=== PATIENT | male | born 1950 | race Caucasian/White ===

== ENCOUNTER 2023-11-23 15:18 | Inpatient (IN) | payer MEDICARE, OTHER ==
[2023-11-23] MEDS ORDERED: VANCOMYCIN IV PER PHARMACY 1 EACH MISC MISCELLANE PRN (16:08)
--- NOTE | 2023-11-23 16:08 | ED ---
General Adult HPI - General Chief complaint: Fall Stated complaint: Diabetic ulcer Time Seen by Provider: 11/23/23 15:23 Source: patient, RN/MD, RN notes reviewed Mode of arrival: EMS Limitations: no limitations - History of Present Illness Initial comments: Patient is a 73-year-old male present to the emergency department as a transfer from [facility]. Patient did have a fall last night. Patient did strike his head. Patient is unable to get up secondary to he is not ambulatory. Patient was seen at [facility] and concern for early onset rhabdomyolysis and nonhealing foot ulcers. Patient was started on Zosyn and vancomycin. Patient was transferred for further evaluation of ulcers as well as fluids. Patient states he is diabetic and has severe neuropathy and therefore is not ambulatory. Review of Systems ROS Statement: Those systems with pertinent positive or pertinent negative responses have been documented in the HPI. ROS Other: All systems not noted in ROS Statement are negative. Constitutional: Denies: fever Eyes: Denies: eye pain ENT: Denies: ear pain Respiratory: Denies: cough Cardiovascular: Denies: chest pain Endocrine: Reports: fatigue Gastrointestinal: Denies: abdominal pain Genitourinary: Denies: dysuria Skin: Reports: as per HPI General Exam Limitations: no limitations General appearance: alert, in no apparent distress Head exam: Present: other (Soft tissue swelling left side) Eye exam: Present: normal appearance, PERRL, EOMI Neck exam: Present: normal inspection. Absent: tenderness Respiratory exam: Present: normal lung sounds bilaterally Cardiovascular Exam: Present: regular rate, normal rhythm GI/Abdominal exam: Present: soft. Absent: tenderness Extremities exam: Present: pedal edema, other (Right foot with gangrenous small ulcers of the toe on the first and fifth. There is also a 4 cm ulcer of the lateral midfoot on the plantar side with necrotic appearance. There is other ulcers as well.) Neurological exam: Present: alert Expanded Neurological exam: Present: protecting the airway Patient oriented to: Present: person, place, time Speech: Present: fluid speech Motor strength exam: RUE: 5, LUE: 5, RLE: 2/1, LLE: 2/1 Eye Response: (4) open spontaneously Motor Response: (6) obeys commands Verbal Response: (5) oriented Psychiatric exam: Present: normal affect, normal mood Skin exam: Present: other (Skin ulcers, right foot) Course Vital Signs 11/23/23 15:26 Temperature 98.5 F Pulse Rate 85 Respiratory 18 Rate Blood Pressure 168/80 O2 Sat by Pulse 98 Oximetry Medical Decision Making - Medical Decision Making Was pt. sent in by a medical professional or institution (, PA, BEEF TRIMMER, urgent care, hospital, or jail...) When possible be specific @ -Patient was sent from [facility] Did you speak to anyone other than the patient for history (EMS, parent, family, police, friend...)? What history was obtained from this source @ -Speak with transferring physician Dr. Troy Toney Did you review nursing and triage notes (agree or disagree)? Why? @ -I reviewed and agree with nursing and triage notes Were old charts reviewed (outside hosp., previous admission, EMS record, old EKG, old radiological studies, urgent care reports/EKG's, jail records)? Report findings @ -Reviewed from [facility] Differential Diagnosis (chest pain, altered mental status, abdominal pain women, abdominal pain men, vaginal bleeding, weakness, fever, dyspnea, syncope, headache, dizziness, GI bleed, back pain, seizure, CVA, palpatations, mental health, musculoskeletal)? @ -Differential Weakness: Hypoglycemia, shock, sepsis, hyponatremia, anemia, infection, CA, ETOH, adverse medicine reaction, overdose, stroke, this is not meant to be an all-inclusive list. EKG interpreted by me (3pts min.). @ -As above X-rays interpreted by me (1pt min.). @ -Left shoulder without acute abnormality CT interpreted by me (1pt min.). @ -None done U/S interpreted by me (1pt. min.). @ -None done What testing was considered but not performed or refused? (CT, X-rays, U/S, labs)? Why? @ -X-ray left shoulder will be added What meds were considered but not given or refused? Why? @ -None Did you discuss the management of the patient with other professionals (professionals i.e. , IBIS, BEEF TRIMMER, lab, RT, psych nurse, social insurance analyst, recovery assistant, teacher, emergency communications officer, human services case manager)? Give summary @ -Dr. Henderson will admit covering Dr. Paul Was smoking cessation discussed for >3mins.? @ -No Was critical care preformed (if so, how long)? @ -No Were there social determinants of health that impacted care today? How? (Homelessness, low income, unemployed, alcoholism, drug addiction, transportation, low edu. Level, literacy, decrease access to med. care, snf, rehab)? @ -No Was there de-escalation of care discussed even if they declined (Discuss DNR or withdrawal of care, Hospice)? DNR status @ -No What co-morbidities impacted this encounter? (DM, HTN, Smoking, COPD, CAD, Cancer, CVA, ARF, Chemo, Hep., AIDS, mental health diagnosis, sleep apnea, morbid obesity)? @ -Diabetes Was patient admitted / discharged? Hospital course, mention meds given and route, prescriptions, significant lab abnormalities, going to OR and other pertinent info. @ -Patient presents as a transfer with concerns for ulcer and early rhabdo. Patient will be admitted. Admission orders written. Consult will be placed. IV antibiotics will be continued. Cultures not ordered secondary to patient already started on IV antibiotics prior to arrival Undiagnosed new problem with uncertain prognosis? @ -No Drug Therapy requiring intensive monitoring for toxicity (Heparin, Nitro, Insulin, Cardizem)? @ -No Were any procedures done? @ -No Diagnosis/symptom? @ -Gangrenous foot ulcers, rhabdomyolysis Acute, or Chronic, or Acute on Chronic? @ -Acute, acute Uncomplicated (without systemic symptoms) or Complicated (systemic symptoms)? @ -Complicated with neuropathy Side effects of treatment? @ -No Exacerbation, Progression, or Severe Exacerbation? @ -No Poses a threat to life or bodily function? How? (Chest pain, USA, CA, pneumonia, PE, COPD, DKA, ARF, appy, cholecystitis, CVA, Diverticulitis, Homicidal, Suicidal, threat to staff... and all critical care pts) @ -Threat to renal function and limb Disposition Clinical Impression: Diabetic foot ulcer, Rhabdomyolysis, Fall Disposition: ADMITTED IP TO THIS HOSP Is patient prescribed a controlled substance at d/c from ED?: No Referrals: Brendon Eli MD [Primary Care Provider] - 1-2 days Time of Disposition: 16:07
[2023-11-23] MEDS ORDERED: NALOXONE 0.4 MG/ML 1 ML VIAL IV PRN (16:10)
--- NOTE | 2023-11-23 16:32 | XR ---
EXAMINATION TYPE: XR shoulder complete 3 views LT DATE OF EXAM: 11/23/2023 Comparison: None Clinical History: 73-year-old male pain after fall Findings: Moderate degenerative change at the AC joint. There is some soft tissue swelling overlying the should er. Subtle irregularity at the distal acromion adjacent to the AC joint. Subacromial space is preserv ed. Some sclerosis at the greater tuberosity may reflect chronic rotator cuff tendinopathy. Otherwise , no acute fracture, subluxation, dislocation is seen. Impression: Moderate AC joint OA but with subtle irregularity at the distal acromion adjacent to the AC joint. If focal pain here, unable to exclude a subtle nondisplaced fracture.
[2023-11-23] MEDS: VANCOMYCIN 2,250 MG in SODIUM CHLORIDE 0.9% 500 ML 500 ML IVPB STA (17:31)
[2023-11-23] MEDS: MORPHINE SULFATE 4 MG/ML SYRINGE IV PRN (17:35)
[2023-11-23 18:35] LABS: ALT 25 U/L (4-49); AST 79 U/L (17-59); African American GFR (CKD) 49 (>60 ml/min/1.73 sqM); Albumin 2.9 g/dL (3.5-5.0); Alkaline Phosphatase 120 U/L (38-126); Anion Gap 6 mmol/L; Blood Urea Nitrogen 39 mg/dL (9-20); Calcium 8.2 mg/dL (8.4-10.2); Carbon Dioxide 25 mmol/L (22-30); Chloride 108 mmol/L (98-107); Glucose 266 mg/dL (74-99); Non-African American GFR(CKD) 43 (>60 ml/min/1.73 sqM); Sodium 139 mmol/L (137-145); Total Bilirubin 0.8 mg/dL (0.2-1.3); Total Protein 5.5 g/dL (6.3-8.2)
[2023-11-23] MEDS: PIPERACILLIN-TAZOBACTAM 3.375 GM in SODIUM CHLORIDE 0.9% 100 ML IVPB SCH (19:02)
[2023-11-23] MEDS ORDERED: ALPRAZolam 0.25 MG TAB PO PRN (20:40)
[2023-11-23] MEDS ORDERED: DEXTROSE 50% SYRINGE 50 ML IVP PRN ×2 (20:40)
[2023-11-23] MEDS ORDERED: ONDANSETRON 4 MG/2 ML VIAL IVP PRN (20:40)
[2023-11-23] MEDS ORDERED: LACTULOSE 20 GM/30 ML CUP PO PRN (20:40)
[2023-11-23] MEDS ORDERED: CALCIUM CARBONATE 500 MG CHEWABLE PO PRN (20:40)
[2023-11-23] MEDS: ATORVASTATIN 20 MG TAB PO SCH (21:35)
[2023-11-23] MEDS: GABAPENTIN 400 MG CAP PO SCH (21:35)
[2023-11-23] MEDS: FAMOTIDINE 20 MG TAB PO SCH (21:35)
[2023-11-23] MEDS: ENOXAPARIN 40 MG/0.4 ML SYRINGE SQ SCH (21:36)
[2023-11-23 21:49] LABS: Glucose,Whole Blood 262 mg/dL (70-110)
[2023-11-23] MEDS: SODIUM CHLORIDE 0.9% 1,000 ML IV SCH (22:24)
[2023-11-23] MEDS: traMADol 50 MG TAB PO PRN (23:03)
[2023-11-23 23:07] LABS: Appearance,Urine Clear (Clear); Bacteria,Urine Rare /hpf; Bilirubin,Urine Negative (Negative); Blood,Urine Large (Negative); Color,Urine Light Yellow; Glucose,Urine (UA) 3+ (Negative); Ketones,Urine 1+ (Negative); Leukocyte Esterase,Urine Negative (Negative); Nitrite,Urine Negative (Negative); PH, Urine 5.5 (5.0-8.0); Protein,Urine 2+ (Negative); RBC,Urine 1 /hpf (0-5); Squamous Epithelial Cell,Urine 1 /hpf (0-4); Urobilinogen,Urine <2.0 mg/dL (<2.0); WBC,Urine 1 /hpf (0-5)
--- NOTE | 2023-11-23 23:24 | P.HPIM ---
History of Present Illness H&P Date: 11/23/23 Chief Complaint: Right leg wounds This is a pleasant 73-year-old patient follows with Dr. Eli. Chronic stable medical conditions include hyperlipidemia, hypothyroid, diabetes, hypertension, diabetic peripheral neuropathy for which she takes Neurontin. Patient presents with worsening leg wounds specially the right toes right lower extremity. Breakdown of skin. Some tenderness. No change in bowel pattern. At her baseline uses electric wheelchair. Patient was due to follow-up at wound care center out of the area. Denies any fever. Gets chills. Review of systems: GEN.: Tired EYES: None HEENT: None NECK: None RESPIRATORY: None CARDIOVASCULAR: None GASTROINTESTINAL: None GENITOURINARY: None MUSCULOSKELETAL: Joint pains e LYMPHATICS: None HEMATOLOGICAL: None PSYCHIATRY: None NEUROLOGICAL: painful peripheral neuropathy] Social history: Lives alone. Stopped smoking 32 years ago. Smoked for about 28 years more than pack a day. Used to be a team truck driver. Does use electric wheelchair. Physical examination: VITAL SIGNS: 98.5, 84, 18, 160/85, 96% room air GENERAL: BMI 43.9, reclining bed awake tired. EYES: Pupils equal. Conjunctiva homa l. HEENT: External appearance of nose and ears normal, oral cavity grossly normal. NECK: JVD not raised; masses not palpable. HEART: First and second heart sounds are normal; no edema. LUNGS: Respiratory rate normal; decreased breath sounds. ABDOMEN: Soft, nontender, liver spleen not palpable, no masses palpable. PSYCH: Alert and oriented x3; mood and affect homa l. EXTREMITY: Breakdown of skin in the right lower extremity below the bartlett. Surrounding redness. Superficial. Right foot a bit swollen. Wounds around the toes. Tender. NEUROLOGICAL: Cranial nerves grossly intact; no facial asymmetry, power and sensation decreased peripherally. LYMPHATICS: No lymph nodes palpable in the axilla and neck INVESTIGATIONS, reviewed in the clinical context: November 22: Sodium 139 potassium 5 BUN 39 creatinine 1.60 AST 79 ALT 25 Assessment and plan: -Right lower extremity wound secondary to diabetes. Around the toes. Below the knee to the ankle. Some superficial. Surrounding cellulitis. Right foot is swollen. Consult vascular. iV Zosyn. -Morbid obesity BMI 43.9 Weight loss measures -Painful peripheral neuropathy secondary to diabetes Given renal function will cut back Neurontin to 1600 mg nightly -Diabetes mellitus type 2 on insulin- Follow Accu-Cheks with sliding scale -Hypothyroid Synthroid 112 mcg a day -Hyperlipidemia Zocor 40 mg nightly -Full code -Chronic gait dysfunction uses a electric wheelchair Consultation to vascular. ID. VANDANA Pelayo. Medications and Allergies Home Medications Medication Instructions Recorded Confirmed Type Aspirin EC [Ecotrin Low Dose] 81 mg PO DAILY 11/23/23 11/23/23 History Furosemide [Lasix] 20 mg PO DAILY 11/23/23 11/23/23 History Gabapentin [Neurontin] 1,600 mg PO HS 11/23/23 11/23/23 History Gabapentin [Neurontin] 800 mg PO DAILY 11/23/23 11/23/23 History Insulin Aspart Prot/Insuln Asp See Protocol SQ AC-BID 11/23/23 11/23/23 History [NovoLOG MIX 70-30 Flexpen] Levothyroxine Sodium [Synthroid] 112 mcg PO DAILY 11/23/23 11/23/23 History Simvastatin [Zocor] 40 mg PO HS 11/23/23 11/23/23 History lisinopriL [Zestril] 20 mg PO DAILY 11/23/23 11/23/23 History metFORMIN HCL ER [Glucophage XR] 1,000 mg PO BID-W/MEALS 11/23/23 11/23/23 History Allergies Allergy/AdvReac Type Severity Reaction Status Date / Time No Known Allergies Allergy Verified 11/23/23 17:09 Physical Exam Vitals: Vital Signs Temp Pulse Resp BP Pulse Ox 11/23/23 18:04 84 18 160/85 96 11/23/23 15:26 98.5 F 85 18 168/80 98 Intake and Output 11/23/23 11/23/23 11/24/23 14:59 22:59 06:59 Other: Weight 151.046 kg Results CBC & Chem 7: 11/23/23 18:02 Labs: Abnormal Lab Results - Last 24 Hours (Table) 11/23/23 11/23/23 11/23/23 Range/Units 18:02 21:44 21:48 Chloride 108 H (98-107) mmol/L BUN 39 H (9-20) mg/dL Creatinine 1.60 H (0.66-1.25) mg/dL Glucose 266 H (74-99) mg/dL POC Glucose (mg/dL) 262 H (70-110) mg/dL Calcium 8.2 L (8.4-10.2) mg/dL AST 79 H (17-59) U/L Total Protein 5.5 L (6.3-8.2) g/dL Albumin 2.9 L (3.5-5.0) g/dL Urine Protein 2+ H (Negative) Urine Glucose (UA) 3+ H (Negative) Urine Ketones 1+ H (Negative) Urine Blood Large H (Negative) Urine Bacteria Rare H (None) /hpf
--- NOTE | 2023-11-24 01:39 | XR ---
EXAM: XR Chest, 1 View CLINICAL HISTORY: ITS.REASON XR Reason: Ex-smoker TECHNIQUE: Frontal view of the chest. COMPARISON: No relevant prior studies available. FINDINGS: Lungs: Unremarkable. No consolidation. Pleural space: Unremarkable. No pleural effusion or pneumothorax. Heart: Unremarkable. No cardiomegaly or pulmonary vascular congestion. Bones/joints: No acute fracture. No dislocation. IMPRESSION: No evidence of acute cardiopulmonary disease.
[2023-11-24 04:07] LABS: Glucose,Whole Blood 228 mg/dL (70-110)
[2023-11-24] MEDS ORDERED: ZINC OXIDE PASTE (Z-GUARD) 1 APPLIC TOPICAL PRN (05:14)
[2023-11-24] MEDS: LEVOTHYROXINE 112 MCG TAB PO SCH (06:35)
[2023-11-24 06:53] LABS: Glucose,Whole Blood 265 mg/dL (70-110)
[2023-11-24] MEDS: INSULIN ASPART (NovoLOG) 100 UNIT/ML VIAL SQ SCH (08:32)
[2023-11-24] MEDS: lisinopriL 20 MG TAB PO SCH (08:32)
[2023-11-24] MEDS: metFORMIN 500 MG TAB PO SCH (08:32)
[2023-11-24] MEDS: ASPIRIN 81 MG PO SCH (08:32)
[2023-11-24] MEDS ORDERED: GABAPENTIN 400 MG CAP PO SCH (09:00)
[2023-11-24 10:39] LABS: Basophils # (A) 0.07 X 10*3/uL (0.00-0.10); Basophils % (A) 0.7 %; Eosinophils # (A) 0.35 X 10*3/uL (0.04-0.35); Eosinophils % (A) 3.3 %; HCT 27.1 % (39.6-50.0); HGB 8.4 g/dL (13.0-17.0); Lymphocytes # (A) 0.86 X 10*3/uL (0.90-5.00); Lymphocytes % (A) 8.2 %; MCV 90.3 FL (80.0-97.0); Monocytes % (A) 4.7 %; NRBC Per 100 WBC 0 X 10*3/uL (0.00-0.01); Neutrophils # (A) 8.71 X 10*3/uL (1.80-7.70); Neutrophils % (A) 82.6 %; Platelet Count 320 X 10*3/uL (140-440); RDW 12.9 % (11.5-14.5); WBC 10.54 X 10*3/uL (4.50-10.00)
[2023-11-24 10:59] LABS: ALT 29 U/L (10-49); AST 73 U/L (14-35); Albumin 2.9 g/dL (3.8-4.9); Albumin/Globulin Ratio 1.32 Ratio (1.60-3.17); Alkaline Phosphatase 103 U/L (41-126); BUN/Creat Ratio 21.18 Ratio (12.00-20.00); Calcium 7.8 mg/dL (8.7-10.3); Carbon Dioxide 23.8 mmol/L (21.6-31.8); Chloride 106 mmol/L (96-109); Globulin 2.2 g/dL (1.6-3.3); Glucose 230 mg/dL (70-110); Magnesium 1.9 mg/dL (1.5-2.4); Potassium 4.7 mmol/L (3.5-5.5); Sodium 141 mmol/L (135-145); Total Bilirubin 0.3 mg/dL (0.3-1.2); Total Protein 5.1 g/dL (6.2-8.2)
[2023-11-24 11:47] LABS: Glucose,Whole Blood 250 mg/dL (70-110)
[2023-11-24] MEDS ORDERED: VANCOMYCIN 2,250 MG in SODIUM CHLORIDE 0.9% 500 ML 500 ML IVPB SCH (12:00)
--- NOTE | 2023-11-24 12:11 | P.CONS ---
History of Present Illness - Reason for Consult Consult date: 11/24/23 wound care - History of Present Illness This is a 73-year-old patient with past medical history significant for COPD diabetes high cholesterol and hypertension. Patient has a nonhealing ulceration to the right dorsal great toe measuring approximately 2 x 2 x 0.2 cm with eschar slough and nonviable tissue present minimal granulation noted. Patient has a stage II pressure ulcer to the right heel with significant amount of slough and nonviable tissue. Ulceration measures approximately 4 x 4 x 0.2 cm. Patient also has a unstageable pressure ulcer to the right midfoot plantar aspect with eschar present no granulation. Patient has multiple ulcerations noted to bilateral lower extremities and left foot in various stage of healing. Patient also has a stage II pressure ulcer to the sacrum. Review Of Systems: Constitutional: No fever, no chills, no night sweats. No weight change. No weakness, fatigue or lethargy. No daytime sleepiness. Integumentary:reports wounds, no lesions. No rash or pruritus. No unusual bruising. No change in hair or nails. Physical exam: General Appearance: Alert, cooperative, no distress, appears stated age. Skin: See HPI all other Skin color, texture, tugor normal, no rashes or lesions. Neurologic: Alert oriented x3 Assessment: 1. Nonhealing ulceration with fat layer exposure right great toe 2. Stage II pressure ulcer right calcaneus 3. Unstageable pressure ulcer right foot 4. Stage II pressure ulcer sacrum 5. Diabetes with skin ulceration 6. Diabetes with foot ulceration Plan: 1. Apply honey gel to the right foot wrapped with dry gauze rolled gauze and secure with tape. Change Wednesday. May benefit from a debridement of the ulcerations to the right foot. 2. Apply zinc barrier cream to left foot bilateral lower extremities and sacrum. Turn patient every 2 hours as needed. Utilize offloading for sacrum and bilateral heels. 3. Patient would benefit from advanced wound care and wound care setting. We happy to see him upon discharge. Thank you for the consultation any questions please contact the wound care center DNP note has been reviewed and discussed with Dr. Dao and the impression and plan of care has been directed as dictated. Past Medical History Past Medical History: COPD, Diabetes Mellitus, Hyperlipidemia, Hypertension, Myocardial Infarction (NM), Neurologic Disorder, Thyroid Disorder Additional Past Medical History / Comment(s): Peripheral neuropathy, diabetic leg ulcers, Last Myocardial Infarction Date:: Pt guesses its been about 5 years2018 History of Any Multi-Drug Resistant Organisms: Unobtainable Past Surgical History: Heart Catheterization With Stent Additional Past Surgical History / Comment(s): Bilateral caterac surgery Past Anesthesia/Blood Transfusion Reactions: No Reported Reaction Date of Last Stent Placement:: 2020 Smoking Status: Former smoker Past Alcohol Use History: Heavy Additional Past Alcohol Use History / Comment(s): Pt stopped drinking 16 years ago Past Drug Use History: None Reported Medications and Allergies Home Medications Medication Instructions Recorded Confirmed Type Aspirin EC [Ecotrin Low Dose] 81 mg PO DAILY 11/23/23 11/23/23 History Furosemide [Lasix] 20 mg PO DAILY 11/23/23 11/23/23 History Gabapentin [Neurontin] 1,600 mg PO HS 11/23/23 11/23/23 History Gabapentin [Neurontin] 800 mg PO DAILY 11/23/23 11/23/23 History Insulin Aspart Prot/Insuln Asp See Protocol SQ AC-BID 11/23/23 11/23/23 History [NovoLOG MIX 70-30 Flexpen] Levothyroxine Sodium [Synthroid] 112 mcg PO DAILY 11/23/23 11/23/23 History Simvastatin [Zocor] 40 mg PO HS 11/23/23 11/23/23 History lisinopriL [Zestril] 20 mg PO DAILY 11/23/23 11/23/23 History metFORMIN HCL ER [Glucophage XR] 1,000 mg PO BID-W/MEALS 11/23/23 11/23/23 History Allergies Allergy/AdvReac Type Severity Reaction Status Date / Time No Known Allergies Allergy Verified 11/23/23 17:09 Physical Exam Vitals: Vital Signs Temp Pulse Pulse Resp BP BP Pulse Ox 11/24/23 06:51 97.6 F 77 19 163/74 96 11/24/23 04:14 97.8 F 83 16 163/69 96 11/24/23 01:42 98.3 F 78 20 145/76 98 11/23/23 18:04 84 18 160/85 96 11/23/23 15:26 98.5 F 85 18 168/80 98 Intake and Output 11/23/23 11/24/23 11/24/23 22:59 06:59 14:59 Other: Voiding Method Urinal Urinal # Voids 1 Weight 151.046 kg 151.046 kg Results CBC & Chem 7: 11/24/23 06:15 11/24/23 06:15 Labs: Abnormal Lab Results - Last 24 Hours (Table) 11/23/23 11/23/23 11/23/23 Range/Units 18:02 21:44 21:48 WBC (4.50-10.00) X 10*3/uL RBC (4.40-5.60) X 10*6/uL Hgb (13.0-17.0) g/dL Hct (39.6-50.0) % MCHC (32.0-37.0) g/dL Immature Gran # (0.00-0.04) X 10*3/uL Neutrophils # (1.80-7.70) X 10*3/uL Lymphocytes # (0.90-5.00) X 10*3/uL Chloride 108 H (98-107) mmol/L BUN 39 H (9-20) mg/dL Creatinine 1.60 H (0.66-1.25) mg/dL Est GFR (CKD-EPI) (>=60) BUN/Creatinine Ratio (12.00-20.00) Ratio Glucose 266 H (74-99) mg/dL POC Glucose (mg/dL) 262 H (70-110) mg/dL Calcium 8.2 L (8.4-10.2) mg/dL AST 79 H (17-59) U/L Total Protein 5.5 L (6.3-8.2) g/dL Albumin 2.9 L (3.5-5.0) g/dL Albumin/Globulin Ratio (1.60-3.17) Ratio Urine Protein 2+ H (Negative) Urine Glucose (UA) 3+ H (Negative) Urine Ketones 1+ H (Negative) Urine Blood Large H (Negative) Urine Bacteria Rare H (None) /hpf 11/24/23 11/24/23 11/24/23 Range/Units 04:05 06:15 06:15 WBC 10.54 H (4.50-10.00) X 10*3/uL RBC 3.00 L (4.40-5.60) X 10*6/uL Hgb 8.4 L (13.0-17.0) g/dL Hct 27.1 L (39.6-50.0) % MCHC 31.0 L (32.0-37.0) g/dL Immature Gran # 0.05 H (0.00-0.04) X 10*3/uL Neutrophils # 8.71 H (1.80-7.70) X 10*3/uL Lymphocytes # 0.86 L (0.90-5.00) X 10*3/uL Chloride (98-107) mmol/L BUN 36.0 H (9-20) mg/dL Creatinine 1.7 H (0.66-1.25) mg/dL Est GFR (CKD-EPI) 42 L (>=60) BUN/Creatinine Ratio 21.18 H (12.00-20.00) Ratio Glucose 230 H (74-99) mg/dL POC Glucose (mg/dL) 228 H (70-110) mg/dL Calcium 7.8 L (8.4-10.2) mg/dL AST 73 H (17-59) U/L Total Protein 5.1 L (6.3-8.2) g/dL Albumin 2.9 L (3.5-5.0) g/dL Albumin/Globulin Ratio 1.32 L (1.60-3.17) Ratio Urine Protein (Negative) Urine Glucose (UA) (Negative) Urine Ketones (Negative) Urine Blood (Negative) Urine Bacteria (None) /hpf 11/24/23 11/24/23 Range/Units 06:52 11:46 WBC (4.50-10.00) X 10*3/uL RBC (4.40-5.60) X 10*6/uL Hgb (13.0-17.0) g/dL Hct (39.6-50.0) % MCHC (32.0-37.0) g/dL Immature Gran # (0.00-0.04) X 10*3/uL Neutrophils # (1.80-7.70) X 10*3/uL Lymphocytes # (0.90-5.00) X 10*3/uL Chloride (98-107) mmol/L BUN (9-20) mg/dL Creatinine (0.66-1.25) mg/dL Est GFR (CKD-EPI) (>=60) BUN/Creatinine Ratio (12.00-20.00) Ratio Glucose (74-99) mg/dL POC Glucose (mg/dL) 265 H 250 H (70-110) mg/dL Calcium (8.4-10.2) mg/dL AST (17-59) U/L Total Protein (6.3-8.2) g/dL Albumin (3.5-5.0) g/dL Albumin/Globulin Ratio (1.60-3.17) Ratio Urine Protein (Negative) Urine Glucose (UA) (Negative) Urine Ketones (Negative) Urine Blood (Negative) Urine Bacteria (None) /hpf Assessment and Plan (1) Non-pressure chronic ulcer of other part of right foot with fat layer exposed Current Visit: Yes Status: Acute Code(s): L97.512 - NON-PRS CHRONIC ULCER OTH PRT RIGHT FOOT W FAT LAYER EXPOSED SNOMED Code(s): 22073492695148051 (2) Pressure ulcer of right heel, stage 2 Current Visit: Yes Status: Acute Code(s): L89.612 - PRESSURE ULCER OF RIGHT HEEL, STAGE 2 SNOMED Code(s): 19764457409320 (3) Pressure ulcer of right foot, unstageable Current Visit: Yes Status: Acute Code(s): L89.890 - PRESSURE ULCER OF OTHER SITE, UNSTAGEABLE SNOMED Code(s): 735412933 (4) Type 2 diabetes mellitus with foot ulcer Current Visit: Yes Status: Acute Code(s): E11.621 - TYPE 2 DIABETES MELLITUS WITH FOOT ULCER; L97.509 - NON-PRESSURE CHRONIC ULCER OTH PRT UNSP FOOT W UNSP SEVERITY SNOMED Code(s): 5227124157354 (5) Type 2 diabetes mellitus with other skin ulcer Current Visit: Yes Status: Acute Code(s): E11.622 - TYPE 2 DIABETES MELLITUS WITH OTHER SKIN ULCER; L98.499 - NON-PRESSURE CHRONIC ULCER OF SKIN OF SITES W UNSP SEVERITY SNOMED Code(s): 237752845041638
--- NOTE | 2023-11-24 12:20 | US ---
EXAMINATION TYPE: US kidneys/renal and bladder DATE OF EXAM: 11/23/2023 COMPARISON: NONE CLINICAL INDICATION: Male, 73 years old with history of eval for chronic renal failure; evaluate wrap turner monica kidney disease. EXAM MEASUREMENTS: Right Kidney: Unable to visualize due to large body habitus Left Kidney: Approximately 9.8 x 7.1 x 6.2 cm Extremely limited exam due to patient body habitus Right Kidney: Unable to visualize Left Kidney: Difficult to fully evaluate due to body habitus Bladder: WNL Bilateral Jets seen: Not seen IMPRESSION: Very limited exam due to poor visibility of organs. Unremarkable as seen.
--- NOTE | 2023-11-24 12:21 | P.GSCN ---
History of Present Illness Consult date: 11/24/23 Reason for Consult: Diabetic ulcers Requesting physician: Santy Rodriguez History of present illness: Is a pleasant 73-year-old male with past medical history including diabetes mellitus, neuropathy, venous insufficiency with venous stasis and venous ulcers who is nonambulatory presented to [facility] status post fall and striking his head. Patient was seen and worked up there had imaging done with no acute findings however they were concerned with his diabetic ulcers and he was transferred here for further evaluation and care. Patient states he has a history of venous ulcers and has followed in the past at the wound center. States that he was not really aware that he had wounds on his foot. Patient lives at home alone. He is overall nonambulatory other than standing to get into his electric scooter. He states he does care for himself and he has not been getting wound care currently but was scheduled to go to program development specialist in [place] this week. Denies any fevers or chills, no nausea or vomiting. No shortness of breath or chest pain. He denies being on any anticoagulation. Foot x-ray done at [facility] report states no evidence of osteomyelitis. Review of Systems A 14 point review systems was completed all pertinent positives and negatives as stated in the HPI. Past Medical History Past Medical History: COPD, Diabetes Mellitus, Hyperlipidemia, Hypertension, Myocardial Infarction ([place]), Neurologic Disorder, Thyroid Disorder Additional Past Medical History / Comment(s): Peripheral neuropathy, diabetic leg ulcers, Last Myocardial Infarction Date:: Pt guesses its been about 5 years2018 History of Any Multi-Drug Resistant Organisms: Unobtainable Past Surgical History: Heart Catheterization With Stent Additional Past Surgical History / Comment(s): Bilateral caterac surgery Past Anesthesia/Blood Transfusion Reactions: No Reported Reaction Date of Last Stent Placement:: 2020 Smoking Status: Former smoker Past Alcohol Use History: Heavy Additional Past Alcohol Use History / Comment(s): Pt stopped drinking 16 years ago Past Drug Use History: None Reported Medications and Allergies Home Medications Medication Instructions Recorded Confirmed Type Aspirin EC [Ecotrin Low Dose] 81 mg PO DAILY 11/23/23 11/23/23 History Furosemide [Lasix] 20 mg PO DAILY 11/23/23 11/23/23 History Gabapentin [Neurontin] 1,600 mg PO HS 11/23/23 11/23/23 History Gabapentin [Neurontin] 800 mg PO DAILY 11/23/23 11/23/23 History Insulin Aspart Prot/Insuln Asp See Protocol SQ AC-BID 11/23/23 11/23/23 History [NovoLOG MIX 70-30 Flexpen] Levothyroxine Sodium [Synthroid] 112 mcg PO DAILY 11/23/23 11/23/23 History Simvastatin [Zocor] 40 mg PO HS 11/23/23 11/23/23 History lisinopriL [Zestril] 20 mg PO DAILY 11/23/23 11/23/23 History metFORMIN HCL ER [Glucophage XR] 1,000 mg PO BID-W/MEALS 11/23/23 11/23/23 History Allergies Allergy/AdvReac Type Severity Reaction Status Date / Time No Known Allergies Allergy Verified 11/23/23 17:09 Surgical - Exam Vital Signs Temp Pulse Resp BP Pulse Ox 98.5 F 85 18 168/80 98 11/23/23 15:26 11/23/23 15:26 11/23/23 15:26 11/23/23 15:26 11/23/23 15:26 General appearance: The patient is alert, oriented, appears in no acute distress. Morbidly obese HET: Head is normocephalic and atraumatic. Pupils are equal and reactive. Neck: Supple. Heart: Regular. Lungs: Equal expansion, normal respiratory effort. Abdomen: Soft, nontender, nondistended. Extremities: Bilateral lower extremity swelling, venous insufficiency with venous stasis and multiple venous ulcers. Patient also with pressure ulcer to his right heel and right lateral side of foot with eschar. Multiple toes with wounds. Palpable bilateral DP pulses Neurological: No focal deficits. Decreased strength. Results - Labs 11/24/23 06:15 11/24/23 06:15 Abnormal Lab Results - Last 24 Hours (Table) 11/23/23 11/23/23 11/23/23 Range/Units 18:02 21:44 21:48 WBC (4.50-10.00) X 10*3/uL RBC (4.40-5.60) X 10*6/uL Hgb (13.0-17.0) g/dL Hct (39.6-50.0) % MCHC (32.0-37.0) g/dL Immature Gran # (0.00-0.04) X 10*3/uL Neutrophils # (1.80-7.70) X 10*3/uL Lymphocytes # (0.90-5.00) X 10*3/uL Chloride 108 H (98-107) mmol/L BUN 39 H (9-20) mg/dL Creatinine 1.60 H (0.66-1.25) mg/dL Est GFR (CKD-EPI) (>=60) BUN/Creatinine Ratio (12.00-20.00) Ratio Glucose 266 H (74-99) mg/dL POC Glucose (mg/dL) 262 H (70-110) mg/dL Calcium 8.2 L (8.4-10.2) mg/dL AST 79 H (17-59) U/L Total Protein 5.5 L (6.3-8.2) g/dL Albumin 2.9 L (3.5-5.0) g/dL Albumin/Globulin Ratio (1.60-3.17) Ratio Urine Protein 2+ H (Negative) Urine Glucose (UA) 3+ H (Negative) Urine Ketones 1+ H (Negative) Urine Blood Large H (Negative) Urine Bacteria Rare H (None) /hpf 11/24/23 11/24/23 11/24/23 Range/Units 04:05 06:15 06:15 WBC 10.54 H (4.50-10.00) X 10*3/uL RBC 3.00 L (4.40-5.60) X 10*6/uL Hgb 8.4 L (13.0-17.0) g/dL Hct 27.1 L (39.6-50.0) % MCHC 31.0 L (32.0-37.0) g/dL Immature Gran # 0.05 H (0.00-0.04) X 10*3/uL Neutrophils # 8.71 H (1.80-7.70) X 10*3/uL Lymphocytes # 0.86 L (0.90-5.00) X 10*3/uL Chloride (98-107) mmol/L BUN 36.0 H (9-20) mg/dL Creatinine 1.7 H (0.66-1.25) mg/dL Est GFR (CKD-EPI) 42 L (>=60) BUN/Creatinine Ratio 21.18 H (12.00-20.00) Ratio Glucose 230 H (74-99) mg/dL POC Glucose (mg/dL) 228 H (70-110) mg/dL Calcium 7.8 L (8.4-10.2) mg/dL AST 73 H (17-59) U/L Total Protein 5.1 L (6.3-8.2) g/dL Albumin 2.9 L (3.5-5.0) g/dL Albumin/Globulin Ratio 1.32 L (1.60-3.17) Ratio Urine Protein (Negative) Urine Glucose (UA) (Negative) Urine Ketones (Negative) Urine Blood (Negative) Urine Bacteria (None) /hpf 11/24/23 Range/Units 06:52 WBC (4.50-10.00) X 10*3/uL RBC (4.40-5.60) X 10*6/uL Hgb (13.0-17.0) g/dL Hct (39.6-50.0) % MCHC (32.0-37.0) g/dL Immature Gran # (0.00-0.04) X 10*3/uL Neutrophils # (1.80-7.70) X 10*3/uL Lymphocytes # (0.90-5.00) X 10*3/uL Chloride (98-107) mmol/L BUN (9-20) mg/dL Creatinine (0.66-1.25) mg/dL Est GFR (CKD-EPI) (>=60) BUN/Creatinine Ratio (12.00-20.00) Ratio Glucose (74-99) mg/dL POC Glucose (mg/dL) 265 H (70-110) mg/dL Calcium (8.4-10.2) mg/dL AST (17-59) U/L Total Protein (6.3-8.2) g/dL Albumin (3.5-5.0) g/dL Albumin/Globulin Ratio (1.60-3.17) Ratio Urine Protein (Negative) Urine Glucose (UA) (Negative) Urine Ketones (Negative) Urine Blood (Negative) Urine Bacteria (None) /hpf Diabetes panel 11/23/23 11/24/23 Range/Units 18:02 06:15 Sodium 139 141 (137-145) mmol/L Potassium 5.0 4.7 (3.5-5.1) mmol/L Chloride 108 H 106 (98-107) mmol/L Carbon Dioxide 25 23.8 (22-30) mmol/L BUN 39 H 36.0 H (9-20) mg/dL Creatinine 1.60 H 1.7 H (0.66-1.25) mg/dL Glucose 266 H 230 H (74-99) mg/dL Calcium 8.2 L 7.8 L (8.4-10.2) mg/dL AST 79 H 73 H (17-59) U/L ALT 25 29 (4-49) U/L Alkaline Phosphatase 120 103 (38-126) U/L Total Protein 5.5 L 5.1 L (6.3-8.2) g/dL Albumin 2.9 L 2.9 L (3.5-5.0) g/dL Calcium panel 11/23/23 11/24/23 Range/Units 18:02 06:15 Calcium 8.2 L 7.8 L (8.4-10.2) mg/dL Albumin 2.9 L 2.9 L (3.5-5.0) g/dL Pituitary panel 11/23/23 11/24/23 Range/Units 18:02 06:15 Sodium 139 141 (137-145) mmol/L Potassium 5.0 4.7 (3.5-5.1) mmol/L Chloride 108 H 106 (98-107) mmol/L Carbon Dioxide 25 23.8 (22-30) mmol/L BUN 39 H 36.0 H (9-20) mg/dL Creatinine 1.60 H 1.7 H (0.66-1.25) mg/dL Glucose 266 H 230 H (74-99) mg/dL Calcium 8.2 L 7.8 L (8.4-10.2) mg/dL Adrenal panel 11/23/23 11/24/23 Range/Units 18:02 06:15 Sodium 139 141 (137-145) mmol/L Potassium 5.0 4.7 (3.5-5.1) mmol/L Chloride 108 H 106 (98-107) mmol/L Carbon Dioxide 25 23.8 (22-30) mmol/L BUN 39 H 36.0 H (9-20) mg/dL Creatinine 1.60 H 1.7 H (0.66-1.25) mg/dL Glucose 266 H 230 H (74-99) mg/dL Calcium 8.2 L 7.8 L (8.4-10.2) mg/dL Total Bilirubin 0.8 0.3 (0.2-1.3) mg/dL AST 79 H 73 H (17-59) U/L ALT 25 29 (4-49) U/L Alkaline Phosphatase 120 103 (38-126) U/L Total Protein 5.5 L 5.1 L (6.3-8.2) g/dL Albumin 2.9 L 2.9 L (3.5-5.0) g/dL Assessment and Plan Assessment: 1. Bilateral lower extremity venous ulcers 2. Right foot diabetic wounds 3. Venous insufficiency 4. Venous stasis 5. Diabetes mellitus with peripheral neuropathy 6. Nonambulatory 7. Morbid obesity Plan: 1. Continue symptomatic supportive care 2. Consult wound clinic 3. Recommend weight loss 4. Recommend strict glycemic control 5. Will plan for lower extremity debridement 6. Hold Lovenox in the morning 7. Rest of medical management per primary medical team Thank you for this consultation, we will continue to follow. The impression and plan of care has been dictated as directed. Dr. Gray I performed a history and examination of this patient, discussed the same with the dictator. I agree with the dictator's note ,documented as a scribe. Any additional findings or plans will be noted.
[2023-11-24] MEDS: ZINC OXIDE PASTE (Z-GUARD) 1 APPLIC TOPICAL SCH (12:34)
[2023-11-24 12:51] VITALS: BMI 43.9
[2023-11-24 17:07] LABS: Glucose,Whole Blood 251 mg/dL (70-110)
--- NOTE | 2023-11-24 18:47 | P.PN ---
Progress Note - Text Progress Note Date: 11/24/23 Chief Complaint: Right leg wounds This is a pleasant 73-year-old patient follows with Dr. Eli. Chronic stable medical conditions include hyperlipidemia, hypothyroid, diabetes, hypertension, diabetic peripheral neuropathy for which she takes Neurontin. Patient presents with worsening leg wounds specially the right toes right lower extremity. Breakdown of skin. Some tenderness. No change in bowel pattern. At her baseline uses electric wheelchair. Patient was due to follow-up at wound care center out of the area. Denies any fever. Gets chills. November 23: Patient seen by vascular. For debridement in the morning. Wound care was consulted. IV Zosyn. Some pain present. Tolerating diet. Active Medications Acetaminophen (Acetaminophen Tab 325 Mg Tab) 650 mg PO Q6HR PRN PRN Reason: Mild Pain or Fever > 100.5 Alprazolam (Alprazolam 0.25 Mg Tab) 0.25 mg PO Q6HR PRN PRN Reason: Anxiety Aspirin (Aspirin 81 Mg) 81 mg PO DAILY [facility] Last Admin: 11/24/23 08:32 Dose: 81 mg Atorvastatin Calcium (Atorvastatin 20 Mg Tab) 20 mg PO HS [facility] Last Admin: 11/23/23 21:35 Dose: 20 mg Calcium Carbonate/Glycine (Calcium Carbonate 500 Mg Chewable) 1,000 mg PO Q4HR PRN PRN Reason: Dyspepsia Dextrose/Water (Dextrose 50% Syringe 50 Ml) 25 ml IVP PER PROTOCOL PRN; Protocol PRN Reason: Hypoglycemia Dextrose/Water (Dextrose 50% Syringe 50 Ml) 50 ml IVP PER PROTOCOL PRN; Protocol PRN Reason: Hypoglycemia Enoxaparin Sodium (Enoxaparin 40 Mg/0.4 Ml Syringe) 40 mg SQ [facility] Last Admin: 11/23/23 21:36 Dose: 40 mg Famotidine (Famotidine 20 Mg Tab) 20 mg PO DAILY RENY Gabapentin (Gabapentin 400 Mg Cap) 1,600 mg PO HS [facility] Last Admin: 11/23/23 21:35 Dose: 1,600 mg Piperacillin Sod/Tazobactam (Sod 3.375 gm/ Sodium Chloride) 100 mls @ 25 mls/hr IVPB Q8HR RENY; Protocol Last Admin: 11/24/23 17:01 Dose: 25 mls/hr Sodium Chloride (Saline 0.9%) 1,000 mls @ 10 mls/hr IV .Q24H [facility] Last Admin: 11/24/23 08:34 Dose: 130 mls/hr Insulin Aspart (Insulin Aspart (Novolog) 100 Unit/Ml Vial) 0 unit SQ AC-TID [facility] ; Protocol Last Admin: 11/24/23 17:17 Dose: 6 unit Lactulose (Lactulose 20 Gm/30 Ml Cup) 20 gm PO DAILY PRN PRN Reason: Constipation Levothyroxine Sodium (Levothyroxine 112 Mcg Tab) 112 mcg PO 0630 [facility] Last Admin: 11/24/23 06:35 Dose: 112 mcg Lisinopril (Lisinopril 20 Mg Tab) 20 mg PO DAILY [facility] Last Admin: 11/24/23 08:32 Dose: 20 mg Metformin HCl (Metformin 500 Mg Tab) 1,000 mg PO BID-W/MEALS [facility] Last Admin: 11/24/23 17:02 Dose: 1,000 mg Morphine Sulfate (Morphine Sulfate 4 Mg/Ml Syringe) 4 mg IV Q4HR PRN PRN Reason: Severe Pain (Scale 7 to 10) Last Admin: 11/23/23 17:35 Dose: 4 mg Naloxone HCl (Naloxone 0.4 Mg/Ml 1 Ml Vial) 0.2 mg IV Q2M PRN PRN Reason: Opioid Reversal Nystatin (Nystatin 100,000 Unit/Gm Powd 15 Gm) 1 applic TOPICAL BID [facility]; Protocol Ondansetron HCl (Ondansetron 4 Mg/2 Ml Vial) 4 mg IVP Q8HR PRN PRN Reason: Nausea And Vomiting Petrolatum (Zinc Oxide Paste (Z-Guard) 1 Applic) 1 applic TOPICAL Q2HR PRN; Protocol PRN Reason: Wound Healing Petrolatum (Zinc Oxide Paste (Z-Guard) 1 Applic) 1 applic TOPICAL DAILY [facility]; Protocol Last Admin: 11/24/23 12:34 Dose: 1 applic Temazepam (Temazepam 15 Mg Cap) 15 mg PO HS PRN PRN Reason: Insomnia Tramadol HCl (Tramadol 50 Mg Tab) 50 mg PO Q6H PRN PRN Reason: Moderate Pain (Scale 4 to 6) Last Admin: 11/24/23 17:16 Dose: 50 mg Social history: Lives alone. Stopped smoking 32 years ago. Smoked for about 28 years more than pack a day. Used to be a trailer truck driver. Does use electric wheelchair. Physical examination: VITAL SIGNS: 98, 73, 18, 157/73, 98% room air GENERAL: Reclining in bed EYES: Pupils equal. Conjunctiva homa l. HEENT: External appearance of nose and ears normal, oral cavity grossly normal. NECK: JVD not raised; masses not palpable. HEART: First and second heart sounds are normal; no edema. LUNGS: Respiratory rate normal; decreased breath sounds. ABDOMEN: Soft, nontender, liver spleen not palpable, no masses palpable. PSYCH: Alert and oriented x3; mood and affect homa l. EXTREMITY: Breakdown of skin in the right lower extremity below the bartlett. Surrounding redness. Superficial. Right foot a bit swollen. Wounds around the toes. Tender. NEUROLOGICAL: Cranial nerves grossly intact; no facial asymmetry, power and sensation decreased peripherally. INVESTIGATIONS, reviewed in the clinical context: November 23: White count 10.5 hemoglobin 8.4 platelets 320 sodium 141 potassium 4.7 BUN 36 creatinine 1.7 Renal ultrasound: Right kidney unable to visualize. Left kidney difficult to evaluate. November 22: Sodium 139 potassium 5 BUN 39 creatinine 1.60 AST 79 ALT 25 UA: Protein 2+. Assessment and plan: -Right lower extremity wound secondary to diabetes. Venous wounds lower extremity. Bilateral With Dr. Leal from vascular. For debridement tomorrow. ID consulted IV Zosyn Wound care consulted -Morbid obesity BMI 43.9 Weight loss measures -Painful peripheral neuropathy secondary to diabetes Given renal function will cut back Neurontin to 1600 mg nightly -Diabetes mellitus type 2 on insulin- Follow Accu-Cheks with sliding scale -Primary osteoarthritis Pain control as needed -Normocytic anemia likely secondary to chronic kidney disease Check iron studies, B12 folate -Probable chronic kidney disease. Stage III. Likely diabetic nephropathy and hypertensive nephrosclerosis Renal ultrasound: Poorly visualized kidneys UA showing proteinuria -Hypothyroid Synthroid 112 mcg a day -Hyperlipidemia Zocor 40 mg nightly -Full code -Chronic gait dysfunction uses a electric wheelchair Continue current treatment plan. For debridement. Discussed with patient
[2023-11-24] MEDS ORDERED: glipiZIDE 5 MG TAB PO SCH (19:00)
[2023-11-24 20:27] LABS: Glucose,Whole Blood 256 mg/dL (70-110)
[2023-11-24] MEDS: NYSTATIN 100,000 UNIT/GM POWD 15 GM TOPICAL SCH (21:19)
[2023-11-25 06:58] LABS: Glucose,Whole Blood 234 mg/dL (70-110)
--- NOTE | 2023-11-25 07:49 | P.CONS ---
History of Present Illness - Reason for Consult Consult date: 11/24/23 Foot ulcers Requesting physician: Santy Rodriguez - Chief Complaint Weakness and fall x 1 day - History of Present Illness Patient is a 73-year-old male with past medical history significant for diabetes mellitus hypertension hyperlipidemia CO COPD patient presenting to the hospital after apparently patient did have a fall and struck the side of his head patient is unable to get up and has been evaluated at [facility] and there was concern for rhabdomyolysis also have bilateral lower extremity ulceration received a dose of Zosyn and vancomycin patient subsequently has been transferred to [facility] for further evaluation. Denies high-grade fever or any chills patient denies having any chest pain shortness of breath no significant cough or sputum production no nausea vomiting no bowel movement daily patient did have bilateral lower extremity ulceration especially [id number] right big toe with some purulent drainage which apparent ly has been going on for couple of weeks. Denies significant pain to the areas of ulceration or lower extremity did have some diffuse swelling and redness and also have a necrotic wound to the right foot which apparently has been there for couple of weeks patient on presentation to the hospital was afebrile and no fever have been called subsequently patient was not tachycardic hypotensive or hypoxic patient did have a white count of 10.54 BUN and creatinine has been mildly elevated liver enzymes are normal urine has been negative no culture has been done patient has been treated with Zosyn infectious disease was consulted for further management of antibiotic therapy Review of Systems Positive point and negatives has been mentioned in the HPI, complete review of systems was performed and all other systems are negative Past Medical History Past Medical History: COPD, Diabetes Mellitus, Hyperlipidemia, Hypertension, Yadiel cardial Infarction ([place]), Neurologic Disorder, Thyroid Disorder Additional Past Medical History / Comment(s): Peripheral neuropathy, diabetic leg ulcers, Last Myocardial Infarction Date:: Pt guesses its been about 5 years, 2018 History of Any Multi-Drug Resistant Organisms: Unobtainable Past Surgical History: Heart Catheterization With Stent Additional Past Surgical History / Comment(s): Bilateral caterac surgery Past Anesthesia/Blood Transfusion Reactions: No Reported Reaction Date of Last Stent Placement:: 2020 Smoking Status: Former smoker Past Alcohol Use History: Heavy Additional Past Alcohol Use History / Comment(s): Pt stopped drinking 16 years ago Past Drug Use History: None Reported Medications and Allergies Home Medications Medication Instructions Recorded Confirmed Type Aspirin EC [Ecotrin Low Dose] 81 mg PO DAILY 11/23/23 11/23/23 History Furosemide [Lasix] 20 mg PO DAILY 11/23/23 11/23/23 History Gabapentin [Neurontin] 1,600 mg PO HS 11/23/23 11/23/23 History Gabapentin [Neurontin] 800 mg PO DAILY 11/23/23 11/23/23 History Insulin Aspart Prot/Insuln Asp See Protocol SQ AC-BID 11/23/23 11/23/23 History [NovoLOG MIX 70-30 Flexpen] Levothyroxine Sodium [Synthroid] 112 mcg PO DAILY 11/23/23 11/23/23 History Simvastatin [Zocor] 40 mg PO HS 11/23/23 11/23/23 History lisinopriL [Zestril] 20 mg PO DAILY 11/23/23 11/23/23 History metFORMIN HCL ER [Glucophage XR] 1,000 mg PO BID-W/MEALS 11/23/23 11/23/23 History Allergies Allergy/AdvReac Type Severity Reaction Status Date / Time No Known Allergies Allergy Verified 11/23/23 17:09 Physical Exam Vitals: Vital Signs Temp Pulse Pulse Resp BP BP Pulse Ox 11/24/23 06:51 97.6 F 77 19 163/74 96 11/24/23 04:14 97.8 F 83 16 163/69 96 11/24/23 01:42 98.3 F 78 20 145/76 98 11/23/23 18:04 84 18 160/85 96 11/23/23 15:26 98.5 F 85 18 168/80 98 Intake and Output 11/23/23 11/24/23 11/24/23 22:59 06:59 14:59 Other: Voiding Method Urinal Weight 151.046 kg 151.046 kg GENERAL DESCRIPTION: Elderly male lying in bed, no distress. No tachypnea or accessory muscle of respiration use. HEENT: Shows Pallor , no scleral icterus. Oral mucous membrane is dry. No pharyngeal erythema or thrush NECK: Trachea central, no thyromegaly. LUNGS: Unlabored breathing. Clear to auscultation anteriorly. No wheeze or crackle. HEART: S1, S2, regular rate and rhythm. No loud murmur ABDOMEN: Soft, no tenderness , guarding or rigidity, no organomegaly EXTREMITIES: Did have diffuse swelling to bilateral extremity some superficial ulceration he did have a necrotic wound to the right foot and a wound to the right big toe with some purulent drainage SKIN: No rash, no masses palpable. NEUROLOGICAL: The patient is awake, alert, oriented x3, mood and affect normal. Results CBC & Chem 7: 11/24/23 06:15 11/24/23 06:15 Labs: Abnormal Lab Results - Last 24 Hours (Table) 11/23/23 11/23/23 11/23/23 Range/Units 18:02 21:44 21:48 Chloride 108 H (98-107) mmol/L BUN 39 H (9-20) mg/dL Creatinine 1.60 H (0.66-1.25) mg/dL Glucose 266 H (74-99) mg/dL POC Glucose (mg/dL) 262 H (70-110) mg/dL Calcium 8.2 L (8.4-10.2) mg/dL AST 79 H (17-59) U/L Total Protein 5.5 L (6.3-8.2) g/dL Albumin 2.9 L (3.5-5.0) g/dL Urine Protein 2+ H (Negative) Urine Glucose (UA) 3+ H (Negative) Urine Ketones 1+ H (Negative) Urine Blood Large H (Negative) Urine Bacteria Rare H (None) /hpf 11/24/23 11/24/23 Range/Units 04:05 06:52 Chloride (98-107) mmol/L BUN (9-20) mg/dL Creatinine (0.66-1.25) mg/dL Glucose (74-99) mg/dL POC Glucose (mg/dL) 228 H 265 H (70-110) mg/dL Calcium (8.4-10.2) mg/dL AST (17-59) U/L Total Protein (6.3-8.2) g/dL Albumin (3.5-5.0) g/dL Urine Protein (Negative) Urine Glucose (UA) (Negative) Urine Ketones (Negative) Urine Blood (Negative) Urine Bacteria (None) /hpf Assessment and Plan (1) Diabetic foot infection Current Visit: Yes Status: Acute Code(s): E11.628 - TYPE 2 DIABETES MELLITUS WITH OTHER SKIN COMPLICATIONS; L08.9 - LOCAL INFECTION OF THE SKIN AND SUBCUTANEOUS TISSUE, UNSP SNOMED Code(s): 709551970 (2) Diabetic foot ulcer Current Visit: Yes Status: Acute Code(s): E11.621 - TYPE 2 DIABETES MELLITUS WITH FOOT ULCER; L97.509 - NON-PRESSURE CHRONIC ULCER OTH PRT UNSP FOOT W UNSP SEVERITY SNOMED Code(s): 792885200 (3) Pressure ulcer of right foot, unstageable Current Visit: Yes Status: Acute Code(s): L89.890 - PRESSURE ULCER OF OTHER SITE, UNSTAGEABLE SNOMED Code(s): 556569849 Plan: 1patient presented to hospital complaining the patient have a fall however the patient also noticed to having multiple diabetic ulceration to the lower extremity especially right foot with unstageable ulcer and purulent drainage of the right big toe concerning for diabetic foot ulcer and infection and no need to cover for the polymicrobial val associated with diabetic foot infection 2patient with renal insufficiency and high risk for nephrotoxicity from vancomycin. 3await vascular evaluation for debridement and deep culture. 4continue empiric Zosyn while waiting for the workup to be completed. We will follow on clinical condition and cultures to further adjust medication if needed Thank you for this consultation we will follow the patient along with you Dictation was produced using [employer] dictation software. please excuse any grammatical, word or spelling errors. Time with Patient: Greater than 30
[2023-11-25] MEDS ORDERED: HYDROmorphone 0.5 MG/0.5 ML SYRINGE IVP PRN (09:39)
[2023-11-25] MEDS: IV FLUID CONTINUATION 1,000 ML IV ONE (09:47)
[2023-11-25] MEDS: LACTATED RINGERS 1,000 ML IV SCH (10:07)
[2023-11-25] MEDS: ONDANSETRON 4 MG/2 ML VIAL IVP ONE (10:11)
[2023-11-25] MEDS ORDERED: PHENYLEPHRINE 10 MG/ML VIAL ONE (10:36)
[2023-11-25] MEDS ORDERED: SUCCINYLCHOLINE CHLORIDE 200 MG/10 ML VIAL IV ONE (10:36)
[2023-11-25] MEDS ORDERED: LIDOCAINE 1% INJ 10MG/ML (20 ML MDV) ONE (10:36)
[2023-11-25] MEDS ORDERED: fentaNYL (PF) 50 MCG/ML 2 ML AMP ONE (10:36)
[2023-11-25] MEDS ORDERED: PROPOFOL 10 MG/ML 20 ML VIAL IV ONE (10:36)
[2023-11-25 11:12] LABS: % Iron Saturation 21.02 (15.00-50.00)
[2023-11-25 13:01] LABS: Glucose,Whole Blood 243 mg/dL (70-110)
[2023-11-25] MEDS: METOPROLOL TARTRATE 5 MG/5 ML VIAL IVP STA (13:34)
[2023-11-25] MEDS: DEXAMETHASONE SOD PHOSPHATE 4 MG/ML 1 ML VIAL IV ONE (14:52)
[2023-11-25] MEDS: FAMOTIDINE 20 MG TAB PO SCH (14:58)
[2023-11-25 16:20] LABS: Glucose,Whole Blood 164 mg/dL (70-110)
[2023-11-25 20:24] LABS: Glucose,Whole Blood 158 mg/dL (70-110)
--- NOTE | 2023-11-25 21:06 | P.PN ---
Progress Note - Text Progress Note Date: 11/25/23 Chief Complaint: Right leg wounds This is a pleasant 73-year-old patient follows with Dr. Eli. Chronic stable medical conditions include hyperlipidemia, hypothyroid, diabetes, hypertension, diabetic peripheral neuropathy for which she takes Neurontin. Patient presents with worsening leg wounds specially the right toes right lower extremity. Breakdown of skin. Some tenderness. No change in bowel pattern. At her baseline uses electric wheelchair. Patient was due to follow-up at wound care center out of the area. Denies any fever. Gets chills. November 23: Patient seen by vascular. For debridement in the morning. Wound care was consulted. IV Zosyn. Some pain present. Tolerating diet. November 24: Patient went down for surgical debridement of the foot by the vascular team. Postprocedure laying in bed. Comfortable.IV Zosyn. Active Medications Acetaminophen (Acetaminophen Tab 325 Mg Tab) 650 mg PO Q6HR PRN PRN Reason: Mild Pain or Fever > 100.5 Alprazolam (Alprazolam 0.25 Mg Tab) 0.25 mg PO Q6HR PRN PRN Reason: Anxiety Aspirin (Aspirin 81 Mg) 81 mg PO DAILY [facility] Last Admin: 11/25/23 14:58 Dose: 81 mg Atorvastatin Calcium (Atorvastatin 20 Mg Tab) 20 mg PO HS [facility] Last Admin: 11/25/23 20:02 Dose: 20 mg Calcium Carbonate/Glycine (Calcium Carbonate 500 Mg Chewable) 1,000 mg PO Q4HR PRN PRN Reason: Dyspepsia Dextrose/Water (Dextrose 50% Syringe 50 Ml) 25 ml IVP PER PROTOCOL PRN; Protocol PRN Reason: Hypoglycemia Dextrose/Water (Dextrose 50% Syringe 50 Ml) 50 ml IVP PER PROTOCOL PRN; Protocol PRN Reason: Hypoglycemia Enoxaparin Sodium (Enoxaparin 40 Mg/0.4 Ml Syringe) 40 mg SQ HS [facility] Last Admin: 11/25/23 20:02 Dose: 40 mg Famotidine (Famotidine 20 Mg Tab) 20 mg PO DAILY [facility] Last Admin: 11/25/23 14:58 Dose: 20 mg Gabapentin (Gabapentin 400 Mg Cap) 1,600 mg PO HS [facility] Last Admin: 11/25/23 20:02 Dose: 1,600 mg Hydromorphone HCl (Hydromorphone 0.5 Mg/0.5 Ml Syringe) 0.5 mg IVP Q5M PRN PRN Reason: Phase 1 or 2 - Pain Control Stop: 11/25/23 23:00 Piperacillin Sod/Tazobactam (Sod 3.375 gm/ Sodium Chloride) 100 mls @ 25 mls/hr IVPB Q8HR [facility]; Protocol Last Admin: 11/25/23 15:49 Dose: 25 mls/hr Sodium Chloride (Saline 0.9%) 1,000 mls @ 10 mls/hr IV .Q24H [facility] Last Admin: 11/25/23 14:59 Dose: 10 mls/hr Insulin Aspart (Insulin Aspart (Novolog) 100 Unit/Ml Vial) 0 unit SQ AC-TID [facility]; Protocol Last Admin: 11/25/23 17:41 Dose: 4 unit Lactulose (Lactulose 20 Gm/30 Ml Cup) 20 gm PO DAILY PRN PRN Reason: Constipation Levothyroxine Sodium (Levothyroxine 112 Mcg Tab) 112 mcg PO 0630 [facility] Last Admin: 11/25/23 06:21 Dose: 112 mcg Lisinopril (Lisinopril 20 Mg Tab) 20 mg PO DAILY [facility] Last Admin: 11/25/23 14:58 Dose: 20 mg Metformin HCl (Metformin 500 Mg Tab) 1,000 mg PO BID-W/MEALS [facility] Last Admin: 11/25/23 17:40 Dose: 1,000 mg Morphine Sulfate (Morphine Sulfate 4 Mg/Ml Syringe) 4 mg IV Q4HR PRN PRN Reason: Severe Pain (Scale 7 to 10) Last Admin: 11/25/23 15:04 Dose: 4 mg Naloxone HCl (Naloxone 0.4 Mg/Ml 1 Ml Vial) 0.2 mg IV Q2M PRN PRN Reason: Opioid Reversal Nystatin (Nystatin 100,000 Unit/Gm Powd 15 Gm) 1 applic TOPICAL BID [facility]; Protocol Last Admin: 11/25/23 20:02 Dose: 1 applic Ondansetron HCl (Ondansetron 4 Mg/2 Ml Vial) 4 mg IVP Q8HR PRN PRN Reason: Nausea And Vomiting Petrolatum (Zinc Oxide Paste (Z-Guard) 1 Applic) 1 applic TOPICAL Q2HR PRN; Protocol PRN Reason: Wound Healing Petrolatum (Zinc Oxide Paste (Z-Guard) 1 Applic) 1 applic TOPICAL DAILY [facility]; Protocol Last Admin: 11/25/23 14:59 Dose: 1 applic Temazepam (Temazepam 15 Mg Cap) 15 mg PO HS PRN PRN Reason: Insomnia Tramadol HCl (Tramadol 50 Mg Tab) 50 mg PO Q6H PRN PRN Reason: Moderate Pain (Scale 4 to 6) Last Admin: 11/25/23 20:02 Dose: 50 mg Social history: Lives alone. Stopped smoking 32 years ago. Smoked for about 28 years more than pack a day. Used to be a vacuum truck driver. Does use electric wheelchair. Physical examination: VITAL SIGNS: 98, 110, 16, 132 x 77, 95% GENERAL: Reclining in bed EYES: Pupils equal. Conjunctiva homa l. HEENT: External appearance of nose and ears normal, oral cavity grossly normal. NECK: JVD not raised; masses not palpable. HEART: First and second heart sounds are normal; no edema. LUNGS: Respiratory rate normal; decreased breath sounds. ABDOMEN: Soft, nontender, liver spleen not palpable, no masses palpable. PSYCH: Alert and oriented x3; mood and affect homa l. EXTREMITY: Breakdown of skin in the right lower extremity below the bartlett. Surrounding redness. Superficial. Right foot in a dressing NEUROLOGICAL: Cranial nerves grossly intact; no facial asymmetry, power and sensation decreased peripherally. INVESTIGATIONS, reviewed in the clinical context: Iron 33 TIBC 157 transferrin 1 1 2% saturation 21 ferritin 183 B12 644 folate 4.5 November 23: White count 10.5 hemoglobin 8.4 platelets 320 sodium 141 potassium 4.7 BUN 36 creatinine 1.7 Renal ultrasound: Right kidney unable to visualize. Left kidney difficult to evaluate. November 22: Sodium 139 potassium 5 BUN 39 creatinine 1.60 AST 79 ALT 25 UA: Protein 2+. Assessment and plan: -Right lower extremity wound secondary to diabetes. Venous wounds lower extremity. Bilateral With Dr. Leal from vascular. Debridement t carried out on November 24 ID following IV Theresasyn Wound care team following -Morbid obesity BMI 43.9 Weight loss measures -Painful peripheral neuropathy secondary to diabetes Given renal function will cut back Neurontin to 1600 mg nightly -Diabetes mellitus type 2 on insulin- Follow Accu-Cheks with sliding scale -Primary osteoarthritis Pain control as needed -Normocytic anemia likely secondary to iron deficiency and chronic kidney disease Iron deficiency. B12 folate normal -Probable chronic kidney disease. Stage III. Likely diabetic nephropathy and hypertensive nephrosclerosis Renal ultrasound: Poorly visualized kidneys UA showing proteinuria -Hypothyroid Synthroid 112 mcg a day -Hyperlipidemia Zocor 40 mg nightly -Full code -Chronic gait dysfunction uses a electric wheelchair IV ferritin. S/p debridement. Hopefully discharge in next 1 to 2 days
[2023-11-25] MEDS: SODIUM FERRIC GLUCONAT-SUCROSE 125 MG in SODIUM CHLORIDE 0.9% 100 ML IVPB SCH (21:26)
[2023-11-26 06:59] LABS: Glucose,Whole Blood 202 mg/dL (70-110)
--- NOTE | 2023-11-26 08:52 | P.OP ---
Date of Procedure: 11/25/23 Description of Procedure: Preoperative diagnosis: Bilateral lower extremity wounds, edema Postoperative diagnosis: Same Procedure: Sharp excisional debridement bilateral lower extremity wounds Right anterior bartlett 15 x 16 x 0.1 cm to subcutaneous tissue Right great toe 5 x 2.5 x 0.2 cm to subcutaneous tissue Right pinky toe 1.2 x 1 x 0.3 cm to subcutaneous tissue Right lateral foot 4.5 x 5 x 0.3 cm to subcutaneous tissue Right heel 6.5 x 8 x 0.2 cm to dermis Left bartlett 10 x 10 x 0.2 cm to dermis left toe 2.4 x 2 x 0.2 cm subcutaneous tissue Surgeon: Bhavna Gray D.O. EBL: 5 cc IV fluids: See records Urine output: Not measured Drains: None Complications: None immediately apparent Condition: Stable to recovery Operative indication and findings: Patient is a 73-year-old male who spends majority of time sitting in a recliner on the couch or in a motorized scooter and does not ambulate much who has wounds of his bilateral lower extremities. There was some concern for potential cellulitis and the discussion was made regarding wound care and need for aggressive debridement. Risk and benefits w ere discussed. He seems understood and was willing to proceed. Procedure in detail: [Patient taken the op suite placed in supine position. General anesthesia via endotracheal tube was induced. The bilateral lower extremities were prepped and draped in usual sterile fashion. A preprocedural timeout was performed, all parties were in agreement.. With the left leg, the general scrub was performed to allow removal of the overlying epidermal tissue. Then utilizing a curette and forceps, the left lower extremity was debrided with the measurements as above. Attention was then turned to the right lower extremity which had more wounds. Similarly a scrub was first performed followed by excisional debridement with a curette and forceps. At the right lateral foot lesion, the eschar was excised utilizing a scalpel to the subcutaneous tissue. Hemostasis was ensured with electrocautery. The legs were then cleansed and dressings with compression wraps were placed. The patient was sent to recovery in stable condition having tolerated the procedure well. There is no significant infection identified at the time of intervention]
[2023-11-26] MEDS: METOPROLOL TARTRATE 25 MG TAB PO SCH (11:43)
[2023-11-26 12:01] LABS: Glucose,Whole Blood 189 mg/dL (70-110)
--- NOTE | 2023-11-26 12:51 | P.PN ---
Progress Note - Text This is Dr. Reardon dictating a consult on this patient The patient was interviewed and examined IMPRESSION / ASSESSMENT: Possible SVT Hypertension Diabetes type 2 PLAN: Check TSH Start metoprolol succinate 25 mg p.o. daily in addition to other medications HPI Patient transferred from [facility] after a fall and unable to get up since he is nonambulatory Currently he is being treated for rhabdomyolysis and nonhealing foot ulcer Cardiology was consulted for accelerated junctional rhythm I reviewed the twelve-lead EKG. This is not an accelerated junctional rhythm but is more consistent with either an atrial tachycardia/SVT versus sinus tachycardia First twelve-lead EKG showed sinus mechanism When I examined him this morning he was in sinus rhythm He is very clear that he did not have syncope. He had a fall without loss of consciousness according to the patient ROS: No fever chills or rigors, no cough, phlegm or expectoration, transfer tech no nausea, vomiting or diarrhea, no hematuria, dysuria, no musculoskeletal complaints, no strokes or seizures, no skin lesions. EXAMINATION: Blood pressure 132/77 mmHg pulse rate 76 beats minute this morning afebrile Heart sounds are normal Breath sounds are clear no rhonchi Patient is lying in bed looks very comfortable REVIEW OF LABS, ECG & MEDICAL DATA Elevated white count mild Hemoglobin low 8.4 Normal electrolytes CKD creatinine 1.7 GFR in the mid 40s
--- NOTE | 2023-11-26 14:09 | P.PN ---
Subjective Progress Note Date: 11/26/23 Principal diagnosis: Lower extremity wounds Patient seen and examined today as a follow-up. He has status post debridement of bilateral lower extremity wounds without any signs of purulent drainage or infection. Patient is afebrile. Bilateral lower extremities wrapped with Pratik wrap's. Objective - Vital Signs Vital signs: Vital Signs Temp 97.6 F 11/26/23 06:57 Pulse 73 11/26/23 06:57 Resp 19 11/26/23 06:57 BP 158/71 11/26/23 06:57 Pulse Ox 93 L 11/26/23 06:57 FiO2 Intake & Output 11/25/23 11/26/23 11/26/23 18:59 06:59 18:59 Intake Total 900 590 Output Total 405 300 Balance 495 290 Weight 151.046 kg Intake: IV 900 Oral 590 Output: Urine 400 300 Estimated Blood Loss 5 Other: Voiding Method External Catheter External Catheter - Exam General appearance: The patient is alert, oriented, appears in no acute distress. Morbidly obese HET: Head is normocephalic and atraumatic. Pupils are equal and reactive. Neck: Supple. Abdomen: Soft, nondistended. Extremities: Bilateral lower extremities with dressings in place with Pratik wrap's. Neurological: No focal deficits. - Labs CBC & Chem 7: 11/24/23 06:15 11/24/23 06:15 Labs: Abnormal Lab Results - Last 24 Hours (Table) 11/25/23 11/25/23 11/25/23 Range/Units 05:53 12:59 16:19 POC Glucose (mg/dL) 243 H 164 H (70-110) mg/dL Iron 33 L (65-175) UG/DL TIBC 157 L (228-460) UG/DL Transferrin 112.0 L (204.0-354.0) mg/dL 11/25/23 11/26/23 Range/Units 20:23 06:58 POC Glucose (mg/dL) 158 H 202 H (70-110) mg/dL Iron (65-175) UG/DL TIBC (228-460) UG/DL Transferrin (204.0-354.0) mg/dL Assessment and Plan Assessment: 1. Bilateral lower extremity wounds status post excisional debridement 2. Chronic lower extremity edema 3. Venous insufficiency 4. Venous stasis 5. Diabetes mellitus with peripheral neuropathy 6. Nonambulatory 7. Morbid obesity Plan: 1. Continue local wound care as ordered by wound center 2. Patient to follow-up with wound care clinic on discharge 3. No further intervention per vascular surgery. Patient is cleared from vascular surgery for discharge. 4. Rest of medical management per primary medical team Thank you for this consultation, we will sign off at this time. The impression and plan of care has been dictated as directed. I performed a history and examination of this patient, discussed the same with the dictator. I agree with the dictator's note ,documented as a scribe. Any additional findings or plans will be noted.
--- NOTE | 2023-11-26 15:27 | P.PN ---
Subjective Progress Note Date: 11/25/23 Principal diagnosis: Reason for follow-up is bilateral lower extremity wound and cellulitis Patient is a 73-year-old male with past medical history significant for diabetes mellitus hypertension hyperlipidemia [place] COPD patient presenting to the hospital after apparently patient did have a fall patient was noticed to have a bilateral lower extremity ulceration with a necrotic wound to the right foot and right big toe. Patient is status post sharp excisional debridement of bilateral lower extremity wound completed by vascular surgery on 11/25/2023. On today's evaluation that is 11/25/2023, Patient is afebrile this morning patient denies having any chest pain shortness of breath or cough, the patient is breathing comfortably and currently on room air, patient denies any abdominal pain no diarrhea no nausea no vomiting patient pain to bilateral lower extremity wound is currently controlled. No new labs were obtained today Objective - Vital Signs Vital signs: Vital Signs Temp 97.8 F 11/25/23 14:16 Pulse 108 H 11/25/23 17:51 Resp 16 11/25/23 14:16 BP 138/76 11/25/23 17:51 Pulse Ox 95 11/25/23 17:51 FiO2 Intake & Output 11/25/23 11/25/23 11/26/23 06:59 18:59 06:59 Intake Total 900 Output Total 500 405 Balance -500 495 Weight 151.046 kg Intake: IV 900 Output: Urine 500 400 Estimated Blood Loss 5 Other: Voiding Method External Catheter External Catheter - Exam GENERAL DESCRIPTION: An elderly male lying in bed in no distress RESPIRATORY SYSTEM: Unlabored breathing , decreased breath sounds at bases HEART: S1 S2 regular rate and rhythm , ABDOMEN: Soft , no tenderness EXTREMITIES: Bilateral extremity wounds are currently dressed - Labs CBC & Chem 7: 11/24/23 06:15 11/24/23 06:15 Labs: Abnormal Lab Results - Last 24 Hours (Table) 11/24/23 11/25/23 11/25/23 Range/Units 20:26 05:53 06:57 POC Glucose (mg/dL) 256 H 234 H (70-110) mg/dL Iron 33 L (65-175) UG/DL TIBC 157 L (228-460) UG/DL Transferrin 112.0 L (204.0-354.0) mg/dL 11/25/23 11/25/23 Range/Units 12:59 16:19 POC Glucose (mg/dL) 243 H 164 H (70-110) mg/dL Iron (65-175) UG/DL TIBC (228-460) UG/DL Transferrin (204.0-354.0) mg/dL Assessment and Plan (1) Diabetic foot infection Current Visit: Yes Status: Acute Code(s): E11.628 - TYPE 2 DIABETES MELLITUS WITH OTHER SKIN COMPLICATIONS; L08.9 - LOCAL INFECTION OF THE SKIN AND SUBCUTANEOUS TISSUE, UNSP SNOMED Code(s): 309340788 (2) Diabetic foot ulcer Current Visit: Yes Status: Acute Code(s): E11.621 - TYPE 2 DIABETES MELLITUS WITH FOOT ULCER; L97.509 - NON-PRESSURE CHRONIC ULCER OTH PRT UNSP FOOT W UNSP SEVERITY SNOMED Code(s): 606579085 (3) Pressure ulcer of right foot, unstageable Current Visit: Yes Status: Acute Code(s): L89.890 - PRESSURE ULCER OF OTHER SITE, UNSTAGEABLE SNOMED Code(s): 674971028 Plan: 1patient presented to hospital complaining the patient have a fall however the patient also noticed to having multiple diabetic ulceration to the lower extremity especially right foot with unstageable ulcer and purulent drainage of the right big toe concerning for diabetic foot ulcer and infection and no need to cover for the polymicrobial val associated with diabetic foot infection 2patient with renal insufficiency and high risk for nephrotoxicity from vancomycin. 3patient has been evaluated by vascular surgery patient is status post excisional debridement of the wound unfortunately no cultures were done 4patient to continue empiric Zosyn and monitor clinical course closely Dictation was produced using [employer] dictation software. please excuse any grammatical, word or spelling errors. Time with Patient: Less than 30
--- NOTE | 2023-11-26 15:28 | P.PN ---
Subjective Progress Note Date: 11/26/23 Principal diagnosis: Reason for follow-up is bilateral lower extremity wound and cellulitis Patient is a 73-year-old male with past medical history significant for diabetes mellitus hypertension hyperlipidemia [place] COPD patient presenting to the hospital after apparently patient did have a fall patient was noticed to have a bilateral lower extremity ulceration with a necrotic wound to the right foot and right big toe. Patient is status post sharp excisional debridement of bilateral lower extremity wound completed by vascular surgery on 11/25/2023. On today's evaluation that is 11/26/2023,the patient denies any fever or any chills, patient is breathing comfortably on room air, the patient denies chest pain shortness of breath and no significant cough, patient denies abdominal pain, no nausea vomiting or diarrhea. Patient pain to the lower extremity is currently controlled denies any worsening pain. No new labs were obtained today unfortunately no cultures were done in the OR as no data available in the micro section Objective - Vital Signs Vital signs: Vital Signs Temp 98.5 F 11/26/23 11:57 Pulse 76 11/26/23 11:57 Resp 19 11/26/23 11:57 BP 153/79 11/26/23 11:57 Pulse Ox 93 L 11/26/23 11:57 FiO2 Intake & Output 11/25/23 11/26/23 11/26/23 18:59 06:59 18:59 Intake Total 900 590 Output Total 405 300 450 Balance 495 290 -450 Weight 151.046 kg Intake: IV 900 Oral 590 Output: Urine 400 300 450 Estimated Blood Loss 5 Other: Voiding Method External Catheter External Catheter External Catheter # Voids 1 # Bowel Movements 1 - Exam GENERAL DESCRIPTION: An elderly male lying in bed in no distress RESPIRATORY SYSTEM: Unlabored breathing , decreased breath sounds at bases HEART: S1 S2 regular rate and rhythm , ABDOMEN: Soft , no tenderness EXTREMITIES: Bilateral extremity wounds are currently dressed - Labs CBC & Chem 7: 11/24/23 06:15 11/24/23 06:15 Labs: Abnormal Lab Results - Last 24 Hours (Table) 11/25/23 11/25/23 11/26/23 Range/Units 16:19 20:23 06:58 POC Glucose (mg/dL) 164 H 158 H 202 H (70-110) mg/dL 11/26/23 Range/Units 12:00 POC Glucose (mg/dL) 189 H (70-110) mg/dL Assessment and Plan (1) Diabetic foot infection Current Visit: Yes Status: Acute Code(s): E11.628 - TYPE 2 DIABETES MELLITUS WITH OTHER SKIN COMPLICATIONS; L08.9 - LOCAL INFECTION OF THE SKIN AND SUBCUTANEOUS TISSUE, UNSP SNOMED Code(s): 868359085 (2) Diabetic foot ulcer Current Visit: Yes Status: Acute Code(s): E11.621 - TYPE 2 DIABETES MELLITUS WITH FOOT ULCER; L97.509 - NON-PRESSURE CHRONIC ULCER OTH PRT UNSP FOOT W UNSP SEVERITY SNOMED Code(s): 577739902 (3) Pressure ulcer of right foot, unstageable Current Visit: Yes Status: Acute Code(s): L89.890 - PRESSURE ULCER OF OTHER SITE, UNSTAGEABLE SNOMED Code(s): 455737873 Plan: 1patient presented to hospital complaining the patient have a fall however the patient also noticed to having multiple diabetic ulceration to the lower extremity especially right foot with unstageable ulcer and purulent drainage of the right big toe concerning for diabetic foot ulcer and infection and no need to cover for the polymicrobial val associated with diabetic foot infection 2patient with renal insufficiency and high risk for nephrotoxicity from vancomycin. 3patient has been evaluated by vascular surgery patient is status post excisional debridement of the wound unfortunately no cultures were done 4patient is afebrile we will continue with the Zosyn repeat a CBC and CRP with a.m. lab Dictation was produced using [employer] dictation software. please excuse any grammatical, word or spelling errors. Time with Patient: Less than 30
--- NOTE | 2023-11-26 15:28 | P.PN ---
Subjective Progress Note Date: 11/26/23 73-year-old patient follows with Dr. Eli. Chronic stable medical conditions include hyperlipidemia, hypothyroid, diabetes, hypertension, diabetic peripheral neuropathy for which she takes Neurontin. Patient presents with worsening leg wounds specially the right toes right lower extremity. Breakdown of skin. Some tenderness. No change in bowel pattern. At her baseline uses electric wheelchair. Patient was due to follow-up at wound care center out of the area. Denies any fever. Gets chills. November 23: Patient seen by vascular. For debridement in the morning. Wound care was consulted. IV Zosyn. Some pain present. Tolerating diet. November 24: Patient went down for surgical debridement of the foot by the vascular team. Postprocedure laying in bed. Comfortable.IV Zosyn. 11/26/2023 Patient seen and evaluated in room at bedside; episode of accelerated junctional rhythm yesterday for which cardiology is consulted --EKG and telemetry reviewed by cardiology and rhythm is consistent with atrial tachycardia versus SVT versus sinus tachycardia -Patient is currently in normal sinus rhythm -- Patient has been evaluated and placed on metoprolol 25 mg daily; TSH is or dered Plan for discharge in next 24 hours if patient remains stable Objective - Vital Signs Vital signs: Vital Signs Temp 97.6 F 11/26/23 06:57 Pulse 73 11/26/23 08:45 Resp 19 11/26/23 08:45 BP 158/71 11/26/23 06:57 Pulse Ox 93 L 11/26/23 06:57 FiO2 Intake & Output 11/25/23 11/26/23 11/26/23 18:59 06:59 18:59 Intake Total 900 590 Output Total 405 300 Balance 495 290 Weight 151.046 kg Intake: IV 900 Oral 590 Output: Urine 400 300 Estimated Blood Loss 5 Other: Voiding Method External Catheter External Catheter External Catheter # Voids 1 # Bowel Movements 1 - Exam GENERAL: Reclining in bed EYES: Pupils equal. Conjunctiva homa l. HEENT: External appearance of nose and ears normal, oral cavity grossly normal. NECK: JVD not raised; masses not palpable. HEART: First and second heart sounds are normal; no edema. LUNGS: Respiratory rate normal; decreased breath sounds. ABDOMEN: Soft, nontender, liver spleen not palpable, no masses palpable. PSYCH: Alert and oriented x3; mood and affect homa l. EXTREMITY: Breakdown of skin in the right lower extremity below the bartlett. S urrounding redness. Superficial. Right foot in a dressing NEUROLOGICAL: Cranial nerves grossly intact; no facial asymmetry, power and sensation decreased peripherally. - Labs CBC & Chem 7: 11/24/23 06:15 11/24/23 06:15 Labs: Abnormal Lab Results - Last 24 Hours (Table) 11/25/23 11/25/23 11/25/23 Range/Units 12:59 16:19 20:23 POC Glucose (mg/dL) 243 H 164 H 158 H (70-110) mg/dL 11/26/23 11/26/23 Range/Units 06:58 12:00 POC Glucose (mg/dL) 202 H 189 H (70-110) mg/dL Assessment and Plan Assessment: -Right lower extremity wound secondary to diabetes. Venous wounds lower extremity. Bilateral With Dr. Leal from vascular. Debridement t carried out on November 24 ID following IV Zosyn Wound care team following -Morbid obesity BMI 43.9 Weight loss measures -Painful peripheral neuropathy secondary to diabetes Given renal function will cut back Neurontin to 1600 mg nightly -Diabetes mellitus type 2 on insulin- Follow Accu-Cheks with sliding scale -Primary osteoarthritis Pain control as needed -Normocytic anemia likely secondary to iron deficiency and chronic kidney disease Iron deficiency. B12 folate normal -Probable chronic kidney disease. Stage III. Likely diabetic nephropathy and hypertensive nephrosclerosis Renal ultrasound: Poorly visualized kidneys UA showing proteinuria -Hypothyroid Synthroid 112 mcg a day -Hyperlipidemia Zocor 40 mg nightly -Full code -Chronic gait dysfunction uses a electric wheelchair IV ferritin. S/p debridement.
[2023-11-26 17:15] LABS: Glucose,Whole Blood 153 mg/dL (70-110)
[2023-11-26 20:18] LABS: Glucose,Whole Blood 211 mg/dL (70-110)
[2023-11-27 07:15] LABS: Glucose,Whole Blood 225 mg/dL (70-110)
[2023-11-27] MEDS: METOPROLOL SUCCINATE (ER) 25 MG TAB.ER.24H PO SCH (08:29)
[2023-11-27 11:40] LABS: Basophils # (A) 0.07 X 10*3/uL (0.00-0.10); Basophils % (A) 1.1 %; Eosinophils # (A) 0.38 X 10*3/uL (0.04-0.35); Eosinophils % (A) 6.2 %; HCT 30.1 % (39.6-50.0); HGB 9.1 g/dL (13.0-17.0); Lymphocytes # (A) 0.93 X 10*3/uL (0.90-5.00); Lymphocytes % (A) 15.2 %; MCH 27.4 pg (27.0-32.0); MCHC 30.2 g/dL (32.0-37.0); MCV 90.7 FL (80.0-97.0); Mean Platelet Volume 9.9 FL (9.5-12.2); Monocytes # (A) 0.37 X 10*3/uL (0.20-1.00); NRBC Per 100 WBC 0 X 10*3/uL (0.00-0.01); Neutrophils # (A) 4.27 X 10*3/uL (1.80-7.70); Neutrophils % (A) 69.9 %; Platelet Count 338 X 10*3/uL (140-440); RBC 3.32 X 10*6/uL (4.40-5.60); RDW 12.9 % (11.5-14.5); WBC 6.12 X 10*3/uL (4.50-10.00)
[2023-11-27 11:52] LABS: ALT 22 U/L (10-49); AST 28 U/L (14-35); Albumin 2.6 g/dL (3.8-4.9); Albumin/Globulin Ratio 1.13 Ratio (1.60-3.17); Alkaline Phosphatase 107 U/L (41-126); Blood Urea Nitrogen 19.6 mg/dL (9.0-27.0); Carbon Dioxide 23.4 mmol/L (21.6-31.8); Chloride 109 mmol/L (96-109); Globulin 2.3 g/dL (1.6-3.3); Glucose 192 mg/dL (70-110); Potassium 4.6 mmol/L (3.5-5.5); Sodium 142 mmol/L (135-145); Total Bilirubin 0.3 mg/dL (0.3-1.2); Total Protein 4.9 g/dL (6.2-8.2)
[2023-11-27 12:27] LABS: Glucose,Whole Blood 228 mg/dL (70-110)
--- NOTE | 2023-11-27 16:04 | P.PN ---
Subjective Progress Note Date: 11/27/23 Principal diagnosis: Reason for follow-up is bilateral lower extremity wound and cellulitis Patient is a 73-year-old male with past medical history significant for diabetes mellitus hypertension hyperlipidemia [place] COPD patient presenting to the hospital after apparently patient did have a fall patient was noticed to have a bilateral lower extremity ulceration with a necrotic wound to the right foot and right big toe. Patient is status post sharp excisional debridement of bilateral lower extremity wound completed by vascular surgery on 11/25/2023. On today's evaluation that is 11/27/2023,the patient remains to be afebrile, patient is on room air not requiring supplemental oxygen and denies any shortness of breath no chest pain or cough.Patient denies having any nausea or vomiting, no abdominal pain and no diarrhea has been reported, and denies any worsening pain to lower extremity. Patient white count 6.1, creatinine is 1.4 Objective - Vital Signs Vital signs: Vital Signs Temp 98.4 F 11/27/23 07:15 Pulse 80 11/27/23 08:00 Resp 18 11/27/23 08:00 BP 176/80 11/27/23 07:15 Pulse Ox 91 L 11/27/23 07:15 FiO2 Intake & Output 11/26/23 11/27/23 11/27/23 18:59 06:59 18:59 Output Total 450 350 Balance -450 -350 Output: Urine 450 350 Other: Voiding Method External Catheter External Catheter # Voids 1 # Bowel Movements 1 - Exam GENERAL DESCRIPTION: An elderly male lying in bed in no distress RESPIRATORY SYSTEM: Unlabored breathing , decreased breath sounds at bases HEART: S1 S2 regular rate and rhythm , ABDOMEN: Soft , no tenderness EXTREMITIES: Bilateral extremity wounds are currently dressed - Labs CBC & Chem 7: 11/27/23 06:28 11/27/23 06:28 Labs: Abnormal Lab Results - Last 24 Hours (Table) 11/25/23 11/26/23 11/26/23 Range/Units 05:52 17:13 20:16 RBC (4.40-5.60) X 10*6/uL Hgb (13.0-17.0) g/dL Hct (39.6-50.0) % MCHC (32.0-37.0) g/dL Immature Gran # (0.00-0.04) X 10*3/uL Eosinophils # (0.04-0.35) X 10*3/uL Est GFR (CKD-EPI) (>=60) Glucose (70-110) mg/dL POC Glucose (mg/dL) 153 H 211 H (70-110) mg/dL Calcium (8.7-10.3) mg/dL C-Reactive Protein (0.00-0.80) mg/dL Total Protein (6.2-8.2) g/dL Albumin (3.8-4.9) g/dL Albumin/Globulin Ratio (1.60-3.17) Ratio TSH 7.540 H (0.350-5.500) UIU/ML 11/27/23 11/27/23 11/27/23 Range/Units 06:28 06:28 07:13 RBC 3.32 L (4.40-5.60) X 10*6/uL Hgb 9.1 L (13.0-17.0) g/dL Hct 30.1 L (39.6-50.0) % MCHC 30.2 L (32.0-37.0) g/dL Immature Gran # 0.10 H (0.00-0.04) X 10*3/uL Eosinophils # 0.38 H (0.04-0.35) X 10*3/uL Est GFR (CKD-EPI) 53 L (>=60) Glucose 192 H (70-110) mg/dL POC Glucose (mg/dL) 225 H (70-110) mg/dL Calcium 8.0 L (8.7-10.3) mg/dL C-Reactive Protein 3.40 H (0.00-0.80) mg/dL Total Protein 4.9 L (6.2-8.2) g/dL Albumin 2.6 L (3.8-4.9) g/dL Albumin/Globulin Ratio 1.13 L (1.60-3.17) Ratio TSH (0.350-5.500) UIU/ML 11/27/23 Range/Units 12:25 RBC (4.40-5.60) X 10*6/uL Hgb (13.0-17.0) g/dL Hct (39.6-50.0) % MCHC (32.0-37.0) g/dL Immature Gran # (0.00-0.04) X 10*3/uL Eosinophils # (0.04-0.35) X 10*3/uL Est GFR (CKD-EPI) (>=60) Glucose (70-110) mg/dL POC Glucose (mg/dL) 228 H (70-110) mg/dL Calcium (8.7-10.3) mg/dL C-Reactive Protein (0.00-0.80) mg/dL Total Protein (6.2-8.2) g/dL Albumin (3.8-4.9) g/dL Albumin/Globulin Ratio (1.60-3.17) Ratio TSH (0.350-5.500) UIU/ML Assessment and Plan (1) Diabetic foot infection Current Visit: Yes Status: Acute Code(s): E11.628 - TYPE 2 DIABETES MELLITUS WITH OTHER SKIN COMPLICATIONS; L08.9 - LOCAL INFECTION OF THE SKIN AND SUBCUTANEOUS TISSUE, UNSP SNOMED Code(s): 645596384 (2) Diabetic foot ulcer Current Visit: Yes Status: Acute Code(s): E11.621 - TYPE 2 DIABETES MELLITUS WITH FOOT ULCER; L97.509 - NON-PRESSURE CHRONIC ULCER OTH PRT UNSP FOOT W UNSP SEVERITY SNOMED Code(s): 889541029 (3) Pressure ulcer of right foot, unstageable Current Visit: Yes Status: Acute Code(s): L89.890 - PRESSURE ULCER OF OTHER SITE, UNSTAGEABLE SNOMED Code(s): 815939700 Plan: 1patient presented to hospital complaining the patient have a fall however the patient also noticed to having multiple diabetic ulceration to the lower extremity especially right foot with unstageable ulcer and purulent drainage of the right big toe concerning for diabetic foot ulcer and infection and no need to cover for the polymicrobial val associated with diabetic foot infection 2patient with renal insufficiency and high risk for nephrotoxicity from vancomycin. 3patient has been evaluated by vascular surgery patient is status post excisional debridement of the wound unfortunately no cultures were done 4patient is afebrile and white count has been normal continue with the Zosyn and monitor clinical course closely Dictation was produced using [email or web address] dictation software. please excuse any gra mmatical, word or spelling errors.
[2023-11-27 17:32] LABS: Glucose,Whole Blood 177 mg/dL (70-110)
[2023-11-27 20:25] LABS: Glucose,Whole Blood 133 mg/dL (70-110)
[2023-11-27] MEDS: TEMAZEPAM 15 MG CAP PO PRN (22:21)
[2023-11-28 07:47] LABS: Glucose,Whole Blood 147 mg/dL (70-110)
[2023-11-28] MEDS: ACETAMINOPHEN TAB 325 MG TAB PO PRN (08:46)
[2023-11-28 12:20] LABS: Glucose,Whole Blood 201 mg/dL (70-110)
[2023-11-28] MEDS: LORATADINE 10 MG TAB PO SCH (12:40)
--- NOTE | 2023-11-28 14:43 | P.PN ---
Subjective Progress Note Date: 11/28/23 Principal diagnosis: Reason for follow-up is bilateral lower extremity wound and cellulitis Patient is a 73-year-old male with past medical history significant for diabetes mellitus hypertension hyperlipidemia [place] COPD patient presenting to the hospital after apparently patient did have a fall patient was noticed to have a bilateral lower extremity ulceration with a necrotic wound to the right foot and right big toe. Patient is status post sharp excisional debridement of bilateral lower extremity wound completed by vascular surgery on 11/25/2023. On today's evaluation that is 11/28/2023, the patient continues to be afebrile, the patient is on room air and breathing comfortably, the Pt denies having any chest pain or cough, the patient denies having any abdominal pain no vomiting or any diarrhea has been reported by the nursing staff denies any worsening pain to the lower extremity. No new lab has been obtained today Objective - Vital Signs Vital signs: Vital Signs Temp 98.0 F 11/28/23 12:21 Pulse 71 11/28/23 12:21 Resp 17 11/28/23 12:21 BP 164/74 11/28/23 12:21 Pulse Ox 92 L 11/28/23 12:21 FiO2 Intake & Output 11/27/23 11/28/23 11/28/23 18:59 06:59 18:59 Output Total 1200 200 Balance -1200 -200 Output: Urine 1200 200 Other: Voiding Method External Catheter External Catheter External Catheter # Bowel Movements 2 - Exam GENERAL DESCRIPTION: An elderly male lying in bed in no distress RESPIRATORY SYSTEM: Unlabored breathing , decreased breath sounds at bases HEART: S1 S2 regular rate and rhythm , ABDOMEN: Soft , no tenderness EXTREMITIES: Bilateral extremity wounds are currently dressed - Labs CBC & Chem 7: 11/27/23 06:28 11/27/23 06:28 Labs: Abnormal Lab Results - Last 24 Hours (Table) 11/27/23 11/27/23 11/28/23 Range/Units 17:30 20:21 07:45 POC Glucose (mg/dL) 177 H 133 H 147 H (70-110) mg/dL 11/28/23 Range/Units 12:19 POC Glucose (mg/dL) 201 H (70-110) mg/dL Assessment and Plan (1) Diabetic foot infection Current Visit: Yes Status: Acute Code(s): E11.628 - TYPE 2 DIABETES MELLITUS WITH OTHER SKIN COMPLICATIONS; L08.9 - LOCAL INFECTION OF THE SKIN AND SUBCUTANEOUS TISSUE, UNSP SNOMED Code(s): 218701804 (2) Diabetic foot ulcer Current Visit: Yes Status: Acute Code(s): E11.621 - TYPE 2 DIABETES MELLITUS WITH FOOT ULCER; L97.509 - NON-PRESSURE CHRONIC ULCER OTH PRT UNSP FOOT W UNSP SEVERITY SNOMED Code(s): 905823852 (3) Pressure ulcer of right foot, unstageable Current Visit: Yes Status: Acute Code(s): L89.890 - PRESSURE ULCER OF OTHER SITE, UNSTAGEABLE SNOMED Code(s): 950478075 Plan: 1patient presented to hospital complaining the patient have a fall however the patient also noticed to having multiple diabetic ulceration to the lower extremity especially right foot with unstageable ulcer and purulent drainage of the right big toe concerning for diabetic foot ulcer and infection and no need to cover for the polymicrobial val associated with diabetic foot infection 2patient with renal insufficiency and high risk for nephrotoxicity from vancomycin. 3patient has been evaluated by vascular surgery patient is status post excisi onal debridement of the wound unfortunately no cultures were done 4patient is afebrile and white count has been normal patient to continue with the Zosyn at this point will reevaluate wound tomorrow at the time of dressing changes Dictation was produced using [employer] medical dictation software. please excuse any grammatical, word or spelling errors. Time with Patient: Less than 30
--- NOTE | 2023-11-28 16:45 | P.PN ---
Subjective Progress Note Date: 11/27/23 73-year-old patient follows with Dr. Eli. Chronic stable medical conditions include hyperlipidemia, hypothyroid, diabetes, hypertension, diabetic peripheral neuropathy for which she takes Neurontin. Patient presents with worsening leg wounds specially the right toes right lower extremity. Breakdown of skin. Some tenderness. No change in bowel pattern. At her baseline uses electric wheelchair. Patient was due to follow-up at wound care center out of the area. Denies any fever. Gets chills. November 23: Patient seen by vascular. For debridement in the morning. Wound care was consulted. IV Zosyn. Some pain present. Tolerating diet. November 24: Patient went down for surgical debridement of the foot by the vascular team. Postprocedure laying in bed. Comfortable.IV Zosyn. 11/26/2023 Patient seen and evaluated in room at bedside; episode of accelerated junctional rhythm yesterday for which cardiology is consulted --EKG and telemetry reviewed by cardiology and rhythm is consistent with atrial tachycardia versus SVT versus sinus tachycardia -Patient is currently in normal sinus rhythm -- Patient has been evaluated and placed on metoprolol 25 mg daily; TSH is or dered 11/27/2023 Patient is seen and evaluated in follow-up on the regular medical floor. She is sitting up in bed. Awake and alert in no acute distress. She continues to maintain good O2 saturations in the 90s on 2 L/min per nasal cannula. She denies any worsening shortness of breath, cough or congestion. Yesterday her sodium dropped to 125. Potassium 4.0. Bicarb 30. BUN 12. Creatinine 0.28. White count 7.5. Hemoglobin 12.0. She was initiated on normal saline at 75 MLS per hour. Today's labs are pending. Heart. Heparin for DVT prophylaxis. [place] and morphine for pain control. Objective - Vital Signs Vital signs: Vital Signs Temp 98.4 F 11/27/23 07:15 Pulse 80 11/27/23 08:00 Resp 18 11/27/23 08:00 BP 176/80 11/27/23 07:15 Pulse Ox 91 L 11/27/23 07:15 FiO2 Intake & Output 11/26/23 11/27/23 11/27/23 18:59 06:59 18:59 Output Total 450 350 Balance -450 -350 Output: Urine 450 350 Other: Voiding Method External Catheter External Catheter # Voids 1 # Bowel Movements 1 - Exam GENERAL: Reclining in bed EYES: Pupils equal. Conjunctiva homa l. HEENT: External appearance of nose and ears normal, oral cavity grossly normal. NECK: JVD not raised; masses not palpable. HEART: First and second heart sounds are normal; no edema. LUNGS: Respiratory rate normal; decreased breath sounds. ABDOMEN: Soft, nontender, liver spleen not palpable, no masses palpable. PSYCH: Alert and oriented x3; mood and affect homa l. EXTREMITY: Breakdown of skin in the right lower extremity below the bartlett. [place] rrounding redness. Superficial. Right foot in a dressing NEUROLOGICAL: Cranial nerves grossly intact; no facial asymmetry, power and sensation decreased peripherally. - Labs CBC & Chem 7: 11/27/23 06:28 11/27/23 06:28 Labs: Abnormal Lab Results - Last 24 Hours (Table) 11/25/23 11/26/23 11/26/23 Range/Units 05:52 17:13 20:16 RBC (4.40-5.60) X 10*6/uL Hgb (13.0-17.0) g/dL Hct (39.6-50.0) % MCHC (32.0-37.0) g/dL Immature Gran # (0.00-0.04) X 10*3/uL Eosinophils # (0.04-0.35) X 10*3/uL Est GFR (CKD-EPI) (>=60) Glucose (70-110) mg/dL POC Glucose (mg/dL) 153 H 211 H (70-110) mg/dL Calcium (8.7-10.3) mg/dL C-Reactive Protein (0.00-0.80) mg/dL Total Protein (6.2-8.2) g/dL Albumin (3.8-4.9) g/dL Albumin/Globulin Ratio (1.60-3.17) Ratio TSH 7.540 H (0.350-5.500) UIU/ML 11/27/23 11/27/23 11/27/23 Range/Units 06:28 06:28 07:13 RBC 3.32 L (4.40-5.60) X 10*6/uL Hgb 9.1 L (13.0-17.0) g/dL Hct 30.1 L (39.6-50.0) % MCHC 30.2 L (32.0-37.0) g/dL Immature Gran # 0.10 H (0.00-0.04) X 10*3/uL Eosinophils # 0.38 H (0.04-0.35) X 10*3/uL Est GFR (CKD-EPI) 53 L (>=60) Glucose 192 H (70-110) mg/dL POC Glucose (mg/dL) 225 H (70-110) mg/dL Calcium 8.0 L (8.7-10.3) mg/dL C-Reactive Protein 3.40 H (0.00-0.80) mg/dL Total Protein 4.9 L (6.2-8.2) g/dL Albumin 2.6 L (3.8-4.9) g/dL Albumin/Globulin Ratio 1.13 L (1.60-3.17) Ratio TSH (0.350-5.500) UIU/ML 11/27/23 Range/Units 12:25 RBC (4.40-5.60) X 10*6/uL Hgb (13.0-17.0) g/dL Hct (39.6-50.0) % MCHC (32.0-37.0) g/dL Immature Gran # (0.00-0.04) X 10*3/uL Eosinophils # (0.04-0.35) X 10*3/uL Est GFR (CKD-EPI) (>=60) Glucose (70-110) mg/dL POC Glucose (mg/dL) 228 H (70-110) mg/dL Calcium (8.7-10.3) mg/dL C-Reactive Protein (0.00-0.80) mg/dL Total Protein (6.2-8.2) g/dL Albumin (3.8-4.9) g/dL Albumin/Globulin Ratio (1.60-3.17) Ratio TSH (0.350-5.500) UIU/ML Assessment and Plan Assessment: -Right lower extremity wound secondary to diabetes. Venous wounds lower extremity. Bilateral With Dr. Leal from vascular. Debridement t carried out on November 24 ID following IV Zosyn Wound care team following -Morbid obesity BMI 43.9 Weight loss measures -Painful peripheral neuropathy secondary to diabetes Given renal function will cut back Neurontin to 1600 mg nightly -Diabetes mellitus type 2 on insulin- Follow Accu-Cheks with sliding scale -Primary osteoarthritis Pain control as needed -Normocytic anemia likely secondary to iron deficiency and chronic kidney disease Iron deficiency. B12 folate normal -Probable chronic kidney disease. Stage III. Likely diabetic nephropathy and hypertensive nephrosclerosis Renal ultrasound: Poorly visualized kidneys UA showing proteinuria -Hypothyroid Synthroid 112 mcg a day -Hyperlipidemia Zocor 40 mg nightly -Full code -Chronic gait dysfunction uses a electric wheelchair IV ferritin. S/p debridement.
--- NOTE | 2023-11-28 16:48 | P.PN ---
Subjective Progress Note Date: 11/28/23 73-year-old patient follows with Dr. Eli. Chronic stable medical conditions include hyperlipidemia, hypothyroid, diabetes, hypertension, diabetic peripheral neuropathy for which she takes Neurontin. Patient presents with worsening leg wounds specially the right toes right lower extremity. Breakdown of skin. Some tenderness. No change in bowel pattern. At her baseline uses electric wheelchair. Patient was due to follow-up at wound care center out of the area. Denies any fever. Gets chills. November 23: Patient seen by vascular. For debridement in the morning. Wound care was consulted. IV Zosyn. Some pain present. Tolerating diet. November 24: Patient went down for surgical debridement of the foot by the vascular team. Postprocedure laying in bed. Comfortable.IV Zosyn. 11/26/2023 Patient seen and evaluated in room at bedside; episode of accelerated junctional rhythm yesterday for which cardiology is consulted --EKG and telemetry reviewed by cardiology and rhythm is consistent with atrial tachycardia versus SVT versus sinus tachycardia -Patient is currently in normal sinus rhythm -- Patient has been evaluated and placed on metoprolol 25 mg daily; TSH is or dered 11/27/2023 Patient is seen and evaluated in follow-up on the regular medical floor. She is sitting up in bed. Awake and alert in no acute distress. She continues to ma intain good O2 saturations in the 90s on 2 L/min per nasal cannula. She denies any worsening shortness of breath, cough or congestion. Yesterday her sodium dropped to 125. Potassium 4.0. Bicarb 30. BUN 12. Creatinine 0.28. White count 7.5. Hemoglobin 12.0. She was initiated on normal saline at 75 MLS per hour. Today's labs are pending. Heart. Heparin for DVT prophylaxis. [place] and morphine for pain control. 11/28/2023 the patient is seen and evaluated in room at bedside; continues to be afebrile, the patient is on room air and breathing comfortably, the Pt denies having any chest pain or cough, the patient denies having any abdominal pain no vomiting or any diarrhea has been reported by the nursing staff denies any worsening pain to the lower extremity. patient presented to hospital complaining the patient have a fall however the patient also noticed to having multiple diabetic ulceration to the lower extremity especially right foot with unstageable ulcer and purulent drainage of the right big toe concerning for diabetic foot ulcer and infection and no need to cover for the polymicrobial val associated with diabetic foot infection patient with renal insufficiency and high risk for nephrotoxicity from vancomycin.3patient has been evaluated by vascular surgery patient is status post excisional debridement of the wound unfortunately no cultures were done patient is afebrile and white count has been normal patient to continue with the Zosyn at this point will reevaluate wound tomorrow at the time of dressing changes Objective - Vital Signs Vital signs: Vital Signs Temp 98.0 F 11/28/23 12:21 Pulse 71 11/28/23 12:21 Resp 17 11/28/23 12:21 BP 164/74 11/28/23 12:21 Pulse Ox 92 L 11/28/23 12:21 FiO2 Intake & Output 11/27/23 11/28/23 11/28/23 18:59 06:59 18:59 Output Total 1200 200 Balance -1200 -200 Output: Urine 1200 200 Other: Voiding Method External Catheter External Catheter External Catheter # Bowel Movements 2 - Exam GENERAL: Reclining in bed EYES: Pupils equal. Conjunctiva homa l. HEENT: External appearance of nose and ears normal, oral cavity grossly normal. NECK: JVD not raised; masses not palpable. HEART: First and second heart sounds are normal; no edema. LUNGS: Respiratory rate normal; decreased breath sounds. ABDOMEN: Soft, nontender, liver spleen not palpable, no masses palpable. PSYCH: Alert and oriented x3; mood and affect homa l. EXTREMITY: Breakdown of skin in the right lower extremity below the bartlett. Surrounding redness. Superficial. Right foot in a dressing NEUROLOGICAL: Cranial nerves grossly intact; no facial asymmetry, power and sensation decreased peripherally. - Labs CBC & Chem 7: 11/27/23 06:28 11/27/23 06:28 Labs: Abnormal Lab Results - Last 24 Hours (Table) 11/27/23 11/27/23 11/28/23 Range/Units 17:30 20:21 07:45 POC Glucose (mg/dL) 177 H 133 H 147 H (70-110) mg/dL 11/28/23 Range/Units 12:19 POC Glucose (mg/dL) 201 H (70-110) mg/dL Assessment and Plan Assessment: -Right lower extremity wound secondary to diabetes. Venous wounds lower extremity. Bilateral With Dr. Leal from vascular. Debridement t carried out on November 24 ID following IV Zosyn Wound care team following -Morbid obesity BMI 43.9 Weight loss measures -Painful peripheral neuropathy secondary to diabetes Given renal function will cut back Neurontin to 1600 mg nightly -Diabetes mellitus type 2 on insulin- Follow Accu-Cheks with sliding scale -Primary osteoarthritis Pain control as needed -Normocytic anemia likely secondary to iron deficiency and chronic kidney di sease Iron deficiency. B12 folate normal -Probable chronic kidney disease. Stage III. Likely diabetic nephropathy and hypertensive nephrosclerosis Renal ultrasound: Poorly visualized kidneys UA showing proteinuria -Hypothyroid Synthroid 112 mcg a day -Hyperlipidemia Zocor 40 mg nightly -Full code -Chronic gait dysfunction uses a electric wheelchair IV ferritin. S/p debridement.
[2023-11-28] MEDS: IPRATROPIUM-ALBUTEROL 3 ML NEB INHALATION PRN (17:12)
--- NOTE | 2023-11-28 17:16 | XR ---
EXAMINATION TYPE: XR chest 1V portable DATE OF EXAM: 11/28/2023 5:11 PM CLINICAL INDICATION:Male, 73 years old with history of cough congested SOB; [facility] COMPARISON: Chest radiographs from 11/24/2023. TECHNIQUE: XR chest 1V portable Frontal view of the chest. FINDINGS: Lungs/Pleura: Multifocal hazy airspace opacities involving the right lung. No definitive pleural effu lucrecia or pneumothorax. Pulmonary vascularity: Unremarkable. Heart/mediastinum: Cardiomediastinal silhouette is unremarkable. Musculoskeletal: No acute osseous pathology. IMPRESSION: Right lung multifocal airspace disease, may represent developing infectious/inflammatory process.
[2023-11-28 17:25] LABS: Glucose,Whole Blood 189 mg/dL (70-110)
[2023-11-28 20:35] LABS: Glucose,Whole Blood 195 mg/dL (70-110)
[2023-11-28] MEDS: guaiFENesin SYRUP 100MG/5ML 200 MG/10 ML CUP PO PRN (20:38)
[2023-11-29] MEDS ORDERED: SODIUM CHLORIDE 0.9% 100 ML BAG IV ONE (00:01)
[2023-11-29] MEDS ORDERED: IPRATROPIUM-ALBUTEROL 3 ML NEB ONE (00:01)
[2023-11-29] MEDS ORDERED: INSULIN ASPART (NovoLOG) 100 UNIT/ML VIAL SQ ONE ×3 (00:01→17:52)
[2023-11-29 06:52] LABS: ALT 22 U/L (10-49); AST 30 U/L (14-35); Albumin 2.7 g/dL (3.8-4.9); Albumin/Globulin Ratio 1.17 Ratio (1.60-3.17); Alkaline Phosphatase 149 U/L (41-126); Blood Urea Nitrogen 19.2 mg/dL (9.0-27.0); Calcium 7.9 mg/dL (8.7-10.3); Carbon Dioxide 24.2 mmol/L (21.6-31.8); Chloride 108 mmol/L (96-109); Globulin 2.3 g/dL (1.6-3.3); Glucose 194 mg/dL (70-110); Potassium 4.7 mmol/L (3.5-5.5); Sodium 142 mmol/L (135-145); Total Bilirubin 0.3 mg/dL (0.3-1.2)
[2023-11-29 07:06] LABS: Glucose,Whole Blood 231 mg/dL (70-110)
[2023-11-29 07:30] VITALS: BP 188/74; PULSE 64; RESP 16; TEMP 97.9
[2023-11-29] MEDS ORDERED: guaiFENesin SYRUP 100MG/5ML 200 MG/10 ML CUP ONE (09:23)
[2023-11-29 11:59] LABS: Glucose,Whole Blood 183 mg/dL (70-110)
[2023-11-29] MEDS ORDERED: metFORMIN 500 MG TAB ONE (15:59)
[2023-11-29] MEDS ORDERED: PIPERACILLIN-TAZOBACTAM 3.375 GM VIAL ONE (15:59)
[2023-11-29] MEDS ORDERED: SODIUM CHLORIDE 0.9% 100 ML ONE (15:59)
[2023-11-29 17:00] LABS: Glucose,Whole Blood 167 mg/dL (70-110)
[2023-11-29] MEDS ORDERED: traMADol 50 MG TAB ONE (17:56)
[2023-11-29 20:31] LABS: Glucose,Whole Blood 239 mg/dL (70-110)
[2023-11-29] MEDS ORDERED: ATORVASTATIN 20 MG TAB ONE (21:26)
[2023-11-29] MEDS ORDERED: GABAPENTIN 400 MG CAP ONE (21:27)
[2023-11-29] MEDS ORDERED: ENOXAPARIN 40 MG/0.4 ML SYRINGE SQ ONE (21:27)
[2023-11-29] MEDS ORDERED: ACETAMINOPHEN TAB 325 MG TAB ONE (21:28)
[2023-11-30] MEDS ORDERED: LEVOTHYROXINE 112 MCG TAB ONE (00:01)
[2023-11-30] MEDS ORDERED: SODIUM CHLORIDE 0.9% 100 ML BAG IV ONE (00:01)
[2023-11-30] MEDS ORDERED: PIPERACILLIN-TAZOBACTAM 3.375 GM VIAL ONE ×3 (00:22→16:37)
[2023-11-30] MEDS ORDERED: SODIUM CHLORIDE 0.9% 100 ML ONE ×2 (00:22→08:30)
[2023-11-30] MEDS ORDERED: guaiFENesin SYRUP 100MG/5ML 200 MG/10 ML CUP ONE ×3 (00:43→18:24)
[2023-11-30] MEDS ORDERED: cloNIDine HCL 0.1 MG TAB ONE (02:35)
[2023-11-30 06:59] LABS: Glucose,Whole Blood 238 mg/dL (70-110)
[2023-11-30] MEDS ORDERED: METOPROLOL SUCCINATE (ER) 25 MG TAB.ER.24H PO ONE (08:28)
[2023-11-30] MEDS ORDERED: lisinopriL 20 MG TAB ONE (08:28)
[2023-11-30] MEDS ORDERED: FAMOTIDINE 20 MG TAB ONE (08:28)
[2023-11-30] MEDS ORDERED: metFORMIN 500 MG TAB ONE ×2 (08:28→16:37)
[2023-11-30] MEDS ORDERED: ASPIRIN 81 MG ONE (08:28)
[2023-11-30] MEDS ORDERED: ALPRAZolam 0.25 MG TAB ONE (08:29)
[2023-11-30] MEDS ORDERED: traMADol 50 MG TAB ONE ×2 (08:29→18:24)
[2023-11-30] MEDS ORDERED: INSULIN ASPART (NovoLOG) 100 UNIT/ML VIAL SQ ONE ×3 (08:30→17:37)
[2023-11-30] MEDS ORDERED: LORATADINE 10 MG TAB ONE (08:30)
[2023-11-30 12:31] LABS: Glucose,Whole Blood 218 mg/dL (70-110)
[2023-11-30] MEDS ORDERED: amLODIPine 5 MG TAB ONE (12:43)
[2023-11-30 16:55] LABS: Glucose,Whole Blood 168 mg/dL (70-110)
[2023-11-30] MEDS ORDERED: IPRATROPIUM-ALBUTEROL 3 ML NEB ONE (20:15)
[2023-11-30 20:37] LABS: Glucose,Whole Blood 203 mg/dL (70-110)
[2023-11-30] MEDS ORDERED: ATORVASTATIN 20 MG TAB ONE (21:12)
[2023-11-30] MEDS ORDERED: GABAPENTIN 400 MG CAP ONE (21:13)
[2023-11-30] MEDS ORDERED: ENOXAPARIN 40 MG/0.4 ML SYRINGE SQ ONE (21:13)
[2023-12-01] MEDS ORDERED: IPRATROPIUM-ALBUTEROL 3 ML NEB ONE (00:01)
[2023-12-01] MEDS ORDERED: SODIUM CHLORIDE 0.9% 100 ML BAG IV ONE (00:01)
[2023-12-01] MEDS ORDERED: INSULIN ASPART (NovoLOG) 100 UNIT/ML VIAL SQ ONE ×4 (00:01→20:54)
[2023-12-01] MEDS ORDERED: SODIUM CHLORIDE 0.9% 1,000 ML BAG ONE (00:01)
[2023-12-01] MEDS ORDERED: PIPERACILLIN-TAZOBACTAM 3.375 GM VIAL ONE ×4 (00:38→23:55)
[2023-12-01 07:00] LABS: Glucose,Whole Blood 177 mg/dL (70-110)
[2023-12-01] MEDS ORDERED: traMADol 50 MG TAB ONE ×2 (08:44→20:34)
[2023-12-01] MEDS ORDERED: metFORMIN 500 MG TAB ONE ×2 (08:45→16:02)
[2023-12-01] MEDS ORDERED: lisinopriL 20 MG TAB ONE (08:45)
[2023-12-01] MEDS ORDERED: ASPIRIN 81 MG ONE (08:46)
[2023-12-01] MEDS ORDERED: FAMOTIDINE 20 MG TAB ONE (08:48)
[2023-12-01] MEDS ORDERED: METOPROLOL SUCCINATE (ER) 25 MG TAB.ER.24H PO ONE (08:48)
[2023-12-01] MEDS ORDERED: LORATADINE 10 MG TAB ONE (08:49)
[2023-12-01] MEDS ORDERED: amLODIPine 5 MG TAB ONE (08:52)
[2023-12-01 11:57] LABS: Glucose,Whole Blood 209 mg/dL (70-110)
[2023-12-01 17:08] LABS: Glucose,Whole Blood 206 mg/dL (70-110)
[2023-12-01 20:18] LABS: Glucose,Whole Blood 181 mg/dL (70-110)
[2023-12-01] MEDS ORDERED: GABAPENTIN 400 MG CAP ONE (20:34)
[2023-12-01] MEDS ORDERED: ATORVASTATIN 20 MG TAB ONE (20:34)
[2023-12-01] MEDS ORDERED: guaiFENesin SYRUP 100MG/5ML 200 MG/10 ML CUP ONE (20:34)
[2023-12-01] MEDS ORDERED: ENOXAPARIN 40 MG/0.4 ML SYRINGE SQ ONE (20:34)
[2023-12-02] MEDS ORDERED: guaiFENesin SYRUP 100MG/5ML 200 MG/10 ML CUP ONE (04:41)
[2023-12-02 07:12] LABS: Glucose,Whole Blood 171 mg/dL (70-110)
[2023-12-02] MEDS ORDERED: METOPROLOL SUCCINATE (ER) 25 MG TAB.ER.24H PO ONE (07:57)
[2023-12-02] MEDS ORDERED: amLODIPine 10 MG TAB ONE (07:58)
[2023-12-02] MEDS ORDERED: lisinopriL 20 MG TAB ONE (07:58)
[2023-12-02] MEDS ORDERED: metFORMIN 500 MG TAB ONE (07:58)
[2023-12-02] MEDS ORDERED: ASPIRIN 81 MG ONE (07:58)
[2023-12-02] MEDS ORDERED: LORATADINE 10 MG TAB ONE (07:58)
[2023-12-02] MEDS ORDERED: FAMOTIDINE 20 MG TAB ONE (07:58)
[2023-12-02] MEDS ORDERED: INSULIN ASPART (NovoLOG) 100 UNIT/ML VIAL SQ ONE ×3 (08:04→13:04)
[2023-12-02] MEDS ORDERED: PIPERACILLIN-TAZOBACTAM 3.375 GM VIAL ONE (08:29)
[2023-12-02] MEDS ORDERED: SODIUM CHLORIDE 0.9% 100 ML BAG IV ONE (11:09)
[2023-12-02] MEDS ORDERED: IPRATROPIUM-ALBUTEROL 3 ML NEB ONE (11:09)
[2023-12-02 12:19] LABS: Glucose,Whole Blood 173 mg/dL (70-110)
== END 2023-12-02 13:30 | DRG 623 ==
LOC: EC 15:18 → 4SSUR 16:14 → 5NMEDONC 11-24 03:03
PROVIDERS: ADMIT Hospitalist; ATTEND Hospitalist
PROC: 0JBN0ZZ Excision of Right Lower Leg Subcutaneous Tissue and Fascia, Open Approach (ICD-10-PCS; 2023-11-25)
PROC: 0JBP0ZZ Excision of Left Lower Leg Subcutaneous Tissue and Fascia, Open Approach (ICD-10-PCS; 2023-11-25)
PROC: 0JBQ0ZZ Excision of Right Foot Subcutaneous Tissue and Fascia, Open Approach (ICD-10-PCS; 2023-11-25)
PROC: 0JBR0ZZ Excision of Left Foot Subcutaneous Tissue and Fascia, Open Approach (ICD-10-PCS; principal; 2023-11-25 10:30)
DX: E11.621 Type 2 diabetes mellitus with foot ulcer (principal); L03.115 Cellulitis of right lower limb; Z68.41 Body mass index [BMI] 40.0-44.9, adult; M62.82 Rhabdomyolysis; L03.116 Cellulitis of left lower limb; E11.42 Type 2 diabetes mellitus with diabetic polyneuropathy; E66.01 Morbid (severe) obesity due to excess calories; E03.9 Hypothyroidism, unspecified; Z79.890 Hormone replacement therapy; E11.622 Type 2 diabetes mellitus with other skin ulcer; Z79.4 Long term (current) use of insulin; E78.5 Hyperlipidemia, unspecified; R26.9 Unspecified abnormalities of gait and mobility; I87.8 Other specified disorders of veins; M19.91 Primary osteoarthritis, unspecified site; E11.22 Type 2 diabetes mellitus with diabetic chronic kidney disease; E11.65 Type 2 diabetes mellitus with hyperglycemia; N18.30 Chronic kidney disease, stage 3 unspecified; D63.1 Anemia in chronic kidney disease; D50.9 Iron deficiency anemia, unspecified; E11.21 Type 2 diabetes mellitus with diabetic nephropathy; E78.00 Pure hypercholesterolemia, unspecified; E11.628 Type 2 diabetes mellitus with other skin complications; I25.2 Old myocardial infarction; I87.2 Venous insufficiency (chronic) (peripheral); L89.152 Pressure ulcer of sacral region, stage 2; L89.612 Pressure ulcer of right heel, stage 2; L89.890 Pressure ulcer of other site, unstageable; L97.512 Non-pressure chronic ulcer of other part of right foot with fat layer exposed; L97.529 Non-pressure chronic ulcer of other part of left foot with unspecified severity; L98.492 Non-pressure chronic ulcer of skin of other sites with fat layer exposed; W19.XXXA Unspecified fall, initial encounter; Z79.82 Long term (current) use of aspirin; Z79.84 Long term (current) use of oral hypoglycemic drugs; Z79.899 Other long term (current) drug therapy; Z87.891 Personal history of nicotine dependence; I12.9 Hypertensive chronic kidney disease with stage 1 through stage 4 chronic kidney disease, or unspecified chronic kidney disease; J44.9 Chronic obstructive pulmonary disease, unspecified; L89.892 Pressure ulcer of other site, stage 2; Z98.42 Cataract extraction status, left eye; Z98.41 Cataract extraction status, right eye
CPT/HCPCS: 71045; 76770; 80048; 80053; 81001; 82550; 82607; 82728; 82746; 83540; 83550; 83735; 84145; 84439; 84443; 85025; 86140; 87635; 93005; 94640; 94760; 96361; 96365; 96366; 96372; 99285

== ENCOUNTER → 2023-12-08 | Outpatient (CLI) | payer MEDICARE, OTHER | END | disposition home or self-care (01) | LOC: LABPRL 06:02 | PROVIDERS: ATTEND Internal Medicine Geriatric Medicine | DX: I10 Essential (primary) hypertension (principal); E11.9 Type 2 diabetes mellitus without complications; E78.5 Hyperlipidemia, unspecified; L03.90 Cellulitis, unspecified | CPT/HCPCS: 83036; 85652 ==

== ENCOUNTER → 2023-12-13 | Outpatient (CLI) | payer MEDICARE, OTHER | END | disposition home or self-care (01) | LOC: LABPRL 05:30 | PROVIDERS: ATTEND Family Medicine | CPT/HCPCS: 83036; 85652 ==

== ENCOUNTER 2023-12-25 18:31 | Inpatient (IN) | payer MEDICARE, OTHER ==
[2023-12-25] MEDS ORDERED: VANCOMYCIN IV PER PHARMACY 1 EACH MISC MISCELLANE PRN (19:44)
--- NOTE | 2023-12-25 20:02 | ED ---
Altered Mental Status HPI - General Chief Complaint: Altered Mental Status Stated Complaint: abnormal labs Time Seen by Provider: 12/25/23 18:49 Source: EMS Mode of arrival: EMS - History of Present Illness Initial Comments: Hx limited by patient's altered mental status. Pt presents from [facility] for AMS and agitation. Pt reportedly AO x4 at baseline, today AO x1-2, fever at facility (100.4F), has been being treated x 2 days with doxycycline for bilateral LE cellulitis. - Related Data Home Medications Medication Instructions Recorded Confirmed Aspirin EC [Ecotrin Low Dose] 81 mg PO DAILY 11/23/23 11/23/23 Furosemide [Lasix] 20 mg PO DAILY 11/23/23 11/23/23 Gabapentin [Neurontin] 1,600 mg PO HS 11/23/23 11/23/23 Gabapentin [Neurontin] 800 mg PO DAILY 11/23/23 11/23/23 Insulin Aspart Prot/Insuln Asp See Protocol SQ AC-BID 11/23/23 11/23/23 [NovoLOG MIX 70-30 Flexpen] Levothyroxine Sodium [Synthroid] 112 mcg PO DAILY 11/23/23 11/23/23 Simvastatin [Zocor] 40 mg PO HS 11/23/23 11/23/23 lisinopriL [Zestril] 20 mg PO DAILY 11/23/23 11/23/23 metFORMIN HCL ER [Glucophage XR] 1,000 mg PO BID-W/MEALS 11/23/23 11/23/23 Allergies Allergy/AdvReac Type Severity Reaction Status Date / Time No Known Allergies Allergy Verified 11/23/23 17:09 Review of Systems ROS Statement: Those systems with pertinent positive or pertinent negative responses have been documented in the HPI. ROS Other: All systems not noted in ROS Statement are negative. Limitations: ROS unobtainable due to patients medical condition Past Medical History Past Medical History: COPD, Diabetes Mellitus, Hyperlipidemia, Hypertension, Myocardial Infarction ([place]), Neurologic Disorder, Thyroid Disorder Additional Past Medical History / Comment(s): Peripheral neuropathy, diabetic leg ulcers, Last Myocardial Infarction Date:: Pt guesses its been about 5 years 2019 History of Any Multi-Drug Resistant Organisms: Unobtainable Past Surgical History: Heart Catheterization With Stent Additional Past Surgical History / Comment(s): Bilateral caterac surgery Past Anesthesia/Blood Transfusion Reactions: No Reported Reaction Date of Last Stent Placement:: 2020 Past Psychological History: Unable to Obtain Smoking Status: Former smoker Past Alcohol Use History: Heavy Past Drug Use History: None Reported - Past Family History Mother Family Medical History: Diabetes Mellitus General Exam - General Exam Comments Initial Comments: PE: CONSTITUTIONAL: Ill appearing, moaning, stating that he wants to leave, respirations unlabored SKIN: warm, dry, circumferential erythema around bilateral distal lower extremities extending from feet to just inferior to the knees, large blister on the plantar aspect of the right foot,, large ulcer with dry center to plantar aspect right foot, swelling feet bilaterally, no subcutaneous emphysema, no eschars EYES: Pupils are equally round, extraocular movements intact without nystagmus, clear conjunctiva, non-icteric sclera HENT: Normocephalic, atraumatic, dry mucus membranes, oropharynx clear without exudates NECK: , Full range of motion, normal appearance PULMONARY: Clear to auscultation without wheezes, rhonchi, or rales, normal excursion, no accessory muscle use and no stridor CARDIOVASCULAR: Regular rate, rhythm, normal S1 and S2. No appreciated murmurs, rubs or gallops. Strong radial pulses with intact distal perfusion. 2+ bilateral LE edema GASTROINTESTINAL: Soft, non-tender, non-distended, no palpable masses, no re bound or guarding. No hepatosplenomegaly MUSCULOSKELETAL: [Extremities have no gross deformity, 1-2+ edema distal bilateral LE, TTP of distal LE, no signs of injury, skin changes as noted above. NEUROLOGIC:_a/o x 1-2, GCS 14, confused mentation, unable to explain why he is in the ED, denies pain but appears to be moaning in pain, states "get me out of here", Moves all extremities x 4 without motor or sensory deficit PSYCHIATRIC: Tearful, confused Course Vital Signs 12/25/23 12/25/23 12/25/23 18:37 19:39 23:51 Temperature 98.9 F 100.9 F H 98.7 F Pulse Rate 91 90 83 Respiratory 20 18 18 Rate Blood Pressure 113/62 108/68 154/58 O2 Sat by Pulse 91 L 95 90 L Oximetry Medical Decision Making - Medical Decision Making Was pt. sent in by a medical professional or institution (, PA, DISTILLERY LABORER, urgent care, hospital, or usp...) When possible be specific @ -Sent by [facility] Did you speak to anyone other than the patient for history (EMS, parent, family, police, friend...)? What history was obtained from this source @ -No Did you review nursing and triage notes (agree or disagree)? Why? @ -I reviewed and agree with nursing and triage notes- with exception patient not currently combative Were old charts reviewed (outside hosp., previous admission, EMS record, old EKG, old radiological studies, urgent care reports/EKG's, usp records)? Report findings @ -Reviewed patient's medical history/paperwork sent with patient from facility Reviewed reviewed medication list sent with patient hemispheric facility, patient appears to be taking 81 mg of aspirin daily, 20 mg atorvastatin daily, 5 mg Claritin daily, doxycycline 100 mg twice daily, Dulcolax suppositories every 24 hours as needed for constipation, Lovenox 40 mg nightly, enemas as needed for constipation, gabapentin 603 times daily for neuropathy, insulin glargine 10 units subcu nightly for diabetes, nebulizer treatments, lactulose as needed for constipation, levothyroxine 120 mcg once daily and 20 mg lisinopril daily, Differential Diagnosis (chest pain, altered mental status, abdominal pain women, abdominal pain men, vaginal bleeding, weakness, fever, dyspnea, syncope, headache, dizziness, GI bleed, back pain, seizure, CVA, palpatations, mental health, musculoskeletal)? @ -Differential Altered Mental Status: Hypoglycemia, hypercapnia, myxedema coma, infection/ sepsis, psychosis, hepatic encephalopathy this is not meant to be an all-inclusive list EKG interpreted by me (3pts min.). @ -Sinus rhythm, 82 bpm, OH interval 170 ms, QRS duration 102 ms, QTc/QT within normal limits, normal axis, artifact present, no STEMI or arrhythmia X-rays interpreted by me (1pt min.). @ Reviewed, I saw no evidence of fracture, malalignment or bony destruction on XR of LE, cardiomegaly and pulm edema noted on CXR CT interpreted by me (1pt min.). @ -CT brain without evidence of mass effect or hemorrhage U/S interpreted by me (1pt. min.). @ -None done What testing was considered but not performed or refused? (CT, X-rays, U/S, labs)? Why? @ -None What meds were considered but not given or refused? Why? @ -None Did you discuss the management of the patient with other professionals (professionals i.e. , PA, DISTILLERY LABORER, lab, RT, psych nurse, social work faculty member, plaster die maker, teacher, airframe technical officer, block and case maker)? Give summary @ -No Was smoking cessation discussed for >3mins.? @ -No Was critical care preformed (if so, how long)? @ -No Were there social determinants of health that impacted care today? How? (Homelessness, low income, unemployed, alcoholism, drug addiction, transporta tion, low edu. Level, literacy, decrease access to med. care, prison, rehab)? @ -No Was there de-escalation of care discussed even if they declined (Discuss DNR or withdrawal of care, Hospice)? @ -No What co-morbidities impacted this encounter? (DM, HTN, Smoking, COPD, CAD, Cancer, CVA, ARF, Chemo, Hep., AIDS, mental health diagnosis, sleep apnea, morbid obesity)? @ -None Was patient admitted / discharged? Hospital course, mention meds given and route, prescriptions, significant lab abnormalities, going to OR and other pertinent info. @ -Hospital course Admitted- 73 y/o male presenting from [facility] for AMS and fever, 2 days of LE cellulitis. On assessment patient tachycardic, no hypotension or hypoxia, laying on side, moaning, oriented to self/place, not situation, states "get me out of here", denies pain however endorses TTP distal LE when I remove bandages. Abdomen soft and nontender, moves all 4 extremities without difficulty, distal bilateral LE edema and erythema, blister and dry wound to plantar aspect right foot, no skin sloughing, strong smell coming from wounds, skin pink and well perfused. No crepitus to palpation. Highly suspect acute encephalopathy 2/2 sepsis from LE wounds/cellulitis however will obtain CT brain, ammonia level, salicylate and Tylenol level, TSH, troponin, chest x-ray x-rays bilateral lower extremities, CT brain. Sepsis bundle ordered. Tylenol for fever. 2L IV fluids ordered given dry MM and sepsis. Full 30 cckg bolus not ordered as patient not hypotensive and does have some LE edema. CT brain with no acute intracranial process, chest x-ray read with as cardiomegaly with pulmonary vascular congestion and bilateral pleural effusions x-ray tib-fib read with mild to moderate subcutaneous edema, bilaterally no acute fracture or dislocation, no suspicious cayla process seen, soft tissue infection in the right foot suspected no convicing evidence of osteomyelitis. Labs reviewed and significant for mild leukocytosis white blood cell count 11, hemoglobin 8.4 does appear to be baseline for patient, most recent was on 12/20/2023, 9.2, patient does have mild rising creatinine to 2.06, on 12/20/2023 was 1.81, prior to this on 11/28/2023 was 1.5, suspect MARIAN GFR 31 down from 37 CRP 6.16.7, lactic 1.1. Given these findings, minimal elevation in WBC, no lactic acidosis, CRP mildly-moderately elevated, suspect infection 2/2 cellulitis as opposed to deep tissue infection. Patient more comfortable on assessment. Sleeping in NAD. Plan for admission. Discussed with Dr. García who kindly accepts patient for admission. Requests ID consult be placed. Undiagnosed new problem with uncertain prognosis? @ -Yes Drug Therapy requiring intensive monitoring for toxicity (Heparin, Nitro, Insulin, Cardizem)? @ -No Were any procedures done? @ -No Diagnosis/symptom? @ -Acute encephalopathy, sepsis 2/2 cellulitis, MARIAN Acute, or Chronic, or Acute on Chronic? @ Acute Uncomplicated (without systemic symptoms) or Complicated (systemic symptoms)? @ Complicated Exacerbation, Progression, or Severe Exacerbation? @ -No Poses a threat to life or bodily function? How? (Chest pain, [place], [place], pneumonia, PE, COPD, DKA, ARF, appy, cholecystitis, CVA, Diverticulitis, Homicidal, Suicidal, threat to staff... and all critical care pts) @ Yes - Lab Data Result diagrams: 12/25/23 20:40 12/25/23 20:40 Lab Results 12/25/23 12/25/23 12/25/23 Range/Units 20:40 20:40 20:40 WBC 11.0 H (3.8-10.6) k/uL RBC 2.97 L (4.30-5.90) m/uL Hgb 8.4 L (13.0-17.5) gm/dL Hct 25.9 L (39.0-53.0) % MCV 87.3 (80.0-100.0) fL MCH 28.4 (25.0-35.0) pg MCHC 32.6 (31.0-37.0) g/dL RDW 13.9 (11.5-15.5) % Plt Count 377 (150-450) k/uL MPV 8.1 Neutrophils % 79 % Lymphocytes % 9 % Monocytes % 4 % Eosinophils % 6 % Basophils % 0 % Neutrophils # 8.7 H (1.3-7.7) k/uL Lymphocytes # 0.9 L (1.0-4.8) k/uL Monocytes # 0.5 (0-1.0) k/uL Eosinophils # 0.7 (0-0.7) k/uL Basophils # 0.1 (0-0.2) k/uL Hypochromasia Moderate PT 11.0 (10.0-12.5) sec INR 1.0 (<1.2) APTT 28.3 (22.0-30.0) sec Sodium 141 (137-145) mmol/L Potassium 5.0 (3.5-5.1) mmol/L Chloride 109 H (98-107) mmol/L Carbon Dioxide 26 (22-30) mmol/L Anion Gap 6 mmol/L BUN 61 H (9-20) mg/dL Creatinine 2.06 H (0.66-1.25) mg/dL Est GFR (CKD-EPI)AfAm 36 (>60 ml/min/1.73 sqM) Est GFR (CKD-EPI)NonAf 31 (>60 ml/min/1.73 sqM) Glucose 129 H (74-99) mg/dL Plasma Lactic Acid Rogers (0.7-2.0) mmol/L Calcium 8.7 (8.4-10.2) mg/dL Total Bilirubin 0.6 (0.2-1.3) mg/dL AST 39 (17-59) U/L ALT 16 (4-49) U/L Alkaline Phosphatase 150 H (38-126) U/L Ammonia (<30) umol/L Troponin I (0.000-0.034) ng/mL C-Reactive Protein 16.7 H (<1.0) mg/dL Total Protein 5.3 L (6.3-8.2) g/dL Albumin 2.7 L (3.5-5.0) g/dL TSH 2.660 (0.465-4.680) mIU/L Salicylates <1.0 mg/dL Acetaminophen <10.0 ug/mL 12/25/23 12/25/23 Range/Units 20:40 20:40 WBC (3.8-10.6) k/uL RBC (4.30-5.90) m/uL Hgb (13.0-17.5) gm/dL Hct (39.0-53.0) % MCV (80.0-100.0) fL MCH (25.0-35.0) pg MCHC (31.0-37.0) g/dL RDW (11.5-15.5) % Plt Count (150-450) k/uL MPV Neutrophils % % Lymphocytes % % Monocytes % % Eosinophils % % Basophils % % Neutrophils # (1.3-7.7) k/uL Lymphocytes # (1.0-4.8) k/uL Monocytes # (0-1.0) k/uL Eosinophils # (0-0.7) k/uL Basophils # (0-0.2) k/uL Hypochromasia PT (10.0-12.5) sec INR (<1.2) APTT (22.0-30.0) sec Sodium (137-145) mmol/L Potassium (3.5-5.1) mmol/L Chloride (98-107) mmol/L Carbon Dioxide (22-30) mmol/L Anion Gap mmol/L BUN (9-20) mg/dL Creatinine (0.66-1.25) mg/dL Est GFR (CKD-EPI)AfAm (>60 ml/min/1.73 sqM) Est GFR (CKD-EPI)NonAf (>60 ml/min/1.73 sqM) Glucose (74-99) mg/dL Plasma Lactic Acid Rogers 1.1 (0.7-2.0) mmol/L Calcium (8.4-10.2) mg/dL Total Bilirubin (0.2-1.3) mg/dL AST (17-59) U/L ALT (4-49) U/L Alkaline Phosphatase (38-126) U/L Ammonia <9 (<30) umol/L Troponin I 0.016 (0.000-0.034) ng/mL C-Reactive Protein (<1.0) mg/dL Total Protein (6.3-8.2) g/dL Albumin (3.5-5.0) g/dL TSH (0.465-4.680) mIU/L Salicylates mg/dL Acetaminophen ug/mL Disposition Clinical Impression: Sepsis, Altered mental status Disposition: ADMITTED IP TO THIS HOSP
[2023-12-25] MEDS: LACTATED RINGERS 1,000 ML BAG IV STA (20:11)
[2023-12-25] MEDS: PIPERACILLIN-TAZOBACTAM 4.5 GM in SODIUM CHLORIDE 0.9% 100 ML IVPB STA (20:12)
[2023-12-25 20:46] LABS: Basophils # (A) 0.1 k/uL (0-0.2); Basophils % (A) 0 %; Eosinophils # (A) 0.7 k/uL (0-0.7); Eosinophils % (A) 6 %; HCT 25.9 % (39.0-53.0); HGB 8.4 gm/dL (13.0-17.5); Hypochromasia Moderate; Lymphocytes # (A) 0.9 k/uL (1.0-4.8); Lymphocytes % (A) 9 %; MCH 28.4 pg (25.0-35.0); MCHC 32.6 g/dL (31.0-37.0); MCV 87.3 fL (80.0-100.0); Mean Platelet Volume 8.1; Monocytes # (A) 0.5 k/uL (0-1.0); Monocytes % (A) 4 %; Neutrophils # (A) 8.7 k/uL (1.3-7.7); Neutrophils % (A) 79 %; Platelet Count 377 k/uL (150-450); RBC 2.97 m/uL (4.30-5.90); RDW 13.9 % (11.5-15.5)
[2023-12-25 20:57] LABS: Lactic Acid, Venous 1.1 mmol/L (0.7-2.0)
[2023-12-25 20:59] LABS: ALT 16 U/L (4-49); AST 39 U/L (17-59); Acetaminophen <10.0 ug/mL; African American GFR (CKD) 36 (>60 ml/min/1.73 sqM); Albumin 2.7 g/dL (3.5-5.0); Alkaline Phosphatase 150 U/L (38-126); Anion Gap 6 mmol/L; Blood Urea Nitrogen 61 mg/dL (9-20); Calcium 8.7 mg/dL (8.4-10.2); Carbon Dioxide 26 mmol/L (22-30); Chloride 109 mmol/L (98-107); Glucose 129 mg/dL (74-99); Non-African American GFR(CKD) 31 (>60 ml/min/1.73 sqM); Salicylate <1.0 mg/dL; Sodium 141 mmol/L (137-145); Total Bilirubin 0.6 mg/dL (0.2-1.3); Total Protein 5.3 g/dL (6.3-8.2)
[2023-12-25 21:05] LABS: Partial Thromboplastin Time 28.3 sec (22.0-30.0)
--- NOTE | 2023-12-25 21:10 | CT ---
EXAMINATION TYPE: CT brain wo con CT DLP: 1344.4 mGycm, Automated exposure control for dose reduction was used. DATE OF EXAM: 12/25/2023 8:55 PM COMPARISON: 11/23/2023 . CLINICAL INDICATION: Male, 73 years old with history of AMS, pt [place] [facility] [place] AMS TECHNIQUE: Brain: Axial CT images of the brain were obtained with coronal and sagittal reformats created and rev iewed. Contrast used: None. Oral contrast used: None. FINDINGS: Brain: Extra-axial spaces: No abnormal extra-axial fluid collections. Ventricular system: Within normal limits Cerebral parenchyma: No acute intraparenchymal hemorrhage or mass effect. The torrez-white junction is well differentiated. Cerebellum: Unremarkable. Mass effect: No evidence of midline shift. Intracranial vasculature: Atherosclerotic calcifications of the intracranial vessels. Soft tissues: Normal. Calvarium/osseous structures: No depressed skull fracture. Paranasal sinuses and mastoid air cells: Mild scattered paranasal sinus disease. Visualized orbits: Bilateral aphakia IMPRESSION: No acute intracranial process.
--- NOTE | 2023-12-25 21:11 | XR ---
EXAMINATION TYPE: XR chest 2V DATE OF EXAM: 12/25/2023 9:01 PM CLINICAL INDICATION: Male, 73 years old with history of Fever; PH[facility] COMPARISON: Chest radiographs from 11/28/2023 TECHNIQUE: XR chest 2V Frontal view of the chest. FINDINGS: Lungs/Pleura: No evidence of focal consolidation or pneumothorax. Blunting of the costophrenic angles is present. Pulmonary vascularity: Pulmonary vascular congestion. Heart/mediastinum: Cardiomediastinal silhouette is enlarged. Musculoskeletal: No acute osseous pathology. Other findings: None Lines/Tubes: IMPRESSION: Cardiomegaly, pulmonary vascular congestion and bilateral pleural effusions. Correlate with BNP for c ongestive heart failure.
[2023-12-25 21:26] LABS: C Reactive Protein 16.7 mg/dL (<1.0)
--- NOTE | 2023-12-25 22:17 | XR ---
EXAMINATION TYPE: XR tibia fibula bilateral DATE OF EXAM: 12/25/2023 CLINICAL HISTORY: Infection TECHNIQUE: Two views of the bilateral legs are obtained. COMPARISON: None. FINDINGS: Mild/moderate diffuse subcutaneous edema seen bilaterally. There is no acute fracture or d islocation seen in either tibia or fibula. Degenerative change bilateral knees greatest medial tibiof emoral and patellofemoral compartments is present. No suspicious bony destruction is seen. IMPRESSION: As above.
--- NOTE | 2023-12-25 22:19 | XR ---
EXAMINATION TYPE: XR foot limited bilateral DATE OF EXAM: 12/25/2023 CLINICAL HISTORY: Infection TECHNIQUE: Frontal and lateral images of the bilateral feet are obtained. COMPARISON: None FINDINGS: There is no acute fracture/dislocation evident in either foot. The joint spaces in the bi lateral feet appear within normal limits. Right foot shows asymmetric severe diffuse soft tissue swel ling along with ulceration along the plantar surface of the midfoot level. No definitive bony destruc tion. IMPRESSION: There is soft tissue infection in the right foot suspected. No convincing radiographic e vidence for acute osteomyelitis. MRI and/or 3 phase bone scan can be performed if clinical suspicion persists.
[2023-12-25] MEDS ORDERED: NALOXONE 0.4 MG/ML 1 ML VIAL IV PRN (23:09)
[2023-12-25] MEDS: VANCOMYCIN 2,000 MG in SODIUM CHLORIDE 0.9% 500 ML 500 ML IVPB STA (23:44)
[2023-12-25] MEDS: ACETAMINOPHEN IV (For NPO) 1,000 MG in EMPTY BAG 1 BAG IVPB STA (23:44)
[2023-12-26 01:07] LABS: Glucose,Whole Blood 138 mg/dL (70-110)
[2023-12-26] MEDS: LACTATED RINGERS 500 ML IV SCH (03:42)
[2023-12-26] MEDS: HYDROcodone/APAP 5-325MG 1 EACH TAB PO PRN (03:47)
[2023-12-26] MEDS: DEXTROSE 5%-0.45% NACL 1,000 ML IV SCH (03:54)
[2023-12-26 06:20] LABS: Glucose,Whole Blood 145 mg/dL (70-110)
[2023-12-26] MEDS: INSULIN ASPART (NovoLOG) 100 UNIT/ML VIAL SQ SCH (06:23)
[2023-12-26] MEDS: LEVOTHYROXINE 112 MCG TAB PO SCH (06:29)
[2023-12-26] MEDS: VANCOMYCIN 2,250 MG in SODIUM CHLORIDE 0.9% 500 ML 500 ML IVPB STA (07:19)
[2023-12-26] MEDS: ENOXAPARIN 40 MG/0.4 ML SYRINGE SQ SCH (08:41)
[2023-12-26] MEDS: lisinopriL 20 MG TAB PO SCH (08:41)
[2023-12-26] MEDS: ASPIRIN 81 MG PO SCH (08:41)
[2023-12-26] MEDS: PANTOPRAZOLE 40 MG/10 ML VIAL IV SCH (08:42)
[2023-12-26 11:48] LABS: Glucose,Whole Blood 139 mg/dL (70-110)
[2023-12-26 12:06] LABS: Erythrocyte Sedimentation Rate 73 mm/Hr (0-20)
[2023-12-26 15:16] LABS: African American GFR (CKD) 45 (>60 ml/min/1.73 sqM); Anion Gap 4 mmol/L; Blood Urea Nitrogen 50 mg/dL (9-20); Calcium 8.2 mg/dL (8.4-10.2); Carbon Dioxide 25 mmol/L (22-30); Chloride 111 mmol/L (98-107); Glucose 169 mg/dL (74-99); Non-African American GFR(CKD) 39 (>60 ml/min/1.73 sqM); Potassium 4.3 mmol/L (3.5-5.1); Sodium 140 mmol/L (137-145)
[2023-12-26] MEDS: VANCOMYCIN 2,250 MG in SODIUM CHLORIDE 0.9% 500 ML 500 ML IVPB ONE (15:16)
--- NOTE | 2023-12-26 16:11 | P.HPIM ---
History of Present Illness H&P Date: 12/26/23 Chief Complaint: Altered mental status 73-year-old male patient, history of hypertension, hyperlipidemia, hypothyroidism, diabetes mellitus, COPD, CAD presents from [facility] for AMS and agitation. Pt reportedly AO x4 at baseline, today AO x1-2, fever at facility (100.4F), has been being treated x 2 days with doxycycline for bilateral LE cellulitis. --Workup completed in ED reveals cellulitis with wounds both lower extremities/sepsis and MARIAN Blood work completed in ED reveals a WBC of 11.0, hemoglobin of 8.4 and platelet count of 377, sodium 141, potassium 5.2, BUNs/61/2.06 In the ED patient was diagnosed with cellulitis both lower extremities with in fected wounds and MARIAN -- Patient has been placed on IV vancomycin and is being admitted for further treatment and consultation with infectious disease Review of Systems ROS unobtainable: due to mental status Past Medical History Past Medical History: COPD, Diabetes Mellitus, Hyperlipidemia, Hypertension, Myocardial Infarction ([place]), Neurologic Disorder, Thyroid Disorder Additional Past Medical History / Comment(s): Peripheral neuropathy, diabetic leg ulcers, Last Myocardial Infarction Date:: Pt guesses its been about 5 years2018 History of Any Multi-Drug Resistant Organisms: Unobtainable Past Surgical History: Heart Catheterization With Stent Additional Past Surgical History / Comment(s): Bilateral caterac surgery Past Anesthesia/Blood Transfusion Reactions: No Reported Reaction Date of Last Stent Placement:: 2020 Past Psychological History: Unable to Obtain Smoking Status: Former smoker Past Alcohol Use History: Heavy Past Drug Use History: None Reported - Past Family History Mother Family Medical History: Diabetes Mellitus Medications and Allergies Home Medications Medication Instructions Recorded Confirmed Type Furosemide [Lasix] 20 mg PO DAILY 11/23/23 12/26/23 History Gabapentin [Neurontin] 800 mg PO TID 11/23/23 12/26/23 History Insulin Aspart Prot/Insuln Asp 50 unit SQ BID 11/23/23 12/26/23 History [NovoLOG MIX 70-30 Flexpen] Levothyroxine Sodium [Synthroid] 112 mcg PO DAILY 11/23/23 12/26/23 History Simvastatin [Zocor] 40 mg PO HS 11/23/23 12/26/23 History lisinopriL [Zestril] 20 mg PO DAILY 11/23/23 12/26/23 History metFORMIN HCL ER [Glucophage XR] 1,000 mg PO BID-W/MEALS 11/23/23 12/26/23 History Clopidogrel [Plavix] 75 mg PO DAILY 12/26/23 12/26/23 History Allergies Allergy/AdvReac Type Severity Reaction Status Date / Time No Known Allergies Allergy Verified 12/26/23 11:19 Physical Exam Vitals: Vital Signs Temp Pulse Pulse Resp BP BP Pulse Ox 12/26/23 08:32 97.9 F 77 19 151/67 92 L 12/26/23 04:00 97.8 F 20 119/60 92 L 12/26/23 02:00 84 16 12/26/23 00:30 98.1 F 16 134/73 93 L 12/26/23 00:00 84 18 12/25/23 23:51 98.7 F 83 18 154/58 90 L 12/25/23 19:39 100.9 F H 90 18 108/68 95 12/25/23 18:37 98.9 F 91 20 113/62 91 L Intake and Output 12/25/23 12/26/23 12/26/23 22:59 06:59 14:59 Intake Total 0 Balance 0 Intake: Oral 0 Other: Voiding Method Bedpan # Voids 1 Weight 145.15 kg 149.5 kg CONSTITUTIONAL: Ill appearing, moaning, stating that he wants to leave, respirations unlabored SKIN: warm, dry, circumferential erythema around bilateral distal lower extremities extending from feet to just inferior to the knees, large blister on the plantar aspect of the right foot,, large ulcer with dry center to plantar aspect right foot, swelling feet bilaterally, no subcutaneous emphysema, no eschars EYES: Pupils are equally round, extraocular movements intact without nystagmus, clear conjunctiva, non-icteric sclera HENT: Normocephalic, atraumatic, dry mucus membranes, oropharynx clear without exudates NECK: , Full range of motion, normal appearance PULMONARY: Clear to auscultation without wheezes, rhonchi, or rales, normal exc ursion, no accessory muscle use and no stridor CARDIOVASCULAR: Regular rate, rhythm, normal S1 and S2. No appreciated murmurs, rubs or gallops. Strong radial pulses with intact distal perfusion. 2+ bilateral LE edema GASTROINTESTINAL: Soft, non-tender, non-distended, no palpable masses, no rebound or guarding. No hepatosplenomegaly MUSCULOSKELETAL: [Extremities have no gross deformity, 1-2+ edema distal bilateral LE, TTP of distal LE, no signs of injury, skin changes as noted above. NEUROLOGIC:_a/o x 1-2, GCS 14, confused mentation, unable to explain why he is in the ED, denies pain but appears to be moaning in pain, states "get me out of here", Moves all extremities x 4 without motor or sensory deficit PSYCHIATRIC: Tearful, confused Results CBC & Chem 7: 12/25/23 20:40 12/26/23 14:43 Labs: Abnormal Lab Results - Last 24 Hours (Table) 12/25/23 12/25/23 12/26/23 Range/Units 20:40 20:40 01:05 WBC 11.0 H (3.8-10.6) k/uL RBC 2.97 L (4.30-5.90) m/uL Hgb 8.4 L (13.0-17.5) gm/dL Hct 25.9 L (39.0-53.0) % Neutrophils # 8.7 H (1.3-7.7) k/uL Lymphocytes # 0.9 L (1.0-4.8) k/uL Chloride 109 H (98-107) mmol/L BUN 61 H (9-20) mg/dL Creatinine 2.06 H (0.66-1.25) mg/dL Glucose 129 H (74-99) mg/dL POC Glucose (mg/dL) 138 H (70-110) mg/dL Alkaline Phosphatase 150 H (38-126) U/L C-Reactive Protein 16.7 H (<1.0) mg/dL Total Protein 5.3 L (6.3-8.2) g/dL Albumin 2.7 L (3.5-5.0) g/dL 12/26/23 Range/Units 06:17 WBC (3.8-10.6) k/uL RBC (4.30-5.90) m/uL Hgb (13.0-17.5) gm/dL Hct (39.0-53.0) % Neutrophils # (1.3-7.7) k/uL Lymphocytes # (1.0-4.8) k/uL Chloride (98-107) mmol/L BUN (9-20) mg/dL Creatinine (0.66-1.25) mg/dL Glucose (74-99) mg/dL POC Glucose (mg/dL) 145 H (70-110) mg/dL Alkaline Phosphatase (38-126) U/L C-Reactive Protein (<1.0) mg/dL Total Protein (6.3-8.2) g/dL Albumin (3.5-5.0) g/dL Thrombosis Risk Factor Assmnt - Choose All That Apply Any of the Below Risk Factors Present?: Yes Each Factor Represents 1 point: Swollen legs (current) Other Risk Factors: Yes Each Risk Factor Represents 2 Points: Age 61-74 years Other congenital or acquired thrombophilia - If yes, enter type in comment: No Thrombosis Risk Factor Assessment Total Risk Factor Score: 3 Thrombosis Risk Factor Assessment Level: Moderate Risk Assessment and Plan Assessment: 1. Cellulitis both lower extremities with infected wound/sepsis --Patient has been placed on IV vancomycin; blood cultures and wound culture obtained -- ID is consulted and recommending to continue with current antibiotics -- Local wound care; surgical consult is recommended for possible debridement 2. MARIAN; BUN/creatinine elevated at 61/2.06 -- We will avoid nephrotoxins and hypotension; monitor strict ALMA's, daily weights -Will consult nephrology if no improvement -Morbid obesity BMI 43.9 Weight loss measures -Painful peripheral neuropathy secondary to diabetes Given renal function will cut back Neurontin to 1600 mg nightly -Diabetes mellitus type 2 on insulin- Follow Accu-Cheks with sliding scale -Primary osteoarthritis Pain control as needed -Normocytic anemia likely secondary to iron deficiency and chronic kidney disease Iron deficiency. B12 folate normal -Probable chronic kidney disease. Stage III. Likely diabetic nephropathy and hypertensive nephrosclerosis Renal ultrasound: Poorly visualized kidneys UA showing proteinuria -Hypothyroid Synthroid 112 mcg a day -Hyperlipidemia Zocor 40 mg nightly -Full code -Chronic gait dysfunction uses a electric wheelchair
[2023-12-26 16:12] LABS: Appearance,Urine Turbid (Clear); Bacteria,Urine Rare /hpf; Bilirubin,Urine Negative (Negative); Blood,Urine Small (Negative); Color,Urine Colorless; Glucose,Urine (UA) Negative (Negative); Ketones,Urine Trace (Negative); Leukocyte Esterase,Urine Large (Negative); Mucus,Urine Rare /hpf; Nitrite,Urine Negative (Negative); PH, Urine 5.5 (5.0-8.0); Protein,Urine 1+ (Negative); RBC,Urine 8 /hpf (0-5); Specific Gravity,Urine 1.015 (1.001-1.035); Urobilinogen,Urine <2.0 mg/dL (<2.0); WBC,Urine >182 /hpf (0-5)
[2023-12-26 17:00] LABS: Glucose,Whole Blood 189 mg/dL (70-110)
[2023-12-26] MEDS: TAMSULOSIN 0.4 MG CAP.ER.24H PO SCH (17:21)
[2023-12-26 19:36] LABS: Glucose,Whole Blood 201 mg/dL (70-110)
[2023-12-26] MEDS: ACETAMINOPHEN TAB 325 MG TAB PO PRN (21:44)
[2023-12-27 05:36] LABS: Glucose,Whole Blood 171 mg/dL (70-110)
--- NOTE | 2023-12-27 08:02 | P.CONS ---
History of Present Illness - Reason for Consult Consult date: 12/26/23 Sepsis, cellulitis Requesting physician: Lexi Dillon - Chief Complaint Fever and agitation x 1 day - History of Present Illness Patient is a 73-year-old male with a past medical history difficult for diabetes mellitus hypertension hyperlipidemia [place] COPD also have a lower extremity wound previously debrided by Dr. Gray has been brought into the hospital from the local longterm concerning for mental status changes and agitation and also have a fever of 100.4 F at this facility apparently the patient has been treated with oral doxycycline for the last 2 days for lower extremity cellulitis with worsening of his symptoms the patient has been sent to the ER for further evaluation on presentation to the hospital he did have a fever 100.9 F patient was nontachycardic hypotensive mildly hypoxic currently on 2 L nasal cannula oxygen patient did have white count of 11.8 BUN/creatinine has been mildly elevated liver isms are normal urine has been positive patient did have a chest x-ray cardiomegaly pulmonary vascular congestion and bilateral effusion x-ray of the foot soft tissue infection in the right foot suspected no convincing radiographic evidence for acute osteomyelitis patient was started on vancomycin pharmacy to dose infectious was consulted for further management of antibiotic therapy Review of Systems Positive point and negatives has been mentioned in the HPI, complete review of systems was performed and all other systems are negative Past Medical History Past Medical History: COPD, Diabetes Mellitus, Hyperlipidemia, Hypertension, Myocardial Infarction ([place]), Neurologic Disorder, Thyroid Disorder Additional Past Medical History / Comment(s): Peripheral neuropathy, diabetic leg ulcers, Last Myocardial Infarction Date:: Pt guesses its been about 5 years2018 History of Any Multi-Drug Resistant Organisms: Unobtainable Past Surgical History: Heart Catheterization With Stent Additional Past Surgical History / Comment(s): Bilateral caterac surgery Past Anesthesia/Blood Transfusion Reactions: No Reported Reaction Date of Last Stent Placement:: 2020 Past Psychological History: Unable to Obtain Smoking Status: Former smoker Past Alcohol Use History: Heavy Past Drug Use History: None Reported - Past Family History Mother Family Medical History: Diabetes Mellitus Medications and Allergies Home Medications Medication Instructions Recorded Confirmed Type Furosemide [Lasix] 20 mg PO DAILY 11/23/23 12/26/23 History Gabapentin [Neurontin] 800 mg PO TID 11/23/23 12/26/23 History Insulin Aspart Prot/Insuln Asp 50 unit SQ BID 11/23/23 12/26/23 History [NovoLOG MIX 70-30 Flexpen] Levothyroxine Sodium [Synthroid] 112 mcg PO DAILY 11/23/23 12/26/23 History Simvastatin [Zocor] 40 mg PO HS 11/23/23 12/26/23 History lisinopriL [Zestril] 20 mg PO DAILY 11/23/23 12/26/23 History metFORMIN HCL ER [Glucophage XR] 1,000 mg PO BID-W/MEALS 11/23/23 12/26/23 History Clopidogrel [Plavix] 75 mg PO DAILY 12/26/23 12/26/23 History Allergies Allergy/AdvReac Type Severity Reaction Status Date / Time No Known Allergies Allergy Verified 12/26/23 11:19 Physical Exam Vitals: Vital Signs Temp Pulse Pulse Resp BP BP Pulse Ox 12/26/23 10:48 77 19 12/26/23 08:32 97.9 F 77 19 151/67 92 L 12/26/23 04:00 97.8 F 20 119/60 92 L 12/26/23 02:00 84 16 12/26/23 00:30 98.1 F 16 134/73 93 L 12/26/23 00:00 84 18 12/25/23 23:51 98.7 F 83 18 154/58 90 L 12/25/23 19:39 100.9 F H 90 18 108/68 95 12/25/23 18:37 98.9 F 91 20 113/62 91 L Intake and Output 12/25/23 12/26/23 12/26/23 22:59 06:59 14:59 Intake Total 0 Balance 0 Intake: Oral 0 Other: Voiding Method Bedpan Bedpan # Voids 1 Weight 145.15 kg 149.5 kg GENERAL DESCRIPTION: Elderly male lying in bed, no distress. No tachypnea or accessory muscle of respiration use. HEENT: Shows Pallor , no scleral icterus. Oral mucous membrane is dry. No pharyngeal erythema or thrush NECK: Trachea central, no thyromegaly. LUNGS: Unlabored breathing. Clear to auscultation anteriorly. No wheeze or crackle. HEART: S1, S2, regular rate and rhythm. No loud murmur ABDOMEN: Soft, no tenderness , guarding or rigidity, no organomegaly EXTREMITIES: Right foot plantar aspect did have necrotic wound with evidence of erythema on the dorsal plantar aspect of the right foot and did have wounds to bilateral toes SKIN: No rash, no masses palpable. NEUROLOGICAL: The patient is awake, alert, oriented x3, mood and affect normal. Results CBC & Chem 7: 12/25/23 20:40 12/26/23 14:43 Labs: Abnormal Lab Results - Last 24 Hours (Table) 12/25/23 12/25/23 12/26/23 Range/Units 20:40 20:40 01:05 WBC 11.0 H (3.8-10.6) k/uL RBC 2.97 L (4.30-5.90) m/uL Hgb 8.4 L (13.0-17.5) gm/dL Hct 25.9 L (39.0-53.0) % Neutrophils # 8.7 H (1.3-7.7) k/uL Lymphocytes # 0.9 L (1.0-4.8) k/uL Chloride 109 H (98-107) mmol/L BUN 61 H (9-20) mg/dL Creatinine 2.06 H (0.66-1.25) mg/dL Glucose 129 H (74-99) mg/dL POC Glucose (mg/dL) 138 H (70-110) mg/dL Alkaline Phosphatase 150 H (38-126) U/L C-Reactive Protein 16.7 H (<1.0) mg/dL Total Protein 5.3 L (6.3-8.2) g/dL Albumin 2.7 L (3.5-5.0) g/dL 12/26/23 12/26/23 Range/Units 06:17 11:46 WBC (3.8-10.6) k/uL RBC (4.30-5.90) m/uL Hgb (13.0-17.5) gm/dL Hct (39.0-53.0) % Neutrophils # (1.3-7.7) k/uL Lymphocytes # (1.0-4.8) k/uL Chloride (98-107) mmol/L BUN (9-20) mg/dL Creatinine (0.66-1.25) mg/dL Glucose (74-99) mg/dL POC Glucose (mg/dL) 145 H 139 H (70-110) mg/dL Alkaline Phosphatase (38-126) U/L C-Reactive Protein (<1.0) mg/dL Total Protein (6.3-8.2) g/dL Albumin (3.5-5.0) g/dL Assessment and Plan (1) UTI (urinary tract infection) Current Visit: Yes Status: Acute Code(s): N39.0 - URINARY TRACT INFECTION, SITE NOT SPECIFIED SNOMED Code(s): 18259235 (2) Sepsis Current Visit: Yes Status: Acute Code(s): A41.9 - SEPSIS, UNSPECIFIED ORGANISM SNOMED Code(s): 80565013 (3) Diabetic foot infection Current Visit: No Status: Acute Code(s): E11.628 - TYPE 2 DIABETES MELLITUS WITH OTHER SKIN COMPLICATIONS; L08.9 - LOCAL INFECTION OF THE SKIN AND SUBCUTANEOUS TISSUE, UNSP SNOMED Code(s): 703660852 (4) Diabetic foot ulcer Current Visit: No Status: Acute Code(s): E11.621 - TYPE 2 DIABETES MELLITUS WITH FOOT ULCER; L97.509 - NON-PRESSURE CHRONIC ULCER OTH PRT UNSP FOOT W UNSP SEVERITY SNOMED Code(s): 230952326 Plan: 1patient presented to hospital with sepsis in this patient who did have a fever elevated white count source is likely right diabetic foot ulcer with second cellulitis likely from the gram-positive skin val patient also have significantly positive UA underlying urinary source not entirely excluded, failing outpatient oral doxycycline therapy. 2patient benefit from vascular surgery evaluation for debridement of the wound last seen by Dr. Gray and will be consulted 3we will continue vancomycin pharmacy to dose however watch his kidney function closely because of his elevated creatinine high risk of nephrotoxicity 4we will add cefepime to cover for the gram-negative while waiting for the culture to finalize We will follow on clinical condition and cultures to further adjust medication if needed Thank you for this consultation we will follow the patient along with you Dictation was produced using [employer] dictation software. please excuse any grammatical, word or spelling errors. Time with Patient: Greater than 30
[2023-12-27 08:15] LABS: African American GFR (CKD) 55 (>60 ml/min/1.73 sqM); Anion Gap 3 mmol/L; Blood Urea Nitrogen 40 mg/dL (9-20); Calcium 8.3 mg/dL (8.4-10.2); Carbon Dioxide 25 mmol/L (22-30); Chloride 112 mmol/L (98-107); Glucose 167 mg/dL (74-99); Non-African American GFR(CKD) 47 (>60 ml/min/1.73 sqM); Sodium 140 mmol/L (137-145)
[2023-12-27 08:20] LABS: Potassium 4.7 mmol/L (3.5-5.1)
[2023-12-27] MEDS: CEFEPIME 2 GM in SODIUM CHLORIDE 0.9% 100 ML IVPB SCH (08:32)
[2023-12-27 08:35] LABS: Basophils % (A) 0 %; Eosinophils # (A) 1.1 k/uL (0-0.7); Eosinophils % (A) 12 %; HCT 29.2 % (39.0-53.0); Hypochromasia Moderate; Lymphocytes # (A) 0.7 k/uL (1.0-4.8); Lymphocytes % (A) 7 %; MCH 27.2 pg (25.0-35.0); MCHC 30.8 g/dL (31.0-37.0); MCV 88.4 fL (80.0-100.0); Mean Platelet Volume 8.2; Monocytes # (A) 0.5 k/uL (0-1.0); Monocytes % (A) 5 %; Neutrophils # (A) 6.9 k/uL (1.3-7.7); Neutrophils % (A) 74 %; Platelet Count 351 k/uL (150-450); WBC 9.3 k/uL (3.8-10.6)
--- NOTE | 2023-12-27 10:45 | P.PN ---
Subjective 73-year-old male patient, history of hypertension, hyperlipidemia, hypothyroidism, diabetes mellitus, COPD, CAD presents from [facility] for AMS and agitation. Pt reportedly AO x4 at baseline, today AO x1-2, fever at facility (100.4F), has been being treated x 2 days with doxycycline for bilateral LE cellulitis. --Workup completed in ED reveals cellulitis with wounds both lower extremities/sepsis and MARIAN Blood work completed in ED reveals a WBC of 11.0, hemoglobin of 8.4 and platelet count of 377, sodium 141, potassium 5.2, BUNs/61/2.06 In the ED patient was diagnosed with cellulitis both lower extremities with infected wounds and MARIAN -- Patient has been placed on IV vancomycin and is being admitted for further treatment and consultation with infectious disease 12/26 Patient was admitted for bilateral lower extremity cellulitis, he still has pain in his both legs getting Berwind Both legs are with Pratik wrap's He complains from knee pain, he states he fell about 2 months ago No deformity swelling or discoloration of the knee Will give him more pain medication No diarrhea No other new complaint Currently is covered with IV vancomycin and cefepime Objective - Vital Signs Vital signs: Vital Signs Temp 98.0 F 12/27/23 08:21 Pulse 97 12/27/23 08:21 Resp 22 12/27/23 08:21 BP 161/80 12/27/23 08:21 Pulse Ox 93 L 12/27/23 08:21 FiO2 Intake & Output 12/26/23 12/27/23 12/27/23 18:59 06:59 18:59 Intake Total 798 240 Output Total 575 72 200 Balance 223 -72 40 Weight 149.5 kg Intake: Intake, IV Titration 500 Amount Vancomycin 2,250 mg In 500 Sodium Chloride 0.9% 500 ml 500 ml @ 167 mls/hr IVPB ONCE ONE Rx#: [id number] Oral 298 240 Output: Urine 575 200 Straight 575 Post Void Residual 72 Other: Voiding Method Bedpan Diaper Diaper # Voids 2 1 1 - Exam -GENERAL: The patient is alert and oriented x3, not in any acute distress. Well developed, well nourished. Obese, generally weak HEENT: Pupils are round and equally reacting to light. EOMI. No scleral icterus. No conjunctival pallor. Normocephalic, atraumatic. No pharyngeal erythema. No thyromegaly. CARDIOVASCULAR: S1 and S2 present. No murmurs, rubs, or gallops. PULMONARY: Chest is clear to auscultation, no wheezing , no crackles. ABDOMEN: Soft, nontender, nondistended, normoactive bowel sounds. No palpable organomegaly. MUSCULOSKELETAL: No joint swelling or deformity. -EXTREMITIES: No cyanosis, clubbing, or pedal edema. Bilateral leg cellulitis, and Pratik wrap NEUROLOGICAL: Gross neurological examination did not reveal any focal deficits. SKIN: No rashes. no petechiae. - Labs CBC & Chem 7: 12/27/23 08:20 12/27/23 07:23 Labs: Abnormal Lab Results - Last 24 Hours (Table) 12/25/23 12/26/23 12/26/23 Range/Units 20:40 11:46 14:43 RBC (4.30-5.90) m/uL Hgb (13.0-17.5) gm/dL Hct (39.0-53.0) % MCHC (31.0-37.0) g/dL Lymphocytes # (1.0-4.8) k/uL Eosinophils # (0-0.7) k/uL ESR 73 H (0-20) mm/Hr Chloride 111 H (98-107) mmol/L BUN 50 H (9-20) mg/dL Creatinine 1.73 H (0.66-1.25) mg/dL Glucose 169 H (74-99) mg/dL POC Glucose (mg/dL) 139 H (70-110) mg/dL Calcium 8.2 L (8.4-10.2) mg/dL Urine Protein (Negative) Urine Ketones (Negative) Urine Blood (Negative) Ur Leukocyte Esterase (Negative) Urine RBC (0-5) /hpf Urine WBC (0-5) /hpf Urine WBC Clumps (None) /hpf Urine Bacteria (None) /hpf Urine Mucus (None) /hpf 12/26/23 12/26/23 12/26/23 Range/Units 15:47 16:58 19:35 RBC (4.30-5.90) m/uL Hgb (13.0-17.5) gm/dL Hct (39.0-53.0) % MCHC (31.0-37.0) g/dL Lymphocytes # (1.0-4.8) k/uL Eosinophils # (0-0.7) k/uL ESR (0-20) mm/Hr Chloride (98-107) mmol/L BUN (9-20) mg/dL Creatinine (0.66-1.25) mg/dL Glucose (74-99) mg/dL POC Glucose (mg/dL) 189 H 201 H (70-110) mg/dL Calcium (8.4-10.2) mg/dL Urine Protein 1+ H (Negative) Urine Ketones Trace H (Negative) Urine Blood Small H (Negative) Ur Leukocyte Esterase Large H (Negative) Urine RBC 8 H (0-5) /hpf Urine WBC >182 H (0-5) /hpf Urine WBC Clumps Many H (None) /hpf Urine Bacteria Rare H (None) /hpf Urine Mucus Rare H (None) /hpf 12/27/23 12/27/23 12/27/23 Range/Units 05:35 07:23 08:20 RBC 3.30 L (4.30-5.90) m/uL Hgb 9.0 L (13.0-17.5) gm/dL Hct 29.2 L (39.0-53.0) % MCHC 30.8 L (31.0-37.0) g/dL Lymphocytes # 0.7 L (1.0-4.8) k/uL Eosinophils # 1.1 H (0-0.7) k/uL ESR (0-20) mm/Hr Chloride 112 H (98-107) mmol/L BUN 40 H (9-20) mg/dL Creatinine 1.46 H (0.66-1.25) mg/dL Glucose 167 H (74-99) mg/dL POC Glucose (mg/dL) 171 H (70-110) mg/dL Calcium 8.3 L (8.4-10.2) mg/dL Urine Protein (Negative) Urine Ketones (Negative) Urine Blood (Negative) Ur Leukocyte Esterase (Negative) Urine RBC (0-5) /hpf Urine WBC (0-5) /hpf Urine WBC Clumps (None) /hpf Urine Bacteria (None) /hpf Urine Mucus (None) /hpf Assessment and Plan Assessment: 1. Cellulitis both lower extremities with infected wound/sepsis --Patient has been placed on IV vancomycin and cefepime; blood cultures and wound culture obtained -- ID is consulted and recommending to continue with current antibiotics -- Local wound care; surgical consult is recommended for possible debridement 2. MARIAN; BUN/creatinine elevated at 61/2.06 -- We will avoid nephrotoxins and hypotension; monitor strict ALMA's, daily weights -Will consult nephrology if no improvement -Morbid obesity BMI 43.9 Weight loss measures -Painful peripheral neuropathy secondary to diabetes Given renal function will cut back Neurontin to 1600 mg nightly -Diabetes mellitus type 2 on insulin- Follow Accu-Cheks with sliding scale -Primary osteoarthritis Pain control as needed -Normocytic anemia likely secondary to iron deficiency and chronic kidney disease Iron deficiency. B12 folate normal -Probable chronic kidney disease. Stage III. Likely diabetic nephropathy and hypertensive nephrosclerosis Renal ultrasound: Poorly visualized kidneys UA showing proteinuria -Hypothyroid Synthroid 112 mcg a day -Hyperlipidemia Zocor 40 mg nightly -Full code -Chronic gait dysfunction uses a electric wheelchair
[2023-12-27] MEDS: HYDROcodone/APAP 5-325MG 1 EACH TAB PO STA (11:20)
[2023-12-27] MEDS: VANCOMYCIN 2,000 MG in SODIUM CHLORIDE 0.9% 500 ML 500 ML IVPB SCH (11:33)
[2023-12-27] MEDS: CAPSAICIN 0.025% CREAM 60 GM TUBE TOPICAL SCH (11:34)
[2023-12-27 11:53] LABS: Glucose,Whole Blood 201 mg/dL (70-110)
--- NOTE | 2023-12-27 13:49 | P.GSCN ---
History of Present Illness Consult date: 12/27/23 History of present illness: Patient is a 73-year-old male withSignificant past medical history including diabetes, hypertension, hyperlipidemia, coronary artery disease and COPD with previously debrided bilateral lower extremity wounds who was present earlier this month in this hospital. He is essentially nonambulatory and at that time did undergo debridement of his bilateral lower extremity wounds. He had issues with fever and agitation at his facility and due to this was sent to the hospital. He denies any significant pain in his lower extremities at this time. Again states he has not walked in many months. Past Medical History Past Medical History: COPD, Diabetes Mellitus, Hyperlipidemia, Hypertension, Myocardial Infarction ([place]), Neurologic Disorder, Thyroid Disorder Additional Past Medical History / Comment(s): Peripheral neuropathy, diabetic leg ulcers, Last Myocardial Infarction Date:: Pt guesses its been about 5 years, 2018 History of Any Multi-Drug Resistant Organisms: Unobtainable Past Surgical History: Heart Catheterization With Stent Additional Past Surgical History / Comment(s): Bilateral caterac surgery Past Anesthesia/Blood Transfusion Reactions: No Reported Reaction Date of Last Stent Placement:: 2020 Past Psychological History: Unable to Obtain Smoking Status: Former smoker Past Alcohol Use History: Heavy Past Drug Use History: None Reported - Past Family History Mother Family Medical History: Diabetes Mellitus Medications and Allergies Home Medications Medication Instructions Recorded Confirmed Type Furosemide [Lasix] 20 mg PO DAILY 11/23/23 12/26/23 History Gabapentin [Neurontin] 800 mg PO TID 11/23/23 12/26/23 History Insulin Aspart Prot/Insuln Asp 50 unit SQ BID 11/23/23 12/26/23 History [NovoLOG MIX 70-30 Flexpen] Levothyroxine Sodium [Synthroid] 112 mcg PO DAILY 11/23/23 12/26/23 History Simvastatin [Zocor] 40 mg PO HS 11/23/23 12/26/23 History lisinopriL [Zestril] 20 mg PO DAILY 11/23/23 12/26/23 History metFORMIN HCL ER [Glucophage XR] 1,000 mg PO BID-W/MEALS 11/23/23 12/26/23 History Clopidogrel [Plavix] 75 mg PO DAILY 12/26/23 12/26/23 History Allergies Allergy/AdvReac Type Severity Reaction Status Date / Time No Known Allergies Allergy Verified 12/26/23 11:19 Surgical - Exam Vital Signs Temp Pulse Resp BP Pulse Ox 98.9 F 91 20 113/62 91 L 12/25/23 18:37 12/25/23 18:37 12/25/23 18:37 12/25/23 18:37 12/25/23 18:37 General is an elderly obese male in no acute distress. No respiratory distress. Pale skin. Heart appears regular at this time. Abdomen is soft obese and nontender. Extremities show bilateral edema 2+. At the distal toes there are multiple areas of wounds at the nailbeds. The plantar portion of the right foot does have a necrotic wound and a subsequent more medial portion with bullae. Results Bedside procedure: Verbal consent was obtained. The lower extremities were prepped with iodine. On the left great toe, the great toe nail area was excis ed, it appeared to be more of a bullae with softened tissue. The debridement was performed with scissors and pickups to the level of the dermis which was hyperemic. The measurements of this wound are 1.8 x 2 x 0.2. On the right lower extremity, similar fashion was performed all of the areas of the toenails as they all appear to have boggy appearance with some degree of purulence. The great toe wound measured 1.7 x 1.9 x 0.2. There did appear to be a more punctate wound at the center which did not seem to probe very far. The nails from bed 2 through 5 were removed with pickups and scissors relatively simply. Attention was then turned towards the right lateral and plantar wounds. The e schar was excised on the lateral wound with pickups and scissors with the resultant wound measuring 5.8 x 4.7 x 0.4 to the level of bone. The wound just medial to this, where the bullae was noted was opened with the scissors and in an excisional debridement performed. There was purulent drainage from this therefore it was cultured. The resultant wound measured 2 x 1.7 x 0.5 cm. Patient tolerated the procedure well and dressings were replaced. - Labs 12/27/23 08:20 12/27/23 07:23 Abnormal Lab Results - Last 24 Hours (Table) 12/26/23 12/26/23 12/26/23 Range/Units 14:43 15:47 16:58 RBC (4.30-5.90) m/uL Hgb (13.0-17.5) gm/dL Hct (39.0-53.0) % MCHC (31.0-37.0) g/dL Lymphocytes # (1.0-4.8) k/uL Eosinophils # (0-0.7) k/uL Chloride 111 H (98-107) mmol/L BUN 50 H (9-20) mg/dL Creatinine 1.73 H (0.66-1.25) mg/dL Glucose 169 H (74-99) mg/dL POC Glucose (mg/dL) 189 H (70-110) mg/dL Calcium 8.2 L (8.4-10.2) mg/dL Urine Protein 1+ H (Negative) Urine Ketones Trace H (Negative) Urine Blood Small H (Negative) Ur Leukocyte Esterase Large H (Negative) Urine RBC 8 H (0-5) /hpf Urine WBC >182 H (0-5) /hpf Urine WBC Clumps Many H (None) /hpf Urine Bacteria Rare H (None) /hpf Urine Mucus Rare H (None) /hpf 12/26/23 12/27/23 12/27/23 Range/Units 19:35 05:35 07:23 RBC (4.30-5.90) m/uL Hgb (13.0-17.5) gm/dL Hct (39.0-53.0) % MCHC (31.0-37.0) g/dL Lymphocytes # (1.0-4.8) k/uL Eosinophils # (0-0.7) k/uL Chloride 112 H (98-107) mmol/L BUN 40 H (9-20) mg/dL Creatinine 1.46 H (0.66-1.25) mg/dL Glucose 167 H (74-99) mg/dL POC Glucose (mg/dL) 201 H 171 H (70-110) mg/dL Calcium 8.3 L (8.4-10.2) mg/dL Urine Protein (Negative) Urine Ketones (Negative) Urine Blood (Negative) Ur Leukocyte Esterase (Negative) Urine RBC (0-5) /hpf Urine WBC (0-5) /hpf Urine WBC Clumps (None) /hpf Urine Bacteria (None) /hpf Urine Mucus (None) /hpf 12/27/23 12/27/23 Range/Units 08:20 11:52 RBC 3.30 L (4.30-5.90) m/uL Hgb 9.0 L (13.0-17.5) gm/dL Hct 29.2 L (39.0-53.0) % MCHC 30.8 L (31.0-37.0) g/dL Lymphocytes # 0.7 L (1.0-4.8) k/uL Eosinophils # 1.1 H (0-0.7) k/uL Chloride (98-107) mmol/L BUN (9-20) mg/dL Creatinine (0.66-1.25) mg/dL Glucose (74-99) mg/dL POC Glucose (mg/dL) 201 H (70-110) mg/dL Calcium (8.4-10.2) mg/dL Urine Protein (Negative) Urine Ketones (Negative) Urine Blood (Negative) Ur Leukocyte Esterase (Negative) Urine RBC (0-5) /hpf Urine WBC (0-5) /hpf Urine WBC Clumps (None) /hpf Urine Bacteria (None) /hpf Urine Mucus (None) /hpf Microbiology - Last 24 Hours (Table) 12/25/23 23:30 Blood Culture - Preliminary Blood 12/25/23 19:45 Blood Culture - Preliminary Blood Diabetes panel 12/26/23 12/27/23 Range/Units 14:43 07:23 Sodium 140 140 (137-145) mmol/L Potassium 4.3 4.7 (3.5-5.1) mmol/L Chloride 111 H 112 H (98-107) mmol/L Carbon Dioxide 25 25 (22-30) mmol/L BUN 50 H 40 H (9-20) mg/dL Creatinine 1.73 H 1.46 H (0.66-1.25) mg/dL Glucose 169 H 167 H (74-99) mg/dL Calcium 8.2 L 8.3 L (8.4-10.2) mg/dL Calcium panel 12/26/23 12/27/23 Range/Units 14:43 07:23 Calcium 8.2 L 8.3 L (8.4-10.2) mg/dL Pituitary panel 12/26/23 12/27/23 Range/Units 14:43 07:23 Sodium 140 140 (137-145) mmol/L Potassium 4.3 4.7 (3.5-5.1) mmol/L Chloride 111 H 112 H (98-107) mmol/L Carbon Dioxide 25 25 (22-30) mmol/L BUN 50 H 40 H (9-20) mg/dL Creatinine 1.73 H 1.46 H (0.66-1.25) mg/dL Glucose 169 H 167 H (74-99) mg/dL Calcium 8.2 L 8.3 L (8.4-10.2) mg/dL Adrenal panel 12/26/23 12/27/23 Range/Units 14:43 07:23 Sodium 140 140 (137-145) mmol/L Potassium 4.3 4.7 (3.5-5.1) mmol/L Chloride 111 H 112 H (98-107) mmol/L Carbon Dioxide 25 25 (22-30) mmol/L BUN 50 H 40 H (9-20) mg/dL Creatinine 1.73 H 1.46 H (0.66-1.25) mg/dL Glucose 169 H 167 H (74-99) mg/dL Calcium 8.2 L 8.3 L (8.4-10.2) mg/dL Assessment and Plan Assessment: Bilateral lower extremity wounds Diabetes Charcot foot Diabetic foot infection Plan: Due to the patient's insensate nature a bedside debridement was performed with the findings as above. I do recommend the patient undergo a bone scan versus MRI to evaluate for significant osteomyelitis and Charcot foot on the right due to continuation of his wounds. Appropriate wound care with offloading should be performed. Discussion had with the patient regarding his nonambulatory status, with this and likely Charcot foot if there is significant infection in the Charcot foot likely the best benefit may be from amputation however no indication for emergent nature at this point. Will continue to follow to evaluate.
[2023-12-27 16:58] LABS: Glucose,Whole Blood 171 mg/dL (70-110)
[2023-12-27 19:52] LABS: Glucose,Whole Blood 163 mg/dL (70-110)
--- NOTE | 2023-12-27 21:29 | P.PN ---
Subjective Progress Note Date: 12/27/23 Principal diagnosis: Reason for follow-up is right foot wound and cellulitis and UTI Patient is a 73-year-old male with a past medical history difficult for diabetes mellitus hypertension hyperlipidemia MS COPD also have a lower extremity wound previously debrided by Dr. Gray has been [facility] the [facility] concerning for mental status changes and agitation and also have a fever of 100.4 F, patient did have a necrotic wound to the right foot and concern for wound infection and cellulitis. On today's evaluation that is 12/27/2023, the patient did have resolution of his fever and is afebrile today, the patient is on 2 L current oxygen and breathing comfortably, the Pt denies having any chest pain or cough, the patient denies having any abdominal pain no vomiting or any diarrhea patient denies any worsening pain to the lower extremity wound area. Patient white count normalized to 9.3, creatinine is 1.46 urine is growing gram- negative blood cultures are pending Objective - Vital Signs Vital signs: Vital Signs Temp 98.1 F 12/27/23 11:25 Pulse 91 12/27/23 14:00 Resp 20 12/27/23 14:00 BP 174/81 12/27/23 11:25 Pulse Ox 95 12/27/23 11:25 FiO2 Intake & Output 12/26/23 12/27/23 12/27/23 18:59 06:59 18:59 Intake Total 798 240 Output Total 526 87 2765 Balance 223 -72 -960 Weight 149.5 kg Intake: Intake, IV Titration 500 Amount Vancomycin 2,250 mg In 500 Sodium Chloride 0.9% 500 ml 500 ml @ 167 mls/hr IVPB ONCE ONE Rx#: [id number] Oral 298 240 Output: Urine 575 1200 Straight 575 Post Void Residual 72 Other: Voiding Method Bedpan Diaper Diaper Diaper # Voids 2 1 1 - Exam GENERAL DESCRIPTION: An elderly male lying in bed in no distress RESPIRATORY SYSTEM: Unlabored breathing , decreased breath sounds at bases HEART: S1 S2 regular rate and rhythm , ABDOMEN: Soft , no tenderness EXTREMITIES: Right foot plantar wound base with some slough tissue dorsum of the foot did have some redness - Labs CBC & Chem 7: 12/27/23 08:20 12/27/23 07:23 Labs: Abnormal Lab Results - Last 24 Hours (Table) 12/26/23 12/26/23 12/26/23 Range/Units 14:43 15:47 16:58 RBC (4.30-5.90) m/uL Hgb (13.0-17.5) gm/dL Hct (39.0-53.0) % MCHC (31.0-37.0) g/dL Lymphocytes # (1.0-4.8) k/uL Eosinophils # (0-0.7) k/uL Chloride 111 H (98-107) mmol/L BUN 50 H (9-20) mg/dL Creatinine 1.73 H (0.66-1.25) mg/dL Glucose 169 H (74-99) mg/dL POC Glucose (mg/dL) 189 H (70-110) mg/dL Calcium 8.2 L (8.4-10.2) mg/dL Urine Protein 1+ H (Negative) Urine Ketones Trace H (Negative) Urine Blood Small H (Negative) Ur Leukocyte Esterase Large H (Negative) Urine RBC 8 H (0-5) /hpf Urine WBC >182 H (0-5) /hpf Urine WBC Clumps Many H (None) /hpf Urine Bacteria Rare H (None) /hpf Urine Mucus Rare H (None) /hpf 12/26/23 12/27/23 12/27/23 Range/Units 19:35 05:35 07:23 RBC (4.30-5.90) m/uL Hgb (13.0-17.5) gm/dL Hct (39.0-53.0) % MCHC (31.0-37.0) g/dL Lymphocytes # (1.0-4.8) k/uL Eosinophils # (0-0.7) k/uL Chloride 112 H (98-107) mmol/L BUN 40 H (9-20) mg/dL Creatinine 1.46 H (0.66-1.25) mg/dL Glucose 167 H (74-99) mg/dL POC Glucose (mg/dL) 201 H 171 H (70-110) mg/dL Calcium 8.3 L (8.4-10.2) mg/dL Urine Protein (Negative) Urine Ketones (Negative) Urine Blood (Negative) Ur Leukocyte Esterase (Negative) Urine RBC (0-5) /hpf Urine WBC (0-5) /hpf Urine WBC Clumps (None) /hpf Urine Bacteria (None) /hpf Urine Mucus (None) /hpf 12/27/23 12/27/23 Range/Units 08:20 11:52 RBC 3.30 L (4.30-5.90) m/uL Hgb 9.0 L (13.0-17.5) gm/dL Hct 29.2 L (39.0-53.0) % MCHC 30.8 L (31.0-37.0) g/dL Lymphocytes # 0.7 L (1.0-4.8) k/uL Eosinophils # 1.1 H (0-0.7) k/uL Chloride (98-107) mmol/L BUN (9-20) mg/dL Creatinine (0.66-1.25) mg/dL Glucose (74-99) mg/dL POC Glucose (mg/dL) 201 H (70-110) mg/dL Calcium (8.4-10.2) mg/dL Urine Protein (Negative) Urine Ketones (Negative) Urine Blood (Negative) Ur Leukocyte Esterase (Negative) Urine RBC (0-5) /hpf Urine WBC (0-5) /hpf Urine WBC Clumps (None) /hpf Urine Bacteria (None) /hpf Urine Mucus (None) /hpf Microbiology - Last 24 Hours (Table) 12/25/23 23:30 Blood Culture - Preliminary Blood 12/25/23 19:45 Blood Culture - Preliminary Blood Assessment and Plan (1) UTI (urinary tract infection) Current Visit: Yes Status: Acute Code(s): N39.0 - URINARY TRACT INFECTION, SITE NOT SPECIFIED SNOMED Code(s): 87327043 (2) Sepsis Current Visit: Yes Status: Acute Code(s): A41.9 - SEPSIS, UNSPECIFIED ORGANISM SNOMED Code(s): 67425434 (3) Diabetic foot infection Current Visit: No Status: Acute Code(s): E11.628 - TYPE 2 DIABETES MELLITUS WITH OTHER SKIN COMPLICATIONS; L08.9 - LOCAL INFECTION OF THE SKIN AND SUBCUTANEOUS TISSUE, UNSP SNOMED Code(s): 845288407 (4) Diabetic foot ulcer Current Visit: No Status: Acute Code(s): E11.621 - TYPE 2 DIABETES MELLITUS WITH FOOT ULCER; L97.509 - NON-PRESSURE CHRONIC ULCER OTH PRT UNSP FOOT W UNSP SEVERITY SNOMED Code(s): 763667645 Plan: 1patient presented to hospital with sepsis in this patient who did have a fever elevated white count source is likely right diabetic foot ulcer with second cellulitis likely from the gram-positive skin val patient also have significantly positive UA underlying urinary source not entirely excluded, failing outpatient oral doxycycline therapy. 2patient is status post vascular surgery evaluation and debridement of the wound culture has been obtained results will be followed 3we will continue vancomycin pharmacy to dose and cefepime while waiting for the culture to finalize, we will check bone scan to make sure evidence of any osteomyelitis to the right foot Dictation was produced using [employer] dictation software. please excuse any grammatical, word or spelling errors. Time with Patient: Less than 30
[2023-12-28 06:08] LABS: Glucose,Whole Blood 146 mg/dL (70-110)
[2023-12-28 09:43] LABS: African American GFR (CKD) 67 (>60 ml/min/1.73 sqM); Anion Gap 5 mmol/L; Blood Urea Nitrogen 26 mg/dL (9-20); Calcium 8.2 mg/dL (8.4-10.2); Carbon Dioxide 27 mmol/L (22-30); Chloride 109 mmol/L (98-107); Glucose 178 mg/dL (74-99); Non-African American GFR(CKD) 58 (>60 ml/min/1.73 sqM); Potassium 4.4 mmol/L (3.5-5.1); Sodium 141 mmol/L (137-145)
--- NOTE | 2023-12-28 11:39 | P.PN ---
Subjective Progress Note Date: 12/28/23 Principal diagnosis: Bilateral lower extremity wounds Patient seen as a follow-up. No acute changes through the night. Awaiting bone scan. Had bedside debridement yesterday with Dr. Gray. Objective - Vital Signs Vital signs: Vital Signs Temp 97.9 F 12/27/23 21:35 Pulse 94 12/28/23 08:00 Resp 20 12/28/23 08:00 BP 184/81 12/28/23 08:00 Pulse Ox 94 L 12/28/23 08:00 FiO2 Intake & Output 12/27/23 12/28/23 12/28/23 18:59 06:59 18:59 Intake Total 780 0 Output Total 1650 850 Balance -870 -850 0 Weight 147.5 kg Intake: Oral 780 0 Output: Urine 1650 850 Other: Voiding Method Diaper Diaper # Voids 2 2 - Exam General appearance: The patient is alert, oriented to self. Obese. HET: Head is normocephalic and atraumatic. Pupils are equal and reactive. Neck: Supple. Abdomen: Soft, nondistended. Extremities: Lower extremities with dressings in place. Neurological: Patient is awake and alert. Nonambulatory. - Labs CBC & Chem 7: 12/27/23 08:20 12/28/23 09:02 Labs: Abnormal Lab Results - Last 24 Hours (Table) 12/27/23 12/27/23 12/27/23 Range/Units 11:52 16:56 19:51 POC Glucose (mg/dL) 201 H 171 H 163 H (70-110) mg/dL 12/28/23 Range/Units 06:03 POC Glucose (mg/dL) 146 H (70-110) mg/dL Microbiology - Last 24 Hours (Table) 12/26/23 15:47 Urine Culture - Preliminary Urine,Clean Catch Gram Neg Bacilli 12/25/23 23:30 Blood Culture - Preliminary Blood 12/25/23 19:45 Blood Culture - Preliminary Blood Assessment and Plan Assessment: 1. Bilateral lower extremity wounds 2. Diabetes 3. Charcot foot 4. Diabetic foot infection. Plan: 1. Await bone scan results 2. Continue local wound care as ordered 3. Antibiotics per infectious disease 4. Further recommendations forthcoming based on clinical course Thank you for this consultation, we will continue to follow. The impression and plan of care has been dictated as directed. I performed a history and examination of this patient, discussed the same with the dictator. I agree with the dictator's note ,documented as a scribe. Any additional findings or plans will be noted.
[2023-12-28 11:57] LABS: Glucose,Whole Blood 185 mg/dL (70-110)
[2023-12-28] MEDS: amLODIPine 5 MG TAB PO SCH (14:23)
--- NOTE | 2023-12-28 16:15 | P.PN ---
Subjective Progress Note Date: 12/28/23 Principal diagnosis: Reason for follow-up is right foot wound and cellulitis and UTI Patient is a 73-year-old male with a past medical history difficult for diabetes mellitus hypertension hyperlipidemia NM COPD also have a lower extremity wound previously debrided by Dr. Gray has been brought into the hospital from the local long-term concerning for mental status changes and agitation and also have a fever of 100.4 F, patient did have a necrotic wound to the right foot and concern for wound infection and cellulitis. On today's evaluation that is 12/28/2023, Patient is afebrile patient is currently on 1.5 L nasal cannula oxygen denies pain to the right foot wound, the patient denies having any shortness of breath, the patient denies any chest pain or cough, the patient denies any nausea vomiting did not have any abdominal pain and no diarrhea. Creatinine 1.24 urine is growing gram Negative blood cultures pending foot cultures pending Objective - Vital Signs Vital signs: Vital Signs Temp 98.8 F 12/28/23 12:54 Pulse 91 12/28/23 12:54 Resp 22 12/28/23 12:54 BP 191/69 12/28/23 12:54 Pulse Ox 92 L 12/28/23 12:54 FiO2 Intake & Output 12/27/23 12/28/23 12/28/23 18:59 06:59 18:59 Intake Total 780 0 Output Total 1650 850 Balance -870 -850 0 Weight 147.5 kg Intake: Oral 780 0 Output: Urine 1650 850 Other: Voiding Method Diaper Diaper Diaper # Voids 2 2 - Exam GENERAL DESCRIPTION: An elderly male lying in bed in no distress RESPIRATORY SYSTEM: Unlabored breathing , decreased breath sounds at bases HEART: S1 S2 regular rate and rhythm , ABDOMEN: Soft , no tenderness EXTREMITIES: Right foot plantar wound base with some slough tissue dorsum of the foot did have some redness - Labs CBC & Chem 7: 12/27/23 08:20 12/28/23 09:02 Labs: Abnormal Lab Results - Last 24 Hours (Table) 12/27/23 12/27/23 12/28/23 Range/Units 16:56 19:51 06:03 Chloride (98-107) mmol/L BUN (9-20) mg/dL Glucose (74-99) mg/dL POC Glucose (mg/dL) 171 H 163 H 146 H (70-110) mg/dL Calcium (8.4-10.2) mg/dL 12/28/23 12/28/23 Range/Units 09:02 11:55 Chloride 109 H (98-107) mmol/L BUN 26 H (9-20) mg/dL Glucose 178 H (74-99) mg/dL POC Glucose (mg/dL) 185 H (70-110) mg/dL Calcium 8.2 L (8.4-10.2) mg/dL Microbiology - Last 24 Hours (Table) 12/25/23 23:30 Blood Culture - Preliminary Blood 12/25/23 19:45 Blood Culture - Preliminary Blood 12/27/23 13:00 Gram Stain - Preliminary Foot - Right 12/26/23 15:47 Urine Culture - Preliminary Urine,Clean Catch Gram Neg Bacilli Assessment and Plan (1) UTI (urinary tract infection) Current Visit: Yes Status: Acute Code(s): N39.0 - URINARY TRACT INFECTION, SITE NOT SPECIFIED SNOMED Code(s): 72623562 (2) Sepsis Current Visit: Yes Status: Acute Code(s): A41.9 - SEPSIS, UNSPECIFIED ORGANISM SNOMED Code(s): 35344041 (3) Diabetic foot infection Current Visit: No Status: Acute Code(s): E11.628 - TYPE 2 DIABETES MELLITUS WITH OTHER SKIN COMPLICATIONS; L08.9 - LOCAL INFECTION OF THE SKIN AND SUBCUTANEOUS TISSUE, UNSP SNOMED Code(s): 309998688 (4) Diabetic foot ulcer Current Visit: No Status: Acute Code(s): E11.621 - TYPE 2 DIABETES MELLITUS WITH FOOT ULCER; L97.509 - NON-PRESSURE CHRONIC ULCER OTH PRT UNSP FOOT W UNSP SEVERITY SNOMED Code(s): 189576977 Plan: 1patient presented to hospital with sepsis in this patient who did have a fever elevated white count source is likely right diabetic foot ulcer with second cellulitis likely from the gram-positive skin val patient also have significantly positive UA underlying urinary source not entirely excluded, failing outpatient oral doxycycline therapy. 2patient is status post vascular surgery evaluation and debridement of the wound culture has been obtained results will be followed 3 bone scan in progress to make sure no evidence of any osteomyelitis to the right foot, continue with cefepime and vancomycin while waiting for the culture to finalize Dictation was produced using [employer] dictation software. please excuse any grammatical, word or spelling errors. Time with Patient: Greater than 30
[2023-12-28 16:48] LABS: Glucose,Whole Blood 176 mg/dL (70-110)
[2023-12-28] MEDS: hydrALAZINE HCL 25 MG TAB PO PRN (16:59)
--- NOTE | 2023-12-28 16:59 | NM ---
EXAMINATION TYPE: NM bone 3 phase DATE OF EXAM: 12/28/2023 COMPARISON: 12/25/2023 CLINICAL INDICATION: Male, 73 years old with history of Right foot ulcer rule out osteomyelitis; Triple phase bone scintigraphy was performed following the injection of 25.1 mCi Tc 99m MDP. Immedia te images and 8.5 hours post injection images acquired. FINDINGS: Subtle uptake within the right midfoot which is more pronounced on blood pool and delayed imaging. No other areas are identified. IMPRESSION: Right midfoot uptake on 2 phases possibly blood flow 3 suggesting degeneration with possi ble osteomyelitis consider confirmation with MRI foot without contrast.
[2023-12-28 20:34] LABS: Glucose,Whole Blood 151 mg/dL (70-110)
--- NOTE | 2023-12-28 23:34 | P.PN ---
Subjective Progress Note Date: 12/28/23 HISTORY OF PRESENT ILLNESS: 74-year-old with active medical history of hypertension, hyperlipidemia, hypothyroidism, COPD, CAD, type 2 diabetes who was transferred from [facility] or rehab on December 25, 2023 for fever chills and acute cellulitis of the lower extremity with failure to outpatient treatment continue to be symptomatic with hypotension fever chills was seen and evaluated the emergency department diagnosed with cellulitis initiate vancomycin and infectious disease consultation. Continue topical care at this point is still on dressing and wound care and remain on vancomycin and cefepime IV. 12/28/2023: Patient still seen vascular and infectious disease was scheduled to go for bone scan to decide on any involvement of the bone in his right foot but that he has any osteomyelitis or not which can raise awareness of his fever and chills and probably the infection he has. Microbiology was his urine culture grew Klebsiella which been treated again currently with the current antibiotic with a blood culture done was negative. Blood work was his white blood cells down to 9.3 kidney function has improved significantly with GFR is up to 58. His urine test from early was of course positive. REVIEW OF SYSTEMS: CONSTITUTIONAL: Morbidly obese in no acute respiratory distress. EYES: No icterus sclerae, no conjunctivitis. EARS, NOSE, MOUTH, THROAT, and FACE: No sore throat, lymphadenopathy, carotid bruits or deformity. RESPIRATORY: No SOB cough or wheezes. CARDIOVASCULAR: No chest pain positive PND orthopnea palpitation with edema. GASTROINTESTINAL: No Abd pain, Nausea or vomiting, no Diarrhea or constipation, No GI Bleed, no distention or masses. GENITOURINARY: Negative for Hematuria or UTI, no kidney stones. Mild incontinence. INTEGUMENT/BREAST: Negative for any muscular injury with mild osteoarthritis.. HEMATOLOGIC/LYMPHATIC: Negative for bleed or purpura. MUSCULOSKELTAL: Myalgia and arthralgia with significant loss of tissue discomfort in the right foot. NEURLOGICAL: No LOC, Sz or syncope, blurred vision dizziness or abnormality.. BEHAVIORAL/PSYCH: Negative. ENDOCRINE: Negative. PHYSICAL EXAMINATION: General Appearance: Alert, cooperative, no distress, appears stated age. Neck HEENT: Supple, no lymphadenopathy, no thyroid enlargement, no carotid bruits. Lungs: Decreased breath sound bilaterally with fine rhonchi no crackles or wheezes. Chest Wall: Chest wall normal expansion with deep inspiration no tenderness and no deformity was found on exam, no costochondral pain or discomfort. Heart: Regular rate and rhythm, S1, S2 normal, no murmur, rub or gallop. Back: Symmetric, no curvature, ROM normal, no CVA tenderness. Abdomen: Soft, non-tender, bowel sounds active all four quadrants, no masses, no organomegaly. Extremities: Right foot still have significant irritation edema redness with warmness to touch with significant decreased circulation. Pulses: 2+ and symmetric. Skin: Skin color, texture, tugor normal, no rashes or lesions. Neurologic: Alert oriented x3 cranial nerves II through XII intact, no motor deficit, no abnormal balance or gait. ASSESSMENT AND PLAN: _Cellulitis of the lower extremity: Continue topical care still on vancomycin and cefepime surgical consultation for possible debridement and continue wound care as well. Is going for bone scan to exclude the possibility of osteomyelitis. _Urinary tract infection with Klebsiella pneumonia with positive UA and culture continue cefepime at this point and it being covered well. _Acute kidney injury with chronic kidney disease stage III: With hydration and better management for his blood pressure and vitals his creatinine is much better GFR is up to 58. _Severe PAD of the lower extremity especially the right side 13 seen vascular not clear whether he can benefit from any revascularization. _Peripheral neuropathy: Remain on gabapentin 1600 mg at nighttime. _Chronic pain syndrome: Continue hydrocodone orally. _Type 2 diabetes with hyperglycemia: Continue Accu-Chek with sliding scales coverage might benefit from adding long acting insulin at nighttime. _Hypothyroidism: Still on levothyroxine 112 mcg daily. _Hypertension: Blood pressure still slightly below but continue lisinopril 20 mg a day. _Hyperlipidemia: Was on simvastatin has been hold currently which will be resumed soon as patient able to tolerate medication. _Morbid obesity with BMI of 43.9: Which increases risk factor of complication. _Abnormal balance and gait doing rehab physical therapy ambulating with wheelchair mostly. _GI prophylaxis: Continue pantoprazole IV. CODE STATUS: Full code. Discharge planning: Still not all set with current management patient going for bone scan still seen vascular might require any intervention on the right foot with expectation for discharge not for the next 2 to 3 days. Objective - Vital Signs Vital signs: Vital Signs Temp 97.9 F 12/27/23 21:35 Pulse 94 12/28/23 03:44 Resp 18 12/28/23 03:44 BP 174/88 12/28/23 03:44 Pulse Ox 95 12/28/23 03:44 FiO2 Intake & Output 12/27/23 12/27/23 12/28/23 06:59 18:59 06:59 Intake Total 780 Output Total 72 1650 850 Balance -87 -291 -058 Weight 147.5 kg Intake: Oral 780 Output: Urine 1650 850 Post Void Residual 72 Other: Voiding Method Diaper Diaper Diaper # Voids 1 2 2 - Labs CBC & Chem 7: 12/27/23 08:20 12/28/23 09:02 Labs: Abnormal Lab Results - Last 24 Hours (Table) 12/27/23 12/27/23 12/27/23 Range/Units 07:23 08:20 11:52 RBC 3.30 L (4.30-5.90) m/uL Hgb 9.0 L (13.0-17.5) gm/dL Hct 29.2 L (39.0-53.0) % MCHC 30.8 L (31.0-37.0) g/dL Lymphocytes # 0.7 L (1.0-4.8) k/uL Eosinophils # 1.1 H (0-0.7) k/uL Chloride 112 H (98-107) mmol/L BUN 40 H (9-20) mg/dL Creatinine 1.46 H (0.66-1.25) mg/dL Glucose 167 H (74-99) mg/dL POC Glucose (mg/dL) 201 H (70-110) mg/dL Calcium 8.3 L (8.4-10.2) mg/dL 12/27/23 12/27/23 12/28/23 Range/Units 16:56 19:51 06:03 RBC (4.30-5.90) m/uL Hgb (13.0-17.5) gm/dL Hct (39.0-53.0) % MCHC (31.0-37.0) g/dL Lymphocytes # (1.0-4.8) k/uL Eosinophils # (0-0.7) k/uL Chloride (98-107) mmol/L BUN (9-20) mg/dL Creatinine (0.66-1.25) mg/dL Glucose (74-99) mg/dL POC Glucose (mg/dL) 171 H 163 H 146 H (70-110) mg/dL Calcium (8.4-10.2) mg/dL Microbiology - Last 24 Hours (Table) 12/26/23 15:47 Urine Culture - Preliminary Urine,Clean Catch Gram Neg Bacilli 12/25/23 23:30 Blood Culture - Preliminary Blood 12/25/23 19:45 Blood Culture - Preliminary Blood
[2023-12-29 06:06] LABS: Glucose,Whole Blood 151 mg/dL (70-110)
[2023-12-29] MEDS: VANCOMYCIN TROUGH DUE 1 EACH MISC MISCELLANE ONE (07:53)
[2023-12-29 08:21] LABS: African American GFR (CKD) 74 (>60 ml/min/1.73 sqM); Anion Gap 7 mmol/L; Blood Urea Nitrogen 22 mg/dL (9-20); Calcium 8.3 mg/dL (8.4-10.2); Carbon Dioxide 26 mmol/L (22-30); Chloride 108 mmol/L (98-107); Glucose 142 mg/dL (74-99); Non-African American GFR(CKD) 64 (>60 ml/min/1.73 sqM); Potassium 4.4 mmol/L (3.5-5.1); Sodium 141 mmol/L (137-145)
--- NOTE | 2023-12-29 11:19 | P.CON ---
Consult Note - . Consult date: 12/28/23 Assessment/Plan:: wound care consultation: Reason for consultation: Ulcerations bilateral lower extremities. this 73-year-old gentleman is being seen for ulcerations on both lower extremities. The patient has numerous comorbidities including morbid obesity, type 2 diabetes, hypertension, atherosclerotic heart disease postmyocardial infarction. Patient is status post bilateral debridements by Dr. Gray. He has residual open ulcerations on the great toe on the left foot, the great toe on the right foot, and the plantar aspect of the right foot near the heel. simply utilize Opticel silver on all of his wounds. They should be changed 3 times a week. the ulceration on the plantar right heel is about 6 x 5 cm's with portions of bone exposed. Both great toenails have been removed and the residual is an open ulceration. Recommendation: At this point for simplicity sake I would utilize Opticel silver on all the wounds. I would also struck recommend he be transferred to an ECF when he is medically able since he will need to be [id number] on the right foot. Secondary to his numerous comorbidities he is not able to maintain his wounds or his offloading at home. I feel the patient would benefit from long-term advanced wound care management in the wound center. Was unable we would probably switch to a wound VAC for use on the heel to facilitate bone coverage. Other skin subsidence may be in order as well. Thank you for the opportunity participate in this unfortunate gentleman scare.
--- NOTE | 2023-12-29 11:51 | P.PN ---
Subjective Progress Note Date: 12/29/23 Principal diagnosis: Bilateral lower extremity wounds Patient seen as a follow-up. No acute changes through the night. He is afebrile. Patient underwent bone scan yesterday which reported right midfoot uptake in 2 phases possibly blood flow 3 suggesting degeneration with possible osteomyelitis consider confirmation with MRI foot without contrast. Objective - Vital Signs Vital signs: Vital Signs Temp 97.7 F 12/29/23 08:00 Pulse 87 12/29/23 08:00 Resp 18 12/29/23 08:00 BP 181/71 12/29/23 08:00 Pulse Ox 93 L 12/29/23 08:00 FiO2 Intake & Output 12/28/23 12/29/23 12/29/23 18:59 06:59 18:59 Intake Total 0 Output Total 900 Balance 0 -900 Weight 149.5 kg Intake: Oral 0 Output: Urine 900 Other: Voiding Method Diaper Diaper Diaper External Catheter External Catheter - Exam General appearance: The patient is alert, oriented to self. Obese. HET: Head is normocephalic and atraumatic. Pupils are equal and reactive. Neck: Supple. Abdomen: Soft, nondistended. Extremities: Lower extremities with dressings in place. Neurological: Patient is awake and alert. Nonambulatory. - Labs CBC & Chem 7: 12/27/23 08:20 12/29/23 07:26 Labs: Abnormal Lab Results - Last 24 Hours (Table) 12/28/23 12/28/23 12/28/23 Range/Units 09:02 11:55 16:47 Chloride 109 H (98-107) mmol/L BUN 26 H (9-20) mg/dL Glucose 178 H (74-99) mg/dL POC Glucose (mg/dL) 185 H 176 H (70-110) mg/dL Calcium 8.2 L (8.4-10.2) mg/dL 12/28/23 12/29/23 12/29/23 Range/Units 20:32 06:05 07:26 Chloride 108 H (98-107) mmol/L BUN 22 H (9-20) mg/dL Glucose 142 H (74-99) mg/dL POC Glucose (mg/dL) 151 H 151 H (70-110) mg/dL Calcium 8.3 L (8.4-10.2) mg/dL Microbiology - Last 24 Hours (Table) 12/26/23 15:47 Urine Culture - Final Urine,Clean Catch Klebsiella pneumoniae 12/27/23 13:00 Gram Stain - Preliminary Foot - Right Wound Culture - Preliminary 12/25/23 23:30 Blood Culture - Preliminary Blood 12/25/23 19:45 Blood Culture - Preliminary Blood Assessment and Plan Assessment: 1. Bilateral lower extremity wounds 2. Diabetes 3. Charcot foot 4. Diabetic foot infection with osteomyelitis Plan: 1. Options discussed with patient including continued long-term wound care versus possible amputation. Patient would like to continue with wound care. Recommend continued formal outpatient wound care with the wound clinic. 2. Continue local wound care as ordered 3. Antibiotics per infectious disease 4. Agree with wound clinic patient will need aggressive outpatient long-term wound care therapy Thank you for this consultation, we will sign off at this time. The impression and plan of care has been dictated as directed. I performed a history and examination of this patient, discussed the same with the dictator. I agree with the dictator's note ,documented as a scribe. Any additional findings or plans will be noted.
[2023-12-29 11:54] LABS: Glucose,Whole Blood 144 mg/dL (70-110)
[2023-12-29 16:37] LABS: Glucose,Whole Blood 210 mg/dL (70-110)
[2023-12-29] MEDS: CEFEPIME 2 GM in SODIUM CHLORIDE 0.9% 100 ML IVPB SCH (17:35)
[2023-12-29] MEDS: HYDROmorphone 1 MG/ML 1 ML SYRINGE IVP STA (20:00)
[2023-12-29 20:04] LABS: Glucose,Whole Blood 154 mg/dL (70-110)
[2023-12-30 06:15] LABS: Glucose,Whole Blood 165 mg/dL (70-110)
--- NOTE | 2023-12-30 06:38 | P.PN ---
Subjective Progress Note Date: 12/29/23 HISTORY OF PRESENT ILLNESS: 74-year-old with active medical history of hypertension, hyperlipidemia, hypothyroidism, COPD, CAD, type 2 diabetes who was transferred from [facility] or rehab on December 25, 2023 for fever chills and acute cellulitis of the lower extremity with failure to outpatient treatment continue to be symptomatic with hypotension fever chills was seen and evaluated the emergency department diagnosed with cellulitis initiate vancomycin and infectious disease consultation. Continue topical care at this point is still on dressing and wound care and remain on vancomycin and cefepime IV. 12/28/2023: Patient still seen vascular and infectious disease was scheduled to go for bone scan to decide on any involvement of the bone in his right foot but that he has any osteomyelitis or not which can raise awareness of his fever and chills and probably the infection he has. Microbiology was his urine culture grew Klebsiella which been treated again currently with the current antibiotic with a blood culture done was negative. Blood work was his white blood cells down to 9.3 kidney function has improved significantly with GFR is up to 58. His urine test from early was of course positive. 12/29/2023: He is Not running fever anymore with blood pressure is not elevated at this point white blood cells down his kidney function has improved some. With the total body bone scan surprisingly showing right midfoot uptake on 2 phases the possibility to suggest possible osteomyelitis consider to do an MRI of the foot without contrast for further diagnosis of osteomyelitis. Still seen vascular along with infectious disease evaluate for their final report and need for management of the patient need amputation or not. REVIEW OF SYSTEMS: CONSTITUTIONAL: Morbidly obese in no acute respiratory distress. EYES: No icterus sclerae, no conjunctivitis. EARS, NOSE, MOUTH, THROAT, and FACE: No sore throat, lymphadenopathy, carotid bruits or deformity. RESPIRATORY: No SOB cough or wheezes. CARDIOVASCULAR: No chest pain positive PND orthopnea palpitation with edema. GASTROINTESTINAL: No Abd pain, Nausea or vomiting, no Diarrhea or constipation, No GI Bleed, no distention or masses. GENITOURINARY: Negative for Hematuria or UTI, no kidney stones. Mild incontinence. INTEGUMENT/BREAST: Negative for any muscular injury with mild osteoarthritis.. HEMATOLOGIC/LYMPHATIC: Negative for bleed or purpura. MUSCULOSKELTAL: Myalgia and arthralgia with significant loss of tissue discomfort in the right foot. NEURLOGICAL: No LOC, Sz or syncope, blurred vision dizziness or abnormality.. BEHAVIORAL/PSYCH: Negative. ENDOCRINE: Negative. PHYSICAL EXAMINATION: General Appearance: Alert, cooperative, no distress, appears stated age. Neck HEENT: Supple, no lymphadenopathy, no thyroid enlargement, no carotid bruits. Lungs: Decreased breath sound bilaterally with fine rhonchi no crackles or wheezes. Chest Wall: Chest wall normal expansion with deep inspiration no tenderness and no deformity was found on exam, no costochondral pain or discomfort. Heart: Regular rate and rhythm, S1, S2 normal, no murmur, rub or gallop. Back: Symmetric, no curvature, ROM normal, no CVA tenderness. Abdomen: Soft, non-tender, bowel sounds active all four quadrants, no masses, no organomegaly. Extremities: Right foot still have significant irritation edema redness with warmness to touch with significant decreased circulation. Pulses: 2+ and symmetric. Skin: Skin color, texture, tugor normal, no rashes or lesions. Neurologic: Alert oriented x3 cranial nerves II through XII intact, no motor deficit, no abnormal balance or gait. ASSESSMENT AND PLAN: _Cellulitis of the lower extremity: Continue topical care still on vancomycin and cefepime surgical consultation for possible debridement and continue wound care as well. Is going for bone scan to exclude the possibility of osteomyelitis. _Possible osteomyelitis of the right foot might need to do an MRI without contrast for better review and management of the bone to decide on further management of the patient can and will benefit from amputation or not. _Urinary tract infection with Klebsiella pneumonia with positive UA and culture continue cefepime at this point and it being covered well. _Acute kidney injury with chronic kidney disease stage III: With hydration and better management for his blood pressure and vitals his creatinine is much better GFR is up to 58. _Severe PAD of the lower extremity especially the right side 13 seen vascular not clear whether he can benefit from any revascularization. _Peripheral neuropathy: Remain on gabapentin 1600 mg at nighttime. _Chronic pain syndrome: Continue hydrocodone orally. _Type 2 diabetes with hyperglycemia: Continue Accu-Chek with sliding scales coverage might benefit from adding long acting insulin at nighttime. _Hypothyroidism: Still on levothyroxine 112 mcg daily. _Hypertension: Blood pressure still slightly below but continue lisinopril 20 mg a day. _Hyperlipidemia: Was on simvastatin has been hold currently which will be r esumed soon as patient able to tolerate medication. _Morbid obesity with BMI of 43.9: Which increases risk factor of complication. _Abnormal balance and gait doing rehab physical therapy ambulating with wheelchair mostly. _GI prophylaxis: Continue pantoprazole IV. CODE STATUS: Full code. Discharge planning: Still need to be on antibiotic with final decision whether amputation is needed or not this to be determined. Objective - Vital Signs Vital signs: Vital Signs Temp 98.0 F 12/29/23 04:30 Pulse 83 12/29/23 04:30 Resp 20 12/29/23 04:30 BP 168/81 12/29/23 04:30 Pulse Ox 97 12/29/23 04:30 FiO2 Intake & Output 12/28/23 12/28/23 12/29/23 06:59 18:59 06:59 Intake Total 0 Output Total 850 900 Balance -850 0 -900 Weight 147.5 kg 149.5 kg Intake: Oral 0 Output: Urine 850 900 Other: Voiding Method Diaper Diaper Diaper External Catheter # Voids 2 - Labs CBC & Chem 7: 12/27/23 08:20 12/29/23 07:26 Labs: Abnormal Lab Results - Last 24 Hours (Table) 12/28/23 12/28/23 12/28/23 Range/Units 09:02 11:55 16:47 Chloride 109 H (98-107) mmol/L BUN 26 H (9-20) mg/dL Glucose 178 H (74-99) mg/dL POC Glucose (mg/dL) 185 H 176 H (70-110) mg/dL Calcium 8.2 L (8.4-10.2) mg/dL 12/28/23 12/29/23 Range/Units 20:32 06:05 Chloride (98-107) mmol/L BUN (9-20) mg/dL Glucose (74-99) mg/dL POC Glucose (mg/dL) 151 H 151 H (70-110) mg/dL Calcium (8.4-10.2) mg/dL Microbiology - Last 24 Hours (Table) 12/26/23 15:47 Urine Culture - Final Urine,Clean Catch Klebsiella pneumoniae 12/27/23 13:00 Gram Stain - Preliminary Foot - Right Wound Culture - Preliminary 12/25/23 23:30 Blood Culture - Preliminary Blood 12/25/23 19:45 Blood Culture - Preliminary Blood
[2023-12-30 11:42] LABS: Glucose,Whole Blood 153 mg/dL (70-110)
[2023-12-30] MEDS: VANCOMYCIN 2,000 MG in SODIUM CHLORIDE 0.9% 500 ML 500 ML IVPB SCH (12:45)
--- NOTE | 2023-12-30 15:18 | P.PN ---
Subjective Progress Note Date: 12/29/23 Principal diagnosis: Reason for follow-up is right foot wound and cellulitis and UTI Patient is a 73-year-old male with a past medical history difficult for diabetes mellitus hypertension hyperlipidemia [place] COPD also have a lower extremity wound previously debrided by Dr. Gray has been brought into the hospital from the local [facility] concerning for mental status changes and agitation and also have a fever of 100.4 F, patient did have a necrotic wound to the right foot and concern for wound infection and cellulitis. On today's evaluation that is 12/29/2023, patient has been afebrile, patient is breathing comfortably and is currently on room air, patient denies having any significant cough no chest pain shortness of breath, patient denies nausea vomiting or diarrhea and no abdominal pain. Patient did have a creatinine 1.24 right foot cultures pending urine is growing Klebsiella Objective - Vital Signs Vital signs: Vital Signs Temp 98.3 F 12/29/23 12:00 Pulse 91 12/29/23 12:00 Resp 18 12/29/23 12:00 BP 178/72 12/29/23 12:00 Pulse Ox 94 L 12/29/23 12:00 FiO2 Intake & Output 12/28/23 12/29/23 12/29/23 18:59 06:59 18:59 Intake Total 0 Output Total 900 Balance 0 -900 Weight 149.5 kg Intake: Oral 0 Output: Urine 900 Other: Voiding Method Diaper Diaper Diaper External Catheter External Catheter - Exam GENERAL DESCRIPTION: An elderly male lying in bed in no distress RESPIRATORY SYSTEM: Unlabored breathing , decreased breath sounds at bases HEART: S1 S2 regular rate and rhythm , ABDOMEN: Soft , no tenderness EXTREMITIES: Right foot plantar wound base with some slough tissue dorsum of the foot did have some redness - Labs CBC & Chem 7: 12/27/23 08:20 12/29/23 07:26 Labs: Abnormal Lab Results - Last 24 Hours (Table) 12/28/23 12/28/23 12/29/23 Range/Units 16:47 20:32 06:05 Chloride (98-107) mmol/L BUN (9-20) mg/dL Glucose (74-99) mg/dL POC Glucose (mg/dL) 176 H 151 H 151 H (70-110) mg/dL Calcium (8.4-10.2) mg/dL 12/29/23 12/29/23 Range/Units 07:26 11:52 Chloride 108 H (98-107) mmol/L BUN 22 H (9-20) mg/dL Glucose 142 H (74-99) mg/dL POC Glucose (mg/dL) 144 H (70-110) mg/dL Calcium 8.3 L (8.4-10.2) mg/dL Microbiology - Last 24 Hours (Table) 12/25/23 23:30 Blood Culture - Preliminary Blood 12/25/23 19:45 Blood Culture - Preliminary Blood 12/26/23 15:47 Urine Culture - Final Urine,Clean Catch Klebsiella pneumoniae 12/27/23 13:00 Gram Stain - Preliminary Foot - Right Wound Culture - Preliminary Assessment and Plan (1) UTI (urinary tract infection) Current Visit: Yes Status: Acute Code(s): N39.0 - URINARY TRACT INFECTION, SITE NOT SPECIFIED SNOMED Code(s): 78627733 (2) Sepsis Current Visit: Yes Status: Acute Code(s): A41.9 - SEPSIS, UNSPECIFIED ORGANISM SNOMED Code(s): 15408797 (3) Diabetic foot infection Current Visit: No Status: Acute Code(s): E11.628 - TYPE 2 DIABETES MELLITUS WITH OTHER SKIN COMPLICATIONS; L08.9 - LOCAL INFECTION OF THE SKIN AND SUBCUTANEOUS TISSUE, UNSP SNOMED Code(s): 837168781 (4) Diabetic foot ulcer Current Visit: No Status: Acute Code(s): E11.621 - TYPE 2 DIABETES MELLITUS WITH FOOT ULCER; L97.509 - NON-PRESSURE CHRONIC ULCER OTH PRT UNSP FOOT W UNSP SEVERITY SNOMED Code(s): 058798399 Plan: 1patient presented to hospital with sepsis in this patient who did have a fever elevated white count source is likely right diabetic foot ulcer with second cellulitis likely from the gram-positive skin val patient also have significantly positive UA underlying urinary source not entirely excluded, failing outpatient oral doxycycline therapy. 2patient is status post vascular surgery evaluation and debridement of the wound culture are currently pending 3 bone scan could not rule out osteomyelitis to the right foot, patient to continue with cefepime and vancomycin while waiting for the culture to finalize Dictation was produced using [employer] dictation software. please excuse any grammatical, word or spelling errors. Time with Patient: Less than 30
--- NOTE | 2023-12-30 15:19 | P.PN ---
Subjective Progress Note Date: 12/30/23 Principal diagnosis: Reason for follow-up is right foot wound and cellulitis and UTI Patient is a 73-year-old male with a past medical history difficult for diabetes mellitus hypertension hyperlipidemia [place] COPD also have a lower extremity wound previously debrided by Dr. Gray has been brought into the [facility] local [facility] concerning for mental status changes and agitation and also have a fever of 100.4 F, patient did have a necrotic wound to the right foot and concern for wound infection and cellulitis. On today's evaluation that is 12/30/2023, Patient is afebrile this morning patient denies having any chest pain shortness of breath or cough, the patient is breathing comfortably and currently on room air, patient denies any abdominal pain no diarrhea no nausea no vomiting, denies any worsening pain to the right foot wound no diarrhea. Patient did not have any lab draw today the right foot culture reported negative Endo cultures are pending urine is growing Klebsiella bone scan not that helpful, PT left-sided of 74 Objective - Vital Signs Vital signs: Vital Signs Temp 97.8 F 12/30/23 08:00 Pulse 96 12/30/23 08:00 Resp 20 12/30/23 08:00 BP 162/78 12/30/23 08:00 Pulse Ox 90 L 12/30/23 08:00 FiO2 Intake & Output 12/29/23 12/30/23 12/30/23 18:59 06:59 18:59 Output Total 550 650 Balance -550 -650 Weight 149.5 kg 146.5 kg Output: Urine 550 650 Other: Voiding Method Diaper Diaper Diaper External Catheter External Catheter External Catheter # Bowel Movements 1 0 - Exam GENERAL DESCRIPTION: An elderly male lying in bed in no distress RESPIRATORY SYSTEM: Unlabored breathing , decreased breath sounds at bases HEART: S1 S2 regular rate and rhythm , ABDOMEN: Soft , no tenderness EXTREMITIES: Right foot plantar wound base with some slough tissue dorsum of the foot did have some redness - Labs CBC & Chem 7: 12/27/23 08:20 12/29/23 07:26 Labs: Abnormal Lab Results - Last 24 Hours (Table) 12/29/23 12/29/23 12/30/23 Range/Units 16:35 20:03 06:13 POC Glucose (mg/dL) 210 H 154 H 165 H (70-110) mg/dL 12/30/23 Range/Units 11:41 POC Glucose (mg/dL) 153 H (70-110) mg/dL Microbiology - Last 24 Hours (Table) 12/27/23 13:00 Anaerobic Culture - Preliminary Foot - Right 12/27/23 13:00 Gram Stain - Final Foot - Right Wound Culture - Final 12/25/23 23:30 Blood Culture - Preliminary Blood 12/25/23 19:45 Blood Culture - Preliminary Blood Assessment and Plan (1) UTI (urinary tract infection) Current Visit: Yes Status: Acute Code(s): N39.0 - URINARY TRACT INFECTION, SITE NOT SPECIFIED SNOMED Code(s): 14625011 (2) Sepsis Current Visit: Yes Status: Acute Code(s): A41.9 - SEPSIS, UNSPECIFIED ORGANISM SNOMED Code(s): 29175984 (3) Diabetic foot infection Current Visit: No Status: Acute Code(s): E11.628 - TYPE 2 DIABETES MELLITUS WITH OTHER SKIN COMPLICATIONS; L08.9 - LOCAL INFECTION OF THE SKIN AND SUBCUTANEOUS TISSUE, UNSP SNOMED Code(s): 821886728 (4) Diabetic foot ulcer Current Visit: No Status: Acute Code(s): E11.621 - TYPE 2 DIABETES MELLITUS WITH FOOT ULCER; L97.509 - NON-PRESSURE CHRONIC ULCER OTH PRT UNSP FOOT W UNSP SEVERITY SNOMED Code(s): 083393473 Plan: 1patient presented to hospital with sepsis in this patient who did have a fever elevated white count source is likely right diabetic foot ulcer with second cellulitis likely from the gram-positive skin val patient also have significantly positive UA underlying urinary source not entirely excluded, failing outpatient oral doxycycline therapy. 2patient is status post vascular surgery evaluation and debridement of the wound culture, aerobic so far negative anaerobes pending 3 bone scan could not rule out osteomyelitis to the right foot, 4-we will discontinue vancomycin and cefepime start the patient on Rocephin 2 g daily and plan for 4-week course on discharge local wound care to continue per the wound care close the patient follow-up Dictation was produced using [employer] dictation software. please excuse any grammatical, word or spelling errors. Time with Patient: Less than 30
[2023-12-30 17:16] LABS: Glucose,Whole Blood 123 mg/dL (70-110)
[2023-12-30 20:14] LABS: Glucose,Whole Blood 134 mg/dL (70-110)
[2023-12-31 03:59] VITALS: RESP 16
[2023-12-31 05:59] LABS: Glucose,Whole Blood 152 mg/dL (70-110)
[2023-12-31 11:40] LABS: Glucose,Whole Blood 185 mg/dL (70-110)
[2023-12-31 12:10] VITALS: BP 161/70; PULSE 90; TEMP 98.3
--- NOTE | 2023-12-31 13:06 | P.PN ---
Subjective Progress Note Date: 12/31/23 Principal diagnosis: Reason for follow-up is right foot wound and cellulitis and UTI Patient is a 73-year-old male with a past medical history difficult for diabetes mellitus hypertension hyperlipidemia [place] COPD also have a lower extremity wound previously debrided by Dr. Gray has been brought into the hospital from the local [facility] concerning for mental status changes and agitation and also have a fever of 100.4 F, patient did have a necrotic wound to the right foot and concern for wound infection and cellulitis. On today's evaluation that is 12/31/2023,the patient denies any fever or any chills, patient is breathing comfortably on 2 L current oxygen, the patient denies chest pain shortness of breath and no significant cough, patient denies abdominal pain, no nausea vomiting or diarrhea. Denies pain to the right foot or leg area. No new labs were obtained today Objective - Vital Signs Vital signs: Vital Signs Temp 98.3 F 12/31/23 11:35 Pulse 90 12/31/23 11:35 Resp 16 12/31/23 11:35 BP 161/70 12/31/23 11:35 Pulse Ox 96 12/31/23 11:35 FiO2 Intake & Output 12/30/23 12/31/23 12/31/23 18:59 06:59 18:59 Intake Total 0 Output Total 1300 Balance -1300 0 Weight 148 kg Intake: Oral 0 Output: Urine 1300 Other: Voiding Method Diaper Diaper Diaper External Catheter External Catheter External Catheter - Exam GENERAL DESCRIPTION: An elderly male lying in bed in no distress RESPIRATORY SYSTEM: Unlabored breathing , decreased breath sounds at bases HEART: S1 S2 regular rate and rhythm , ABDOMEN: Soft , no tenderness EXTREMITIES: Right foot plantar wound base with some slough tissue dorsum of the foot did have some redness - Labs CBC & Chem 7: 12/27/23 08:20 12/29/23 07:26 Labs: Abnormal Lab Results - Last 24 Hours (Table) 12/30/23 12/30/23 12/31/23 Range/Units 17:11 20:12 05:57 POC Glucose (mg/dL) 123 H 134 H 152 H (70-110) mg/dL 12/31/23 Range/Units 11:39 POC Glucose (mg/dL) 185 H (70-110) mg/dL Microbiology - Last 24 Hours (Table) 12/25/23 23:30 Blood Culture - Final Blood 12/25/23 19:45 Blood Culture - Final Blood Assessment and Plan (1) UTI (urinary tract infection) Current Visit: Yes Status: Acute Code(s): N39.0 - URINARY TRACT INFECTION, SITE NOT SPECIFIED SNOMED Code(s): 00318450 (2) Sepsis Current Visit: Yes Status: Acute Code(s): A41.9 - SEPSIS, UNSPECIFIED ORGANISM SNOMED Code(s): 71052871 (3) Diabetic foot infection Current Visit: No Status: Acute Code(s): E11.628 - TYPE 2 DIABETES MELLITUS WITH OTHER SKIN COMPLICATIONS; L08.9 - LOCAL INFECTION OF THE SKIN AND SUBCUTANEOUS TISSUE, UNSP SNOMED Code(s): 243327462 (4) Diabetic foot ulcer Current Visit: No Status: Acute Code(s): E11.621 - TYPE 2 DIABETES MELLITUS WITH FOOT ULCER; L97.509 - NON-PRESSURE CHRONIC ULCER OTH PRT UNSP FOOT W UNSP SEVERITY SNOMED Code(s): 650037863 Plan: 1patient presented to hospital with sepsis in this patient who did have a fever elevated white count source is likely right diabetic foot ulcer with second cellulitis likely from the gram-positive skin val patient also have significantly positive UA underlying urinary source not entirely excluded, failing outpatient oral doxycycline therapy. 2patient is status post vascular surgery evaluation and debridement of the wound culture, aerobic so far negative anaerobes pending 3 bone scan could not rule out osteomyelitis to the right foot, 4-patient to continue with Rocephin times 4-week course on discharge local wound care to continue per the wound care close outpatient follow-up Dictation was produced using [employer] dictation software. please excuse any grammatical, word or spelling errors. Time with Patient: Less than 30
--- NOTE | 2023-12-31 14:07 | P.PN ---
Subjective Progress Note Date: 12/30/23 HISTORY OF PRESENT ILLNESS: 74-year-old with active medical history of hypertension, hyperlipidemia, hypothyroidism, COPD, CAD, type 2 diabetes who was transferred from [facility] or rehab on December 25, 2023 for fever chills and acute cellulitis of the lower extremity with failure to outpatient treatment continue to be symptomatic with hypotension fever chills was seen and evaluated the emergency department diagnosed with cellulitis initiate vancomycin and infectious disease consultation. Continue topical care at this point is still on dressing and wound care and remain on vancomycin and cefepime IV. 12/28/2023: Patient still seen vascular and infectious disease was scheduled to go for bone scan to decide on any involvement of the bone in his right foot but that he has any osteomyelitis or not which can raise awareness of his fever and chills and probably the infection he has. Microbiology was his urine culture grew Klebsiella which been treated again currently with the current antibiotic with a blood culture done was negative. Blood work was his white blood cells down to 9.3 kidney function has improved significantly with GFR is up to 58. His urine test from early was of course positive. 12/29/2023: He is Not running fever anymore with blood pressure is not elevated at this point white blood cells down his kidney function has improved some. With the total body bone scan surprisingly showing right midfoot uptake on 2 phases the possibility to suggest possible osteomyelitis consider to do an MRI of the foot without contrast for further diagnosis of osteomyelitis. Still seen vascular along with infectious disease evaluate for their final report and need for management of the patient need amputation or not. 12/30/2023: He was evaluated by vascular and apparently the discussion and argument was on management might require amputation the patient is absolutely against at this point. We take another look at the whole picture with agreement at this point to probably have patient continue and finish total of at least 4 weeks of IV antibiotics to cover osteomyelitis or earlier sign of osteomyelitis. But if patient will allow vascular to go back to do debridement on the side specially around the big toe and to consider with wound care recommending as wound VAC on the heel area and To use Opticell silver on all wound for simplicity will be a good idea. Also recommendation at this point not to put any pressure on the foot for the next 4 weeks. And prepare hopefully for getting patient back to [facility] and to continue wound care along with IV antibiotics to complete the next 4 weeks. Hopefully after debridement if there is no bleeding no complication patient be able to go back to [facility] tomorrow. REVIEW OF SYSTEMS: CONSTITUTIONAL: Morbidly obese in no acute respiratory distress. EYES: No icterus sclerae, no conjunctivitis. EARS, NOSE, MOUTH, THROAT, and FACE: No sore throat, lymphadenopathy, carotid bruits or deformity. RESPIRATORY: No SOB cough or wheezes. CARDIOVASCULAR: No chest pain positive PND orthopnea palpitation with edema. GASTROINTESTINAL: No Abd pain, Nausea or vomiting, no Diarrhea or constipation, No GI Bleed, no distention or masses. GENITOURINARY: Negative for Hematuria or UTI, no kidney stones. Mild incontinence. INTEGUMENT/BREAST: Negative for any muscular injury with mild osteoarthritis.. HEMATOLOGIC/LYMPHATIC: Negative for bleed or purpura. MUSCULOSKELTAL: Myalgia and arthralgia with significant loss of tissue discomfort in the right foot. NEURLOGICAL: No LOC, Sz or syncope, blurred vision dizziness or abnormality.. BEHAVIORAL/PSYCH: Negative. ENDOCRINE: Negative. PHYSICAL EXAMINATION: General Appearance: Alert, cooperative, no distress, appears stated age. Neck HEENT: Supple, no lymphadenopathy, no thyroid enlargement, no carotid bruits. Lungs: Decreased breath sound bilaterally with fine rhonchi no crackles or wheezes. Chest Wall: Chest wall normal expansion with deep inspiration no tenderness and no deformity was found on exam, no costochondral pain or discomfort. Heart: Regular rate and rhythm, S1, S2 normal, no murmur, rub or gallop. Back: Symmetric, no curvature, ROM normal, no CVA tenderness. Abdomen: Soft, non-tender, bowel sounds active all four quadrants, no masses, no organomegaly. Extremities: Right foot still have significant irritation edema redness with warmness to touch with significant decreased circulation. Pulses: 2+ and symmetric. Skin: Skin color, texture, tugor normal, no rashes or lesions. Neurologic: Alert oriented x3 cranial nerves II through XII intact, no motor deficit, no abnormal balance or gait. ASSESSMENT AND PLAN: _Cellulitis and early osteomyelitis of the right foot: Ended up going for debridement of the right big toe antibiotic were change to Rocephin 2 g daily IV while he is in the hospital so he is no longer on cefepime and vancomycin and will continue for total of 4 weeks _ osteomyelitis of the right big toe post debridement event opinion with vascular to do amputation but was refused by patient at this point we will c ontinue topical wound care with Opticell silver along with wound care twice a week probably Rocephin 2 g daily for total of 4 weeks. _Urinary tract infection with Klebsiella pneumonia with positive UA blood culture was negative. This is susceptible to Rocephin 2 g which will be done for the osteomyelitis but would take care of the UTI as well. _Acute kidney injury with chronic kidney disease stage III: With hydration and better management for his blood pressure and vitals his creatinine is much better GFR is up to 58. _Severe PAD of the lower extremity especially the right side 13 seen vascular not clear whether he can benefit from any revascularization. _Peripheral neuropathy: Remain on gabapentin 1600 mg at nighttime. _Chronic pain syndrome: Continue hydrocodone orally. _Type 2 diabetes with hyperglycemia: Continue Accu-Chek with sliding scales coverage might benefit from adding long acting insulin at nighttime. _Hypothyroidism: Still on levothyroxine 112 mcg daily. _Hypertension: Blood pressure still slightly below but continue lisinopril 20 mg a day. _Hyperlipidemia: Was on simvastatin has been hold currently which will be resumed soon as patient able to tolerate medication. _Morbid obesity with BMI of 43.9: Which increases risk factor of complication. _Abnormal balance and gait doing rehab physical therapy ambulating with wheelchair mostly. Discharge planning: Debridement to be done today finalize IV antibiotic via PICC line and probably prepare for sending patient tomorrow with as well as tomorrow. Objective - Vital Signs Vital signs: Vital Signs Temp 97.9 F 12/30/23 04:00 Pulse 89 12/30/23 04:00 Resp 20 12/30/23 04:00 BP 140/84 12/30/23 04:00 Pulse Ox 97 12/30/23 04:00 FiO2 Intake & Output 12/29/23 12/29/23 12/30/23 06:59 18:59 06:59 Output Total 900 550 650 Balance -900 -550 -650 Weight 149.5 kg 149.5 kg 146.5 kg Output: Urine 900 550 650 Other: Voiding Method Diaper Diaper Diaper External Catheter External Catheter External Catheter # Bowel Movements 1 0 - Labs CBC & Chem 7: 12/27/23 08:20 12/29/23 07:26 Labs: Abnormal Lab Results - Last 24 Hours (Table) 12/29/23 12/29/23 12/29/23 Range/Units 07:26 11:52 16:35 Chloride 108 H (98-107) mmol/L BUN 22 H (9-20) mg/dL Glucose 142 H (74-99) mg/dL POC Glucose (mg/dL) 144 H 210 H (70-110) mg/dL Calcium 8.3 L (8.4-10.2) mg/dL 12/29/23 12/30/23 Range/Units 20:03 06:13 Chloride (98-107) mmol/L BUN (9-20) mg/dL Glucose (74-99) mg/dL POC Glucose (mg/dL) 154 H 165 H (70-110) mg/dL Calcium (8.4-10.2) mg/dL Microbiology - Last 24 Hours (Table) 12/27/23 13:00 Anaerobic Culture - Preliminary Foot - Right 12/27/23 13:00 Gram Stain - Final Foot - Right Wound Culture - Final 12/25/23 23:30 Blood Culture - Preliminary Blood 12/25/23 19:45 Blood Culture - Preliminary Blood
--- NOTE | 2023-12-31 14:12 | P.DS ---
Providers Date of admission: 12/25/23 23:12 Attending physician: Mateusz Montoya Consults: 12/25/23 23:09 Consult Physician Routine Consulting Provider: Ranjit Vee Consult Reason/Comments: sepsis, cellulitis Do you want consulting provider notified?: Yes, Notify in am Primary care physician: Mateusz [facility] Course: HISTORY OF PRESENT ILLNESS: 74-year-old with active medical history of hypertension, hyperlipidemia, hypothyroidism, COPD, CAD, type 2 diabetes who was transferred from [facility] on December 25, 2023 for fever chills and acute cellulitis of the lower extremity with failure to outpatient treatment continue to be symptomatic with hypotension fever chills was seen and evaluated the emergency department diagnosed with cellulitis initiate vancomycin and infectious disease consultation. Continue topical care at this point is still on dressing and wound care and remain on vancomycin and cefepime IV. 12/28/2023: Patient still seen vascular and infectious disease was scheduled to go for bone scan to decide on any involvement of the bone in his right foot but that he has any osteomyelitis or not which can raise awareness of his fever and chills and probably the infection he has. Microbiology was his urine culture grew Klebsiella which been treated again currently with the current antibiotic with a blood culture done was negative. Blood work was his white blood cells down to 9.3 kidney function has improved significantly with GFR is up to 58. His urine test from early was of course positive. 12/29/2023: He is Not running fever anymore with blood pressure is not elevated at this point white blood cells down his kidney function has improved some. With the total body bone scan surprisingly showing right midfoot uptake on 2 phases the possibility to suggest possible osteomyelitis consider to do an MRI of the foot without contrast for further diagnosis of osteomyelitis. Still seen vascular along with infectious disease evaluate for their final report and need for management of the patient need amputation or not. 12/30/2023: He was evaluated by vascular and apparently the discussion and argument was on management might require amputation the patient is absolutely against at this point. We take another look at the whole picture with agreement at this point to probably have patient continue and finish total of at least 4 weeks of IV antibiotics to cover osteomyelitis or earlier sign of osteomyelitis. But if patient will allow vascular to go back to do debridement on the side specially around the big toe and to consider with wound care recommending as wound VAC on the heel area and To use Opticell silver on all wound for simplicity will be a good idea. Also recommendation at this point not to put any pressure on the foot for the next 4 weeks. And prepare hopefully for getting patient back to [facility] and to continue wound care along with IV antibiotics to complete the next 4 weeks. Hopefully after debridement if there is no bleeding no complication patient be able to go back to [facility] tomorrow. 12/31/2023: Patient had debridement yesterday wound care change could not do wound VAC on the heel area the patient is feeling much better, infectious disease had finalized antibiotic for Rocephin 2 g daily for total of 4 weeks with nonweightbearing on the Foot. Patient is stable to be discharged to [facility] today to continue wound care and IV antibiotics with no weightbearing. UTI is much better so far and patient is not having any more fever or chills. REVIEW OF SYSTEMS: CONSTITUTIONAL: Morbidly obese in no acute respiratory distress. EYES: No icterus sclerae, no conjunctivitis. EARS, NOSE, MOUTH, THROAT, and FACE: No sore throat, lymphadenopathy, carotid bruits or deformity. RESPIRATORY: No SOB cough or wheezes. CARDIOVASCULAR: No chest pain positive PND orthopnea palpitation with edema. GASTROINTESTINAL: No Abd pain, Nausea or vomiting, no Diarrhea or constipation, No GI Bleed, no distention or masses. GENITOURINARY: Negative for Hematuria or UTI, no kidney stones. Mild incontinence. INTEGUMENT/BREAST: Negative for any muscular injury with mild osteoarthritis.. HEMATOLOGIC/LYMPHATIC: Negative for bleed or purpura. MUSCULOSKELTAL: Myalgia and arthralgia with significant loss of tissue discomfort in the right foot. NEURLOGICAL: No LOC, Sz or syncope, blurred vision dizziness or abnormality.. BEHAVIORAL/PSYCH: Negative. ENDOCRINE: Negative. PHYSICAL EXAMINATION: General Appearance: Alert, cooperative, no distress, appears stated age. Neck HEENT: Supple, no lymphadenopathy, no thyroid enlargement, no carotid bruits. Lungs: Decreased breath sound bilaterally with fine rhonchi no crackles or wheezes. Chest Wall: Chest wall normal expansion with deep inspiration no tenderness and no deformity was found on exam, no costochondral pain or discomfort. Heart: Regular rate and rhythm, S1, S2 normal, no murmur, rub or gallop. Back: Symmetric, no curvature, ROM normal, no CVA tenderness. Abdomen: Soft, non-tender, bowel sounds active all four quadrants, no masses, no organomegaly. Extremities: Right foot still have significant irritation edema redness with warmness to touch with significant decreased circulation. Pulses: 2+ and symmetric. Skin: Skin color, texture, tugor normal, no rashes or lesions. Neurologic: Alert oriented x3 cranial nerves II through XII intact, no motor deficit, no abnormal balance or gait. ASSESSMENT AND PLAN: _Cellulitis and early osteomyelitis of the right foot: Ended up going for debridement of the right big toe antibiotic were change to Rocephin 2 g daily IV while he is in the hospital so he is no longer on cefepime and vancomycin and will continue for total of 4 weeks _ osteomyelitis of the right big toe post debridement event opinion with vascular to do amputation but was refused by patient at this point we will continue topical wound care with Opticell silver along with wound care twice a week probably Rocephin 2 g daily for total of 4 weeks. _Urinary tract infection with Klebsiella pneumonia with positive UA blood cultur e was negative. This is susceptible to Rocephin 2 g which will be done for the osteomyelitis but would take care of the UTI as well. _Acute kidney injury with chronic kidney disease stage III: With hydration and better management for his blood pressure and vitals his creatinine is much better GFR is up to 58. _Severe PAD of the lower extremity especially the right side 13 seen vascular not clear whether he can benefit from any revascularization. _Peripheral neuropathy: Remain on gabapentin 1600 mg at nighttime. _Chronic pain syndrome: Continue hydrocodone orally. _Type 2 diabetes with hyperglycemia: Continue Accu-Chek with sliding scales coverage might benefit from adding long acting insulin at nighttime. _Hypothyroidism: Still on levothyroxine 112 mcg daily. _Hypertension: Blood pressure still slightly below but continue lisinopril 20 mg a day. _Hyperlipidemia: Was on simvastatin has been hold currently which will be resumed soon as patient able to tolerate medication. _Morbid obesity with BMI of 43.9: Which increases risk factor of complication. _Abnormal balance and gait doing rehab physical therapy ambulating with wheelchair mostly. Discharge planning: Finalize a plan to discharge patient back to [facility] today. Hospital course: Patient was admitted to the hospital on 12/25/2023 with sign and symptom of infection with fever and chills not clear etiology at the time was evaluated and found to have cellulitis of the lower extremity worsening on the right side the left side specially around the big toe and the heel area was initially started on vancomycin consult infectious disease and wound care. His antibiotic was changed eventually to vancomycin and cefepime IV. Waiting for the culture his UTI came back positive with Klebsiella pneumonia susceptible to the current antibiotics. Vascular was consulted bedside infectious disease decided to do three-phase bone scan which shows an early but sign of osteomyelitis on the rig ht big toe. Patient with challenge to do amputation but this time came back as above-knee amputation by vascular with the severity of the PAD and he declined to take it for the time being. Today agreed to do debridement on the wound site around the big toe and continue IV antibiotic for the next 4 weeks with no weightbearing see if it heal if it does not heal patient need to come back for amputation eventually. Debridement was done successfully with no complication had slight bit of bleeding at the time, his heel could not adapt to wound VAC so patient remain on topical care with Opticell silver which has been helping. Antibiotic was finalized to Rocephin per infectious disease recommendation and patient to remain on it for total of 4 weeks. Pain is under control currently and no other complication UTI is much better patient is not running any fever or chills his white blood cell has improved significantly over the last few days and down to 9.3 from 22,000 initially. Also acute kidney injury with kidney function is almost returned back to its baseline. Patient will be able to return back to [facility] today for wound care, IV antibiotic and probably some physical therapy knowing that he cannot put any weightbearing on the right foot currently. Time spent on patient discharge was over 38 minutes. Plan - Discharge Summary Discharge Rx Participant: No New Discharge Prescriptions: New cefTRIAXone [Rocephin] 2,000 mg IVP Q24HR #28 each hydrALAZINE HCL [Apresoline] 25 mg PO Q6HR PRN tab PRN Reason: Blood Pressure - High Tamsulosin [Flomax] 0.4 mg PO DAILY cap amLODIPine [Norvasc] 5 mg PO DAILY tab Pantoprazole [Protonix] 40 mg PO DAILY #30 tab Acetaminophen Tab [Tylenol] 650 mg PO Q6HR PRN tab PRN Reason: Fever And/ Or Pain HYDROcodone/APAP 5-325MG [[place] 5-325] 1 each PO Q6HR PRN #20 tab PRN Reason: Pain Capsaicin Cream [Trixaicin Cream] 1 applic TOPICAL TID each Continue Furosemide [Lasix] 20 mg PO DAILY Clopidogrel [Plavix] 75 mg PO DAILY Simvastatin [Zocor] 40 mg PO HS Levothyroxine Sodium [Synthroid] 112 mcg PO DAILY Insulin Aspart Prot/Insuln Asp [NovoLOG MIX 70-30 Flexpen] 50 unit SQ BID metFORMIN HCL ER [Glucophage XR] 1,000 mg PO BID-W/MEALS Gabapentin [Neurontin] 800 mg PO TID Changed lisinopriL [Zestril] 20 mg PO BID #0 Discharge Medication List Furosemide [Lasix] 20 mg PO DAILY 11/23/23 [History] Gabapentin [Neurontin] 800 mg PO TID 11/23/23 [History] Insulin Aspart Prot/Insuln Asp [NovoLOG MIX 70-30 Flexpen] 50 unit SQ BID 11/23/23 [History] Levothyroxine Sodium [Synthroid] 112 mcg PO DAILY 11/23/23 [History] Simvastatin [Zocor] 40 mg PO HS 11/23/23 [History] metFORMIN HCL ER [Glucophage XR] 1,000 mg PO BID-W/MEALS 11/23/23 [History] Clopidogrel [Plavix] 75 mg PO DAILY 12/26/23 [History] cefTRIAXone [Rocephin] 2,000 mg IVP Q24HR #28 each 12/30/23 [Rx] Acetaminophen Tab [Tylenol] 650 mg PO Q6HR PRN tab 12/31/23 [Rx] Capsaicin Cream [Trixaicin Cream] 1 applic TOPICAL TID each 12/31/23 [Rx] HYDROcodone/APAP 5-325MG [[place] 5-325] 1 each PO Q6HR PRN #20 tab 12/31/23 [Rx] Pantoprazole [Protonix] 40 mg PO DAILY #30 tab 12/31/23 [Rx] Tamsulosin [Flomax] 0.4 mg PO DAILY cap 12/31/23 [Rx] amLODIPine [Norvasc] 5 mg PO DAILY tab 12/31/23 [Rx] hydrALAZINE HCL [Apresoline] 25 mg PO Q6HR PRN tab 12/31/23 [Rx] lisinopriL [Zestril] 20 mg PO BID #0 12/31/23 [Rx] Follow up Appointment(s)/Referral(s): Mateusz Montoya MD [Primary Care Provider] - 1-2 days [facility] [NON-STAFF] - 1 Week Ranjit Vee MD [STAFF PHYSICIAN] - 1 Week Ambulatory/Diagnostic Orders: Basic Metabolic Panel [LAB.AMB] Location: None Selected C Reactive Protein [LAB.AMB] Location: None Selected Complete Blood Count w/diff [LAB.AMB] Location: None Selected Erythrocyte Sedimentation Rate [LAB.AMB] Location: None Selected Discharge Disposition: TRANSFER TO SNF/ECF
[2023-12-31 15:12] VITALS: BMI 41.8
== END 2023-12-31 16:12 | DRG 854 ==
LOC: EC 18:31 → 3SCARD 23:12
PROVIDERS: ADMIT Internal Medicine Geriatric Medicine; ATTEND Internal Medicine Geriatric Medicine
PROC: 0JBQ0ZZ Excision of Right Foot Subcutaneous Tissue and Fascia, Open Approach (ICD-10-PCS; principal; 2023-12-27)
PROC: 0HBRXZZ Excision of Toe Nail, External Approach (ICD-10-PCS; principal; 2023-12-27)
PROC: 02HV33Z Insertion of Infusion Device into Superior Vena Cava, Percutaneous Approach (ICD-10-PCS; 2023-12-28)
DX: A41.9 Sepsis, unspecified organism (principal); L03.115 Cellulitis of right lower limb; L03.116 Cellulitis of left lower limb; N17.9 Acute kidney failure, unspecified; Z68.41 Body mass index [BMI] 40.0-44.9, adult; N39.0 Urinary tract infection, site not specified; M86.8X7 Other osteomyelitis, ankle and foot; L97.919 Non-pressure chronic ulcer of unspecified part of right lower leg with unspecified severity; L97.929 Non-pressure chronic ulcer of unspecified part of left lower leg with unspecified severity; E78.5 Hyperlipidemia, unspecified; E11.42 Type 2 diabetes mellitus with diabetic polyneuropathy; E66.01 Morbid (severe) obesity due to excess calories; D50.9 Iron deficiency anemia, unspecified; J44.9 Chronic obstructive pulmonary disease, unspecified; I12.9 Hypertensive chronic kidney disease with stage 1 through stage 4 chronic kidney disease, or unspecified chronic kidney disease; E11.22 Type 2 diabetes mellitus with diabetic chronic kidney disease; E11.610 Type 2 diabetes mellitus with diabetic neuropathic arthropathy; E11.628 Type 2 diabetes mellitus with other skin complications; E11.621 Type 2 diabetes mellitus with foot ulcer; L97.519 Non-pressure chronic ulcer of other part of right foot with unspecified severity; E11.69 Type 2 diabetes mellitus with other specified complication; N18.30 Chronic kidney disease, stage 3 unspecified; Z79.4 Long term (current) use of insulin; E11.51 Type 2 diabetes mellitus with diabetic peripheral angiopathy without gangrene; D63.1 Anemia in chronic kidney disease; E03.9 Hypothyroidism, unspecified; I25.10 Atherosclerotic heart disease of native coronary artery without angina pectoris; M19.91 Primary osteoarthritis, unspecified site; R26.89 Other abnormalities of gait and mobility; G89.4 Chronic pain syndrome; R45.1 Restlessness and agitation; B96.1 Klebsiella pneumoniae [K. pneumoniae] as the cause of diseases classified elsewhere; Z28.310 Unvaccinated for COVID-19; Z87.891 Personal history of nicotine dependence; Z79.899 Other long term (current) drug therapy; Z79.890 Hormone replacement therapy; Z79.84 Long term (current) use of oral hypoglycemic drugs; Z79.82 Long term (current) use of aspirin; Z79.02 Long term (current) use of antithrombotics/antiplatelets; I25.2 Old myocardial infarction; Z95.5 Presence of coronary angioplasty implant and graft
CPT/HCPCS: 36415; 36573; 70450; 71046; 78315; 80048; 80053; 80143; 80179; 80202; 81001; 82140; 83605; 84145; 84443; 84484; 85025; 85610; 85652; 85730; 86140; 87040; 87070; 87075; 87077; 87086; 87186; 87205; 93005; 96365; 96375; 99285

== ENCOUNTER 2024-01-11 15:32 | Inpatient (IN) | payer MEDICARE, OTHER ==
--- NOTE | 2024-01-11 16:41 | ED ---
General Adult HPI - General Chief complaint: Altered Mental Status Stated complaint: AMS Time Seen by Provider: 01/11/24 16:00 Source: patient, EMS, RN notes reviewed, old records reviewed Mode of arrival: EMS Limitations: altered mental status - History of Present Illness Initial comments: 73-year-old male presenting with confusion, worsening kidney function and hypoxia. Patient is able to answer questions but does require stimulation. He denies pain complaints. Denies fever. Denies vomiting. Patient is currently residing at the long-term. - Related Data Home Medications Medication Instructions Recorded Confirmed Furosemide [Lasix] 20 mg PO DAILY@0800 11/23/23 01/11/24 Gabapentin [Neurontin] 800 mg PO TID@0600,1400,2200 11/23/23 01/11/24 Insulin Aspart Prot/Insuln Asp 20 unit SQ BID@0800,1700 11/23/23 01/11/24 [NovoLOG MIX 70-30 Flexpen] Levothyroxine Sodium [Synthroid] 112 mcg PO DAILY@0800 11/23/23 01/11/24 Simvastatin [Zocor] 40 mg PO HS 11/23/23 01/11/24 Clopidogrel [Plavix] 75 mg PO DAILY@0800 12/26/23 01/11/24 HYDROcodone/APAP 7.5-325MG [[place] 1 tab PO QID@00,06,12,18 01/11/24 01/11/24 7.5-325] Jac Packet 1 packet PO BID@0800,1700 01/11/24 01/11/24 L.acidoph,Paracasei, B.lactis 1 cap PO DAILY@1700 01/11/24 01/11/24 [Probiotic] Liquacel 30 ml PO DAILY@1200 01/11/24 01/11/24 Loperamide [Imodium] 2 - 4 mg PO QID PRN 01/11/24 01/11/24 Magnesium Hydroxide [Milk of 7,200 mg PO Q48H PRN 01/11/24 01/11/24 Magnesia Concentrate] Na Phos,M-B/Na Phos,Di-Ba [Fleet 133 ml RECTAL DAILY PRN 01/11/24 01/11/24 Adult] Pantoprazole [Protonix] 40 mg PO DAILY@0600 01/11/24 01/11/24 Sennosides [Senokot] 8.6 mg PO HS@2100 01/11/24 01/11/24 Tamsulosin [Flomax] 0.4 mg PO DAILY@0600 01/11/24 01/11/24 amLODIPine [Norvasc] 5 mg PO DAILY@0800 01/11/24 01/11/24 bisacodyL [Dulcolax] 10 mg RECTAL DAILY PRN 01/11/24 01/11/24 hydrALAZINE HCL [Apresoline] 25 mg PO Q6HR PRN 01/11/24 01/11/24 lisinopriL [Zestril] 20 mg PO BID@0800,1700 01/11/24 01/11/24 metFORMIN HCL [Glucophage] 1,000 mg PO BID@0800,1700 01/11/24 01/11/24 Previous Rx's Medication Instructions Recorded cefTRIAXone [Rocephin] 2,000 mg IVP Q24HR #28 each 12/30/23 Acetaminophen Tab [Tylenol] 650 mg PO Q6HR PRN tab 12/31/23 Allergies Allergy/AdvReac Type Severity Reaction Status Date / Time No Known Allergies Allergy Verified 01/11/24 16:54 Review of Systems ROS Statement: Those systems with pertinent positive or pertinent negative responses have been documented in the HPI. ROS Other: All systems not noted in ROS Statement are negative. Past Medical History Past Medical History: COPD, Diabetes Mellitus, Hyperlipidemia, Hypertension, Myocardial Infarction (MO), Neurologic Disorder, Thyroid Disorder Additional Past Medical History / Comment(s): Peripheral neuropathy, diabetic leg ulcers, Last Myocardial Infarction Date:: Pt guesses its been about 5 years2018 History of Any Multi-Drug Resistant Organisms: Unobtainable Past Surgical History: Heart Catheterization With Stent Additional Past Surgical History / Comment(s): Bilateral caterac surgery Past Anesthesia/Blood Transfusion Reactions: No Reported Reaction Date of Last Stent Placement:: 2020 Past Psychological History: Unable to Obtain Smoking Status: Former smoker Past Alcohol Use History: Heavy Past Drug Use History: None Reported - Past Family History Mother Family Medical History: Diabetes Mellitus General Exam Limitations: altered mental status General appearance: in no apparent distress, lethargic Head exam: Present: atraumatic, normocephalic ENT exam: Present: mucous membranes dry Neck exam: Present: normal inspection. Absent: tenderness Respiratory exam: Present: normal lung sounds bilaterally. Absent: respiratory distress, wheezes Cardiovascular Exam: Present: regular rate, normal rhythm GI/Abdominal exam: Present: soft. Absent: distended, tenderness, guarding Extremities exam: Absent: pedal edema Neurological exam: Present: alert, oriented X3. Absent: motor sensory deficit Psychiatric exam: Present: normal affect, normal mood Skin exam: Present: warm, dry, intact Course Vital Signs 01/11/24 01/11/24 01/11/24 15:49 15:50 16:00 Temperature 98.2 F Pulse Rate 88 86 87 Respiratory 18 18 18 Rate Blood Pressure 135/60 135/60 O2 Sat by Pulse 97 96 Oximetry 01/11/24 01/11/24 01/11/24 17:00 17:03 17:13 Temperature Pulse Rate 90 84 88 Respiratory 16 Rate Blood Pressure 137/58 O2 Sat by Pulse Oximetry 01/11/24 18:00 Temperature Pulse Rate 93 Respiratory 16 Rate Blood Pressure 106/82 O2 Sat by Pulse Oximetry Medical Decision Making - Medical Decision Making Was pt. sent in by a medical professional or institution (, PA, QUILT STUFFER, urgent care, hospital, or long-term...) When possible be specific @ -No Did you speak to anyone other than the patient for history (EMS, parent, family, police, friend...)? What history was obtained from this source @ -No Did you review nursing and triage notes (agree or disagree)? Why? @ -I reviewed and agree with nursing and triage notes Were old charts reviewed (outside hosp., previous admission, EMS record, old EK G, old radiological studies, urgent care reports/EKG's, long-term records)? Report findings @ -No old charts were reviewed Differential Diagnosis (chest pain, altered mental status, abdominal pain women, abdominal pain men, vaginal bleeding, weakness, fever, dyspnea, syncope, headache, dizziness, GI bleed, back pain, seizure, CVA, palpatations, mental health, musculoskeletal)? @ -Not applicable EKG interpreted by me (3pts min.). @Narrow complex rhythm, suspect sinus mechanism, significant tremor artifact limiting assessment, ventricular rate of 89, QRS duration 93, QTc 423 X-rays interpreted by me (1pt min.). @ -Chest x-ray negative for acute cardiopulmonary findings CT interpreted by me (1pt min.). @ -None done U/S interpreted by me (1pt. min.). @ -None done What testing was considered but not performed or refused? (CT, X-rays, U/S, labs)? Why? @ -None What meds were considered but not given or refused? Why? @ -None Did you discuss the management of the patient with other professionals (professionals i.e. Dr., PA, QUIL[employer] STUFFER, lab, RT, psych nurse, health and social care teacher, plant sprayer, teacher, hazard mitigation officer, case filler)? Give summary @ -Case discussed with Dr. Josehp who will admit Was smoking cessation discussed for >3mins.? @ -No Was critical care preformed (if so, how long)? @ -No Were there social determinants of health that impacted care today? How? (Homelessness, low income, unemployed, alcoholism, drug addiction, transportation, low edu. Level, literacy, decrease access to med. care, assisted, rehab)? @ -No Was there de-escalation of care discussed even if they declined (Discuss DNR or withdrawal of care, Hospice)? DNR status @ -No What co-morbidities impacted this encounter? (DM, HTN, Smoking, COPD, CAD, Cancer, CVA, ARF, Chemo, Hep., AIDS, mental health diagnosis, sleep apnea, morbid obesity)? @ -None Was patient admitted / discharged? Hospital course, mention meds given and route, prescriptions, significant lab abnormalities, going to OR and other pertinent info. @ -73-year-old male presenting from long-term with abnormal labs, hypoxia, confusion. Patient has elevated BUN and creatinine otherwise stable chronic lab abnormalities. He does appear dehydrated with dry mucous membranes. Patient placed on IV fluids and will be admitted for treatment of altered mental status secondary to uremic encephalopathy and acute kidney injury. Undiagnosed new problem with uncertain prognosis? @ -No Drug Therapy requiring intensive monitoring for toxicity (Heparin, Nitro, Insulin, Cardizem)? @ -No Were any procedures done? @ -No Diagnosis/symptom? @Dehydration, MARIAN, uremic encephalopathy Acute, or Chronic, or Acute on Chronic? @Acute Uncomplicated (without systemic symptoms) or Complicated (systemic symptoms)? @ -Default Side effects of treatment? @ -No Exacerbation, Progression, or Severe Exacerbation? @ -No Poses a threat to life or bodily function? How? (Chest pain, USA, MO, pneumonia, PE, COPD, DKA, ARF, appy, cholecystitis, CVA, Diverticulitis, Homicidal, Suicidal, threat to staff... and all critical care pts) @ -Yes, worsening kidney function - Lab Data Result diagrams: 01/11/24 16:45 01/11/24 16:45 Lab Results 01/11/24 01/11/24 01/11/24 Range/Units 16:45 16:45 16:45 WBC 7.4 (3.8-10.6) k/uL RBC 3.56 L (4.30-5.90) m/uL Hgb 9.6 L (13.0-17.5) gm/dL Hct 31.6 L (39.0-53.0) % MCV 88.8 (80.0-100.0) fL MCH 27.0 (25.0-35.0) pg MCHC 30.4 L (31.0-37.0) g/dL RDW 14.5 (11.5-15.5) % Plt Count 376 (150-450) k/uL MPV 7.7 Neutrophils % 60 % Lymphocytes % 12 % Monocytes % 5 % Eosinophils % 21 % Basophils % 0 % Neutrophils # 4.5 (1.3-7.7) k/uL Lymphocytes # 0.9 L (1.0-4.8) k/uL Monocytes # 0.3 (0-1.0) k/uL Eosinophils # 1.6 H (0-0.7) k/uL Basophils # 0.0 (0-0.2) k/uL Manual Slide Review Performed Hypochromasia Marked PT 11.2 (10.0-12.5) sec INR 1.0 (<1.2) APTT 22.6 (22.0-30.0) sec VBG pH (7.31-7.41) VBG pCO2 (37-51) mmHg VBG HCO3 (24-28) mmol/L Sodium 143 (137-145) mmol/L Potassium 5.2 H (3.5-5.1) mmol/L Chloride 110 H (98-107) mmol/L Carbon Dioxide 26 (22-30) mmol/L Anion Gap 7 mmol/L BUN 79 H (9-20) mg/dL Creatinine 2.58 H (0.66-1.25) mg/dL Est GFR (CKD-EPI)AfAm 28 (>60 ml/min/1.73 sqM) Est GFR (CKD-EPI)NonAf 24 (>60 ml/min/1.73 sqM) Glucose 133 H (74-99) mg/dL Calcium 8.4 (8.4-10.2) mg/dL Magnesium 1.8 (1.6-2.3) mg/dL Total Bilirubin 0.2 (0.2-1.3) mg/dL AST 31 (17-59) U/L ALT 15 (4-49) U/L Alkaline Phosphatase 180 H (38-126) U/L Total Protein 5.4 L (6.3-8.2) g/dL Albumin 2.4 L (3.5-5.0) g/dL Urine Color Urine Appearance (Clear) Urine pH (5.0-8.0) Ur Specific [place] (1.001-1.035) Urine Protein (Negative) Urine Glucose (UA) (Negative) Urine Ketones (Negative) Urine Blood (Negative) Urine Nitrite (Negative) Urine Bilirubin (Negative) Urine Urobilinogen (<2.0) mg/dL Ur Leukocyte Esterase (Negative) Urine RBC (0-5) /hpf Urine WBC (0-5) /hpf Ur Squamous Epith Cells (0-4) /hpf Amorphous Sediment (None) /hpf Granular Casts (0) /lpf Urine Mucus (None) /hpf 01/11/24 01/11/24 Range/Units 16:47 18:22 WBC (3.8-10.6) k/uL RBC (4.30-5.90) m/uL Hgb (13.0-17.5) gm/dL Hct (39.0-53.0) % MCV (80.0-100.0) fL MCH (25.0-35.0) pg MCHC (31.0-37.0) g/dL RDW (11.5-15.5) % Plt Count (150-450) k/uL MPV Neutrophils % % Lymphocytes % % Monocytes % % Eosinophils % % Basophils % % Neutrophils # (1.3-7.7) k/uL Lymphocytes # (1.0-4.8) k/uL Monocytes # (0-1.0) k/uL Eosinophils # (0-0.7) k/uL Basophils # (0-0.2) k/uL Manual Slide Review Hypochromasia PT (10.0-12.5) sec INR (<1.2) APTT (22.0-30.0) sec VBG pH 7.43 H (7.31-7.41) VBG pCO2 39 (37-51) mmHg VBG HCO3 26 (24-28) mmol/L Sodium (137-145) mmol/L Potassium (3.5-5.1) mmol/L Chloride (98-107) mmol/L Carbon Dioxide (22-30) mmol/L Anion Gap mmol/L BUN (9-20) mg/dL Creatinine (0.66-1.25) mg/dL Est GFR (CKD-EPI)AfAm (>60 ml/min/1.73 sqM) Est GFR (CKD-EPI)NonAf (>60 ml/min/1.73 sqM) Glucose (74-99) mg/dL Calcium (8.4-10.2) mg/dL Magnesium (1.6-2.3) mg/dL Total Bilirubin (0.2-1.3) mg/dL AST (17-59) U/L ALT (4-49) U/L Alkaline Phosphatase (38-126) U/L Total Protein (6.3-8.2) g/dL Albumin (3.5-5.0) g/dL Urine Color Yellow Urine Appearance Cloudy (Clear) Urine pH 5.5 (5.0-8.0) Ur Specific [place] 1.019 (1.001-1.035) Urine Protein 2+ H (Negative) Urine Glucose (UA) Negative (Negative) Urine Ketones Negative (Negative) Urine Blood Small H (Negative) Urine Nitrite Negative (Negative) Urine Bilirubin Negative (Negative) Urine Urobilinogen <2.0 (<2.0) mg/dL Ur Leukocyte Esterase Trace H (Negative) Urine RBC 10 H (0-5) /hpf Urine WBC 19 H (0-5) /hpf Ur Squamous Epith Cells 1 (0-4) /hpf Amorphous Sediment Occasional H (None) /hpf Granular Casts 1 (0) /lpf Urine Mucus Rare H (None) /hpf Disposition Clinical Impression: Altered mental status, Uremic encephalopathy, MARIAN (acute kidney injury) Disposition: ADMITTED IP TO THIS HOSP Condition: Stable Is patient prescribed a controlled substance at d/c from ED?: No Referrals: Mateusz Montoya MD [Primary Care Provider] - 1-2 days Time of Disposition: 19:18
[2024-01-11] MEDS: SODIUM CHLORIDE 0.9% 500 ML 500 ML IV ONE (16:48)
[2024-01-11] MEDS: SODIUM CHLORIDE 0.9% 1,000 ML IV ONE (16:48)
[2024-01-11 16:49] LABS: Basophils % (A) 0 %; Eosinophils # (A) 1.6 k/uL (0-0.7); Eosinophils % (A) 21 %; HCT 31.6 % (39.0-53.0); HGB 9.6 gm/dL (13.0-17.5); Hypochromasia Marked; Lymphocytes # (A) 0.9 k/uL (1.0-4.8); Lymphocytes % (A) 12 %; MCHC 30.4 g/dL (31.0-37.0); MCV 88.8 fL (80.0-100.0); Mean Platelet Volume 7.7; Monocytes # (A) 0.3 k/uL (0-1.0); Monocytes % (A) 5 %; Neutrophils # (A) 4.5 k/uL (1.3-7.7); Neutrophils % (A) 60 %; Platelet Count 376 k/uL (150-450); RBC 3.56 m/uL (4.30-5.90); RDW 14.5 % (11.5-15.5); WBC 7.4 k/uL (3.8-10.6)
[2024-01-11 16:55] LABS: VBG PH 7.43 (7.31-7.41)
[2024-01-11 16:58] LABS: ALT 15 U/L (4-49); AST 31 U/L (17-59); African American GFR (CKD) 28 (>60 ml/min/1.73 sqM); Albumin 2.4 g/dL (3.5-5.0); Alkaline Phosphatase 180 U/L (38-126); Anion Gap 7 mmol/L; Blood Urea Nitrogen 79 mg/dL (9-20); Calcium 8.4 mg/dL (8.4-10.2); Carbon Dioxide 26 mmol/L (22-30); Chloride 110 mmol/L (98-107); Glucose 133 mg/dL (74-99); Magnesium 1.8 mg/dL (1.6-2.3); Non-African American GFR(CKD) 24 (>60 ml/min/1.73 sqM); Potassium 5.2 mmol/L (3.5-5.1); Sodium 143 mmol/L (137-145); Total Bilirubin 0.2 mg/dL (0.2-1.3); Total Protein 5.4 g/dL (6.3-8.2)
[2024-01-11 17:03] LABS: Partial Thromboplastin Time 22.6 sec (22.0-30.0); Prothrombin Time 11.2 sec (10.0-12.5)
[2024-01-11] MEDS: IPRATROPIUM-ALBUTEROL 3 ML NEB INHALATION STA (17:03)
[2024-01-11] MEDS: ALBUTEROL NEBULIZED 2.5 MG/3 ML INHALATION STA (17:03)
--- NOTE | 2024-01-11 17:08 | XR ---
EXAMINATION TYPE: XR chest 1V portable DATE OF EXAM: 01/11/2024 COMPARISON: 12/25/2023 INDICATION: Altered mental status TECHNIQUE: Frontal and lateral views of the chest are obtained. FINDINGS: The heart size is now a prominent. The pulmonary vasculature is normal. The lungs are clear. IMPRESSION: 1. No acute pulmonary process. 2. Mild cardiomegaly [facility], , 01/11/2024 5:05 PM
[2024-01-11 18:46] LABS: Amorphous Sediment,Urine Occasional /hpf; Appearance,Urine Cloudy (Clear); Bilirubin,Urine Negative (Negative); Blood,Urine Small (Negative); Color,Urine Yellow; Glucose,Urine (UA) Negative (Negative); Granular Casts,Urine 1 /lpf (0); Ketones,Urine Negative (Negative); Leukocyte Esterase,Urine Trace (Negative); Mucus,Urine Rare /hpf; Nitrite,Urine Negative (Negative); PH, Urine 5.5 (5.0-8.0); Protein,Urine 2+ (Negative); RBC,Urine 10 /hpf (0-5); Specific Gravity,Urine 1.019 (1.001-1.035); Squamous Epithelial Cell,Urine 1 /hpf (0-4); Urobilinogen,Urine <2.0 mg/dL (<2.0); WBC,Urine 19 /hpf (0-5)
[2024-01-11] MEDS: SODIUM CHLORIDE 0.9% 1,000 ML IV SCH (18:56)
[2024-01-11] MEDS ORDERED: NALOXONE 0.4 MG/ML 1 ML VIAL IV PRN (19:13)
--- NOTE | 2024-01-11 19:37 | US ---
EXAMINATION TYPE: US renals and bladder DATE OF EXAM: 01/11/2024 COMPARISON: 11/23/2023 CLINICAL INDICATION: Male, 73 years old with history of kidney failure, urine retention; Patient AMS. Unable to take breaths or move positions. EXAM MEASUREMENTS: Right Kidney: 10.7 x 6.8 x 7.2cm cm Left Kidney: 10.5 x 5.7 x 5.1 cm Limited due to body habitus and lack of patient mobility Right Kidney: WNL as best seen Left Kidney: Possible 2.6 x 2.3 x 2.6cm hypoechoic area seen within the mid left kidney vs Bladder: Unable to visualize Bilateral Jets seen: No IMPRESSION: 1. Thickening along the mid portion right kidney. Consider additional evaluation with CT. [facility], , 01/11/2024 7:34 PM
[2024-01-11] MEDS ORDERED: LOPERAMIDE 2 MG CAP PO PRN (22:41)
[2024-01-11] MEDS ORDERED: hydrALAZINE HCL 25 MG TAB PO PRN (22:41)
[2024-01-11] MEDS ORDERED: MAGNESIUM HYDROXIDE 2,400 MG/30 ML CUP PO PRN (22:41)
[2024-01-11] MEDS ORDERED: bisacodyL 10 MG SUPP RECTAL PRN (22:41)
--- NOTE | 2024-01-11 22:41 | P.HPIM ---
History of Present Illness H&P Date: 01/11/24 HISTORY OF PRESENT ILLNESS: 73-year-old morbidly obese with active medical history of COPD, atherosclerotic heart disease post myocardial infarction, severe peripheral arterial disease with infected right foot, history of type 2 diabetes, chronic kidney disease, chronic history of neuropathy, chronic pain syndrome, history of hypertension, hyperlipidemia, hypothyroidism, severe GERD and hiatal hernia, BPH with history of urinary retention who was hospitalized recently for sepsis and infected right foot was transferred back to [facility] 2 weeks ago on Rocephin to complete total of 2 weeks. He become the last 48 hours with significant change in mental status and worsening confusion along with encephalopathy not a clear etiology with his lab showing significant uremia with worsening kidney function as acute kidney injury on chronic kidney disease patient claimed that he is not eating and drinking much lately his GFR dropped down as low as 20 from but used to be around 40 few days earlier. With the current change and he become less responsive today with much worsening mentation not waking up that easy ended up coming to the emergency department at [facility] where was seen and evaluated originally His laboratory value shows anemia with hemoglobin of 9.6 few days earlier was close to 8. Blood test shows quite a alkalosis with a CO2 of 26, potassium at 5.2 with bun of 79 creatinine 2.58 with alkaline phosphatase at 180 UA showed few RBCs and WBCs + of chronic kidney disease. After an outpatient remain on Rocephin 2 g daily. He is also still on furosemide 20 mg a day only. Yesterday found to have slight urinary retention with bladder scan showed around 400 cc he was able to void 100 cc and had straight cath to evacuate his bladder. With his worsening condition and up coming to the emergency department today was seen and evaluated further testing including EKG shows supraventricular arrhythmia with marked ST abnormality and nonspecific change overall. No CAT scan of the brain was done the chest x-ray shows no acute pulmonary process with mild cardiomegaly only ultrasound of the kidney showed thickening along the midportion of the right kidney need additional evaluation to exclude possibility of mass. Start hydrating patient Gray catheter was inserted patient be hospitalized will consult nephrology will continue to improve his uremia re ceived to change his mental status get him back to his baseline. REVIEW OF SYSTEMS: CONSTITUTIONAL: Morbidly obese in no acute respiratory distress. EYES: No icterus sclerae, no conjunctivitis. EARS, NOSE, MOUTH, THROAT, and FACE: No sore throat, lymphadenopathy, carotid bruits or deformity. RESPIRATORY: No SOB cough or wheezes. CARDIOVASCULAR: No chest pain positive PND orthopnea palpitation with edema. GASTROINTESTINAL: No Abd pain, Nausea or vomiting, no Diarrhea or constipation, No GI Bleed, no distention or masses. GENITOURINARY: Negative for Hematuria or UTI, no kidney stones. Mild incontinence. INTEGUMENT/BREAST: Negative for any muscular injury with mild osteoarthritis.. HEMATOLOGIC/LYMPHATIC: Negative for bleed or purpura. MUSCULOSKELTAL: Myalgia and arthralgia with significant loss of tissue discomfort in the right foot. NEURLOGICAL: No LOC, Sz or syncope, blurred vision dizziness or abnormality.. BEHAVIORAL/PSYCH: Negative. ENDOCRINE: Negative. PHYSICAL EXAMINATION: General Appearance: Alert, cooperative, no distress, appears stated age. Neck HEENT: Supple, no lymphadenopathy, no thyroid enlargement, no carotid bru its. Lungs: Decreased breath sound bilaterally with fine rhonchi no crackles or wheezes. Chest Wall: Chest wall normal expansion with deep inspiration no tenderness and no deformity was found on exam, no costochondral pain or discomfort. Heart: Regular rate and rhythm, S1, S2 normal, no murmur, rub or gallop. Back: Symmetric, no curvature, ROM normal, no CVA tenderness. Abdomen: Soft, non-tender, bowel sounds active all four quadrants, no masses, no organomegaly. Extremities: Right foot still have significant irritation edema redness with warmness to touch with significant decreased circulation. Pulses: 2+ and symmetric. Skin: Skin color, texture, tugor normal, no rashes or lesions. Neurologic: Alert oriented x3 cranial nerves II through XII intact, no motor deficit, no abnormal balance or gait. ASSESSMENT AND PLAN: _Altered mental status: Most likely secondary to uremia, continue hydration, nephrology consultation repeat CMP in the morning we will continue patient on current management avoid any nephrotoxic agent as well still might do CAT scan of the brain to exclude any central nervous system problem. _Acute kidney injury with Chronic kidney disease: With much worsening kidney function at this point patient still suffering from mild retention, will make sure patient is on Flomax, continue to watch his symptoms carefully. _Osteomyelitis of the right leg was treated 2 weeks ago was still on Rocephin as an IV antibiotic will consult infectious disease continue current management including continue wound care. _Recent history of Klebsiella pneumonia urinary tract infection was on cefepime early and has done very well during this time does not look positive but patient remain on antibiotics. _Severe PAD consultation with vascular earlier in the month conclusion was to go for above-knee amputation which patient had declined at this point Sun continue to try his topical infection with antibiotic and wound care to see if it salvage the leg. _Peripheral neuropathy: Remain on gabapentin 1600 mg at nighttime. _Chronic pain syndrome: Continue hydrocodone orally. _Type 2 diabetes with hyperglycemia: Continue Accu-Chek with sliding scales coverage might benefit from adding long acting insulin at nighttime. _Hypothyroidism: Still on levothyroxine 112 mcg daily. _Hypertension: Blood pressure still slightly below but continue lisinopril 20 mg a day. _Hyperlipidemia: Was on simvastatin has been hold currently which will be resumed soon as patient able to tolerate medication. _Morbid obesity with BMI of 43.9: Which increases risk factor of complication. _Abnormal balance and gait doing rehab physical therapy ambulating with misha richmond mostly. _GI prophylaxis: Continue pantoprazole IV. _DVT prophylaxis will do heparin 5000 units subcutaneous twice a day. CODE STATUS: Full code. Admit patient to the inpatient service for more than 2 night stay. Past Medical History Past Medical History: COPD, Diabetes Mellitus, Hyperlipidemia, Hypertension, Myocardial Infarction ([place]), Neurologic Disorder, Thyroid Disorder Additional Past Medical History / Comment(s): Peripheral neuropathy, diabetic leg ulcers, Last Myocardial Infarction Date:: Pt guesses its been about 5 years 2019 History of Any Multi-Drug Resistant Organisms: Unobtainable Past Surgical History: Heart Catheterization With Stent Additional Past Surgical History / Comment(s): Bilateral caterac surgery Past Anesthesia/Blood Transfusion Reactions: No Reported Reaction Date of Last Stent Placement:: 2020 Past Psychological History: Unable to Obtain Smoking Status: Former smoker Past Alcohol Use History: Heavy Past Drug Use History: None Reported - Past Family History Mother Family Medical History: Diabetes Mellitus Medications and Allergies Home Medications Medication Instructions Recorded Confirmed Type Furosemide [Lasix] 20 mg PO DAILY@0800 11/23/23 01/11/24 History Gabapentin [Neurontin] 800 mg PO TID@0600,1400,2200 11/23/23 01/11/24 History Insulin Aspart Prot/Insuln Asp 20 unit SQ BID@0800,1700 11/23/23 01/11/24 History [NovoLOG MIX 70-30 Flexpen] Levothyroxine Sodium [Synthroid] 112 mcg PO DAILY@0800 11/23/23 01/11/24 History Simvastatin [Zocor] 40 mg PO HS 11/23/23 01/11/24 History Clopidogrel [Plavix] 75 mg PO DAILY@0800 12/26/23 01/11/24 History cefTRIAXone [Rocephin] 2,000 mg IVP Q24HR #28 each 12/30/23 01/11/24 Rx Acetaminophen Tab [Tylenol] 650 mg PO Q6HR PRN tab 12/31/23 01/11/24 Rx HYDROcodone/APAP 7.5-325MG [[place] 1 tab PO QID@00,06,12,18 01/11/24 01/11/24 History 7.5-325] Jac Packet 1 packet PO BID@0800,1700 01/11/24 01/11/24 History L.acidoph,Paracasei, B.lactis 1 cap PO DAILY@17001/11/24 01/11/24 History [Probiotic] Liquacel 30 ml PO DAILY@1200 01/11/24 01/11/24 History Loperamide [Imodium] 2 - 4 mg PO QID PRN 01/11/24 01/11/24 History Magnesium Hydroxide [Milk of 7,200 mg PO Q48H PRN 01/11/24 01/11/24 History Magnesia Concentrate] Na Phos,M-B/Na Phos,Di-Ba [Fleet 133 ml RECTAL DAILY PRN 01/11/24 01/11/24 History Adult] Pantoprazole [Protonix] 40 mg PO DAILY@0601/11/24 01/11/24 History Sennosides [Senokot] 8.6 mg PO HS@2100 01/11/24 01/11/24 History Tamsulosin [Flomax] 0.4 mg PO DAILY@0601/11/24 01/11/24 History amLODIPine [Norvasc] 5 mg PO DAILY@0800 01/11/24 01/11/24 History bisacodyL [Dulcolax] 10 mg RECTAL DAILY PRN 01/11/24 01/11/24 History hydrALAZINE HCL [Apresoline] 25 mg PO Q6HR PRN 01/11/24 01/11/24 History lisinopriL [Zestril] 20 mg PO BID@0800,1700 01/11/24 01/11/24 History metFORMIN HCL [Glucophage] 1,000 mg PO BID@0800,1700 01/11/24 01/11/24 History Allergies Allergy/AdvReac Type Severity Reaction Status Date / Time No Known Allergies Allergy Verified 01/11/24 16:54 Physical Exam Vitals: Vital Signs Temp Pulse Resp BP Pulse Ox 01/11/24 20:58 92 18 127/64 98 01/11/24 19:25 95 20 125/59 96 01/11/24 18:00 93 16 106/82 01/11/24 17:13 88 01/11/24 17:03 84 01/11/24 17:00 90 16 137/58 01/11/24 16:00 87 18 135/60 01/11/24 15:50 86 18 96 01/11/24 15:49 98.2 F 88 18 135/60 97 Intake and Output 01/11/24 01/11/24 01/11/24 06:59 14:59 22:59 Output Total 600 Balance -600 Output: Urine 600 Straight 600 Other: Weight 150.139 kg Results CBC & Chem 7: 01/11/24 16:45 01/11/24 16:45 Labs: Abnormal Lab Results - Last 24 Hours (Table) 01/11/24 01/11/24 01/11/24 Range/Units 16:45 16:45 16:47 RBC 3.56 L (4.30-5.90) m/uL Hgb 9.6 L (13.0-17.5) gm/dL Hct 31.6 L (39.0-53.0) % MCHC 30.4 L (31.0-37.0) g/dL Lymphocytes # 0.9 L (1.0-4.8) k/uL Eosinophils # 1.6 H (0-0.7) k/uL VBG pH 7.43 H (7.31-7.41) Potassium 5.2 H (3.5-5.1) mmol/L Chloride 110 H (98-107) mmol/L BUN 79 H (9-20) mg/dL Creatinine 2.58 H (0.66-1.25) mg/dL Glucose 133 H (74-99) mg/dL Alkaline Phosphatase 180 H (38-126) U/L Total Protein 5.4 L (6.3-8.2) g/dL Albumin 2.4 L (3.5-5.0) g/dL Urine Protein (Negative) Urine Blood (Negative) Ur Leukocyte Esterase (Negative) Urine RBC (0-5) /hpf Urine WBC (0-5) /hpf Amorphous Sediment (None) /hpf Urine Mucus (None) /hpf 01/11/24 Range/Units 18:22 RBC (4.30-5.90) m/uL Hgb (13.0-17.5) gm/dL Hct (39.0-53.0) % MCHC (31.0-37.0) g/dL Lymphocytes # (1.0-4.8) k/uL Eosinophils # (0-0.7) k/uL VBG pH (7.31-7.41) Potassium (3.5-5.1) mmol/L Chloride (98-107) mmol/L BUN (9-20) mg/dL Creatinine (0.66-1.25) mg/dL Glucose (74-99) mg/dL Alkaline Phosphatase (38-126) U/L Total Protein (6.3-8.2) g/dL Albumin (3.5-5.0) g/dL Urine Protein 2+ H (Negative) Urine Blood Small H (Negative) Ur Leukocyte Esterase Trace H (Negative) Urine RBC 10 H (0-5) /hpf Urine WBC 19 H (0-5) /hpf Amorphous Sediment Occasional H (None) /hpf Urine Mucus Rare H (None) /hpf
[2024-01-11] MEDS: HYDROcodone/APAP 7.5-325MG 1 EACH TAB PO SCH (23:34)
[2024-01-12] MEDS: ACETAMINOPHEN TAB 325 MG TAB PO PRN (02:00)
[2024-01-12] MEDS: LEVOTHYROXINE 112 MCG TAB PO SCH (06:06)
[2024-01-12 06:35] LABS: Glucose,Whole Blood 142 mg/dL (70-110)
[2024-01-12] MEDS: PANTOPRAZOLE 40 MG TABLET PO SCH (06:50)
[2024-01-12] MEDS: INSULIN ASPART (NovoLOG) 100 UNIT/ML VIAL SQ SCH (06:50)
[2024-01-12] MEDS ORDERED: NON FORMULARY DRUG (Juven Packet 1 PACKET Packet) PO SCH (08:00)
[2024-01-12] MEDS: GABAPENTIN 400 MG CAP PO SCH (08:55)
[2024-01-12] MEDS: CLOPIDOGREL 75 MG TAB PO SCH (08:55)
[2024-01-12] MEDS: amLODIPine 5 MG TAB PO SCH (08:55)
[2024-01-12] MEDS: TAMSULOSIN 0.4 MG CAP.ER.24H PO SCH (08:55)
[2024-01-12] MEDS: HEPARIN SODIUM,PORCINE 5,000 UNIT/ML 1 ML VIAL SQ SCH (08:55)
[2024-01-12] MEDS: INSULN ASP PRT/INSULIN ASPART 100 UNIT/ML 10 ML VIAL SQ SCH (08:56)
[2024-01-12] MEDS ORDERED: CEFTRIAXONE IVP SCH (09:00)
[2024-01-12 09:03] LABS: HCT 26.8 % (39.6-50.0); HGB 8.1 g/dL (13.0-17.0); MCH 27.6 pg (27.0-32.0); MCHC 30.2 g/dL (32.0-37.0); MCV 91.5 FL (80.0-97.0); Mean Platelet Volume 10.4 FL (9.5-12.2); NRBC Per 100 WBC 0 X 10*3/uL (0.00-0.01); Platelet Count 335 X 10*3/uL (140-440); RBC 2.93 X 10*6/uL (4.40-5.60); RDW 15.1 % (11.5-14.5); WBC 8.06 X 10*3/uL (4.50-10.00)
[2024-01-12 09:35] LABS: ALT 17 U/L (10-49); AST 27 U/L (14-35); Albumin 2.6 g/dL (3.8-4.9); Alkaline Phosphatase 191 U/L (41-126); BUN/Creat Ratio 24.46 Ratio (12.00-20.00); Blood Urea Nitrogen 68.5 mg/dL (9.0-27.0); Calcium 8.1 mg/dL (8.7-10.3); Carbon Dioxide 23.4 mmol/L (21.6-31.8); Chloride 111 mmol/L (96-109); Globulin 2.9 g/dL (1.6-3.3); Glucose 147 mg/dL (70-110); Potassium 5.3 mmol/L (3.5-5.5); Sodium 144 mmol/L (135-145); Total Bilirubin <0.2 mg/dL (0.3-1.2); Total Protein 5.5 g/dL (6.2-8.2)
--- NOTE | 2024-01-12 10:10 | P.NPCON ---
History of Present Illness - History of Present Illness 73-year-old male with a past medical history of COPD on, atherosclerotic hea rt disease post myocardial infarction, severe peripheral arterial disease with infected right foot, history of type 2 diabetes, chronic kidney disease stage IIIa/IIIb, chronic history of neuropathy, chronic pain syndrome, history of hypertension, hyperlipidemia, hypothyroidism, severe GERD and hiatal hernia, BPH with history of urinary retention presents with altered mental status for the last 48 hours. Nephrology consulted for MARIAN. Serum creatinine on admission was 2.58, today is 2.8. Patient baseline creatinine from October/November is 1.2-.1.4. Reviewed patient's home medication list, no nephrotoxic medications. Vitals have been stable since admission, no significant hypotension noted sys tolic noted at 106 with history of lisinopril use. Since being admitted patient has been maintained on NS at 100 cc/h. Straight cathed in the ED and found to have a urine output of 600 mL. Patient currently has Gray catheter in place. Past Medical History Past Medical History: COPD, Diabetes Mellitus, Hyperlipidemia, Hypertension, Myocardial Infarction ([place]), Neurologic Disorder, Thyroid Disorder Additional Past Medical History / Comment(s): Peripheral neuropathy, diabetic leg ulcers, Last Myocardial Infarction Date:: Pt guesses its been about 5 years2018 History of Any Multi-Drug Resistant Organisms: Unobtainable Past Surgical History: Heart Catheterization With Stent Additional Past Surgical History / Comment(s): Bilateral caterac surgery Past Anesthesia/Blood Transfusion Reactions: No Reported Reaction Date of Last Stent Placement:: 2020 Past Psychological History: Unable to Obtain Smoking Status: Former smoker Past Alcohol Use History: Heavy Additional Past Alcohol Use History / Comment(s): Pt stopped drinking 16 years ago Past Drug Use History: None Reported Additional Drug Use History / Comment(s): stopped smoking 28 years ago - Past Family History Mother Family Medical History: Diabetes Mellitus Medications and Allergies Home Medications Medication Instructions Recorded Confirmed Type Furosemide [Lasix] 20 mg PO DAILY@0800 11/23/23 01/11/24 History Gabapentin [Neurontin] 800 mg PO TID@0600,1400,2200 11/23/23 01/11/24 History Insulin Aspart Prot/Insuln Asp 20 unit SQ BID@0800,1700 11/23/23 01/11/24 History [NovoLOG MIX 70-30 Flexpen] Levothyroxine Sodium [Synthroid] 112 mcg PO DAILY@0800 11/23/23 01/11/24 History Simvastatin [Zocor] 40 mg PO HS 11/23/23 01/11/24 History Clopidogrel [Plavix] 75 mg PO DAILY@0800 12/26/23 01/11/24 History cefTRIAXone [Rocephin] 2,000 mg IVP Q24HR #28 each 12/30/23 01/11/24 Rx Acetaminophen Tab [Tylenol] 650 mg PO Q6HR PRN tab 12/31/23 01/11/24 Rx HYDROcodone/APAP 7.5-325MG [[place] 1 tab PO QID@00,06,12,18 01/11/24 01/11/24 History 7.5-325] Jac Packet 1 packet PO BID@0800,1700 01/11/24 01/11/24 History L.acidoph,Paracasei, B.lactis 1 cap PO DAILY@1700 01/11/24 01/11/24 History [Probiotic] Liquacel 30 ml PO DAILY@1200 01/11/24 01/11/24 History Loperamide [Imodium] 2 - 4 mg PO QID PRN 01/11/24 01/11/24 History Magnesium Hydroxide [Milk of 7,200 mg PO Q48H PRN 01/11/24 01/11/24 History Magnesia Concentrate] Na Phos,M-B/Na Phos,Di-Ba [Fleet 133 ml RECTAL DAILY PRN 01/11/24 01/11/24 Hist ory Adult] Pantoprazole [Protonix] 40 mg PO DAILY@0601/11/24 01/11/24 History Sennosides [Senokot] 8.6 mg PO HS@2100 01/11/24 01/11/24 History Tamsulosin [Flomax] 0.4 mg PO DAILY@59901/11/24 01/11/24 History amLODIPine [Norvasc] 5 mg PO DAILY@0800 01/11/24 01/11/24 History bisacodyL [Dulcolax] 10 mg RECTAL DAILY PRN 01/11/24 01/11/24 History hydrALAZINE HCL [Apresoline] 25 mg PO Q6HR PRN 01/11/24 01/11/24 History lisinopriL [Zestril] 20 mg PO BID@0800,1700 01/11/24 01/11/24 History metFORMIN HCL [Glucophage] 1,000 mg PO BID@0800,1700 01/11/24 01/11/24 History Allergies Allergy/AdvReac Type Severity Reaction Status Date / Time No Known Allergies Allergy Verified 01/11/24 16:54 Physical Exam Vitals: Vital Signs Temp Pulse Pulse Resp BP BP Pulse Ox 01/12/24 07:51 98.0 F 66 17 124/67 99 01/12/24 02:04 97.6 F 83 18 148/74 96 01/11/24 21:27 98.1 F 89 18 115/52 98 01/11/24 20:58 92 18 127/64 98 01/11/24 19:25 95 20 125/59 96 01/11/24 18:00 93 16 106/82 01/11/24 17:13 88 01/11/24 17:03 84 01/11/24 17:00 90 16 137/58 01/11/24 16:00 87 18 135/60 01/11/24 15:50 86 18 96 01/11/24 15:49 98.2 F 88 18 135/60 97 Intake and Output 01/11/24 01/12/24 01/12/24 22:59 06:59 14:59 Output Total 600 450 Balance -600 -450 Output: Urine 600 450 Straight 600 150 Other: Weight 150.139 kg 150.139 kg General Appearance: Alert, cooperative, no distress, appears stated age. Lungs: Decreased breath sound bilaterally with fine rhonchi no crackles or wheezes. Chest Wall: Chest wall normal expansion with deep inspiration no tenderness and no deformity was found on exam, no costochondral pain or discomfort. Heart: Regular rate and rhythm, S1, S2 normal, no murmur, rub or gallop. Abdomen: Soft, non-tender, bowel sounds active all four quadrants, no masses, no organomegaly. Extremities: Right foot still have significant irritation edema redness with warmness to touch with significant decreased circulation. Pulses: 2+ and symmetric. Neurologic: Alert oriented x3 cranial nerves II through XII intact, no motor deficit, no abnormal balance or gait. Results - Lab Results Most recent lab results Calcium 8.1 mg/dL (8.7-10.3) L 01/12/24 04:57 Magnesium 1.8 mg/dL (1.6-2.3) 01/11/24 16:45 01/12/24 04:57 01/13/24 04:53 Assessment and Plan Assessment: 1. CKD stage IIIa/IIIb, secondary to diabetic nephropathy 2. MARIAN, potentially from urinary retention, currently Gray catheter in place and on Flomax, and borderline low BP in setting of juan antonio-i use. UA showed 2+ protein and small amount of blood 3. Recent UTI with Klebsiella, treated on 12/25 4. PAD 5. Anemia, r/o iron deficiency Plan: Maintain IVF NS at 100 cc/h Continue Flomax - cont. to hold juan antonio-i and metformin - avoid hypotension - hold diuretics Avoid nephrotoxic agents Follow-up on labs in the a.m. Thank you for the consultation, we will continue to follow the patient. Patient is seen and examined with the resident. Agree with resident's findings assessment and plan.
--- NOTE | 2024-01-12 10:30 | CT ---
EXAMINATION TYPE: CT brain wo con DATE OF EXAM: 01/12/2024 COMPARISON: 12/25/2023 INDICATION: Change in mentation DLP: 1217.4 mGycm, Automated exposure control for dose reduction was used. CONTRAST: None CT of the brain is performed utilizing 3 mm thick sections through the posterior fossa and 3 mm thick sections through the remaining calvarium. Study is performed within 24 hours of arrival to the hosp [facility]. No abnormal hyperdensity is present to suggest an acute intracranial hemorrhage. No mass lesion is evident. No acute infarcts are evident. Ventricles and sulci are mildly prominent for the patient age. Paranasal sinuses and mastoid air cells within the [id number] are clear. IMPRESSION: 1. No acute intracranial process. Follow up MRI can be performed as clinically indicated. 2. Age-related atrophy [facility], , 01/12/2024 10:27 AM
[2024-01-12 12:07] LABS: Glucose,Whole Blood 133 mg/dL (70-110)
--- NOTE | 2024-01-12 16:13 | P.GSCN ---
History of Present Illness Consult date: 01/12/24 Reason for Consult: Surgical debridement right foot wound Requesting physician: Ranjit Vee History of present illness: 73-year-old male previously seen by vascular surgery with a history of peripheral arterial disease, Charcot foot, COPD, coronary artery disease status post VA, type 2 diabetes mellitus, chronic kidney disease, peripheral neuropathy, chronic pain syndrome, morbid obesity who is now on ambulatory p resented from [facility] for change in mental status and worsening confusion. Patient was admitted with encephalopathy and acute on chronic kidney failure. Patient was recently hospitalized and discharged about 2 weeks ago with infection of the right foot status postdebridement and urinary tract infection. During that hospitalization he had a bedside debridement. Previous to that he has had bilateral lower extremity debridements. It has been discussed with the patient previously that likely the right foot wound will not heal and patient is recommended to have [id number] amputation although none urgent. Patient is now presented back to the hospital with infectious disease following who con sulted vascular surgery for surgical debridement of right foot wound. Patient admitted, he is afebrile. No leukocytosis. During his last hospitalization on 12/28/2023 he did have a bone scan of the right lower extremity which had reported right midfoot uptake on 2 phases possibly blood flow suggesting degeneration with possible osteomyelitis consider confirmation with MRI foot without contrast. Review of Systems A 14 point review systems was completed all pertinent positives and negatives as stated in the HPI. Past Medical History Past Medical History: COPD, Diabetes Mellitus, Hyperlipidemia, Hypertension, Myocardial Infarction (VA), Neurologic Disorder, Thyroid Disorder Additional Past Medical History / Comment(s): Peripheral neuropathy, diabetic leg ulcers, Last Myocardial Infarction Date:: Pt guesses its been about 5 years 2019 History of Any Multi-Drug Resistant Organisms: Unobtainable Past Surgical History: Heart Catheterization With Stent Additional Past Surgical History / Comment(s): Bilateral caterac surgery Past Anesthesia/Blood Transfusion Reactions: No Reported Reaction Date of Last Stent Placement:: 2020 Past Psychological History: Unable to Obtain Smoking Status: Former smoker Past Alcohol Use History: Heavy Additional Past Alcohol Use History / Comment(s): Pt stopped drinking 16 years ago Past Drug Use History: None Reported Additional Drug Use History / Comment(s): stopped smoking 28 years ago - Past Family History Mother Family Medical History: Diabetes Mellitus Medications and Allergies Home Medications Medication Instructions Recorded Confirmed Type Furosemide [Lasix] 20 mg PO DAILY@0800 11/23/23 01/11/24 History Gabapentin [Neurontin] 800 mg PO TID@0600,1400,2200 11/23/23 01/11/24 History Insulin Aspart Prot/Insuln Asp 20 unit SQ BID@0800,1700 11/23/23 01/11/24 History [NovoLOG MIX 70-30 Flexpen] Levothyroxine Sodium [Synthroid] 112 mcg PO DAILY@0811/23/23 01/11/24 History Simvastatin [Zocor] 40 mg PO HS 11/23/23 01/11/24 History Clopidogrel [Plavix] 75 mg PO DAILY@0812/26/23 01/11/24 History cefTRIAXone [Rocephin] 2,000 mg IVP Q24HR #28 each 12/30/23 01/11/24 Rx Acetaminophen Tab [Tylenol] 650 mg PO Q6HR PRN tab 12/31/23 01/11/24 Rx HYDROcodone/APAP 7.5-325MG [[place] 1 tab PO QID@00,06,12,18 01/11/24 01/11/24 Hi story 7.5-325] Jac Packet 1 packet PO BID@0800,1700 01/11/24 01/11/24 History L.acidoph,Paracasei, B.lactis 1 cap PO DAILY@169901/11/24 01/11/24 History [Probiotic] Liquacel 30 ml PO DAILY@1200 01/11/24 01/11/24 History Loperamide [Imodium] 2 - 4 mg PO QID PRN 01/11/24 01/11/24 History Magnesium Hydroxide [Milk of 7,200 mg PO Q48H PRN 01/11/24 01/11/24 History Magnesia Concentrate] Na Phos,M-B/Na Phos,Di-Ba [Fleet 133 ml RECTAL DAILY PRN 01/11/24 01/11/24 History Adult] Pantoprazole [Protonix] 40 mg PO DAILY@0601/11/24 01/11/24 History Sennosides [Senokot] 8.6 mg PO HS@2100 01/11/24 01/11/24 History Tamsulosin [Flomax] 0.4 mg PO DAILY@0600 01/11/24 01/11/24 History amLODIPine [Norvasc] 5 mg PO DAILY@0800 01/11/24 01/11/24 History bisacodyL [Dulcolax] 10 mg RECTAL DAILY PRN 01/11/24 01/11/24 History hydrALAZINE HCL [Apresoline] 25 mg PO Q6HR PRN 01/11/24 01/11/24 History lisinopriL [Zestril] 20 mg PO BID@0800,1700 01/11/24 01/11/24 History metFORMIN HCL [Glucophage] 1,000 mg PO BID@0800,1700 01/11/24 01/11/24 History Allergies Allergy/AdvReac Type Severity Reaction Status Date / Time No Known Allergies Allergy Verified 01/11/24 16:54 Surgical - Exam Vital Signs Temp Pulse Resp BP Pulse Ox 98.2 F 88 18 135/60 97 01/11/24 15:49 01/11/24 15:49 01/11/24 15:49 01/11/24 15:49 01/11/24 15:49 General appearance: The patient is alert, oriented, appears in no acute distress. Morbidly obese. HET: Head is normocephalic and atraumatic. Pupils are equal and reactive. Neck: Supple. Heart: Regular. Lungs: Equal expansion, normal respiratory effort. Abdomen: Soft, nontender, nondistended. Extremities: Right foot lateral aspect wound without any drainage, no redness, minimal nonviable tissue. Diabetic ulcer to plantar aspect of right foot. Neurological: No focal deficits. Strength and sensation are grossly intact. Results - Labs 01/12/24 04:57 01/12/24 04:57 Abnormal Lab Results - Last 24 Hours (Table) 01/11/24 01/11/24 01/11/24 Range/Units 16:45 16:45 16:47 RBC 3.56 L (4.30-5.90) m/uL Hgb 9.6 L (13.0-17.5) gm/dL Hct 31.6 L (39.0-53.0) % MCHC 30.4 L (31.0-37.0) g/dL RDW (11.5-14.5) % Lymphocytes # 0.9 L (1.0-4.8) k/uL Eosinophils # 1.6 H (0-0.7) k/uL VBG pH 7.43 H (7.31-7.41) Potassium 5.2 H (3.5-5.1) mmol/L Chloride 110 H (98-107) mmol/L BUN 79 H (9-20) mg/dL Creatinine 2.58 H (0.66-1.25) mg/dL Est GFR (CKD-EPI) (>=60) BUN/Creatinine Ratio (12.00-20.00) Ratio Glucose 133 H (74-99) mg/dL POC Glucose (mg/dL) (70-110) mg/dL Calcium (8.7-10.3) mg/dL Total Bilirubin (0.3-1.2) mg/dL Alkaline Phosphatase 180 H (38-126) U/L Total Protein 5.4 L (6.3-8.2) g/dL Albumin 2.4 L (3.5-5.0) g/dL Albumin/Globulin Ratio (1.60-3.17) Ratio Urine Protein (Negative) Urine Blood (Negative) Ur Leukocyte Esterase (Negative) Urine RBC (0-5) /hpf Urine WBC (0-5) /hpf Amorphous Sediment (None) /hpf Urine Mucus (None) /hpf 01/11/24 01/12/24 01/12/24 Range/Units 18:22 04:57 04:57 RBC 2.93 L (4.30-5.90) m/uL Hgb 8.1 L (13.0-17.5) gm/dL Hct 26.8 L (39.0-53.0) % MCHC 30.2 L (31.0-37.0) g/dL RDW 15.1 H (11.5-14.5) % Lymphocytes # (1.0-4.8) k/uL Eosinophils # (0-0.7) k/uL VBG pH (7.31-7.41) Potassium (3.5-5.1) mmol/L Chloride 111 H (98-107) mmol/L BUN 68.5 H (9-20) mg/dL Creatinine 2.8 H (0.66-1.25) mg/dL Est GFR (CKD-EPI) 23 L (>=60) BUN/Creatinine Ratio 24.46 H (12.00-20.00) Ratio Glucose 147 H (74-99) mg/dL POC Glucose (mg/dL) (70-110) mg/dL Calcium 8.1 L (8.7-10.3) mg/dL Total Bilirubin <0.2 L (0.3-1.2) mg/dL Alkaline Phosphatase 191 H (38-126) U/L Total Protein 5.5 L (6.3-8.2) g/dL Albumin 2.6 L (3.5-5.0) g/dL Albumin/Globulin Ratio 0.90 L (1.60-3.17) Ratio Urine Protein 2+ H (Negative) Urine Blood Small H (Negative) Ur Leukocyte Esterase Trace H (Negative) Urine RBC 10 H (0-5) /hpf Urine WBC 19 H (0-5) /hpf Amorphous Sediment Occasional H (None) /hpf Urine Mucus Rare H (None) /hpf 01/12/24 01/12/24 Range/Units 06:33 12:05 RBC (4.30-5.90) m/uL Hgb (13.0-17.5) gm/dL Hct (39.0-53.0) % MCHC (31.0-37.0) g/dL RDW (11.5-14.5) % Lymphocytes # (1.0-4.8) k/uL Eosinophils # (0-0.7) k/uL VBG pH (7.31-7.41) Potassium (3.5-5.1) mmol/L Chloride (98-107) mmol/L BUN (9-20) mg/dL Creatinine (0.66-1.25) mg/dL Est GFR (CKD-EPI) (>=60) BUN/Creatinine Ratio (12.00-20.00) Ratio Glucose (74-99) mg/dL POC Glucose (mg/dL) 142 H 133 H (70-110) mg/dL Calcium (8.7-10.3) mg/dL Total Bilirubin (0.3-1.2) mg/dL Alkaline Phosphatase (38-126) U/L Total Protein (6.3-8.2) g/dL Albumin (3.5-5.0) g/dL Albumin/Globulin Ratio (1.60-3.17) Ratio Urine Protein (Negative) Urine Blood (Negative) Ur Leukocyte Esterase (Negative) Urine RBC (0-5) /hpf Urine WBC (0-5) /hpf Amorphous Sediment (None) /hpf Urine Mucus (None) /hpf Diabetes panel 01/11/24 01/12/24 Range/Units 16:45 04:57 Sodium 143 144 (137-145) mmol/L Potassium 5.2 H 5.3 (3.5-5.1) mmol/L Chloride 110 H 111 H (98-107) mmol/L Carbon Dioxide 26 23.4 (22-30) mmol/L BUN 79 H 68.5 H (9-20) mg/dL Creatinine 2.58 H 2.8 H (0.66-1.25) mg/dL Glucose 133 H 147 H (74-99) mg/dL Calcium 8.4 8.1 L (8.4-10.2) mg/dL AST 31 27 (17-59) U/L ALT 15 17 (4-49) U/L Alkaline Phosphatase 180 H 191 H (38-126) U/L Total Protein 5.4 L 5.5 L (6.3-8.2) g/dL Albumin 2.4 L 2.6 L (3.5-5.0) g/dL Calcium panel 01/11/24 01/12/24 Range/Units 16:45 04:57 Calcium 8.4 8.1 L (8.4-10.2) mg/dL Albumin 2.4 L 2.6 L (3.5-5.0) g/dL Pituitary panel 01/11/24 01/12/24 Range/Units 16:45 04:57 Sodium 143 144 (137-145) mmol/L Potassium 5.2 H 5.3 (3.5-5.1) mmol/L Chloride 110 H 111 H (98-107) mmol/L Carbon Dioxide 26 23.4 (22-30) mmol/L BUN 79 H 68.5 H (9-20) mg/dL Creatinine 2.58 H 2.8 H (0.66-1.25) mg/dL Glucose 133 H 147 H (74-99) mg/dL Calcium 8.4 8.1 L (8.4-10.2) mg/dL Adrenal panel 09/17/24 09/18/24 Range/Units 16:45 04:57 Sodium 143 144 (137-145) mmol/L Potassium 5.2 H 5.3 (3.5-5.1) mmol/L Chloride 110 H 111 H (98-107) mmol/L Carbon Dioxide 26 23.4 (22-30) mmol/L BUN 79 H 68.5 H (9-20) mg/dL Creatinine 2.58 H 2.8 H (0.66-1.25) mg/dL Glucose 133 H 147 H (74-99) mg/dL Calcium 8.4 8.1 L (8.4-10.2) mg/dL Total Bilirubin 0.2 <0.2 L (0.2-1.3) mg/dL AST 31 27 (17-59) U/L ALT 15 17 (4-49) U/L Alkaline Phosphatase 180 H 191 H (38-126) U/L Total Protein 5.4 L 5.5 L (6.3-8.2) g/dL Albumin 2.4 L 2.6 L (3.5-5.0) g/dL Assessment and Plan Assessment: 1. Infected chronic nonhealing right foot wound 2. Bilateral lower extremity wounds 3. Charcot foot 4. Diabetes mellitus 5. Morbid obesity BMI greater than 47 6. Nonambulatory 7. Acute on chronic kidney injury Plan: 1. Continue offloading right foot 2. Continue local wound care 3. No plans on surgical debridement of right foot wounds 4. Discussed with patient wounds likely will not heal and at some point will need to discuss right [id number] amputation however this can be done as an outpatient as patient once UTI resolved Thank you for this consultation, we will continue to follow. The impression and plan of care has been dictated as directed. Dr. Gray I performed a history and examination of this patient, discussed the same with the dictator. I agree with the dictator's note ,documented as a scribe. Any additional findings or plans will be noted.
[2024-01-12 16:44] LABS: Glucose,Whole Blood 158 mg/dL (70-110)
[2024-01-12] MEDS: LACTOBACILLUS ACIDOPHILUS/PECT 1 EACH CAPSULE PO SCH (17:57)
[2024-01-12] MEDS: COLLAGENASE 250 UNIT/GM OINTMENT 30 GM TUBE TOPICAL SCH (17:59)
[2024-01-12] MEDS: SENNOSIDES 8.6 MG TAB PO SCH (21:01)
[2024-01-12] MEDS: ATORVASTATIN 20 MG TAB PO SCH (21:01)
[2024-01-12 21:15] LABS: Glucose,Whole Blood 91 mg/dL (70-110)
--- NOTE | 2024-01-12 23:02 | P.PN ---
Subjective Progress Note Date: 01/12/24 HISTORY OF PRESENT ILLNESS: 73-year-old morbidly obese with active medical history of COPD, atherosclerotic heart disease post myocardial infarction, severe peripheral arterial disease with infected right foot, history of type 2 diabetes, chronic kidney disease, chronic history of neuropathy, chronic pain syndrome, history of hypertension, hyperlipidemia, hypothyroidism, severe GERD and hiatal hernia, BPH with history of urinary retention who was hospitalized recently for sepsis and infected right foot was transferred back to [facility] 2 weeks ago on Rocephin to complete total of 2 weeks. He become the last 48 hours with significant change in mental status and worsening confusion along with encephalopathy not a clear etiology with his lab showing significant uremia with worsening kidney function as acute kidney injury on chronic kidney disease patient claimed that he is not eating and drinking much lately his GFR dropped down as low as 20 from but used to be around 40 few days earlier. With the current change and he become less responsive today with much worsening mentation not waking up that easy ended up coming to the emergency department at [facility] where was seen and evaluated originally His laboratory value shows anemia with hemoglobin of 9.6 few days earlier was close to 8. Blood test shows quite a alkalosis with a CO2 of 26, potassium at 5.2 with bun of 79 creatinine 2.58 with alkaline phosphatase at 180 UA showed few RBCs and WBCs + of chronic kidney disease. After an outpatient remain on Rocephin 2 g daily. He is also still on furosemide 20 mg a day only. Yesterday found to have slight urinary retention with bladder scan showed around 400 cc he was able to void 100 cc and had straight cath to evacuate his bladder. With his worsening condition and up coming to the emergency department today was seen and evaluated further testing including EKG shows supraventricular arrhythmia with marked ST abnormality and nonspecific change overall. No CAT scan of the brain was done the chest x-ray shows no acute pulmonary process with mild cardiomegaly only ultrasound of the kidney showed thickening along the midportion of the right kidney need additional evaluation to exclude possibility of mass. Start hydrating patient Gray catheter was inserted patient be hospitalized will consult nephrology will continue to improve his uremia received to change his mental status get him back to his baseline. 01/12/2024: Still quite bit confused this morning but slightly better has Gray catheter making slight urine output with his chemistry still pending and has not seen nephrology yet. His ultrasound of the kidney came back slightly better off might send him for CAT scan without contrast. Meanwhile his right foot still being cared for with Rocephin and topical care will consult infectious disease to continue current management for his infection. His altered mental status is related to encephalopathy from uremia has improved slightly with only will continue aggressive management hoping to get patient to his baseline. Comorbidity patient is going through the combination of his severe PAD, osteomyelitis of the right foot along with the declining kidney function and worsening anasarca overall is not a good sign his mortality still quite bit high in the next few weeks. REVIEW OF SYSTEMS: CONSTITUTIONAL: Morbidly obese in no acute respiratory distress. EYES: No icterus sclerae, no conjunctivitis. EARS, NOSE, MOUTH, THROAT, and FACE: No sore throat, lymphadenopathy, carotid bruits or deformity. RESPIRATORY: No SOB cough or wheezes. CARDIOVASCULAR: No chest pain positive PND orthopnea palpitation with edema. GASTROINTESTINAL: No Abd pain, Nausea or vomiting, no Diarrhea or constipation, No GI Bleed, no distention or masses. GENITOURINARY: Negative for Hematuria or UTI, no kidney stones. Mild incont inence. INTEGUMENT/BREAST: Negative for any muscular injury with mild osteoarthritis.. HEMATOLOGIC/LYMPHATIC: Negative for bleed or purpura. MUSCULOSKELTAL: Myalgia and arthralgia with significant loss of tissue discomfort in the right foot. NEURLOGICAL: No LOC, Sz or syncope, blurred vision dizziness or abnormality.. BEHAVIORAL/PSYCH: Negative. ENDOCRINE: Negative. PHYSICAL EXAMINATION: General Appearance: Alert, cooperative, no distress, appears stated age. Neck HEENT: Supple, no lymphadenopathy, no thyroid enlargement, no carotid bruits. Lungs: Decreased breath sound bilaterally with fine rhonchi no crackles or wheezes. Chest Wall: Chest wall normal expansion with deep inspiration no tenderness and no deformity was found on exam, no costochondral pain or discomfort. Heart: Regular rate and rhythm, S1, S2 normal, no murmur, rub or gallop. Back: Symmetric, no curvature, ROM normal, no CVA tenderness. Abdomen: Soft, non-tender, bowel sounds active all four quadrants, no masses, no organomegaly. Extremities: Right foot still have significant irritation edema redness with warmness to touch with significant decreased circulation. Pulses: 2+ and symmetric. Skin: Skin color, texture, tugor normal, no rashes or lesions. Neurologic: Alert oriented x3 cranial nerves II through XII intact, no motor deficit, no abnormal balance or gait. ASSESSMENT AND PLAN: _Altered mental status: Most likely secondary to uremia, continue hydration, nephrology consultation repeat CMP in the morning we will continue patient on current management avoid any nephrotoxic agent as well still might do CAT scan of the brain to exclude any central nervous system problem. _Acute kidney injury with Chronic kidney disease: With much worsening kidney fu nction at this point patient still suffering from mild retention, will make sure patient is on Flomax, continue to watch his symptoms carefully. _Osteomyelitis of the right leg was treated 2 weeks ago was still on Rocephin as an IV antibiotic will consult infectious disease continue current management including continue wound care. _Recent history of Klebsiella pneumonia urinary tract infection was on cefepime early and has done very well during this time does not look positive but patient remain on antibiotics. _Severe PAD consultation with vascular earlier in the month conclusion was to go for above-knee amputation which patient had declined at this point Sun continue to try his topical infection with antibiotic and wound care to see if it salvage the leg. _Peripheral neuropathy: Remain on gabapentin 1600 mg at nighttime. _Chronic pain syndrome: Continue hydrocodone orally. _Type 2 diabetes with hyperglycemia: Continue Accu-Chek with sliding scales coverage might benefit from adding long acting insulin at nighttime. _Hypothyroidism: Still on levothyroxine 112 mcg daily. _Hypertension: Blood pressure still slightly below but continue lisinopril 20 mg a day. _Hyperlipidemia: Was on simvastatin has been hold currently which will be resumed soon as patient able to tolerate medication. _Morbid obesity with BMI of 43.9: Which increases risk factor of complication. _Abnormal balance and gait doing rehab physical therapy ambulating with wheelchair mostly. Discussion: Overnight with hydration is not making much urine, creatinine up to 2.8 from 2.58 with GFR down to 23. The patient again will be seen nephrology and infectious disease also had seen vascular from last admission with nonhealing ulcer and osteomyelitis in the right foot which recommended to do amputation which patient refused. With a decline in kidney function and GFR and not making much urine is not a good sign at this point. I will increase comorbidity quite bit. Objective - Vital Signs Vital signs: Vital Signs Temp 97.6 F 01/12/24 02:04 Pulse 83 09/18/24 02:04 Resp 18 01/12/24 02:04 BP 148/74 01/12/24 02:04 Pulse Ox 96 01/12/24 02:04 FiO2 Intake & Output 01/11/24 01/11/24 01/12/24 06:59 18:59 06:59 Output Total 600 150 Balance -600 -150 Weight 150.139 kg 150.139 kg Output: Urine 600 150 Straight 600 150 - Labs CBC & Chem 7: 01/12/24 04:57 01/12/24 04:57 Labs: Abnormal Lab Results - Last 24 Hours (Table) 01/11/24 01/11/24 01/11/24 Range/Units 16:45 16:45 16:47 RBC 3.56 L (4.30-5.90) m/uL Hgb 9.6 L (13.0-17.5) gm/dL Hct 31.6 L (39.0-53.0) % MCHC 30.4 L (31.0-37.0) g/dL Lymphocytes # 0.9 L (1.0-4.8) k/uL Eosinophils # 1.6 H (0-0.7) k/uL VBG pH 7.43 H (7.31-7.41) Potassium 5.2 H (3.5-5.1) mmol/L Chloride 110 H (98-107) mmol/L BUN 79 H (9-20) mg/dL Creatinine 2.58 H (0.66-1.25) mg/dL Glucose 133 H (74-99) mg/dL Alkaline Phosphatase 180 H (38-126) U/L Total Protein 5.4 L (6.3-8.2) g/dL Albumin 2.4 L (3.5-5.0) g/dL Urine Protein (Negative) Urine Blood (Negative) Ur Leukocyte Esterase (Negative) Urine RBC (0-5) /hpf Urine WBC (0-5) /hpf Amorphous Sediment (None) /hpf Urine Mucus (None) /hpf 01/11/24 Range/Units 18:22 RBC (4.30-5.90) m/uL Hgb (13.0-17.5) gm/dL Hct (39.0-53.0) % MCHC (31.0-37.0) g/dL Lymphocytes # (1.0-4.8) k/uL Eosinophils # (0-0.7) k/uL VBG pH (7.31-7.41) Potassium (3.5-5.1) mmol/L Chloride (98-107) mmol/L BUN (9-20) mg/dL Creatinine (0.66-1.25) mg/dL Glucose (74-99) mg/dL Alkaline Phosphatase (38-126) U/L Total Protein (6.3-8.2) g/dL Albumin (3.5-5.0) g/dL Urine Protein 2+ H (Negative) Urine Blood Small H (Negative) Ur Leukocyte Esterase Trace H (Negative) Urine RBC 10 H (0-5) /hpf Urine WBC 19 H (0-5) /hpf Amorphous Sediment Occasional H (None) /hpf Urine Mucus Rare H (None) /hpf
[2024-01-13 06:08] LABS: Glucose,Whole Blood 79 mg/dL (70-110)
--- NOTE | 2024-01-13 06:55 | P.CONS ---
History of Present Illness - Reason for Consult Consult date: 01/12/24 UTI with sepsis Requesting physician: Mateusz Montoya - Chief Complaint Mental status changes x few days - History of Present Illness Patient is a 73-year-old male with a past medical history significant for diabetes mellitus hypertension hyperlipidemia [place] COPD recent admission to this facility patient did have right diabetic foot ulcer status post surgical debridement by vascular surgery local cultures were negative urine was positive for Klebsiella patient was advised a full course of IV Rocephin with the patient was currently receiving [facility] the [facility] patient has been brought back to the hospital on 12/11/2023 for evaluation of confusion worsening kidney function and hypoxemia apparently the patient was less responsive the day of presentation to the hospital however the patient seem to be back to his baseline patient denies having any fever or any chills and no fever have been recorded during this hospital stay patient denies having any headache or URI symptoms no chest pain no shortness of breath occasional cough no nausea no vomiting no abdominal pain or diarrhea, infectious disease was consulted for possible UTI and sepsis, patient did have a positive UA during this admission with the cultures currently pending Review of Systems Positive point and negatives has been mentioned in the HPI, complete review of systems was performed and all other systems are negative Past Medical History Past Medical History: COPD, Diabetes Mellitus, Hyperlipidemia, Hypertension, Myocardial Infarction ([place]), Neurologic Disorder, Thyroid Disorder Additional Past Medical History / Comment(s): Peripheral neuropathy, diabetic leg ulcers, Last Myocardial Infarction Date:: Pt guesses its been about 5 years2018 History of Any Multi-Drug Resistant Organisms: Unobtainable Past Surgical History: Heart Catheterization With Stent Additional Past Surgical History / Comment(s): Bilateral caterac surgery Past Anesthesia/Blood Transfusion Reactions: No Reported Reaction Date of Last Stent Placement:: 2020 Past Psychological History: Unable to Obtain Smoking Status: Former smoker Past Alcohol Use History: Heavy Additional Past Alcohol Use History / Comment(s): Pt stopped drinking 16 years ago Past Drug Use History: None Reported Additional Drug Use History / Comment(s): stopped smoking 28 years ago - Past Family History Mother Family Medical History: Diabetes Mellitus Medications and Allergies Home Medications Medication Instructions Recorded Confirmed Type Furosemide [Lasix] 20 mg PO DAILY@0800 11/23/23 01/11/24 History Gabapentin [Neurontin] 800 mg PO TID@0600,1400,2200 11/23/23 01/11/24 History Insulin Aspart Prot/Insuln Asp 20 unit SQ BID@0800,1700 11/23/23 01/11/24 History [NovoLOG MIX 70-30 Flexpen] Levothyroxine Sodium [Synthroid] 112 mcg PO DAILY@0811/23/23 01/11/24 History Simvastatin [Zocor] 40 mg PO HS 11/23/23 01/11/24 History Clopidogrel [Plavix] 75 mg PO DAILY@0812/26/23 01/11/24 History cefTRIAXone [Rocephin] 2,000 mg IVP Q24HR #28 each 12/30/23 01/11/24 Rx Acetaminophen Tab [Tylenol] 650 mg PO Q6HR PRN tab 12/31/23 01/11/24 Rx HYDROcodone/APAP 7.5-325MG [[place] 1 tab PO QID@00,06,12,18 01/11/24 01/11/24 History 7.5-325] Jac Packet 1 packet PO BID@0800,0 01/11/24 01/11/24 History L.acidoph,Paracasei, B.lactis 1 cap PO DAILY@169901/11/24 01/11/24 History [Probiotic] Liquacel 30 ml PO DAILY@1200 01/11/24 01/11/24 History Loperamide [Imodium] 2 - 4 mg PO QID PRN 01/11/24 01/11/24 History Magnesium Hydroxide [Milk of 7,200 mg PO Q48H PRN 01/11/24 01/11/24 History Magnesia Concentrate] Na Phos,M-B/Na Phos,Di-Ba [Fleet 133 ml RECTAL DAILY PRN 01/11/24 01/11/24 History Adult] Pantoprazole [Protonix] 40 mg PO DAILY@0601/11/24 01/11/24 History Sennosides [Senokot] 8.6 mg PO HS@2100 01/11/24 01/11/24 History Tamsulosin [Flomax] 0.4 mg PO DAILY@0601/11/24 01/11/24 History amLODIPine [Norvasc] 5 mg PO DAILY@0801/11/24 01/11/24 History bisacodyL [Dulcolax] 10 mg RECTAL DAILY PRN 01/11/24 01/11/24 History hydrALAZINE HCL [Apresoline] 25 mg PO Q6HR PRN 01/11/24 01/11/24 History lisinopriL [Zestril] 20 mg PO BID@0800,1700 01/11/24 01/11/24 History metFORMIN HCL [Glucophage] 1,000 mg PO BID@0800,1700 01/11/24 01/11/24 History Allergies Allergy/AdvReac Type Severity Reaction Status Date / Time No Known Allergies Allergy Verified 01/11/24 16:54 Physical Exam Vitals: Vital Signs Temp Pulse Pulse Resp BP BP Pulse Ox 01/12/24 07:51 98.0 F 66 17 124/67 99 01/12/24 02:04 97.6 F 83 18 148/74 96 01/11/24 21:27 98.1 F 89 18 115/52 98 01/11/24 20:58 92 18 127/64 98 01/11/24 19:25 95 20 125/59 96 01/11/24 18:00 93 16 106/82 01/11/24 17:13 88 01/11/24 17:03 84 01/11/24 17:00 90 16 137/58 01/11/24 16:00 87 18 135/60 01/11/24 15:50 86 18 96 01/11/24 15:49 98.2 F 88 18 135/60 97 Intake and Output 01/11/24 01/12/24 01/12/24 22:59 06:59 14:59 Output Total 600 450 Balance -600 -450 Output: Urine 600 450 Straight 600 150 Other: Voiding Method Indwelling Catheter Weight 150.139 kg 150.139 kg GENERAL DESCRIPTION: Elderly male lying in bed, no distress. No tachypnea or accessory muscle of respiration use. HEENT: Shows Pallor , no scleral icterus. Oral mucous membrane is dry. No pharyngeal erythema or thrush NECK: Trachea central, no thyromegaly. LUNGS: Unlabored breathing. Clear to auscultation anteriorly. No wheeze or crackle. HEART: S1, S2, regular rate and rhythm. No loud murmur ABDOMEN: Soft, no tenderness , guarding or rigidity, no organomegaly EXTREMITIES: Right foot plantar wound with slough tissue overall redness on the dorsal aspect has decreased in intensity SKIN: No rash, no masses palpable. NEUROLOGICAL: The patient is awake, alert, oriented x3, mood and affect normal. Results CBC & Chem 7: 01/12/24 04:57 01/12/24 04:57 Labs: Abnormal Lab Results - Last 24 Hours (Table) 01/11/24 01/11/24 01/11/24 Range/Units 16:45 16:45 16:47 RBC 3.56 L (4.30-5.90) m/uL Hgb 9.6 L (13.0-17.5) gm/dL Hct 31.6 L (39.0-53.0) % MCHC 30.4 L (31.0-37.0) g/dL RDW (11.5-14.5) % Lymphocytes # 0.9 L (1.0-4.8) k/uL Eosinophils # 1.6 H (0-0.7) k/uL VBG pH 7.43 H (7.31-7.41) Potassium 5.2 H (3.5-5.1) mmol/L Chloride 110 H (98-107) mmol/L BUN 79 H (9-20) mg/dL Creatinine 2.58 H (0.66-1.25) mg/dL Est GFR (CKD-EPI) (>=60) BUN/Creatinine Ratio (12.00-20.00) Ratio Glucose 133 H (74-99) mg/dL POC Glucose (mg/dL) (70-110) mg/dL Calcium (8.7-10.3) mg/dL Total Bilirubin (0.3-1.2) mg/dL Alkaline Phosphatase 180 H (38-126) U/L Total Protein 5.4 L (6.3-8.2) g/dL Albumin 2.4 L (3.5-5.0) g/dL Albumin/Globulin Ratio (1.60-3.17) Ratio Urine Protein (Negative) Urine Blood (Negative) Ur Leukocyte Esterase (Negative) Urine RBC (0-5) /hpf Urine WBC (0-5) /hpf Amorphous Sediment (None) /hpf Urine Mucus (None) /hpf 01/11/24 01/12/24 01/12/24 Range/Units 18:22 04:57 04:57 RBC 2.93 L (4.30-5.90) m/uL Hgb 8.1 L (13.0-17.5) gm/dL Hct 26.8 L (39.0-53.0) % MCHC 30.2 L (31.0-37.0) g/dL RDW 15.1 H (11.5-14.5) % Lymphocytes # (1.0-4.8) k/uL Eosinophils # (0-0.7) k/uL VBG pH (7.31-7.41) Potassium (3.5-5.1) mmol/L Chloride 111 H (98-107) mmol/L BUN 68.5 H (9-20) mg/dL Creatinine 2.8 H (0.66-1.25) mg/dL Est GFR (CKD-EPI) 23 L (>=60) BUN/Creatinine Ratio 24.46 H (12.00-20.00) Ratio Glucose 147 H (74-99) mg/dL POC Glucose (mg/dL) (70-110) mg/dL Calcium 8.1 L (8.7-10.3) mg/dL Total Bilirubin <0.2 L (0.3-1.2) mg/dL Alkaline Phosphatase 191 H (38-126) U/L Total Protein 5.5 L (6.3-8.2) g/dL Albumin 2.6 L (3.5-5.0) g/dL Albumin/Globulin Ratio 0.90 L (1.60-3.17) Ratio Urine Protein 2+ H (Negative) Urine Blood Small H (Negative) Ur Leukocyte Esterase Trace H (Negative) Urine RBC 10 H (0-5) /hpf Urine WBC 19 H (0-5) /hpf Amorphous Sediment Occasional H (None) /hpf Urine Mucus Rare H (None) /hpf 01/12/24 Range/Units 06:33 RBC (4.30-5.90) m/uL Hgb (13.0-17.5) gm/dL Hct (39.0-53.0) % MCHC (31.0-37.0) g/dL RDW (11.5-14.5) % Lymphocytes # (1.0-4.8) k/uL Eosinophils # (0-0.7) k/uL VBG pH (7.31-7.41) Potassium (3.5-5.1) mmol/L Chloride (98-107) mmol/L BUN (9-20) mg/dL Creatinine (0.66-1.25) mg/dL Est GFR (CKD-EPI) (>=60) BUN/Creatinine Ratio (12.00-20.00) Ratio Glucose (74-99) mg/dL POC Glucose (mg/dL) 142 H (70-110) mg/dL Calcium (8.7-10.3) mg/dL Total Bilirubin (0.3-1.2) mg/dL Alkaline Phosphatase (38-126) U/L Total Protein (6.3-8.2) g/dL Albumin (3.5-5.0) g/dL Albumin/Globulin Ratio (1.60-3.17) Ratio Urine Protein (Negative) Urine Blood (Negative) Ur Leukocyte Esterase (Negative) Urine RBC (0-5) /hpf Urine WBC (0-5) /hpf Amorphous Sediment (None) /hpf Urine Mucus (None) /hpf Assessment and Plan (1) Diabetic foot infection Current Visit: No Status: Acute Code(s): E11.628 - TYPE 2 DIABETES MELLITUS WITH OTHER SKIN COMPLICATIONS; L08.9 - LOCAL INFECTION OF THE SKIN AND SUBCUTANEOUS TISSUE, UNSP SNOMED Code(s): 798340268 (2) Diabetic foot ulcer Current Visit: No Status: Acute Code(s): E11.621 - TYPE 2 DIABETES MELLITUS WITH FOOT ULCER; L97.509 - NON-PRESSURE CHRONIC ULCER OTH PRT UNSP FOOT W UNSP SEVERITY SNOMED Code(s): 080634348 Plan: 1patient presented to the hospital with confusion and weakness which is likely multifactorial patient did have worsening of his kidney function most likely contributing to his symptomatology, did have a positive UA but not a very clear he noticed symptoms 2patient also have right foot ulcer which has shown some worsening with more slough tissue and will benefit from surgical debridement and deep culture 3for now we will continue patient Rocephin 2 g daily until repeat culture showed different pathogen at that time antibiotic will be adjusted 4local wound care with the Santyl followed by moist dressing change daily Family the bedside questions answered We will follow on clinical condition and cultures to further adjust medication if needed Thank you for this consultation we will follow the patient along with you Dictation was produced using [employer] software. please excuse any grammatical, word or spelling errors. Time with Patient: Greater than 30
[2024-01-13 09:08] LABS: % Iron Saturation 26.77 (15.00-50.00); BUN/Creat Ratio 24.74 Ratio (12.00-20.00); Blood Urea Nitrogen 66.8 mg/dL (9.0-27.0); Calcium 7.9 mg/dL (8.7-10.3); Carbon Dioxide 25.1 mmol/L (21.6-31.8); Chloride 112 mmol/L (96-109); Glucose 80 mg/dL (70-110); Sodium 144 mmol/L (135-145)
--- NOTE | 2024-01-13 10:53 | P.CONS ---
History of Present Illness - Reason for Consult Consult date: 01/13/24 wound care - History of Present Illness 73-year-old male Being seen by wound care for evaluation of a nonhealing ulceration to the right lateral foot and heel. Patient has been seen in the wound care center on 828 where he was prescribed Santyl. However he has not return for any follow-up visits after that visit. Patient has been evaluated by vascular surgery with a history of peripheral arterial disease, Charcot foot, COPD, coronary artery disease status post [place], type 2 diabetes mellitus, chronic kidney disease, peripheral neuropathy, chronic pain syndrome, morbid obesity. Patient was recently hospitalized and discharged about 2 weeks ago with infection of the right foot status postdebridement and urinary tract infection. It has been discussed with the patient previously that likely the right foot wound will not heal and patient is recommended to have [id number] amputation although none urgent. During his last hospitalization on 12/28/2023 he did have a bone scan of the right lower extremity which had reported right midfoot uptake on 2 phases possibly blood flow suggesting degeneration with possible osteomyelitis consider confirmation with MRI foot without contrast. Original cause of wound was Gradually Appeared. The date acquired was: 12/01/2023. The wound is currently classified as a Grade 2 wound with etiology of Diabetic Wound/Ulcer of the Lower Extremity and is located on the Right,Plantar Foot. The wound measures 4.2cm length x 3cm width x 0.2cm depth; 9.896cm^2 area and 1.979 cm^3 volume. There is fascia exposed. There is no tunneling or undermining noted. There is a medium amount of purulent drainage noted. The wound margin is distinct with the outline attached to the wound base. There is no granulation within the wound bed. There is a large (67-100%) amount of necrotic tissue within the wound bed including Eschar. The periwound skin appearance had no abnormalities noted for color. The periwound skin appearance exhibited: Callus, Dry/Scaly. The periwound skin appearance did not exhibit: Crepitus, Excoriation, Induration, Rash, Scarring, Maceration. Periwound temperature was noted as No Abnormality. Original cause of wound was Gradually Appeared. The date acquired was: 12/02/2023. The wound is currently classified as a Grade 1 wound with etiology of Diabetic Wound/Ulcer of the Lower Extremity and is located on the Right,Anterior Foot. The wound measures 1.4cm length x 1.2cm width x 0.1cm depth; 1.319cm^2 area and 0.132cm^3 volume. There is no tunneling or undermining noted. There is a medium amount of purulent drainage noted. The wound margin is distinct with the outline attached to the wound base. There is small (1-33%) granulation within the wound bed. There is a small (1-33%) amount of necrotic tissue within the wound bed. The periwound skin appearance had no abnormalities noted for texture. The periwound skin appearance had no abnormalities noted for color. The periwound skin appearance exhibited: Dry/Scaly. The periwound skin appearance did not exhibit: Maceration. Periwound temperature was noted as No Abnormality. Review Of Systems: Constitutional: No fever, no chills, no night sweats. No weight change. No weakness, fatigue or lethargy. No daytime sleepiness. Integumentary:reports wounds, no lesions. No rash or pruritus. No unusual bruising. No change in hair or nails. Physical exam: General Appearance: Alert, cooperative, no distress, appears stated age. Skin: See HPI all other Skin color, texture, tugor normal, no rashes or lesions. Neurologic: Alert oriented x3 Assessment: 1. Nonhealing ulceration with bone involvement without necrosis 2. Diabetic foot ulcer 3. Lymphedema Plan: 1. Continue with Santyl, saline moist gauze, dry gauze, rolled gauze and secure with paper tape. We will be happy to continue following patient In the outpatient setting until decision is made regarding amputation. Thank you for the consultation any questions please contact the wound care center DNP note has been reviewed and discussed with Dr. Dao and the impression and plan of care has been directed as dictated. Past Medical History Past Medical History: COPD, Diabetes Mellitus, Hyperlipidemia, Hypertension, Myocardial Infarction ([place]), Neurologic Disorder, Thyroid Disorder Additional Past Medical History / Comment(s): Peripheral neuropathy, diabetic leg ulcers, Last Myocardial Infarction Date:: Pt guesses its been about 5 years 2019 History of Any Multi-Drug Resistant Organisms: Unobtainable Past Surgical History: Heart Catheterization With Stent Additional Past Surgical History / Comment(s): Bilateral caterac surgery Past Anesthesia/Blood Transfusion Reactions: No Reported Reaction Date of Last Stent Placement:: 2020 Past Psychological History: Unable to Obtain Smoking Status: Former smoker Past Alcohol Use History: Heavy Additional Past Alcohol Use History / Comment(s): Pt stopped drinking 16 years ago Past Drug Use History: None Reported Additional Drug Use History / Comment(s): stopped smoking 28 years ago - Past Family History Mother Family Medical History: Diabetes Mellitus Medications and Allergies Home Medications Medication Instructions Recorded Confirmed Type Furosemide [Lasix] 20 mg PO DAILY@0800 11/23/23 01/11/24 History Gabapentin [Neurontin] 800 mg PO TID@0600,1400,2200 11/23/23 01/11/24 History Insulin Aspart Prot/Insuln Asp 20 unit SQ BID@0800,1700 11/23/23 01/11/24 History [NovoLOG MIX 70-30 Flexpen] Levothyroxine Sodium [Synthroid] 112 mcg PO DAILY@0800 11/23/23 01/11/24 History Simvastatin [Zocor] 40 mg PO HS 11/23/23 01/11/24 History Clopidogrel [Plavix] 75 mg PO DAILY@0800 12/26/23 01/11/24 History cefTRIAXone [Rocephin] 2,000 mg IVP Q24HR #28 each 12/30/23 01/11/24 Rx Acetaminophen Tab [Tylenol] 650 mg PO Q6HR PRN tab 12/31/23 01/11/24 Rx HYDROcodone/APAP 7.5-325MG [[place] 1 tab PO QID@00,06,12,18 01/11/24 01/11/24 History 7.5-325] Jac Packet 1 packet PO BID@0800,1700 01/11/24 01/11/24 History L.acidoph,Paracasei, B.lactis 1 cap PO DAILY@1700 01/11/24 01/11/24 History [Probiotic] Liquacel 30 ml PO DAILY@1200 01/11/24 01/11/24 History Loperamide [Imodium] 2 - 4 mg PO QID PRN 01/11/24 01/11/24 History Magnesium Hydroxide [Milk of 7,200 mg PO Q48H PRN 01/11/24 01/11/24 History Magnesia Concentrate] Na Phos,M-B/Na Phos,Di-Ba [Fleet 133 ml RECTAL DAILY PRN 01/11/24 01/11/24 History Adult] Pantoprazole [Protonix] 40 mg PO DAILY@0600 01/11/24 01/11/24 History Sennosides [Senokot] 8.6 mg PO HS@2100 01/11/24 01/11/24 History Tamsulosin [Flomax] 0.4 mg PO DAILY@0600 01/11/24 01/11/24 History amLODIPine [Norvasc] 5 mg PO DAILY@0800 01/11/24 01/11/24 History bisacodyL [Dulcolax] 10 mg RECTAL DAILY PRN 01/11/24 01/11/24 History hydrALAZINE HCL [Apresoline] 25 mg PO Q6HR PRN 01/11/24 01/11/24 History lisinopriL [Zestril] 20 mg PO BID@0800,1700 01/11/24 01/11/24 History metFORMIN HCL [Glucophage] 1,000 mg PO BID@0800,1700 01/11/24 01/11/24 History Allergies Allergy/AdvReac Type Severity Reaction Status Date / Time No Known Allergies Allergy Verified 01/11/24 16:54 Physical Exam Vitals: Vital Signs Temp Pulse Resp BP Pulse Ox 01/13/24 07:42 97.5 F L 80 17 126/54 96 01/13/24 04:30 100/71 01/13/24 01:51 97.6 F 75 17 92/53 97 01/12/24 20:51 97.3 F L 78 18 104/65 99 01/12/24 14:00 98.1 F 81 17 150/64 99 Intake and Output 01/12/24 01/13/24 01/13/24 22:59 06:59 14:59 Output Total 300 600 Balance -300 -600 Output: Urine 300 600 Other: Voiding Method Indwelling Catheter Indwelling Catheter Results CBC & Chem 7: 01/12/24 04:57 01/13/24 04:53 Labs: Abnormal Lab Results - Last 24 Hours (Table) 01/12/24 01/12/24 01/13/24 Range/Units 12:05 16:43 04:53 Chloride 112 H (96-109) mmol/L BUN 66.8 H (9.0-27.0) mg/dL Creatinine 2.7 H (0.6-1.5) mg/dL Est GFR (CKD-EPI) 24 L (>=60) BUN/Creatinine Ratio 24.74 H (12.00-20.00) Ratio POC Glucose (mg/dL) 133 H 158 H (70-110) mg/dL Calcium 7.9 L (8.7-10.3) mg/dL Iron (65-175) UG/DL TIBC (228-460) UG/DL Transferrin (204.0-354.0) mg/dL 01/13/24 Range/Units 04:53 Chloride (96-109) mmol/L BUN (9.0-27.0) mg/dL Creatinine (0.6-1.5) mg/dL Est GFR (CKD-EPI) (>=60) BUN/Creatinine Ratio (12.00-20.00) Ratio POC Glucose (mg/dL) (70-110) mg/dL Calcium (8.7-10.3) mg/dL Iron 34 L (65-175) UG/DL TIBC 127 L (228-460) UG/DL Transferrin 90.4 L (204.0-354.0) mg/dL Microbiology - Last 24 Hours (Table) 01/11/24 18:22 Urine Culture - Final Urine,Voided Kirstie albicans Assessment and Plan (1) Non-pressure chronic ulcer of other part of right foot with bone involvement without evidence of necrosis Current Visit: Yes Status: Acute Code(s): L97.516 - NON-PRS CHR ULC OTH PRT R FOOT WITH BNE INVL W/O EVD OF NECR SNOMED Code(s): 45090819590182036 (2) Lymphedema Current Visit: Yes Status: Acute Code(s): I89.0 - LYMPHEDEMA, NOT ELSEWHERE CLASSIFIED SNOMED Code(s): 278584809 (3) Type 2 diabetes mellitus with foot ulcer Current Visit: No Status: Acute Code(s): E11.621 - TYPE 2 DIABETES MELLITUS WITH FOOT ULCER; L97.509 - NON-PRESSURE CHRONIC ULCER OTH PRT UNSP FOOT W UNSP SEVERITY SNOMED Code(s): 5689425726185
[2024-01-13 11:50] LABS: Glucose,Whole Blood 118 mg/dL (70-110)
--- NOTE | 2024-01-13 12:02 | P.PN ---
Subjective patient is seen for follow-up for acute kidney injury.[place] maintained on IV fluids. Serum creatinine decreased to 2.7 from 2.8 the day before. No significant complaints today. Patient has an indwelling Gray catheter for urine retention. Objective - Vital Signs Vital signs: Vital Signs Temp 97.5 F L 01/13/24 07:42 Pulse 80 01/13/24 07:42 Resp 17 01/13/24 07:42 BP 126/54 01/13/24 07:42 Pulse Ox 96 01/13/24 07:42 FiO2 Intake & Output 01/12/24 01/13/24 01/13/24 18:59 06:59 18:59 Output Total 300 600 Balance -300 -600 Output: Urine 300 600 Other: Voiding Method Indwelling Catheter Indwelling Catheter Indwelling Catheter - Exam patient is awake, comfortable, no acute distress. Examination of the heart S1 and S2 Examination of the lungs bilateral breath sounds are heard Abdomen is soft nontender obese Examination lower extremity shows chronic skin changes with chronic edema noted - Labs CBC & Chem 7: 01/12/24 04:57 01/13/24 04:53 Labs: Abnormal Lab Results - Last 24 Hours (Table) 01/12/24 01/12/24 01/13/24 Range/Units 12:05 16:43 04:53 Chloride 112 H (96-109) mmol/L BUN 66.8 H (9.0-27.0) mg/dL Creatinine 2.7 H (0.6-1.5) mg/dL Est GFR (CKD-EPI) 24 L (>=60) BUN/Creatinine Ratio 24.74 H (12.00-20.00) Ratio POC Glucose (mg/dL) 133 H 158 H (70-110) mg/dL Calcium 7.9 L (8.7-10.3) mg/dL Iron (65-175) UG/DL TIBC (228-460) UG/DL Transferrin (204.0-354.0) mg/dL 01/13/24 01/13/24 Range/Units 04:53 11:48 Chloride (96-109) mmol/L BUN (9.0-27.0) mg/dL Creatinine (0.6-1.5) mg/dL Est GFR (CKD-EPI) (>=60) BUN/Creatinine Ratio (12.00-20.00) Ratio POC Glucose (mg/dL) 118 H (70-110) mg/dL Calcium (8.7-10.3) mg/dL Iron 34 L (65-175) UG/DL TIBC 127 L (228-460) UG/DL Transferrin 90.4 L (204.0-354.0) mg/dL Microbiology - Last 24 Hours (Table) 01/11/24 18:22 Urine Culture - Final Urine,Voided Kirstie albicans Assessment and Plan Assessment: 1. Acute kidney injury most likely related to urine retention and a component of ATN from borderline low blood pressure in the setting of use of MIKKI inhibitor's. 2. CK D stage III A/IIIB most likely secondary to diabetic kidney disease 3. History of recent UTI with Klebsiella, on 12/26/2023[place] 4. Peripheral vascular disease 5. Anemia, most likely anemia of chronic disease. Iron replete. Plan: continue with IV fluids. Continue with Gray catheter Continue Flomax Continue to hold MIKKI inhibitor's Repeat labs in a.m. Avoid hypotension.
--- NOTE | 2024-01-13 12:58 | P.PN ---
Subjective Progress Note Date: 01/13/24 Principal diagnosis: Chronic nonhealing right foot wounds Patient seen and examined today as a follow-up. He was angry this morning that physical therapy was trying to work with him. Otherwise he is without any new complaints. He has been afebrile. No leukocytosis. Objective - Vital Signs Vital signs: Vital Signs Temp 97.5 F L 01/13/24 07:42 Pulse 80 01/13/24 07:42 Resp 17 01/13/24 07:42 BP 126/54 01/13/24 07:42 Pulse Ox 96 01/13/24 07:42 FiO2 Intake & Output 01/12/24 01/13/24 01/13/24 18:59 06:59 18:59 Output Total 300 600 Balance -300 -600 Output: Urine 300 600 Other: Voiding Method Indwelling Catheter Indwelling Catheter Indwelling Catheter - Exam General appearance: The patient is alert, oriented, appears in no acute distress. Morbidly obese. HET: Head is normocephalic and atraumatic. Pupils are equal and reactive. Neck: Supple. Heart: Regular. Lungs: Equal expansion, normal respiratory effort. Abdomen: Soft, nontender, nondistended. Extremities: Right foot lateral aspect wound without any drainage, no redness, minimal nonviable tissue. Diabetic ulcer to plantar aspect of right foot. Nonpalpable DP pulse. Neurological: No focal deficits. Strength and sensation are grossly intact. - Labs CBC & Chem 7: 01/12/24 04:57 01/13/24 04:53 Labs: Abnormal Lab Results - Last 24 Hours (Table) 01/12/24 01/12/24 01/13/24 Range/Units 12:05 16:43 04:53 Chloride 112 H (96-109) mmol/L BUN 66.8 H (9.0-27.0) mg/dL Creatinine 2.7 H (0.6-1.5) mg/dL Est GFR (CKD-EPI) 24 L (>=60) BUN/Creatinine Ratio 24.74 H (12.00-20.00) Ratio POC Glucose (mg/dL) 133 H 158 H (70-110) mg/dL Calcium 7.9 L (8.7-10.3) mg/dL Iron (65-175) UG/DL TIBC (228-460) UG/DL Transferrin (204.0-354.0) mg/dL 01/13/24 Range/Units 04:53 Chloride (96-109) mmol/L BUN (9.0-27.0) mg/dL Creatinine (0.6-1.5) mg/dL Est GFR (CKD-EPI) (>=60) BUN/Creatinine Ratio (12.00-20.00) Ratio POC Glucose (mg/dL) (70-110) mg/dL Calcium (8.7-10.3) mg/dL Iron 34 L (65-175) UG/DL TIBC 127 L (228-460) UG/DL Transferrin 90.4 L (204.0-354.0) mg/dL Assessment and Plan Assessment: 1. Infected chronic nonhealing right foot wound 2. Bilateral lower extremity wounds 3. Charcot foot 4. Diabetes mellitus 5. Morbid obesity BMI greater than 47 6. Nonambulatory 7. Acute on chronic kidney injury Plan: 1. Continue offloading right foot 2. Wound care consulted. Continue local wound care per their recommendations 3. No plans on surgical debridement of right foot wounds 4. Discussed with patient wounds likely will not heal and at some point will need to discuss right [id number] amputation however this can be done as an outpatient as patient once UTI resolved Thank you for this consultation, we will continue to follow. The impression and plan of care has been dictated as directed. Dr. Gray I performed a history and examination of this patient, discussed the same with the dictator. I agree with the dictator's note ,documented as a scribe. Any additional findings or plans will be noted.
--- NOTE | 2024-01-13 15:28 | P.PN ---
Subjective Progress Note Date: 01/13/24 Principal diagnosis: Reason for follow-up is right diabetic foot wound and UTI Patient is a 73-year-old male with a past medical history significant for diabetes mellitus hypertension hyperlipidemia [place] COPD recent admission to this facility patient did have right diabetic foot ulcer status post surgical debridement was on IV Rocephin being admitted to hospital mental status changes with concern for symptomatic UTI/worsening of the right foot ulcer. On today's evaluation that is 01/13/2024 the patient has been afebrile patient is currently breathing comfortably on a 3 L current oxygen and does not seem to be any distress the patient was sleepy lethargic and did not answer any question no vomiting diarrhea has been reported Gray catheter was placed during this admission because of retention as reported by the nursing staff. Patient did have a creatinine of 2.7 urine is growing Kirstie albicans Objective - Vital Signs Vital signs: Vital Signs Temp 97.5 F L 01/13/24 07:42 Pulse 80 01/13/24 07:42 Resp 17 01/13/24 07:42 BP 126/54 01/13/24 07:42 Pulse Ox 96 01/13/24 07:42 FiO2 Intake & Output 01/12/24 01/13/24 01/13/24 18:59 06:59 18:59 Output Total 300 600 Balance -300 -600 Output: Urine 300 600 Other: Voiding Method Indwelling Catheter Indwelling Catheter Indwelling Catheter - Exam GENERAL DESCRIPTION: An elderly male lying in bed in no distress RESPIRATORY SYSTEM: Unlabored breathing , decreased breath sounds at bases HEART: S1 S2 regular rate and rhythm , ABDOMEN: Soft , no tenderness EXTREMITIES: Right foot plantar wound with slough tissue no foul-smelling drainage - Labs CBC & Chem 7: 01/12/24 04:57 01/13/24 04:53 Labs: Abnormal Lab Results - Last 24 Hours (Table) 01/12/24 01/13/24 01/13/24 Range/Units 16:43 04:53 04:53 Chloride 112 H (96-109) mmol/L BUN 66.8 H (9.0-27.0) mg/dL Creatinine 2.7 H (0.6-1.5) mg/dL Est GFR (CKD-EPI) 24 L (>=60) BUN/Creatinine Ratio 24.74 H (12.00-20.00) Ratio POC Glucose (mg/dL) 158 H (70-110) mg/dL Calcium 7.9 L (8.7-10.3) mg/dL Iron 34 L (65-175) UG/DL TIBC 127 L (228-460) UG/DL Transferrin 90.4 L (204.0-354.0) mg/dL 01/13/24 Range/Units 11:48 Chloride (96-109) mmol/L BUN (9.0-27.0) mg/dL Creatinine (0.6-1.5) mg/dL Est GFR (CKD-EPI) (>=60) BUN/Creatinine Ratio (12.00-20.00) Ratio POC Glucose (mg/dL) 118 H (70-110) mg/dL Calcium (8.7-10.3) mg/dL Iron (65-175) UG/DL TIBC (228-460) UG/DL Transferrin (204.0-354.0) mg/dL Microbiology - Last 24 Hours (Table) 01/11/24 18:22 Urine Culture - Final Urine,Voided Kirstie albicans Assessment and Plan (1) Diabetic foot infection Current Visit: No Status: Acute Code(s): E11.628 - TYPE 2 DIABETES MELLITUS WITH OTHER SKIN COMPLICATIONS; L08.9 - LOCAL INFECTION OF THE SKIN AND SUBCUTANEOUS TISSUE, UNSP SNOMED Code(s): 514625358 (2) Diabetic foot ulcer Current Visit: No Status: Acute Code(s): E11.621 - TYPE 2 DIABETES MELLITUS WITH FOOT ULCER; L97.509 - NON-PRESSURE CHRONIC ULCER OTH PRT UNSP FOOT W UNSP SEVERITY SNOMED Code(s): 045877130 Plan: 1patient presented to the hospital with confusion and weakness which is likely multifactorial patient did have worsening of his kidney function most likely contributing to his symptomatology, did have a positive UA but not a very clear he noticed symptoms 2patient also have right foot ulcer which has shown some worsening with more slough tissue vascular surgery was consulted for possible debridement however the they have consulted wound care for local wound care and are planning for any debridement 3patient is covered with Rocephin for his right foot wound infection and osteomyelitis urine is growing Kirstie albicans will start the patient on Diflucan and see response Dictation was produced using [employer] software. please excuse any grammatical, word or spelling errors. Time with Patient: Less than 30
[2024-01-13 16:38] LABS: Glucose,Whole Blood 170 mg/dL (70-110)
[2024-01-13] MEDS: FLUCONAZOLE 100 MG TAB PO SCH (17:29)
[2024-01-13 21:28] LABS: Glucose,Whole Blood 133 mg/dL (70-110)
[2024-01-14 06:08] LABS: Glucose,Whole Blood 87 mg/dL (70-110)
--- NOTE | 2024-01-14 07:29 | P.PN ---
Subjective Progress Note Date: 01/13/24 HISTORY OF PRESENT ILLNESS: 73-year-old morbidly obese with active medical history of COPD, atherosclerotic heart disease post myocardial infarction, severe peripheral arterial disease with infected right foot, history of type 2 diabetes, chronic kidney disease, chronic history of neuropathy, chronic pain syndrome, history of hypertension, hyperlipidemia, hypothyroidism, severe GERD and hiatal hernia, BPH with history of urinary retention who was hospitalized recently for sepsis and infected right foot was transferred back to [facility] 2 weeks ago on Rocephin to complete total of 2 weeks. He become the last 48 hours with significant change in mental status and worsening confusion along with encephalopathy not a clear etiology with his lab showing significant uremia with worsening kidney function as acute kidney injury on chronic kidney disease patient claimed that he is not eating and drinking much lately his GFR dropped down as low as 20 from but used to be around 40 few days earlier. With the current change and he become less responsive today with much worsening mentation not waking up that easy ended up coming to the emergency department at [facility] where was seen and evaluated originally His laboratory value shows anemia with hemoglobin of 9.6 few days earlier was close to 8. Blood test shows quite a alkalosis with a CO2 of 26, potassium at 5.2 with bun of 79 creatinine 2.58 with alkaline phosphatase at 180 UA showed few RBCs and WBCs + of chronic kidney disease. After an outpatient remain on Rocephin 2 g daily. He is also still on furosemide 20 mg a day only. Yesterday found to have slight urinary retention with bladder scan showed around 400 cc he was able to void 100 cc and had straight cath to evacuate his bladder. With his worsening condition and up coming to the emergency department today was seen and evaluated further testing including EKG shows supraventricular arrhythmia with marked ST abnormality and nonspecific change overall. No CAT scan of the brain was done the chest x-ray shows no acute pulmonary process with mild cardiomegaly only ultrasound of the kidney showed thickening along the midportion of the right kidney need additional evaluation to exclude possibility of mass. Start hydrating patient Gray catheter was inserted patient be hospitalized will consult nephrology will continue to improve his uremia received to change his mental status get him back to his baseline. 01/12/2024: Still quite bit confused this morning but slightly better has Gray catheter making slight urine output with his chemistry still pending and has not seen nephrology yet. His ultrasound of the kidney came back slightly better off might send him for CAT scan without contrast. Meanwhile his right foot still being cared for with Rocephin and topical care will consult infectious disease to continue current management for his infection. His altered mental status is related to encephalopathy from uremia has improved slightly with only will continue aggressive management hoping to get patient to his baseline. Comorbidity patient is going through the combination of his severe PAD, osteomyelitis of the right foot along with the declining kidney function and worsening anasarca overall is not a good sign his mortality still quite bit high in the next few weeks. 01/13/2024: Vascular had seen patient in consultation apparently talked again about above-knee amputation involve wound care at this point patient was going to wound care and [facility]. Nonhealing ulceration with bone involvement without necrosis wound care decided to continue Santyl with saline moistened gauze and dry gauze and wound care are willing to follow-up patient as an outpatient. Nephrology advised patient had an acute kidney injury with acute tubular necrosis with low blood pressure was using MIKKI inhibitor was taking off medication for now continue to be treated for UTI mostly Klebsiella and continue management for anemia with iron replacement. Infectious disease believe patient is will cover with Rocephin currently his urine is growing candidiasis and starting Diflucan to see if there is any respond to it. Supportive care for debridement on the right foot I do not think patient is ready yet for amputation at this point. REVIEW OF SYSTEMS: CONSTITUTIONAL: Morbidly obese in no acute respiratory distress. EYES: No icterus sclerae, no conjunctivitis. EARS, NOSE, MOUTH, THROAT, and FACE: No sore throat, lymphadenopathy, carotid bruits or deformity. RESPIRATORY: No SOB cough or wheezes. CARDIOVASCULAR: No chest pain positive PND orthopnea palpitation with edema. GASTROINTESTINAL: No Abd pain, Nausea or vomiting, no Diarrhea or constipation, No GI Bleed, no distention or masses. GENITOURINARY: Negative for Hematuria or UTI, no kidney stones. Mild incontinence. INTEGUMENT/BREAST: Negative for any muscular injury with mild osteoarthritis.. HEMATOLOGIC/LYMPHATIC: Negative for bleed or purpura. MUSCULOSKELTAL: Myalgia and arthralgia with significant loss of tissue discomfort in the right foot. NEURLOGICAL: No LOC, Sz or syncope, blurred vision dizziness or abnormality.. BEHAVIORAL/PSYCH: Negative. ENDOCRINE: Negative. PHYSICAL EXAMINATION: General Appearance: Alert, cooperative, no distress, appears stated age. Neck HEENT: Supple, no lymphadenopathy, no thyroid enlargement, no carotid bruits. Lungs: Decreased breath sound bilaterally with fine rhonchi no crackles or whe ezes. Chest Wall: Chest wall normal expansion with deep inspiration no tenderness and no deformity was found on exam, no costochondral pain or discomfort. Heart: Regular rate and rhythm, S1, S2 normal, no murmur, rub or gallop. Back: Symmetric, no curvature, ROM normal, no CVA tenderness. Abdomen: Soft, non-tender, bowel sounds active all four quadrants, no masses, no organomegaly. Extremities: Right foot still have significant irritation edema redness with warmness to touch with significant decreased circulation. Pulses: 2+ and symmetric. Skin: Skin color, texture, tugor normal, no rashes or lesions. Neurologic: Alert oriented x3 cranial nerves II through XII intact, no motor deficit, no abnormal balance or gait. ASSESSMENT AND PLAN: _Altered mental status: Most likely sign and symptom of uremia, urinary tract infection severe dehydration and acute kidney injury treated underlying disease has helped some to some degree patient still not totally normal but his mentation has improved some. _Acute kidney injury with Chronic kidney disease: Holding off on MIKKI inhibitor at this point and continue to watch for any retention catheter remain on continue hydration. _Osteomyelitis of the right foot, has not healed well still have slight bone exposure, vascular still recommending no debridement or amputation and consulted wound care which will continue topical care for now the patient is ready for amputation. _Recent history of Klebsiella pneumonia urinary tract infection still on Rocephin seems to cover well but had some yeast growing patient will be on Diflucan as well. _Severe PAD with nonhealing osteomyelitis of the right foot vascular believe patient will need above-knee amputation. Will wait till after his urinary tract infection is treated and believe this amputation will be done on different hospitalization when patient is ready. _Peripheral neuropathy: Remain on gabapentin 1600 mg at nighttime. _Chronic pain syndrome: Continue hydrocodone orally. _Type 2 diabetes with hyperglycemia: Continue Accu-Chek with sliding scales cove rage might benefit from adding long acting insulin at nighttime. _Hypothyroidism: Still on levothyroxine 112 mcg daily. _Hypertension: Blood pressure still slightly below but continue lisinopril 20 mg a day. _Hyperlipidemia: Was on simvastatin has been hold currently which will be resumed soon as patient able to tolerate medication. _Morbid obesity with BMI of 43.9: Which increases risk factor of complication. _Abnormal balance and gait doing rehab physical therapy ambulating with wheelchair mostly. Discussion: Continue hydration, continue to see vascular, wound care, nephrology and infectious disease patient is not making much urine his kidney function and still not doing that well with GFR is down to 24 with stage IV chronic kidney disease patient does not require dialysis yet but furthermore declined at this point compared to his normal status which make his mortality much higher make life more complicated specially dealing with element of nonhealing osteomyelitis along with nonhealing ulcer might require amputation on the top of acute kidney failure and recurrent urinary tract infection with urinary retention and worsening kidney function. As of now patient's CODE STATUS still full code even earlier was discussed the possibility of DO NOT RESUSCITATE and possible palliative care the patient is full code as of now. Objective - Vital Signs Vital signs: Vital Signs Temp 97.6 F 01/13/24 01:51 Pulse 75 01/13/24 01:51 Resp 17 01/13/24 01:51 BP 100/71 01/13/24 04:30 Pulse Ox 97 01/13/24 01:51 FiO2 Intake & Output 01/12/24 01/13/24 01/13/24 18:59 06:59 18:59 Output Total 300 600 Balance -300 -600 Output: Urine 300 600 Other: Voiding Method Indwelling Catheter Indwelling Catheter - Labs CBC & Chem 7: 01/12/24 04:57 01/13/24 04:53 Labs: Abnormal Lab Results - Last 24 Hours (Table) 01/12/24 01/12/24 01/12/24 Range/Units 04:57 04:57 12:05 RBC 2.93 L (4.40-5.60) X 10*6/uL Hgb 8.1 L (13.0-17.0) g/dL Hct 26.8 L (39.6-50.0) % MCHC 30.2 L (32.0-37.0) g/dL RDW 15.1 H (11.5-14.5) % Chloride 111 H (96-109) mmol/L BUN 68.5 H (9.0-27.0) mg/dL Creatinine 2.8 H (0.6-1.5) mg/dL Est GFR (CKD-EPI) 23 L (>=60) BUN/Creatinine Ratio 24.46 H (12.00-20.00) Ratio Glucose 147 H (70-110) mg/dL POC Glucose (mg/dL) 133 H (70-110) mg/dL Calcium 8.1 L (8.7-10.3) mg/dL Total Bilirubin <0.2 L (0.3-1.2) mg/dL Alkaline Phosphatase 191 H (41-126) U/L Total Protein 5.5 L (6.2-8.2) g/dL Albumin 2.6 L (3.8-4.9) g/dL Albumin/Globulin Ratio 0.90 L (1.60-3.17) Ratio 01/12/24 Range/Units 16:43 RBC (4.40-5.60) X 10*6/uL Hgb (13.0-17.0) g/dL Hct (39.6-50.0) % MCHC (32.0-37.0) g/dL RDW (11.5-14.5) % Chloride (96-109) mmol/L BUN (9.0-27.0) mg/dL Creatinine (0.6-1.5) mg/dL Est GFR (CKD-EPI) (>=60) BUN/Creatinine Ratio (12.00-20.00) Ratio Glucose (70-110) mg/dL POC Glucose (mg/dL) 158 H (70-110) mg/dL Calcium (8.7-10.3) mg/dL Total Bilirubin (0.3-1.2) mg/dL Alkaline Phosphatase (41-126) U/L Total Protein (6.2-8.2) g/dL Albumin (3.8-4.9) g/dL Albumin/Globulin Ratio (1.60-3.17) Ratio
[2024-01-14 08:59] LABS: HCT 27.5 % (39.6-50.0); HGB 8.2 g/dL (13.0-17.0); MCH 27.5 pg (27.0-32.0); MCHC 29.8 g/dL (32.0-37.0); MCV 92.3 FL (80.0-97.0); Mean Platelet Volume 10.3 FL (9.5-12.2); NRBC Per 100 WBC 0 X 10*3/uL (0.00-0.01); Platelet Count 302 X 10*3/uL (140-440); RBC 2.98 X 10*6/uL (4.40-5.60); RDW 15.6 % (11.5-14.5); WBC 9.01 X 10*3/uL (4.50-10.00)
--- NOTE | 2024-01-14 09:14 | P.PN ---
Subjective Progress Note Date: 01/14/24 Principal diagnosis: Chronic nonhealing right foot wounds Patient seen and examined today as a follow-up. No acute changes through the night. Patient was seen by wound care. He has been afebrile. No leukocytosis. Objective - Vital Signs Vital signs: Vital Signs Temp 97.6 F 01/14/24 07:11 Pulse 77 01/14/24 07:11 Resp 16 01/14/24 07:11 BP 126/64 01/14/24 07:11 Pulse Ox 98 01/14/24 07:11 FiO2 Intake & Output 01/13/24 01/14/24 01/14/24 18:59 06:59 18:59 Output Total 900 400 Balance -900 -400 Output: Urine 900 400 Other: Voiding Method Indwelling Catheter Indwelling Catheter - Exam General appearance: The patient is alert, oriented, appears in no acute distress. Morbidly obese. HET: Head is normocephalic and atraumatic. Pupils are equal and reactive. Neck: Supple. Abdomen: Soft, nontender, nondistended. Extremities: Right foot with dressing clean dry and intact. Neurological: No focal deficits. - Labs CBC & Chem 7: 01/14/24 06:22 01/13/24 04:53 Labs: Abnormal Lab Results - Last 24 Hours (Table) 01/13/24 01/13/24 01/13/24 Range/Units 04:53 04:53 11:48 RBC (4.40-5.60) X 10*6/uL Hgb (13.0-17.0) g/dL Hct (39.6-50.0) % MCHC (32.0-37.0) g/dL RDW (11.5-14.5) % Chloride 112 H (96-109) mmol/L BUN 66.8 H (9.0-27.0) mg/dL Creatinine 2.7 H (0.6-1.5) mg/dL Est GFR (CKD-EPI) 24 L (>=60) BUN/Creatinine Ratio 24.74 H (12.00-20.00) Ratio POC Glucose (mg/dL) 118 H (70-110) mg/dL Calcium 7.9 L (8.7-10.3) mg/dL Iron 34 L (65-175) UG/DL TIBC 127 L (228-460) UG/DL Transferrin 90.4 L (204.0-354.0) mg/dL 01/13/24 01/13/24 01/14/24 Range/Units 16:37 21:26 06:22 RBC 2.98 L (4.40-5.60) X 10*6/uL Hgb 8.2 L (13.0-17.0) g/dL Hct 27.5 L (39.6-50.0) % MCHC 29.8 L (32.0-37.0) g/dL RDW 15.6 H (11.5-14.5) % Chloride (96-109) mmol/L BUN (9.0-27.0) mg/dL Creatinine (0.6-1.5) mg/dL Est GFR (CKD-EPI) (>=60) BUN/Creatinine Ratio (12.00-20.00) Ratio POC Glucose (mg/dL) 170 H 133 H (70-110) mg/dL Calcium (8.7-10.3) mg/dL Iron (65-175) UG/DL TIBC (228-460) UG/DL Transferrin (204.0-354.0) mg/dL Microbiology - Last 24 Hours (Table) 01/11/24 18:22 Urine Culture - Final Urine,Voided Kirstie albicans Assessment and Plan Assessment: 1. Infected chronic nonhealing right foot wound 2. Bilateral lower extremity wounds 3. Charcot foot with osteomyelitis 4. Diabetes mellitus 5. Morbid obesity BMI greater than 47 6. Nonambulatory 7. Acute on chronic kidney injury Plan: 1. Continue offloading right foot 2. Wound care consulted. Continue local wound care per their recommendations 3. No plans on surgical debridement of right foot wounds 4. Discussed with patient wounds likely will not heal and at some point will need to discuss right [id number] amputation however this can be done as an outpatient as patient once UTI resolved Thank you for this consultation, we will sign off at this time. The impression and plan of care has been dictated as directed. Dr. Gray I performed a history and examination of this patient, discussed the same with the dictator. I agree with the dictator's note ,documented as a scribe. Any additional findings or plans will be noted.
[2024-01-14 09:24] LABS: BUN/Creat Ratio 25.31 Ratio (12.00-20.00); Blood Urea Nitrogen 65.8 mg/dL (9.0-27.0); Chloride 112 mmol/L (96-109); Glucose 75 mg/dL (70-110); Potassium 5.3 mmol/L (3.5-5.5); Sodium 143 mmol/L (135-145)
[2024-01-14 09:25] LABS: ALT 15 U/L (10-49); AST 24 U/L (14-35); Albumin 2.4 g/dL (3.8-4.9); Albumin/Globulin Ratio 0.89 Ratio (1.60-3.17); Alkaline Phosphatase 194 U/L (41-126); Calcium 7.9 mg/dL (8.7-10.3); Carbon Dioxide 24.8 mmol/L (21.6-31.8); Globulin 2.7 g/dL (1.6-3.3); Total Bilirubin <0.2 mg/dL (0.3-1.2); Total Protein 5.1 g/dL (6.2-8.2)
--- NOTE | 2024-01-14 09:28 | P.PN ---
Subjective Patient seen at bedside. No significant overnight events. Serum creatinine 2.7 yesterday and today is 2.6 Nephrology consulted for acute kidney injury No complaints today from the patient. Indwelling Gray catheter in place for urinary retention. Objective - Vital Signs Vital signs: Vital Signs Temp 97.6 F 01/14/24 07:11 Pulse 77 01/14/24 07:11 Resp 16 01/14/24 07:11 BP 126/64 01/14/24 07:11 Pulse Ox 97 01/14/24 09:16 FiO2 Intake & Output 01/13/24 01/14/24 01/14/24 18:59 06:59 18:59 Output Total 900 400 Balance -900 -400 Output: Urine 900 400 Other: Voiding Method Indwelling Catheter Indwelling Catheter - Exam patient is awake, comfortable, no acute distress. Examination of the heart S1 and S2 Examination of the lungs bilateral breath sounds are heard Abdomen is soft nontender obese Examination lower extremity shows chronic skin changes with chronic edema noted - Labs CBC & Chem 7: 01/14/24 06:22 01/14/24 06:22 Labs: Abnormal Lab Results - Last 24 Hours (Table) 01/13/24 01/13/24 01/13/24 Range/Units 11:48 16:37 21:26 RBC (4.40-5.60) X 10*6/uL Hgb (13.0-17.0) g/dL Hct (39.6-50.0) % MCHC (32.0-37.0) g/dL RDW (11.5-14.5) % POC Glucose (mg/dL) 118 H 170 H 133 H (70-110) mg/dL 01/14/24 Range/Units 06:22 RBC 2.98 L (4.40-5.60) X 10*6/uL Hgb 8.2 L (13.0-17.0) g/dL Hct 27.5 L (39.6-50.0) % MCHC 29.8 L (32.0-37.0) g/dL RDW 15.6 H (11.5-14.5) % POC Glucose (mg/dL) (70-110) mg/dL Microbiology - Last 24 Hours (Table) 01/11/24 18:22 Urine Culture - Final Urine,Voided Kirstie albicans Assessment and Plan Assessment: 1. Acute kidney injury most likely related to urine retention and a component of ATN from borderline low blood pressure in the setting of use of MIKKI inhibitor's. 2. CK D stage III A/IIIB most likely secondary to diabetic kidney disease 3. History of recent UTI with Klebsiella, on 12/26/2023 4. Peripheral vascular disease 5. Anemia, most likely anemia of chronic disease. Iron replete. Plan: Continue with IV fluids Continue with Gray catheter Continue Flomax Continue to hold MIKKI inhibitor's Repeat labs in a.m. Hold off on repleting iron due to active infection. Avoid hypotension. Agree with resident's findings, assessment and plan.
--- NOTE | 2024-01-14 10:40 | P.PN ---
Subjective Progress Note Date: 01/14/24 HISTORY OF PRESENT ILLNESS: 73-year-old morbidly obese with active medical history of COPD, atherosclerotic heart disease post myocardial infarction, severe peripheral arterial disease with infected right foot, history of type 2 diabetes, chronic kidney disease, chronic history of neuropathy, chronic pain syndrome, history of hypertension, hyperlipidemia, hypothyroidism, severe GERD and hiatal hernia, BPH with history of urinary retention who was hospitalized recently for sepsis and infected right foot was transferred back to [facility] 2 weeks ago on Rocephin to complete total of 2 weeks. He become the last 48 hours with significant change in mental status and worsening confusion along with encephalopathy not a clear etiology with his lab showing significant uremia with worsening kidney function as acute kidney injury on chronic kidney disease patient claimed that he is not eating and drinking much lately his GFR dropped down as low as 20 from but used to be around 40 few days earlier. With the current change and he become less responsive today with much worsening mentation not waking up that easy ended up coming to the emergency department at [facility] where was seen and evaluated originally His laboratory value shows anemia with hemoglobin of 9.6 few days earlier was close to 8. Blood test shows quite a alkalosis with a CO2 of 26, potassium at 5.2 with bun of 79 creatinine 2.58 with alkaline phosphatase at 180 UA showed few RBCs and WBCs + of chronic kidney disease. After an outpatient remain on Rocephin 2 g daily. He is also still on furosemide 20 mg a day only. Yesterday found to have slight urinary retention with bladder scan showed around 400 cc he was able to void 100 cc and had straight cath to evacuate his bladder. With his worsening condition and up coming to the emergency department today was seen and evaluated further testing including EKG shows supraventricular arrhythmia with marked ST abnormality and nonspecific change overall. No CAT scan of the brain was done the chest x-ray shows no acute pulmonary process with mild cardiomegaly only ultrasound of the kidney showed thickening along the midportion of the right kidney need additional evaluation to exclude possibility of mass. Start hydrating patient Gray catheter was inserted patient be hospitalized will consult nephrology will continue to improve his uremia received to change his mental status get him back to his baseline. 01/12/2024: Still quite bit confused this morning but slightly better has Gray catheter making slight urine output with his chemistry still pending and has not seen nephrology yet. His ultrasound of the kidney came back slightly better off might send him for CAT scan without contrast. Meanwhile his right foot still being cared for with Rocephin and topical care will consult infectious disease to continue current management for his infection. His altered mental status is related to encephalopathy from uremia has improved slightly with only will continue aggressive management hoping to get patient to his baseline. Comorbidity patient is going through the combination of his severe PAD, osteomyelitis of the right foot along with the declining kidney function and worsening anasarca overall is not a good sign his mortality still quite bit high in the next few weeks. 01/13/2024: Vascular had seen patient in consultation apparently talked again about above-knee amputation involve wound care at this point patient was going to wound care and [facility]. Nonhealing ulceration with bone involvement without necrosis wound care decided to continue Santyl with saline moistened gauze and dry gauze and wound care are willing to follow-up patient as an outpatient. Nephrology advised patient had an acute kidney injury with acute tubular necrosis with low blood pressure was using MIKKI inhibitor was taking off medication for now continue to be treated for UTI mostly Klebsiella and continue management for anemia with iron replacement. Infectious disease believe patient is will cover with Rocephin currently his urine is growing candidiasis and starting Diflucan to see if there is any respond to it. Supportive care for debridement on the right foot I do not think patient is ready yet for amputation at this point. 01/14/2024: Blood pressure has improved to some degree, patient had last night pulse up to 120 slightly tachycardic but not symptomatic and settled down came down to 82 on its own pulse ox remained good at this point. His kidney function did not improve much fact has declined is down with GFR 24 and chronic kidney disease stage IV, continue to make some urine on his Gray with urine culture this time shows Kirstie albicans and patient was started on Diflucan beside his Rocephin. He was seen nephrology, infectious disease and wound care with vascular he is rudy continue wound care for now continue to treat UTI and continue to watch his kidney function to see if patient eventually might require dialysis but vascular holding off on any debridement or intervention they believe eventually patient will require amputation decision to be made after his UTIs are clear. REVIEW OF SYSTEMS: CONSTITUTIONAL: Morbidly obese in no acute respiratory distress. EYES: No icterus sclerae, no conjunctivitis. EARS, NOSE, MOUTH, THROAT, and FACE: No sore throat, lymphadenopathy, carotid bruits or deformity. RESPIRATORY: No SOB cough or wheezes. CARDIOVASCULAR: No chest pain positive PND orthopnea palpitation with edema. GASTROINTESTINAL: No Abd pain, Nausea or vomiting, no Diarrhea or constipation, No GI Bleed, no distention or masses. GENITOURINARY: Negative for Hematuria or UTI, no kidney stones. Mild incontinence. INTEGUMENT/BREAST: Negative for any muscular injury with mild osteoarthritis.. HEMATOLOGIC/LYMPHATIC: Negative for bleed or purpura. MUSCULOSKELTAL: Myalgia and arthralgia with significant loss of tissue discomfort in the right foot. NEURLOGICAL: No LOC, Sz or syncope, blurred vision dizziness or abnormality.. BEHAVIORAL/PSYCH: Negative. ENDOCRINE: Negative. PHYSICAL EXAMINATION: General Appearance: Alert, cooperative, no distress, appears stated age. Neck HEENT: Supple, no lymphadenopathy, no thyroid enlargement, no carotid bruits. Lungs: Decreased breath sound bilaterally with fine rhonchi no crackles or wheezes. Chest Wall: Chest wall normal expansion with deep inspiration no tenderness and no deformity was found on exam, no costochondral pain or discomfort. Heart: Regular rate and rhythm, S1, S2 normal, no murmur, rub or gallop. Back: Symmetric, no curvature, ROM normal, no CVA tenderness. Abdomen: Soft, non-tender, bowel sounds active all four quadrants, no masses, no organomegaly. Extremities: Right foot still have significant irritation edema redness with warmness to touch with significant decreased circulation. Pulses: 2+ and symmetric. Skin: Skin color, texture, tugor normal, no rashes or lesions. Neurologic: Alert oriented x3 cranial nerves II through XII intact, no motor deficit, no abnormal balance or gait. ASSESSMENT AND PLAN: _Altered mental status: Most likely sign and symptom of uremia, urinary tract infection severe dehydration and acute kidney injury treated underlying disease has helped some to some degree patient still not totally normal but his m entation has improved some. _Acute kidney injury with Chronic kidney disease: Holding off on MIKKI inhibitor at this point and continue to watch for any retention catheter remain on continue hydration. _Osteomyelitis of the right foot, has not healed well still have slight bone exposure, vascular still recommending no debridement or amputation and consulted wound care which will continue topical care for now the patient is ready for amputation. _Recent history of Klebsiella pneumonia urinary tract infection still on Rocephin seems to cover well but had some yeast growing patient will be on Diflucan as well. _Severe PAD with nonhealing osteomyelitis of the right foot vascular believe jesús mauricio will need above-knee amputation. Will wait till after his urinary tract infection is treated and believe this amputation will be done on different hospitalization when patient is ready. _Peripheral neuropathy: Remain on gabapentin 1600 mg at nighttime. _Chronic pain syndrome: Continue hydrocodone orally. _Type 2 diabetes with hyperglycemia: Continue Accu-Chek with sliding scales coverage might benefit from adding long acting insulin at nighttime. _Hypothyroidism: Still on levothyroxine 112 mcg daily. _Hypertension: Blood pressure still slightly below but continue lisinopril 20 mg a day. _Hyperlipidemia: Was on simvastatin has been hold currently which will be resumed soon as patient able to tolerate medication. _Morbid obesity with BMI of 43.9: Which increases risk factor of complication. _Abnormal balance and gait doing rehab physical therapy ambulating with wheelchair mostly. Discussion: Continue aggressive medical management I do not believe patient is going to leave the hospital on the weekend will continue to watch his kidney function for the next few days if kidney function declined further more might require hemodialysis otherwise we are holding off for the time being to see if any more complication might arise we will hold off and probably plan to send him back to [facility] on Wednesday if he is more stable. Objective - Vital Signs Vital signs: Vital Signs Temp 97.7 F 01/14/24 02:00 Pulse 82 01/14/24 02:00 Resp 16 01/13/24 21:30 BP 133/67 01/14/24 02:00 Pulse Ox 99 01/14/24 02:00 FiO2 Intake & Output 01/13/24 01/14/24 01/14/24 18:59 06:59 18:59 Output Total 900 400 Balance -900 -400 Output: Urine 900 400 Other: Voiding Method Indwelling Catheter Indwelling Catheter - Labs CBC & Chem 7: 01/14/24 06:22 01/14/24 06:22 Labs: Abnormal Lab Results - Last 24 Hours (Table) 01/13/24 01/13/24 01/13/24 Range/Units 04:53 04:53 11:48 Chloride 112 H (96-109) mmol/L BUN 66.8 H (9.0-27.0) mg/dL Creatinine 2.7 H (0.6-1.5) mg/dL Est GFR (CKD-EPI) 24 L (>=60) BUN/Creatinine Ratio 24.74 H (12.00-20.00) Ratio POC Glucose (mg/dL) 118 H (70-110) mg/dL Calcium 7.9 L (8.7-10.3) mg/dL Iron 34 L (65-175) UG/DL TIBC 127 L (228-460) UG/DL Transferrin 90.4 L (204.0-354.0) mg/dL 01/13/24 01/13/24 Range/Units 16:37 21:26 Chloride (96-109) mmol/L BUN (9.0-27.0) mg/dL Creatinine (0.6-1.5) mg/dL Est GFR (CKD-EPI) (>=60) BUN/Creatinine Ratio (12.00-20.00) Ratio POC Glucose (mg/dL) 170 H 133 H (70-110) mg/dL Calcium (8.7-10.3) mg/dL Iron (65-175) UG/DL TIBC (228-460) UG/DL Transferrin (204.0-354.0) mg/dL Microbiology - Last 24 Hours (Table) 01/11/24 18:22 Urine Culture - Final Urine,Voided Kirstie albicans
[2024-01-14 11:27] LABS: Glucose,Whole Blood 108 mg/dL (70-110)
--- NOTE | 2024-01-14 13:27 | P.PN ---
Subjective Progress Note Date: 01/14/24 Principal diagnosis: Reason for follow-up is right diabetic foot wound and UTI Patient is a 73-year-old male with a past medical history significant for diabetes mellitus hypertension hyperlipidemia MT COPD recent admission to this facility patient did have right diabetic foot ulcer status post surgical debridement was on IV Rocephin being admitted to hospital mental status changes with concern for symptomatic UTI/worsening of the right foot ulcer. On today's evaluation that is 01/14/2024, the patient continues to be afebrile, the patient is on 2 L nasal cannula oxygen and breathing comfortably, the Pt denies having any chest pain or cough, the patient denies having any abdominal pain no vomiting or any diarrhea has been reported, no new symptoms. Patient white count is 9.01, creatinine is 2.6 urine with Kirstie Objective - Vital Signs Vital signs: Vital Signs Temp 97.6 F 01/14/24 07:11 Pulse 77 01/14/24 07:11 Resp 16 01/14/24 07:11 BP 126/64 01/14/24 07:11 Pulse Ox 97 01/14/24 09:16 FiO2 Intake & Output 01/13/24 01/14/24 01/14/24 18:59 06:59 18:59 Output Total 900 400 Balance -900 -400 Output: Urine 900 400 Other: Voiding Method Indwelling Catheter Indwelling Catheter Indwelling Catheter - Exam GENERAL DESCRIPTION: An elderly male lying in bed in no distress RESPIRATORY SYSTEM: Unlabored breathing , decreased breath sounds at bases HEART: S1 S2 regular rate and rhythm , ABDOMEN: Soft , no tenderness EXTREMITIES: Right foot plantar wound with slough tissue no foul-smelling d rainage - Labs CBC & Chem 7: 01/14/24 06:22 01/14/24 06:22 Labs: Abnormal Lab Results - Last 24 Hours (Table) 01/13/24 01/13/24 01/14/24 Range/Units 16:37 21:26 06:22 RBC 2.98 L (4.40-5.60) X 10*6/uL Hgb 8.2 L (13.0-17.0) g/dL Hct 27.5 L (39.6-50.0) % MCHC 29.8 L (32.0-37.0) g/dL RDW 15.6 H (11.5-14.5) % Chloride (96-109) mmol/L BUN (9.0-27.0) mg/dL Creatinine (0.6-1.5) mg/dL Est GFR (CKD-EPI) (>=60) BUN/Creatinine Ratio (12.00-20.00) Ratio POC Glucose (mg/dL) 170 H 133 H (70-110) mg/dL Calcium (8.7-10.3) mg/dL Total Bilirubin (0.3-1.2) mg/dL Alkaline Phosphatase (41-126) U/L Total Protein (6.2-8.2) g/dL Albumin (3.8-4.9) g/dL Albumin/Globulin Ratio (1.60-3.17) Ratio 01/14/24 Range/Units 06:22 RBC (4.40-5.60) X 10*6/uL Hgb (13.0-17.0) g/dL Hct (39.6-50.0) % MCHC (32.0-37.0) g/dL RDW (11.5-14.5) % Chloride 112 H (96-109) mmol/L BUN 65.8 H (9.0-27.0) mg/dL Creatinine 2.6 H (0.6-1.5) mg/dL Est GFR (CKD-EPI) 25 L (>=60) BUN/Creatinine Ratio 25.31 H (12.00-20.00) Ratio POC Glucose (mg/dL) (70-110) mg/dL Calcium 7.9 L (8.7-10.3) mg/dL Total Bilirubin <0.2 L (0.3-1.2) mg/dL Alkaline Phosphatase 194 H (41-126) U/L Total Protein 5.1 L (6.2-8.2) g/dL Albumin 2.4 L (3.8-4.9) g/dL Albumin/Globulin Ratio 0.89 L (1.60-3.17) Ratio Microbiology - Last 24 Hours (Table) 01/11/24 18:22 Urine Culture - Final Urine,Voided Kirstie albicans Assessment and Plan (1) Diabetic foot infection Current Visit: No Status: Acute Code(s): E11.628 - TYPE 2 DIABETES MELLITUS WITH OTHER SKIN COMPLICATIONS; L08.9 - LOCAL INFECTION OF THE SKIN AND SUBCUTANEOUS TISSUE, UNSP SNOMED Code(s): 243691552 (2) Diabetic foot ulcer Current Visit: No Status: Acute Code(s): E11.621 - TYPE 2 DIABETES MELLITUS WITH FOOT ULCER; L97.509 - NON-PRESSURE CHRONIC ULCER OTH PRT UNSP FOOT W UNSP SEVERITY SNOMED Code(s): 555604122 Plan: 1patient presented to the hospital with confusion and weakness which is likely multifactorial patient did have worsening of his kidney function most likely contributing to his symptomatology, did have a positive UA but not a very clear he noticed symptoms 2patient also have right foot ulcer which has shown some worsening with more slough tissue vascular surgery was consulted for possible debridement however the they have consulted wound care for local wound care and are planning for any debridement 3patient to continue with Rocephin for his right foot wound infection and osteomyelitis 4-urine is growing Kirstie albicans will consider short course of Diflucan and monitor clinical course closely Dictation was produced using [email or web address] dictation software. please excuse any grammatical, word or spelling errors. Time with Patient: Less than 30
[2024-01-14 13:38] VITALS: BMI 47.5
--- NOTE | 2024-01-14 13:54 | CDI ---
Documentation Clarification Form Date: 01/14/2024 12:54:16 PM From: Edwina Chau RN CCDS Phone: [phone] Admit Date: 01/11/2024 07:14:00 PM Patient Name: Mateusz Levin Visit Number: [id number] Discharge Date: ATTENTION: The Clinical Documentation Specialists (CDI) and [facility] Coding Staff appreciate your assistance in clarifying documentation. Please respond to the clarification below the line at the bottom and electronically sign. The CDI & [facility] Coding staff will review the response and follow-up if needed. Please note: Queries are made part of the Legal Health Record. If you have any questions, please contact the author of this message via ITS. Doctor: Mateusz Montoya Conflicting documentation has been found in the medical record. As attending physician, please provide clarification. 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 01/13, Medicine note: His kidney function did not improve much fact has declined is down with GFR 24 and chronic kidney disease stage IV History/Risk Factors: 73 year old male presents to the ED for significant change in mental status and worsening confusion along with encephalopathy not a clear etiology with his lab showing significant uremia with worsening kidney function as acute injury on chronic kidney disease patient claimed that he is not eating and drinking much lately his GFR dropped down as low as 20 from but used to be around 40 few days earlier. Patients Historical 11/22 BUN 39 / CR 1.60 / GFR 43 Clinical Indicators: Current 01/10:BUN 79 / CR 2.58 / GFR 24 Treatment: Marina Ugalde, Nephrology Consult, 01/10 0.9ns 500cc IV bolus, 01/10 0.9ns IV 100cc/hr; 01/11 Flomax 0.4mg PO Daily, Please clarify which diagnosis is most appropriate: [ ] CKD 3a [ ] CKD 3b [ ] CKD 4 [ ] Other (please specify) [ ] Unable to determine Reference: [employer] Stage 1 eGFR = 90 and kidney damage for =3 months Stage 2 eGFR 60-89 and kidney damage for =3 months Stage 3a eGFR 45-59 and kidney damage for =3 months Stage 3b eGFR 30-44 and kidney damage for =3 months Stage 4 eGFR 15-29 r and kidney damage for =3 months Stage 5 eGFR <15 and kidney damage for =3 months (Template Last Revised: June 2020) MTDD
[2024-01-14 16:47] LABS: Glucose,Whole Blood 106 mg/dL (70-110)
[2024-01-14 21:01] LABS: Glucose,Whole Blood 58 mg/dL (70-110)
[2024-01-14 21:32] LABS: Glucose,Whole Blood 73 mg/dL (70-110)
[2024-01-15 02:14] LABS: Glucose,Whole Blood 85 mg/dL (70-110)
[2024-01-15 05:48] LABS: Glucose,Whole Blood 86 mg/dL (70-110)
[2024-01-15 11:45] LABS: Glucose,Whole Blood 109 mg/dL (70-110)
--- NOTE | 2024-01-15 14:28 | P.PN ---
Subjective Progress Note Date: 01/15/24 Patient seen in follow-up for MARIAN. Feeling well and no new complaints today. Continues with Gray. patient is awake, comfortable, no acute distress. Examination of the heart S1 and S2 Examination of the lungs bilateral breath sounds are heard Abdomen is soft nontender obese Examination lower extremity shows chronic skin changes with chronic edema noted Objective - Vital Signs Vital signs: Vital Signs Temp 97.7 F 01/15/24 07:06 Pulse 87 01/15/24 08:00 Resp 16 01/15/24 08:00 BP 107/52 01/15/24 07:06 Pulse Ox 92 L 01/15/24 07:06 FiO2 Intake & Output 01/14/24 01/15/24 01/15/24 18:59 06:59 18:59 Output Total 300 200 Balance -300 -200 Weight 150.139 kg Output: Urine 300 200 Other: Voiding Method Indwelling Catheter Indwelling Catheter Indwelling Catheter # Bowel Movements 1 - Labs CBC & Chem 7: 01/14/24 06:22 01/14/24 06:22 Labs: Abnormal Lab Results - Last 24 Hours (Table) 01/14/24 Range/Units 21:00 POC Glucose (mg/dL) 58 L (70-110) mg/dL Assessment and Plan Assessment: 1. Acute kidney injury most likely related to urine retention and a component of ATN from borderline low blood pressure in the setting of use of MIKKI inhibitor's. 2. CKD stage III A/IIIB most likely secondary to diabetic kidney disease. Baseline creatinine 1.2-1.4 mg/dL 3. History of recent UTI with Klebsiella, on 12/26/2023 4. Peripheral vascular disease 5. Anemia, most likely anemia of chronic disease. Iron replete. Plan: Continue with IV fluids Continue with Gray catheter Continue Flomax Continue to hold MIKKI inhibitor's Repeat labs in a.m. Avoid hypotension.
--- NOTE | 2024-01-15 15:20 | P.PN ---
Subjective Progress Note Date: 01/15/24 Interval History: 73-year-old morbidly obese with active medical history of COPD, atherosclerotic heart disease post myocardial infarction, severe peripheral arterial disease with infected right foot, history of type 2 diabetes, chronic kidney disease, chronic history of neuropathy, chronic pain syndrome, history of hypertension, hyperlipidemia, hypothyroidism, severe GERD and hiatal hernia, BPH with history of urinary retention who was hospitalized recently for sepsis and infected right foot was transferred back to [facility] 2 weeks ago on Rocephin to complete total of 2 weeks. He become the last 48 hours with significant change in mental status and worsening confusion along with encephalopathy not a clear etiology with his lab showing significant uremia with worsening kidney function as acute kidney injury on chronic kidney disease patient claimed that he is not eating and drinking much lately his GFR dropped down as low as 20 from but used to be around 40 few days earlier. With the current change and he become less responsive today with much worsening mentation not waking up that easy ended up coming to the emergency department at [facility] where was seen and evaluated originally His laboratory value shows anemia with hemoglobin of 9.6 few days earlier was close to 8. Blood test shows quite a alkalosis with a CO2 of 26, potassium at 5.2 with bun of 79 creatinine 2.58 with alkaline phosphatase at 180 UA showed few RBCs and WBCs + of chronic kidney disease. After an outpatient remain on Rocephin 2 g daily. He is also still on furosemide 20 mg a day only. Yesterday found to have slight urinary retention with bladder scan showed around 400 cc he was able to void 100 cc and had straight cath to evacuate his bladder. With his worsening condition and up coming to the emergency department today was seen and evaluated further testing including EKG shows supraventricular arrhythmia with marked ST abnormality and nonspecific change overall. No CAT scan of the brain was done the chest x-ray shows no acute pulmonary process with mild cardiomegaly only ultrasound of the kidney showed thickening along the midportion of the right kidney need additional evaluation to exclude possibility of mass. Start hydrating patient Gray catheter was inserted patient be hospitalized will consult nephrology will continue to improve his uremia received to change his mental status get him back to his baseline. 01/12/2024: Still quite bit confused this morning but slightly better has Gray catheter making slight urine output with his chemistry still pending and has not seen nephrology yet. His ultrasound of the kidney came back slightly better off might send him for CAT scan without contrast. Meanwhile his right foot still being cared for with Rocephin and topical care will consult infectious disease to continue current management for his infection. His altered mental status is related to encephalopathy from uremia has improved slightly with only will continue aggressive management hoping to get patient to his baseline. Comorbidity patient is going through the combination of his severe PAD, osteomyelitis of the right foot along with the declining kidney function and worsening anasarca overall is not a good sign his mortality still quite bit high in the next few weeks. 01/13/2024: Vascular had seen patient in consultation apparently talked again about above-knee amputation involve wound care at this point patient was going to wound care and [facility]. Nonhealing ulceration with bone involvement without necrosis wound care decided to continue Santyl with saline moistened gauze and dry gauze and wound care are willing to follow-up patient as an outpatient. Nephrology advised patient had an acute kidney injury with acute tubular necrosis with low blood pressure was using MIKKI inhibitor was taking off medication for now continue to be treated for UTI mostly Klebsiella and continue management for anemia with iron replacement. Infectious disease believe patient is will cover with Rocephin currently his urine is growing candidiasis and starting Diflucan to see if there is any respond to it. Supportive care for debridement on the right foot I do not think patient is ready yet for amputation at this point. 01/14/2024: Blood pressure has improved to some degree, patient had last night pulse up to 120 slightly tachycardic but not symptomatic and settled down came down to 82 on its own pulse ox remained good at this point. His kidney function did not improve much fact has declined is down with GFR 24 and chronic kidney disease stage IV, continue to make some urine on his Gray with urine culture this time shows Kirstie albicans and patient was started on Diflucan beside his Rocephin. He was seen nephrology, infectious disease and wound care with vascular he is rudy continue wound care for now continue to treat UTI and continue to watch his kidney function to see if patient eventually might require dialysis but vascular holding off on any debridement or intervention they believe eventually patient will require amputation decision to be made after his UTIs are clear. 01/15/2024--- patient was seen and examined today. Mild confusion. Following labs. Nephrology following, recommended to continue IV fluids, maintain Gray's catheter, Flomax, hold MIKKI inhibitor. Monitor labs. Avoid hypotension. Patient is currently on Rocephin and Diflucan, infectious disease following. Assessment and plan: _Altered mental status: Most likely sign and symptom of uremia, urinary tract infection severe dehydration and acute kidney injury treated underlying disease has helped some to some degree patient still not totally normal but his mentation has improved some. _Acute kidney injury with Chronic kidney disease: _Hyperkalemia: Holding off on MIKKI inhibitor at this point and continue to watch for any retention catheter remain on continue hydration. _Osteomyelitis of the right foot, has not healed well still have slight bone exposure, vascular still recommending no debridement or amputation and consulted wound care which will continue topical care for now the patient is ready for amputation. _Recent history of Klebsiella pneumonia urinary tract infection still on Rocephin seems to cover well but had some yeast growing patient will be on Diflucan as well. _Severe PAD with nonhealing osteomyelitis of the right foot vascular believe patient will need above-knee amputation. Will wait till after his urinary tract infection is treated and believe this amputation will be done on different hospitalization when patient is ready. _Peripheral neuropathy: Remain on gabapentin 1600 mg at nighttime. _Chronic pain syndrome: Continue hydrocodone orally. _Type 2 diabetes with hyperglycemia: Continue Accu-Chek with sliding scales coverage might benefit from adding long acting insulin at nighttime. _Hypothyroidism: Still on levothyroxine 112 mcg daily. _Hypertension: Blood pressure still slightly below but continue lisinopril 20 mg a day. _Hyperlipidemia: Was on simvastatin has been hold currently which will be resumed soon as patient able to tolerate medication. _Morbid obesity with BMI of 43.9: Which increases risk factor of complication. _Abnormal balance and gait doing rehab physical therapy ambulating with wheelchair mostly. Discussion: Continue aggressive medical management, continue to watch his kidney function for the next few days if kidney function declined further more might require hemodialysis otherwise we are holding off for the time being to see if any more complication might arise we will hold off and probably plan to send him back to [facility] on Wednesday if he is more stable. PHYSICAL EXAMINATION: GENERAL: The patient is A&O x3, NAD HEENT: EOMI, Sclerae anicteric, Moist Mucous membranes Neck: Supple, Non tender, No JVD PULMONARY: Equal breath souds B/L, No wheezing, No crackles. CARDIOVASCULAR: S1, S2 present. No murmurs, rubs, or gallops. ABDOMEN: Soft, nontender, nondistended, normoactive bowel sounds. No guarding or rebound tenderness. MUSCULOSKELETAL: Right foot plantar wound with slough, no foul-smelling drainage. EXTREMITIES: No cyanosis, clubbing, or pedal edema. NEUROLOGICAL: CN 2-12 grossly intact. No FND Skin: No Rash REVIEW OF SYSTEMS: CONSTITUTIONAL: No fever or chills. CARDIOVASCULAR: No chest pain, palpitations or syncope. PULMONARY: No shortness of breath, no cough, sore throat. GASTROINTESTINAL: No nausea, vomiting, diarrhea, abdominal pain. : No Dysuria, urgency, frequency. Extremities: No edema. NEUROLOGICAL: No headaches, no weakness, or numbness Dictation was produced using [employer] dictation software. please excuse any grammatical, word or spelling errors. Objective - Vital Signs Vital signs: Vital Signs Temp 98.3 F 01/15/24 12:49 Pulse 87 01/15/24 12:49 Resp 19 01/15/24 12:49 BP 121/65 01/15/24 12:49 Pulse Ox 92 L 01/15/24 12:50 FiO2 Intake & Output 01/14/24 01/15/24 01/15/24 18:59 06:59 18:59 Output Total 300 200 Balance -300 -200 Weight 150.139 kg Output: Urine 300 200 Other: Voiding Method Indwelling Catheter Indwelling Catheter Indwelling Catheter # Bowel Movements 1 - Labs CBC & Chem 7: 01/14/24 06:22 01/14/24 06:22 Labs: Abnormal Lab Results - Last 24 Hours (Table) 01/14/24 Range/Units 21:00 POC Glucose (mg/dL) 58 L (70-110) mg/dL
--- NOTE | 2024-01-15 15:46 | P.PN ---
Subjective Progress Note Date: 01/15/24 Principal diagnosis: Reason for follow-up is right diabetic foot wound and UTI Patient is a 73-year-old male with a past medical history significant for diabetes mellitus hypertension hyperlipidemia AK COPD recent admission to this facility patient did have right diabetic foot ulcer status post surgical debridement was on IV Rocephin being admitted to hospital mental status changes with concern for symptomatic UTI/worsening of the right foot ulcer. On today's evaluation that is 01/15/2024, Patient is afebrile patient is currently on 3 L nasal oxygen and denies having any shortness of breath, the patient denies any chest pain or cough, the patient denies any nausea vomiting did not have any abdominal pain and no diarrhea. No new lab has been obtained today Objective - Vital Signs Vital signs: Vital Signs Temp 98.3 F 01/15/24 12:49 Pulse 87 01/15/24 12:49 Resp 19 01/15/24 12:49 BP 121/65 01/15/24 12:49 Pulse Ox 92 L 01/15/24 12:50 FiO2 Intake & Output 01/14/24 01/15/24 01/15/24 18:59 06:59 18:59 Output Total 300 200 Balance -300 -200 Weight 150.139 kg Output: Urine 300 200 Other: Voiding Method Indwelling Catheter Indwelling Catheter Indwelling Catheter # Bowel Movements 1 - Exam GENERAL DESCRIPTION: An elderly male lying in bed in no distress RESPIRATORY SYSTEM: Unlabored breathing , decreased breath sounds at bases HEART: S1 S2 regular rate and rhythm , ABDOMEN: Soft , no tenderness EXTREMITIES: Right foot plantar wound with slough tissue no foul-smelling drainage - Labs CBC & Chem 7: 01/14/24 06:22 01/14/24 06:22 Labs: Abnormal Lab Results - Last 24 Hours (Table) 01/14/24 Range/Units 21:00 POC Glucose (mg/dL) 58 L (70-110) mg/dL Assessment and Plan (1) Diabetic foot infection Current Visit: No Status: Acute Code(s): E11.628 - TYPE 2 DIABETES MELLITUS WITH OTHER SKIN COMPLICATIONS; L08.9 - LOCAL INFECTION OF THE SKIN AND SUBCUTANEOUS TISSUE, UNSP SNOMED Code(s): 567171769 (2) Diabetic foot ulcer Current Visit: No Status: Acute Code(s): E11.621 - TYPE 2 DIABETES MELLITUS WITH FOOT ULCER; L97.509 - NON-PRESSURE CHRONIC ULCER OTH PRT UNSP FOOT W UNSP SEVERITY SNOMED Code(s): 140463762 Plan: 1patient presented to the hospital with confusion and weakness which is likely multifactorial patient did have worsening of his kidney function most likely contributing to his symptomatology, did have a positive UA but not a very clear he noticed symptoms 2patient also have right foot ulcer which has shown some worsening with more slough tissue vascular surgery was consulted for possible debridement however the they have consulted wound care for local wound care and are planning for any debridement 3patient with a right foot wound and osteomyelitis to continue with Rocephin 4-patient urine is growing Kirstie albicans currently on Diflucan and seem to have shown some clinical improvement Dictation was produced using [employer] dictation software. please excuse any grammatical, word or spelling errors. Time with Patient: Less than 30
[2024-01-15 16:51] LABS: Glucose,Whole Blood 125 mg/dL (70-110)
[2024-01-15 21:05] LABS: Glucose,Whole Blood 143 mg/dL (70-110)
[2024-01-16] MEDS ORDERED: ZINC OXIDE PASTE (Z-GUARD) 1 APPLIC TOPICAL PRN (00:52)
[2024-01-16 05:48] LABS: Glucose,Whole Blood 191 mg/dL (70-110)
[2024-01-16 10:11] LABS: BUN/Creat Ratio 26.52 Ratio (12.00-20.00); Blood Urea Nitrogen 71.6 mg/dL (9.0-27.0); Calcium 8.1 mg/dL (8.7-10.3); Carbon Dioxide 22.2 mmol/L (21.6-31.8); Chloride 110 mmol/L (96-109); Glucose 139 mg/dL (70-110); Potassium 5.8 mmol/L (3.5-5.5); Sodium 143 mmol/L (135-145)
[2024-01-16 10:37] LABS: Basophils # (A) 0.05 X 10*3/uL (0.00-0.10); Basophils % (A) 0.5 %; Eosinophils # (A) 2.46 X 10*3/uL (0.04-0.35); Eosinophils % (A) 25.1 %; HCT 27.8 % (39.6-50.0); HGB 8.2 g/dL (13.0-17.0); Lymphocytes # (A) 1.23 X 10*3/uL (0.90-5.00); Lymphocytes % (A) 12.6 %; MCH 27.8 pg (27.0-32.0); MCHC 29.5 g/dL (32.0-37.0); MCV 94.2 FL (80.0-97.0); Mean Platelet Volume 10.9 FL (9.5-12.2); Monocytes # (A) 0.56 X 10*3/uL (0.20-1.00); Monocytes % (A) 5.7 %; NRBC Per 100 WBC 0 X 10*3/uL (0.00-0.01); Neutrophils # (A) 5.44 X 10*3/uL (1.80-7.70); Neutrophils % (A) 55.6 %; Platelet Count 281 X 10*3/uL (140-440); RBC 2.95 X 10*6/uL (4.40-5.60); RBC Morphology Normal (Normal); RDW 15.9 % (11.5-14.5); WBC 9.79 X 10*3/uL (4.50-10.00)
[2024-01-16 11:37] LABS: Glucose,Whole Blood 79 mg/dL (70-110)
[2024-01-16] MEDS: SODIUM CHLORIDE 0.9% 1,000 ML IV SCH (11:58)
--- NOTE | 2024-01-16 12:13 | P.PN ---
Subjective Progress Note Date: 01/16/24 Patient seen in follow-up for MARIAN. Feeling well and no new complaints today. Continues with Yuan. patient is awake, comfortable, no acute distress. Examination of the heart S1 and S2 Examination of the lungs bilateral breath sounds are heard Abdomen is soft nontender obese Examination lower extremity shows chronic skin changes with chronic edema noted Objective - Vital Signs Vital signs: Vital Signs Temp 98.3 F 01/16/24 07:17 Pulse 110 H 01/16/24 07:17 Resp 18 01/16/24 07:17 BP 110/67 01/16/24 07:17 Pulse Ox 98 01/16/24 07:17 FiO2 Intake & Output 01/15/24 01/16/24 01/16/24 18:59 06:59 18:59 Intake Total 350 Output Total 375 Balance -25 Intake: Oral 350 Output: Urine 375 Other: Voiding Method Indwelling Catheter Indwelling Catheter # Voids 1 # Bowel Movements 1 - Labs CBC & Chem 7: 01/16/24 05:10 01/16/24 05:10 Labs: Abnormal Lab Results - Last 24 Hours (Table) 01/15/24 01/15/24 01/16/24 Range/Units 16:49 21:04 05:10 Potassium 5.8 H (3.5-5.5) mmol/L Chloride 110 H (96-109) mmol/L BUN 71.6 H (9.0-27.0) mg/dL Creatinine 2.7 H (0.6-1.5) mg/dL Est GFR (CKD-EPI) 24 L (>=60) BUN/Creatinine Ratio 26.52 H (12.00-20.00) Ratio Glucose 139 H (70-110) mg/dL POC Glucose (mg/dL) 125 H 143 H (70-110) mg/dL Calcium 8.1 L (8.7-10.3) mg/dL 01/16/24 Range/Units 05:46 Potassium (3.5-5.5) mmol/L Chloride (96-109) mmol/L BUN (9.0-27.0) mg/dL Creatinine (0.6-1.5) mg/dL Est GFR (CKD-EPI) (>=60) BUN/Creatinine Ratio (12.00-20.00) Ratio Glucose (70-110) mg/dL POC Glucose (mg/dL) 191 H (70-110) mg/dL Calcium (8.7-10.3) mg/dL Assessment and Plan Assessment: 1. Acute kidney injury most likely related to urine retention and a component of ATN from borderline low blood pressure in the setting of use of MIKKI inhibitor's. 2. CKD stage III A/IIIB most likely secondary to diabetic kidney disease. Baseline creatinine 1.2-1.4 mg/dL 3. History of recent UTI with Klebsiella, on 12/26/2023 4. Peripheral vascular disease 5. Anemia, most likely anemia of chronic disease. Iron replete. 6. Hyperkalemia likely related to MARIAN. Has yuan with good urine output Plan: Continue with Yuan catheter Continue Flomax Continue to hold MIKKI inhibitor's Repeat labs in a.m. Start Lokelma 10g daily. Off IVF, give dose Lasix IV 40mg due to edema
[2024-01-16] MEDS: SODIUM ZIRCONIUM CYCLOSILICATE 10 GM PACKET PO SCH (12:30)
[2024-01-16] MEDS: FUROSEMIDE 10 MG/ML 4 ML VIAL IV STA (12:31)
--- NOTE | 2024-01-16 14:04 | P.PN ---
Subjective Progress Note Date: 01/16/24 Interval History: 73-year-old morbidly obese with active medical history of COPD, atherosclerotic heart disease post myocardial infarction, severe peripheral arterial disease with infected right foot, history of type 2 diabetes, chronic kidney disease, chronic history of neuropathy, chronic pain syndrome, history of hypertension, hyperlipidemia, hypothyroidism, severe GERD and hiatal hernia, BPH with history of urinary retention who was hospitalized recently for sepsis and infected right foot was transferred back to [facility] 2 weeks ago on Rocephin to complete total of 2 weeks. He become the last 48 hours with significant change in mental status and worsening confusion along with encephalopathy not a clear etiology with his lab showing significant uremia with worsening kidney function as acute kidney injury on chronic kidney disease patient claimed that he is not eating and drinking much lately his GFR dropped down as low as 20 from but used to be around 40 few days earlier. With the current change and he become less responsive today with much worsening mentation not waking up that easy ended up coming to the emergency department at [facility] where was seen and evaluated originally His laboratory value shows anemia with hemoglobin of 9.6 few days earlier was close to 8. Blood test shows quite a alkalosis with a CO2 of 26, potassium at 5.2 with bun of 79 creatinine 2.58 with alkaline phosphatase at 180 UA showed few RBCs and WBCs + of chronic kidney disease. After an outpatient remain on Rocephin 2 g daily. He is also still on furosemide 20 mg a day only. Yesterday found to have slight urinary retention with bladder scan showed around 400 cc he was able to void 100 cc and had straight cath to evacuate his bladder. With his worsening condition and up coming to the emergency department today was seen and evaluated further testing including EKG shows supraventricular arrhythmia with marked ST abnormality and nonspecific change overall. No CAT scan of the brain was done the chest x-ray shows no acute pulmonary process with mild cardiomegaly only ultrasound of the kidney showed thickening along the midportion of the right kidney need additional evaluation to exclude possibility of mass. Start hydrating patient Gray catheter was inserted patient be hospitalized will consult nephrology will continue to improve his uremia received to change his mental status get him back to his baseline. 01/12/2024: Still quite bit confused this morning but slightly better has Gray catheter making slight urine output with his chemistry still pending and has not seen nephrology yet. His ultrasound of the kidney came back slightly better off might send him for CAT scan without contrast. Meanwhile his right foot still being cared for with Rocephin and topical care will consult infectious disease to continue current management for his infection. His altered mental status is related to encephalopathy from uremia has improved slightly with only will continue aggressive management hoping to get patient to his baseline. Comorbidity patient is going through the combination of his severe PAD, osteomyelitis of the right foot along with the declining kidney function and worsening anasarca overall is not a good sign his mortality still quite bit high in the next few weeks. 01/13/2024: Vascular had seen patient in consultation apparently talked again about above-knee amputation involve wound care at this point patient was going to wound care and [facility]. Nonhealing ulceration with bone involvement without necrosis wound care decided to continue Santyl with saline moistened gauze and dry gauze and wound care are willing to follow-up patient as an outpatient. Nephrology advised patient had an acute kidney injury with acute tubular necrosis with low blood pressure was using MIKKI inhibitor was taking off medication for now continue to be treated for UTI mostly Klebsiella and continue management for anemia with iron replacement. Infectious disease believe patient is will cover with Rocephin currently his urine is growing candidiasis and starting Diflucan to see if there is any respond to it. Supportive care for debridement on the right foot I do not think patient is ready yet for amputation at this point. 01/14/2024: Blood pressure has improved to some degree, patient had last night pulse up to 120 slightly tachycardic but not symptomatic and settled down came down to 82 on its own pulse ox remained good at this point. His kidney function did not improve much fact has declined is down with GFR 24 and chronic kidney disease stage IV, continue to make some urine on his Gray with urine culture this time shows Kirstie albicans and patient was started on Diflucan beside his Rocephin. He was seen nephrology, infectious disease and wound care with vascular he is rudy continue wound care for now continue to treat UTI and continue to watch his kidney function to see if patient eventually might require dialysis but vascular holding off on any debridement or intervention they believe eventually patient will require amputation decision to be made after his UTIs are clear. 01/15/2024--- patient was seen and examined today. Mild confusion. Following labs. Nephrology following, recommended to continue IV fluids, maintain Gray's catheter, Flomax, hold MIKKI inhibitor. Monitor labs. Avoid hypotension. Patient is currently on Rocephin and Diflucan, infectious disease following. 01/16/2024atient was seen and examined today. Resting comfortably in bed. Mild confusion, calm and cooperative. A and O x 2 to 3. Infectious disease fol lowing, remains on Rocephin and Diflucan. Patient is afebrile, heart rate 110, respiratory rate 18, blood pressure 110/67, saturating 98% on 3 L. BUN 71, creatinine 2.7, potassium 5.8. Started on Lokelma. Nephrology following, ordered Lasix, off IV fluids Assessment and plan: _Altered mental status: Most likely sign and symptom of uremia, urinary tract infection severe dehydration and acute kidney injury treated underlying disease has helped some to some degree patient still not totally normal but his mentation has improved some. _Acute kidney injury with Chronic kidney disease: _Hyperkalemia: Holding off on MIKKI inhibitor at this point and continue to watch for any retention catheter remain on continue hydration. Lokelma. Monitor BMP, nephrology following. _Osteomyelitis of the right foot, has not healed well still have slight bone exposure, vascular still recommending no debridement or amputation and consulted wound care which will continue topical care for now the patient is ready for amputation. _Recent history of Klebsiella pneumonia urinary tract infection still on Rocephin seems to cover well but had some yeast growing patient will be on Diflucan as well. _Severe PAD with nonhealing osteomyelitis of the right foot vascular believe patient will need above-knee amputation. Will wait till after his urinary tract infection is treated and believe this amputation will be done on different hospitalization when patient is ready. _Peripheral neuropathy: Remain on gabapentin 1600 mg at nighttime. _Chronic pain syndrome: Continue hydrocodone orally. _Type 2 diabetes with hyperglycemia: Continue Accu-Chek with sliding scales coverage might benefit from adding long acting insulin at nighttime. _Hypothyroidism: Still on levothyroxine 112 mcg daily. _Hypertension: Blood pressure still slightly below but continue lisinopril 20 mg a day. _Hyperlipidemia: Was on simvastatin has been hold currently which will be resumed soon as patient able to tolerate medication. _Morbid obesity with BMI of 43.9: Which increases risk factor of complication. _Abnormal balance and gait doing rehab physical therapy ambulating with wheelchair mostly. Discussion: Continue aggressive medical management, continue to watch his kidney function for the next few days if kidney function declined further more might require hemodialysis otherwise we are holding off for the time being to see if any more complication might arise we will hold off and probably plan to send him back to [facility] on Wednesday if he is more stable. PHYSICAL EXAMINATION: GENERAL: The patient is A&O x3, NAD HEENT: EOMI, Sclerae anicteric, Moist Mucous membranes Neck: Supple, Non tender, No JVD PULMONARY: Equal breath souds B/L, No wheezing, No crackles. CARDIOVASCULAR: S1, S2 present. No murmurs, rubs, or gallops. ABDOMEN: Soft, nontender, nondistended, normoactive bowel sounds. No guarding or rebound tenderness. MUSCULOSKELETAL: Right foot plantar wound with slough, no foul-smelling drainage. EXTREMITIES: No cyanosis, clubbing, or pedal edema. NEUROLOGICAL: CN 2-12 grossly intact. No FND Skin: No Rash REVIEW OF SYSTEMS: CONSTITUTIONAL: No fever or chills. CARDIOVASCULAR: No chest pain, palpitations or syncope. PULMONARY: No shortness of breath, no cough, sore throat. GASTROINTESTINAL: No nausea, vomiting, diarrhea, abdominal pain. : No Dysuria, urgency, frequency. Extremities: No edema. NEUROLOGICAL: No headaches, no weakness, or numbness Dictation was produced using [employer] dictation software. please excuse any gr ammatical, word or spelling errors. Objective - Vital Signs Vital signs: Vital Signs Temp 98.3 F 01/16/24 07:17 Pulse 110 H 01/16/24 07:17 Resp 18 01/16/24 07:17 BP 110/67 01/16/24 07:17 Pulse Ox 98 01/16/24 07:17 FiO2 Intake & Output 01/15/24 01/16/24 01/16/24 18:59 06:59 18:59 Intake Total 350 Output Total 375 Balance -25 Intake: Oral 350 Output: Urine 375 Other: Voiding Method Indwelling Catheter Indwelling Catheter Indwelling Catheter # Voids 1 # Bowel Movements 1 - Labs CBC & Chem 7: 01/16/24 05:10 01/16/24 05:10 Labs: Abnormal Lab Results - Last 24 Hours (Table) 01/15/24 01/15/24 01/16/24 Range/Units 16:49 21:04 05:10 RBC (4.40-5.60) X 10*6/uL Hgb (13.0-17.0) g/dL Hct (39.6-50.0) % MCHC (32.0-37.0) g/dL RDW (11.5-14.5) % Immature Gran # (0.00-0.04) X 10*3/uL Eosinophils # (0.04-0.35) X 10*3/uL Potassium 5.8 H (3.5-5.5) mmol/L Chloride 110 H (96-109) mmol/L BUN 71.6 H (9.0-27.0) mg/dL Creatinine 2.7 H (0.6-1.5) mg/dL Est GFR (CKD-EPI) 24 L (>=60) BUN/Creatinine Ratio 26.52 H (12.00-20.00) Ratio Glucose 139 H (70-110) mg/dL POC Glucose (mg/dL) 125 H 143 H (70-110) mg/dL Calcium 8.1 L (8.7-10.3) mg/dL 01/16/24 01/16/24 Range/Units 05:10 05:46 RBC 2.95 L (4.40-5.60) X 10*6/uL Hgb 8.2 L (13.0-17.0) g/dL Hct 27.8 L (39.6-50.0) % MCHC 29.5 L (32.0-37.0) g/dL RDW 15.9 H (11.5-14.5) % Immature Gran # 0.05 H (0.00-0.04) X 10*3/uL Eosinophils # 2.46 H (0.04-0.35) X 10*3/uL Potassium (3.5-5.5) mmol/L Chloride (96-109) mmol/L BUN (9.0-27.0) mg/dL Creatinine (0.6-1.5) mg/dL Est GFR (CKD-EPI) (>=60) BUN/Creatinine Ratio (12.00-20.00) Ratio Glucose (70-110) mg/dL POC Glucose (mg/dL) 191 H (70-110) mg/dL Calcium (8.7-10.3) mg/dL
[2024-01-16] MEDS: FUROSEMIDE 40 MG TAB PO STA (14:08)
--- NOTE | 2024-01-16 16:19 | P.PN ---
Subjective Progress Note Date: 01/16/24 Principal diagnosis: Reason for follow-up is right diabetic foot wound and UTI Patient is a 73-year-old male with a past medical history significant for diabetes mellitus hypertension hyperlipidemia OK COPD recent admission to this facility patient did have right diabetic foot ulcer status post surgical debridement was on IV Rocephin being admitted to hospital mental status changes with concern for symptomatic UTI/worsening of the right foot ulcer. On today's evaluation that is 01/16/2024, patient has been afebrile, patient is breathing comfortably and is currently on 2 L nasal cannula oxygen patient denies having any significant cough no chest pain shortness of breath, patient denies nausea vomiting or diarrhea and no abdominal pain. Patient white count is 9.79 creatinine is 2.7 Objective - Vital Signs Vital signs: Vital Signs Temp 98.0 F 01/16/24 12:58 Pulse 117 H 01/16/24 12:58 Resp 18 01/16/24 12:58 BP 114/57 01/16/24 12:58 Pulse Ox 92 L 01/16/24 12:58 FiO2 Intake & Output 01/15/24 01/16/24 01/16/24 18:59 06:59 18:59 Intake Total 350 Output Total 375 Balance -25 Intake: Oral 350 Output: Urine 375 Other: Voiding Method Indwelling Catheter Indwelling Catheter Indwelling Catheter # Voids 1 # Bowel Movements 1 - Exam GENERAL DESCRIPTION: An elderly male lying in bed in no distress RESPIRATORY SYSTEM: Unlabored breathing , decreased breath sounds at bases HEART: S1 S2 regular rate and rhythm , ABDOMEN: Soft , no tenderness EXTREMITIES: Right foot plantar wound with slough tissue no foul-smelling drainage - Labs CBC & Chem 7: 01/16/24 05:10 01/16/24 05:10 Labs: Abnormal Lab Results - Last 24 Hours (Table) 01/15/24 01/15/24 01/16/24 Range/Units 16:49 21:04 05:10 RBC (4.40-5.60) X 10*6/uL Hgb (13.0-17.0) g/dL Hct (39.6-50.0) % MCHC (32.0-37.0) g/dL RDW (11.5-14.5) % Immature Gran # (0.00-0.04) X 10*3/uL Eosinophils # (0.04-0.35) X 10*3/uL Potassium 5.8 H (3.5-5.5) mmol/L Chloride 110 H (96-109) mmol/L BUN 71.6 H (9.0-27.0) mg/dL Creatinine 2.7 H (0.6-1.5) mg/dL Est GFR (CKD-EPI) 24 L (>=60) BUN/Creatinine Ratio 26.52 H (12.00-20.00) Ratio Glucose 139 H (70-110) mg/dL POC Glucose (mg/dL) 125 H 143 H (70-110) mg/dL Calcium 8.1 L (8.7-10.3) mg/dL 01/16/24 01/16/24 Range/Units 05:10 05:46 RBC 2.95 L (4.40-5.60) X 10*6/uL Hgb 8.2 L (13.0-17.0) g/dL Hct 27.8 L (39.6-50.0) % MCHC 29.5 L (32.0-37.0) g/dL RDW 15.9 H (11.5-14.5) % Immature Gran # 0.05 H (0.00-0.04) X 10*3/uL Eosinophils # 2.46 H (0.04-0.35) X 10*3/uL Potassium (3.5-5.5) mmol/L Chloride (96-109) mmol/L BUN (9.0-27.0) mg/dL Creatinine (0.6-1.5) mg/dL Est GFR (CKD-EPI) (>=60) BUN/Creatinine Ratio (12.00-20.00) Ratio Glucose (70-110) mg/dL POC Glucose (mg/dL) 191 H (70-110) mg/dL Calcium (8.7-10.3) mg/dL Assessment and Plan (1) Diabetic foot infection Current Visit: No Status: Acute Code(s): E11.628 - TYPE 2 DIABETES MELLITUS WITH OTHER SKIN COMPLICATIONS; L08.9 - LOCAL INFECTION OF THE SKIN AND SUBCUTANEOUS TISSUE, UNSP SNOMED Code(s): 109392272 (2) Diabetic foot ulcer Current Visit: No Status: Acute Code(s): E11.621 - TYPE 2 DIABETES MELLITUS WITH FOOT ULCER; L97.509 - NON-PRESSURE CHRONIC ULCER OTH PRT UNSP FOOT W UNSP SEVERITY SNOMED Code(s): 084011694 Plan: 1patient presented to the hospital with confusion and weakness which is likely multifactorial patient did have worsening of his kidney function most likely contributing to his symptomatology, did have a positive UA but not a very clear he noticed symptoms 2patient also have right foot ulcer which has shown some worsening with more slough tissue vascular surgery was consulted for possible debridement however the they have consulted wound care for local wound care and are planning for any debridement 3patient with a right foot wound and osteomyelitis to continue with Rocephin to finish a 6-week course of therapy 4-patient urine culture grew Kirstie albicans currently on Diflucan and seem to have shown some clinical improvement, consider 3-day course on discharge Dictation was produced using [employer] dictation software. please excuse any grammatical, word or spelling errors. Time with Patient: Less than 30
[2024-01-16 16:43] LABS: Glucose,Whole Blood 61 mg/dL (70-110)
[2024-01-16 17:55] LABS: Glucose,Whole Blood 115 mg/dL (70-110)
[2024-01-16 19:38] LABS: African American GFR (CKD) 27 (>60 ml/min/1.73 sqM); Anion Gap -7 mmol/L; Blood Urea Nitrogen 76 mg/dL (9-20); Calcium 8.1 mg/dL (8.4-10.2); Carbon Dioxide 24 mmol/L (22-30); Chloride 113 mmol/L (98-107); Glucose 78 mg/dL (74-99); Non-African American GFR(CKD) 24 (>60 ml/min/1.73 sqM); Potassium 5.9 mmol/L (3.5-5.1); Sodium 130 mmol/L (137-145)
[2024-01-16 20:43] LABS: Glucose,Whole Blood 112 mg/dL (70-110)
[2024-01-16] MEDS: SODIUM ZIRCONIUM CYCLOSILICATE 10 GM PACKET PO ONE (22:22)
[2024-01-17 05:59] LABS: Glucose,Whole Blood 101 mg/dL (70-110)
[2024-01-17] MEDS: diphenhydrAMINE 25 MG CAP PO PRN (08:07)
[2024-01-17 08:46] LABS: Basophils # (A) 0.04 X 10*3/uL (0.00-0.10); Basophils % (A) 0.5 %; Eosinophils # (A) 2.45 X 10*3/uL (0.04-0.35); Eosinophils % (A) 33.1 %; HGB 8.2 g/dL (13.0-17.0); Lymphocytes # (A) 1.08 X 10*3/uL (0.90-5.00); Lymphocytes % (A) 14.6 %; MCH 27.2 pg (27.0-32.0); MCHC 29.3 g/dL (32.0-37.0); MCV 92.7 FL (80.0-97.0); Mean Platelet Volume 10.6 FL (9.5-12.2); Monocytes # (A) 0.48 X 10*3/uL (0.20-1.00); Monocytes % (A) 6.5 %; NRBC Per 100 WBC 0 X 10*3/uL (0.00-0.01); Neutrophils # (A) 3.31 X 10*3/uL (1.80-7.70); Neutrophils % (A) 44.8 %; Platelet Count 270 X 10*3/uL (140-440); RBC 3.02 X 10*6/uL (4.40-5.60); RDW 15.9 % (11.5-14.5)
[2024-01-17 09:05] LABS: BUN/Creat Ratio 26.63 Ratio (12.00-20.00); Blood Urea Nitrogen 71.9 mg/dL (9.0-27.0); Carbon Dioxide 23.8 mmol/L (21.6-31.8); Chloride 110 mmol/L (96-109); Glucose 100 mg/dL (70-110); Potassium 5.5 mmol/L (3.5-5.5); Sodium 141 mmol/L (135-145)
[2024-01-17 09:06] LABS: Calcium 8.1 mg/dL (8.7-10.3)
[2024-01-17 11:17] LABS: Glucose,Whole Blood 179 mg/dL (70-110)
--- NOTE | 2024-01-17 11:28 | P.PN ---
Subjective Patient is seen in follow-up for acute kidney injury on chronic kidney disease. Renal function stable with creatinine 2.7 today. Has Gray catheter. Urine output 650 cc in the last 24 hours. Oral intake fair. Hemodynamically stable. Vital signs are stable. General: No acute distress. HEENT: Head exam is unremarkable. LUNGS: No audible rhonchi or wheezes. HEART: Rate and Rhythm are regular. ABDOMEN: Obese, nontender. EXTREMITITES: Trace edema. Right lower extremity wrapped. No drainage. Chronic changes noted. Objective - Vital Signs Vital signs: Vital Signs Temp 97.5 F L 01/17/24 07:07 Pulse 118 H 01/17/24 07:07 Resp 16 01/17/24 07:07 BP 125/76 01/17/24 07:07 Pulse Ox 95 01/17/24 07:07 FiO2 Intake & Output 01/16/24 01/17/24 01/17/24 18:59 06:59 18:59 Output Total 350 300 Balance -350 -300 Output: Urine 350 300 Other: Voiding Method Indwelling Catheter Indwelling Catheter Indwelling Catheter # Voids 1 # Bowel Movements 1 - Labs CBC & Chem 7: 01/17/24 06:14 01/17/24 06:14 Labs: Abnormal Lab Results - Last 24 Hours (Table) 01/16/24 01/16/24 01/16/24 Range/Units 16:42 17:54 19:02 RBC (4.40-5.60) X 10*6/uL Hgb (13.0-17.0) g/dL Hct (39.6-50.0) % MCHC (32.0-37.0) g/dL RDW (11.5-14.5) % Eosinophils # (0.04-0.35) X 10*3/uL Sodium 130 L (137-145) mmol/L Potassium 5.9 H (3.5-5.1) mmol/L Chloride 113 H (98-107) mmol/L BUN 76 H (9-20) mg/dL Creatinine 2.60 H (0.66-1.25) mg/dL Est GFR (CKD-EPI) (>=60) BUN/Creatinine Ratio (12.00-20.00) Ratio POC Glucose (mg/dL) 61 L 115 H (70-110) mg/dL Calcium 8.1 L (8.4-10.2) mg/dL 01/16/24 01/17/24 01/17/24 Range/Units 20:42 06:14 06:14 RBC 3.02 L (4.40-5.60) X 10*6/uL Hgb 8.2 L (13.0-17.0) g/dL Hct 28.0 L (39.6-50.0) % MCHC 29.3 L (32.0-37.0) g/dL RDW 15.9 H (11.5-14.5) % Eosinophils # 2.45 H (0.04-0.35) X 10*3/uL Sodium (137-145) mmol/L Potassium (3.5-5.1) mmol/L Chloride 110 H (98-107) mmol/L BUN 71.9 H (9-20) mg/dL Creatinine 2.7 H (0.66-1.25) mg/dL Est GFR (CKD-EPI) 24 L (>=60) BUN/Creatinine Ratio 26.63 H (12.00-20.00) Ratio POC Glucose (mg/dL) 112 H (70-110) mg/dL Calcium 8.1 L (8.4-10.2) mg/dL 01/17/24 Range/Units 11:15 RBC (4.40-5.60) X 10*6/uL Hgb (13.0-17.0) g/dL Hct (39.6-50.0) % MCHC (32.0-37.0) g/dL RDW (11.5-14.5) % Eosinophils # (0.04-0.35) X 10*3/uL Sodium (137-145) mmol/L Potassium (3.5-5.1) mmol/L Chloride (98-107) mmol/L BUN (9-20) mg/dL Creatinine (0.66-1.25) mg/dL Est GFR (CKD-EPI) (>=60) BUN/Creatinine Ratio (12.00-20.00) Ratio POC Glucose (mg/dL) 179 H (70-110) mg/dL Calcium (8.4-10.2) mg/dL Assessment and Plan Plan: Assessment: 1. Acute kidney injury secondary to ATN secondary to hypotension, infection as well as urinary retention. Creatinine stable at 2.7. 2. Chronic kidney disease stage IIIa secondary to diabetic kidney disease with baseline creatinine 1.2-1.4. 3. Peripheral vascular disease. Has refused foot amputation in the past. Vascular surgery following. 4. Hypertension with chronic kidney disease. Stable. 5. Lower extremity edema. Status post IV Lasix yesterday. 6. Hyperkalemia secondary to acute kidney injury and underlying RTA from diabetes. On Lokelma. 7. Diabetes mellitus. 8. Urinary retention. Has Gray catheter. On Flomax. 9. Anemia of chronic kidney disease. Plan: Encouraged oral intake. Voiding trial tomorrow. Maintain Lokelma. Blood glucose control. Renal diet. Continue to monitor renal function and urine output. Check iron studies.
[2024-01-17 16:23] LABS: Glucose,Whole Blood 160 mg/dL (70-110)
[2024-01-17 21:13] LABS: Glucose,Whole Blood 181 mg/dL (70-110)
--- NOTE | 2024-01-17 22:43 | P.PN ---
Subjective Progress Note Date: 01/17/24 HISTORY OF PRESENT ILLNESS: 73-year-old morbidly obese with active medical history of COPD, atherosclerotic heart disease post myocardial infarction, severe peripheral arterial disease with infected right foot, history of type 2 diabetes, chronic kidney disease, chronic history of neuropathy, chronic pain syndrome, history of hypertension, hyperlipidemia, hypothyroidism, severe GERD and hiatal hernia, BPH with history of urinary retention who was hospitalized recently for sepsis and infected right foot was transferred back to [facility] 2 weeks ago on Rocephin to complete total of 2 weeks. He become the last 48 hours with significant change in mental status and worsening confusion along with encephalopathy not a clear etiology with his lab showing significant uremia with worsening kidney function as acute kidney injury on chronic kidney disease patient claimed that he is not eating and drinking much lately his GFR dropped down as low as 20 from but used to be around 40 few days earlier. With the current change and he become less responsive today with much worsening mentation not waking up that easy ended up coming to the emergency department at [facility] where was seen and evaluated originally His laboratory value shows anemia with hemoglobin of 9.6 few days earlier was close to 8. Blood test shows quite a alkalosis with a CO2 of 26, potassium at 5.2 with bun of 79 creatinine 2.58 with alkaline phosphatase at 180 UA showed few RBCs and WBCs + of chronic kidney disease. After an outpatient remain on Rocephin 2 g daily. He is also still on furosemide 20 mg a day only. Yesterday found to have slight urinary retention with bladder scan showed around 400 cc he was able to void 100 cc and had straight cath to evacuate his bladder. With his worsening condition and up coming to the emergency department today was seen and evaluated further testing including EKG shows supraventricular arrhythmia with marked ST abnormality and nonspecific change overall. No CAT scan of the brain was done the chest x-ray shows no acute pulmonary process with mild cardiomegaly only ultrasound of the kidney showed thickening along the midportion of the right kidney need additional evaluation to exclude possibility of mass. Start hydrating patient Gray catheter was inserted patient be hospitalized will consult nephrology will continue to improve his uremia received to change his mental status get him back to his baseline. 01/12/2024: Still quite bit confused this morning but slightly better has Gray catheter making slight urine output with his chemistry still pending and has not seen nephrology yet. His ultrasound of the kidney came back slightly better off might send him for CAT scan without contrast. Meanwhile his right foot still being cared for with Rocephin and topical care will consult infectious disease to continue current management for his infection. His altered mental status is related to encephalopathy from uremia has improved slightly with only will continue aggressive management hoping to get patient to his baseline. Comorbidity patient is going through the combination of his severe PAD, osteomyelitis of the right foot along with the declining kidney function and worsening anasarca overall is not a good sign his mortality still quite bit high in the next few weeks. 01/13/2024: Vascular had seen patient in consultation apparently talked again about above-knee amputation involve wound care at this point patient was going to wound care and [facility]. Nonhealing ulceration with bone involvement without necrosis wound care decided to continue Santyl with saline moistened gauze and dry gauze and wound care are willing to follow-up patient as an outpatient. Nephrology advised patient had an acute kidney injury with acute tubular necrosis with low blood pressure was using MIKKI inhibitor was taking off medication for now continue to be treated for UTI mostly Klebsiella and continue management for anemia with iron replacement. Infectious disease believe patient is will cover with Rocephin currently his urine is growing candidiasis and starting Diflucan to see if there is any respond to it. Supportive care for debridement on the right foot I do not think patient is ready yet for amputation at this point. 01/14/2024: Blood pressure has improved to some degree, patient had last night pulse up to 120 slightly tachycardic but not symptomatic and settled down came down to 82 on its own pulse ox remained good at this point. His kidney function did not improve much fact has declined is down with GFR 24 and chronic kidney disease stage IV, continue to make some urine on his Gray with urine culture this time shows Kirstie albicans and patient was started on Diflucan beside his Rocephin. He was seen nephrology, infectious disease and wound care with vascular he is rudy continue wound care for now continue to treat UTI and continue to watch his kidney function to see if patient eventually might require dialysis but vascular holding off on any debridement or intervention they believe eventually patient will require amputation decision to be made after his UTIs are clear. 01/17/2024: Patient has done well on the weekend no major complication continue to have slight with confusion nephrology has been seeing patient regular basis continue to watch his urine output staying away from any nephrotoxic agent his kidney function has not improved so far remain on creatinine of 2.7 with glomerular titration rate in the 30s. Also had mild hyperkalemia was on Lokelma has done well and nephrology had hold his Lasix IV to reduce the side effect complication on the kidney. Also regard to the osteomyelitis of the right foot patient will require to have debridement and furthermore above-knee amputation but they wants him to finish treatment with IV antibiotics currently being treated for Klebsiella pneumonia and a UTI with Rocephin along with Diflucan apparently Dr. Woodward on him on total of 6 weeks on IV antibiotics which vascular will see him after this. This time for surgical intervention. REVIEW OF SYSTEMS: CONSTITUTIONAL: Morbidly obese in no acute respiratory distress. EYES: No icterus sclerae, no conjunctivitis. EARS, NOSE, MOUTH, THROAT, and FACE: No sore throat, lymphadenopathy, carotid bruits or deformity. RESPIRATORY: No SOB cough or wheezes. CARDIOVASCULAR: No chest pain positive PND orthopnea palpitation with edema. GASTROINTESTINAL: No Abd pain, Nausea or vomiting, no Diarrhea or constipation, No GI Bleed, no distention or masses. GENITOURINARY: Negative for Hematuria or UTI, no kidney stones. Mild incontinence. INTEGUMENT/BREAST: Negative for any muscular injury with mild osteoarthritis.. HEMATOLOGIC/LYMPHATIC: Negative for bleed or purpura. MUSCULOSKELTAL: Myalgia and arthralgia with significant loss of tissue discomfort in the right foot. NEURLOGICAL: No LOC, Sz or syncope, blurred vision dizziness or abnormality.. BEHAVIORAL/PSYCH: Negative. ENDOCRINE: Negative. PHYSICAL EXAMINATION: General Appearance: Alert, cooperative, no distress, appears stated age. Neck HEENT: Supple, no lymphadenopathy, no thyroid enlargement, no carotid bruits. Lungs: Decreased breath sound bilaterally with fine rhonchi no crackles or wheezes. Chest Wall: Chest wall normal expansion with deep inspiration no tenderness and no deformity was found on exam, no costochondral pain or discomfort. Heart: Regular rate and rhythm, S1, S2 normal, no murmur, rub or gallop. Back: Symmetric, no curvature, ROM normal, no CVA tenderness. Abdomen: Soft, non-tender, bowel sounds active all four quadrants, no masses, no organomegaly. Extremities: Right foot still have significant irritation edema redness with warmness to touch with significant decreased circulation. Pulses: 2+ and symmetric. Skin: Skin color, texture, tugor normal, no rashes or lesions. Neurologic: Alert oriented x3 cranial nerves II through XII intact, no motor deficit, no abnormal balance or gait. ASSESSMENT AND PLAN: _Altered mental status: Most likely sign and symptom of uremia, urinary tract infection severe dehydration and acute kidney injury patient mental status is on and off but slightly better than before he still understand explanation given to him about the kidney function, the osteomyelitis, recurrent management and even furthermore explained to the patient CODE STATUS and by choice he decided to DO NOT RESUSCITATE. _Acute kidney injury with Chronic kidney disease: Stage IV chronic kidney disease does not require any hemodialysis yet still seen nephrology regularly. _Osteomyelitis of the right foot, has not healed well still have slight bone exposure, vascular decision is to finalize antibiotic initially for total of 6 weeks and contact patient back for above-knee amputation is ready. _Recent history of Klebsiella pneumonia urinary tract infection still on Rocephin seems to cover well but had some yeast growing patient will be on Diflucan as well. _Severe PAD with nonhealing osteomyelitis of the right foot vascular believe patient will need above-knee amputation. In the meanwhile decision of infectious disease probably to continue antibiotic for total of 6 weeks. _Peripheral neuropathy: Remain on gabapentin 1600 mg at nighttime. _Chronic pain syndrome: Continue hydrocodone orally. _Type 2 diabetes with hyperglycemia: Continue Accu-Chek with sliding scales coverage might benefit from adding long acting insulin at nighttime. _Hypothyroidism: Still on levothyroxine 112 mcg daily. _Hypertension: Blood pressure still slightly below but continue lisinopril 20 mg a day. _Hyperlipidemia: Was on simvastatin has been hold currently which will be resumed soon as patient able to tolerate medication. _Morbid obesity with BMI of 43.9: Which increases risk factor of complication. _Abnormal balance and gait doing rehab physical therapy ambulating with wheelchair mostly. CODE STATUS: DO NOT RESUSCITATE. Discussion: Long discussion with the patient today about his morbidity and mo rtality CODE STATUS and such decision at this point stabilize patient make sure we do not need to do any dialysis the patient so far wants to do medical management he decided to change CODE STATUS to DO NOT RESUSCITATE but we hope to get him back to [facility] tomorrow finish IV antibiotic and bring him back for his amputation in 6 weeks. Objective - Vital Signs Vital signs: Vital Signs Temp 97.5 F L 01/17/24 07:07 Pulse 118 H 01/17/24 07:07 Resp 16 01/17/24 07:07 BP 125/76 01/17/24 07:07 Pulse Ox 95 01/17/24 07:07 FiO2 Intake & Output 01/16/24 01/17/24 01/17/24 18:59 06:59 18:59 Output Total 350 300 Balance -350 -300 Output: Urine 350 300 Other: Voiding Method Indwelling Catheter Indwelling Catheter # Voids 1 # Bowel Movements 1 - Labs CBC & Chem 7: 01/17/24 06:14 01/17/24 06:14 Labs: Abnormal Lab Results - Last 24 Hours (Table) 01/16/24 01/16/24 01/16/24 Range/Units 05:10 05:10 16:42 RBC 2.95 L (4.40-5.60) X 10*6/uL Hgb 8.2 L (13.0-17.0) g/dL Hct 27.8 L (39.6-50.0) % MCHC 29.5 L (32.0-37.0) g/dL RDW 15.9 H (11.5-14.5) % Immature Gran # 0.05 H (0.00-0.04) X 10*3/uL Eosinophils # 2.46 H (0.04-0.35) X 10*3/uL Sodium (137-145) mmol/L Potassium 5.8 H (3.5-5.5) mmol/L Chloride 110 H (96-109) mmol/L BUN 71.6 H (9.0-27.0) mg/dL Creatinine 2.7 H (0.6-1.5) mg/dL Est GFR (CKD-EPI) 24 L (>=60) BUN/Creatinine Ratio 26.52 H (12.00-20.00) Ratio Glucose 139 H (70-110) mg/dL POC Glucose (mg/dL) 61 L (70-110) mg/dL Calcium 8.1 L (8.7-10.3) mg/dL 01/16/24 01/16/24 01/16/24 Range/Units 17:54 19:02 20:42 RBC (4.40-5.60) X 10*6/uL Hgb (13.0-17.0) g/dL Hct (39.6-50.0) % MCHC (32.0-37.0) g/dL RDW (11.5-14.5) % Immature Gran # (0.00-0.04) X 10*3/uL Eosinophils # (0.04-0.35) X 10*3/uL Sodium 130 L (137-145) mmol/L Potassium 5.9 H (3.5-5.5) mmol/L Chloride 113 H (96-109) mmol/L BUN 76 H (9.0-27.0) mg/dL Creatinine 2.60 H (0.6-1.5) mg/dL Est GFR (CKD-EPI) (>=60) BUN/Creatinine Ratio (12.00-20.00) Ratio Glucose (70-110) mg/dL POC Glucose (mg/dL) 115 H 112 H (70-110) mg/dL Calcium 8.1 L (8.7-10.3) mg/dL
--- NOTE | 2024-01-17 22:57 | P.PN ---
Subjective Progress Note Date: 01/17/24 Principal diagnosis: Reason for follow-up is right diabetic foot wound and UTI Patient is a 73-year-old male with a past medical history significant for diabetes mellitus hypertension hyperlipidemia IA COPD recent admission to this facility patient did have right diabetic foot ulcer status post surgical debridement was on IV Rocephin being admitted to hospital mental status changes with concern for symptomatic UTI/worsening of the right foot ulcer. On today's evaluation that is 01/17/2024, Patient is afebrile this morning patient denies having any chest pain shortness of breath or cough, the patient is breathing comfortably on 2 L nasal cannula oxygen, patient denies any abdominal pain no diarrhea no nausea no vomiting, complaining of feeling weak no new symptoms. Patient white count 7.40, creatinine is 2.7 urine with Kirstie albicans Objective - Vital Signs Vital signs: Vital Signs Temp 97.5 F L 01/17/24 07:07 Pulse 118 H 01/17/24 07:07 Resp 16 01/17/24 07:07 BP 125/76 01/17/24 07:07 Pulse Ox 95 01/17/24 07:07 FiO2 Intake & Output 01/16/24 01/17/24 01/17/24 18:59 06:59 18:59 Output Total 350 300 Balance -350 -300 Output: Urine 350 300 Other: Voiding Method Indwelling Catheter Indwelling Catheter Indwelling Catheter # Voids 1 # Bowel Movements 1 - Exam GENERAL DESCRIPTION: An elderly male lying in bed in no distress RESPIRATORY SYSTEM: Unlabored breathing , decreased breath sounds at bases HEART: S1 S2 regular rate and rhythm , ABDOMEN: Soft , no tenderness EXTREMITIES: Right foot plantar wound with slough tissue no foul-smelling drainage - Labs CBC & Chem 7: 01/17/24 06:14 01/17/24 06:14 Labs: Abnormal Lab Results - Last 24 Hours (Table) 01/16/24 01/16/24 01/16/24 Range/Units 16:42 17:54 19:02 RBC (4.40-5.60) X 10*6/uL Hgb (13.0-17.0) g/dL Hct (39.6-50.0) % MCHC (32.0-37.0) g/dL RDW (11.5-14.5) % Eosinophils # (0.04-0.35) X 10*3/uL Sodium 130 L (137-145) mmol/L Potassium 5.9 H (3.5-5.1) mmol/L Chloride 113 H (98-107) mmol/L BUN 76 H (9-20) mg/dL Creatinine 2.60 H (0.66-1.25) mg/dL Est GFR (CKD-EPI) (>=60) BUN/Creatinine Ratio (12.00-20.00) Ratio POC Glucose (mg/dL) 61 L 115 H (70-110) mg/dL Calcium 8.1 L (8.4-10.2) mg/dL 01/16/24 01/17/24 01/17/24 Range/Units 20:42 06:14 06:14 RBC 3.02 L (4.40-5.60) X 10*6/uL Hgb 8.2 L (13.0-17.0) g/dL Hct 28.0 L (39.6-50.0) % MCHC 29.3 L (32.0-37.0) g/dL RDW 15.9 H (11.5-14.5) % Eosinophils # 2.45 H (0.04-0.35) X 10*3/uL Sodium (137-145) mmol/L Potassium (3.5-5.1) mmol/L Chloride 110 H (98-107) mmol/L BUN 71.9 H (9-20) mg/dL Creatinine 2.7 H (0.66-1.25) mg/dL Est GFR (CKD-EPI) 24 L (>=60) BUN/Creatinine Ratio 26.63 H (12.00-20.00) Ratio POC Glucose (mg/dL) 112 H (70-110) mg/dL Calcium 8.1 L (8.4-10.2) mg/dL 01/17/24 Range/Units 11:15 RBC (4.40-5.60) X 10*6/uL Hgb (13.0-17.0) g/dL Hct (39.6-50.0) % MCHC (32.0-37.0) g/dL RDW (11.5-14.5) % Eosinophils # (0.04-0.35) X 10*3/uL Sodium (137-145) mmol/L Potassium (3.5-5.1) mmol/L Chloride (98-107) mmol/L BUN (9-20) mg/dL Creatinine (0.66-1.25) mg/dL Est GFR (CKD-EPI) (>=60) BUN/Creatinine Ratio (12.00-20.00) Ratio POC Glucose (mg/dL) 179 H (70-110) mg/dL Calcium (8.4-10.2) mg/dL Assessment and Plan (1) Diabetic foot infection Current Visit: No Status: Acute Code(s): E11.628 - TYPE 2 DIABETES MELLITUS WITH OTHER SKIN COMPLICATIONS; L08.9 - LOCAL INFECTION OF THE SKIN AND SUBCUTANEOUS TISSUE, UNSP SNOMED Code(s): 658907879 (2) Diabetic foot ulcer Current Visit: No Status: Acute Code(s): E11.621 - TYPE 2 DIABETES MELLITUS WITH FOOT ULCER; L97.509 - NON-PRESSURE CHRONIC ULCER OTH PRT UNSP FOOT W UNSP SEVERITY SNOMED Code(s): 119958637 Plan: 1patient presented to the hospital with confusion and weakness which is likely multifactorial patient did have worsening of his kidney function most likely contributing to his symptomatology, did have a positive UA but not a very clear he noticed symptoms 2patient also have right foot ulcer which has shown some worsening with more slough tissue vascular surgery was consulted for possible debridement however the they have consulted wound care for local wound care and are not planning for any debridement 3patient with a right foot wound and osteomyelitis, for the patient is covered with Rocephin to finish a 6-week course of therapy 4-patient urine culture grew Kirstie albicans currently on Diflucan to finish total of 7-day course of therapy Dictation was produced using [employer] dictation software. please excuse any g rammatical, word or spelling errors. Time with Patient: Less than 30
[2024-01-18 06:03] LABS: Glucose,Whole Blood 145 mg/dL (70-110)
[2024-01-18 09:06] LABS: Blood Urea Nitrogen 73.2 mg/dL (9.0-27.0); Calcium 7.7 mg/dL (8.7-10.3); Carbon Dioxide 23.3 mmol/L (21.6-31.8); Chloride 109 mmol/L (96-109); Glucose 134 mg/dL (70-110); Magnesium 1.9 mg/dL (1.5-2.4); Potassium 5.5 mmol/L (3.5-5.5); Sodium 141 mmol/L (135-145)
--- NOTE | 2024-01-18 10:49 | P.PN ---
Subjective Patient is seen in follow-up for acute kidney injury on chronic kidney disease. Renal function little worse with creatinine 3.0 today. Gray catheter removed. Nonoliguric. Oral intake fair. Hemodynamically stable. Vital signs are stable. General: No acute distress. HEENT: Head exam is unremarkable. LUNGS: No audible rhonchi or wheezes. HEART: Rate and Rhythm are regular. ABDOMEN: Obese, nontender. EXTREMITITES: Trace edema. Right lower extremity wrapped. No drainage. Chronic changes noted. Objective - Vital Signs Vital signs: Vital Signs Temp 97.9 F 01/18/24 07:48 Pulse 77 01/18/24 07:48 Resp 14 01/18/24 07:48 BP 122/70 01/18/24 07:48 Pulse Ox 95 01/18/24 07:48 FiO2 Intake & Output 01/17/24 01/18/24 01/18/24 18:59 06:59 18:59 Output Total 850 200 Balance -850 -200 Output: Urine 850 200 Straight 450 75 Other: Voiding Method Indwelling Catheter Indwelling Catheter # Bowel Movements 1 - Labs CBC & Chem 7: 01/17/24 06:14 01/18/24 05:51 Labs: Abnormal Lab Results - Last 24 Hours (Table) 01/17/24 01/17/24 01/17/24 Range/Units 06:14 11:15 16:21 BUN (9.0-27.0) mg/dL Creatinine (0.6-1.5) mg/dL Est GFR (CKD-EPI) (>=60) BUN/Creatinine Ratio (12.00-20.00) Ratio Glucose (70-110) mg/dL POC Glucose (mg/dL) 179 H 160 H (70-110) mg/dL Calcium (8.7-10.3) mg/dL Iron 61 L (65-175) UG/DL TIBC 132 L (228-460) UG/DL Transferrin 94.4 L (204.0-354.0) mg/dL 01/17/24 01/18/24 01/18/24 Range/Units 21:11 05:51 06:01 BUN 73.2 H (9.0-27.0) mg/dL Creatinine 3.0 H (0.6-1.5) mg/dL Est GFR (CKD-EPI) 21 L (>=60) BUN/Creatinine Ratio 24.40 H (12.00-20.00) Ratio Glucose 134 H (70-110) mg/dL POC Glucose (mg/dL) 181 H 145 H (70-110) mg/dL Calcium 7.7 L (8.7-10.3) mg/dL Iron (65-175) UG/DL TIBC (228-460) UG/DL Transferrin (204.0-354.0) mg/dL Assessment and Plan Plan: Assessment: 1. Acute kidney injury secondary to ATN secondary to hypotension, infection as well as urinary retention. Creatinine 3.0 today. 2. Chronic kidney disease stage IIIa secondary to diabetic kidney disease with baseline creatinine 1.2-1.4. 3. Peripheral vascular disease. Has refused foot amputation in the past. Vascular surgery following. 4. Hypertension with chronic kidney disease. Stable. 5. Lower extremity edema. Status post IV Lasix this admission. Improved. 6. Hyperkalemia secondary to acute kidney injury and underlying RTA from diabetes. On Lokelma. 7. Diabetes mellitus. 8. Urinary retention. Gray catheter removed. On Flomax. 9. Anemia of chronic kidney disease. Iron replete. Plan: Encouraged oral intake. Maintain Lokelma. Blood glucose control. Renal diet. Continue to monitor renal function and urine output. Add Aranesp. Repeat UA. Follow-up outpatient 1 week postdischarge.
[2024-01-18 11:36] LABS: Glucose,Whole Blood 132 mg/dL (70-110)
[2024-01-18] MEDS: DARBEPOETIN ALFA 40 MCG/0.4 ML SYRINGE SQ SCH (13:14)
[2024-01-18 13:18] VITALS: BP 127/56; PULSE 67; RESP 16; TEMP 98
--- NOTE | 2024-01-18 16:34 | P.DS ---
Providers Date of admission: 01/11/24 19:14 Attending physician: Mateusz Montoya Consults: 01/11/24 19:13 Consult Physician Routine Consulting Provider: Quin Shook Consult Reason/Comments: MARIAN Do you want consulting provider notified?: Yes 01/12/24 08:14 Consult Physician Routine Consulting Provider: Ranjit Vee Consult Reason/Comments: UTI and Sepsis Do you want consulting provider notified?: Yes 01/12/24 12:32 Consult Physician Routine Consulting Provider: Bhavna Gray Consult Reason/Comments: Right foot wound for surgical debridement and culture Do you want consulting provider notified?: Yes Primary care physician: Fabiola Hospital Course: HISTORY OF PRESENT ILLNESS: 73-year-old morbidly obese with active medical history of COPD, atherosclerotic heart disease post myocardial infarction, severe peripheral arterial disease with infected right foot, history of type 2 diabetes, chronic kidney disease, chronic history of neuropathy, chronic pain syndrome, history of hypertension, hyperlipidemia, hypothyroidism, severe GERD and hiatal hernia, BPH with history of urinary retention who was hospitalized recently for sepsis and infected right foot was transferred back to [facility] 2 weeks ago on Rocephin to complete total of 2 weeks. He become the last 48 hours with significant change in mental status and worsening confusion along with encephalopathy not a clear etiology with his lab showing significant uremia with worsening kidney function as acute kidney injury on chronic kidney disease patient claimed that he is not eating and drinking much lately his GFR dropped down as low as 20 from but used to be around 40 few days earlier. With the current change and he become less responsive today with much worsening mentation not waking up that easy ended up coming to the emergency department at [facility] where was seen and evaluated originally His laboratory value shows anemia with hemoglobin of 9.6 few days earlier was close to 8. Blood test shows quite a alkalosis with a CO2 of 26, potassium at 5.2 with bun of 79 creatinine 2.58 with alkaline phosphatase at 180 UA showed few RBCs and WBCs + of chronic kidney disease. After an outpatient remain on Rocephin 2 g daily. He is also still on furosemide 20 mg a day only. Yesterday found to have slight urinary retention with bladder scan showed around 400 cc he was able to void 100 cc and had straight cath to evacuate his bladder. With his worsening condition and up coming to the emergency department today was seen and evaluated further testing including EKG shows supraventricular ar rhythmia with marked ST abnormality and nonspecific change overall. No CAT scan of the brain was done the chest x-ray shows no acute pulmonary process with mild cardiomegaly only ultrasound of the kidney showed thickening along the midportion of the right kidney need additional evaluation to exclude possibility of mass. Start hydrating patient Gray catheter was inserted patient be hospitalized will consult nephrology will continue to improve his uremia received to change his mental status get him back to his baseline. 01/12/2024: Still quite bit confused this morning but slightly better has Gray catheter making slight urine output with his chemistry still pending and has not seen nephrology yet. His ultrasound of the kidney came back slightly better off might send him for CAT scan without contrast. Meanwhile his right foot still being cared for with Rocephin and topical care will consult infectious disease to continue current management for his infection. His altered mental status is related to encephalopathy from uremia has improved slightly with only will continue aggressive management hoping to get patient to his baseline. Comorbidity patient is going through the combination of his severe PAD, osteomyelitis of the right foot along with the declining kidney function and worsening anasarca overall is not a good sign his mortality still quite bit high in the next few weeks. 01/13/2024: Vascular had seen patient in consultation apparently talked again about above-knee amputation involve wound care at this point patient was going to wound care and [facility]. Nonhealing ulceration with bone involvement without necrosis wound care decided to continue Santyl with saline moistened gauze and dry gauze and wound care are willing to follow-up patient as an outpatient. Nephrology advised patient had an acute kidney injury with acute tubular necrosis with low blood pressure was using MIKKI inhibitor was taking off medication for now continue to be treated for UTI mostly Klebsiella and continue management for anemia with iron replacement. Infectious disease believe patient is will cover with Rocephin currently his urine is growing candidiasis and starting Diflucan to see if there is any respond to it. Supportive care for debridement on the right foot I do not think patient is ready yet for amputation at this point. 01/14/2024: Blood pressure has improved to some degree, patient had last night pulse up to 120 slightly tachycardic but not symptomatic and settled down came down to 82 on its own pulse ox remained good at this point. His kidney function did not improve much fact has declined is down with GFR 24 and chronic kidney disease stage IV, continue to make some urine on his Gray with urine culture this time shows Kirstie albicans and patient was started on Diflucan beside his Rocephin. He was seen nephrology, infectious disease and wound care with vascular he is rudy continue wound care for now continue to treat UTI and continue to watch his kidney function to see if patient eventually might require dialysis but vascular holding off on any debridement or intervention they believe eventually patient will require amputation decision to be made after his UTIs are clear. 01/17/2024: Patient has done well on the weekend no major complication continue to have slight with confusion nephrology has been seeing patient regular basis continue to watch his urine output staying away from any nephrotoxic agent his kidney function has not improved so far remain on creatinine of 2.7 with glomerular titration rate in the 30s. Also had mild hyperkalemia was on Lokelma has done well and nephrology had hold his Lasix IV to reduce the side effect complication on the kidney. Also regard to the osteomyelitis of the right foot patient will require to have debridement and furthermore above-knee amputation but they wants him to finish treatment with IV antibiotics currently being treated for Klebsiella pneumonia and a UTI with Rocephin along with Diflucan apparently Dr. Woodward on him on total of 6 weeks on IV antibiotics which vascular will see him after this. This time for surgical intervention. 01/14/2024: The patient is doing slightly better today, continue to see nephrology and has been using Lokelma for hyperkalemia potassium from yesterday was 5.5 the patient is in stage IV chronic kidney disease with GFR down to 24 creatinine 2.7 with bun 71.9. Still seen nephrology no hemodialysis commitment required at this point. Also patient iron study came back with slight bit low iron count and would benefit from iron infusion and eventually probably from Procrit specially with his hemoglobin dropping down to 8.2. Patient might have iron infusion and erythropoietin or Procrit before he leaves the hospital today to go back to the [facility]. Also the matter of his above-knee amputation infectious disease when I finish a total of 6 weeks which still have 28 more days of IV antibiotic with Rocephin before bring him back to the hospital for amputation above the knee especially with failure to treatment. In the meanwhile with candidiasis in the urine still have 5 more days of Diflucan left which patient can finish in the [facility]. Pain and pain management is doing much better, his confusion and altered mental status has improved some been on less gabapentin. Also had long talk with Mateusz his CODE STATUS was changed to DO NOT RESUSCITATE for the time being not quite sure on hemodialysis or any more aggressive management for now still to do all his treatment around the time he is due to come back for his amputation if he is on dialysis and things are not well that would be different talk for different day. In the meanwhile patient is stable to be discharged back to [facility] today to be followed from day today and week by week he will see nephrology from now on and CBC and CMP will be done on weekly basis. REVIEW OF SYSTEMS: CONSTITUTIONAL: Morbidly obese in no acute respiratory distress. EYES: No icterus sclerae, no conjunctivitis. EARS, NOSE, MOUTH, THROAT, and FACE: No sore throat, lymphadenopathy, carotid bruits or deformity. RESPIRATORY: No SOB cough or wheezes. CARDIOVASCULAR: No chest pain positive PND orthopnea palpitation with edema. GASTROINTESTINAL: No Abd pain, Nausea or vomiting, no Diarrhea or constipation, No GI Bleed, no distention or masses. GENITOURINARY: Negative for Hematuria or UTI, no kidney stones. Mild incontinence. INTEGUMENT/BREAST: Negative for any muscular injury with mild osteoarthritis.. HEMATOLOGIC/LYMPHATIC: Negative for bleed or purpura. MUSCULOSKELTAL: Myalgia and arthralgia with significant loss of tissue discomfort in the right foot. NEURLOGICAL: No LOC, Sz or syncope, blurred vision dizziness or abnormality.. BEHAVIORAL/PSYCH: Negative. ENDOCRINE: Negative. PHYSICAL EXAMINATION: General Appearance: Alert, cooperative, no distress, appears stated age. Neck HEENT: Supple, no lymphadenopathy, no thyroid enlargement, no carotid bruits. Lungs: Decreased breath sound bilaterally with fine rhonchi no crackles or wheezes. Chest Wall: Chest wall normal expansion with deep inspiration no tenderness and no deformity was found on exam, no costochondral pain or discomfort. Heart: Regular rate and rhythm, S1, S2 normal, no murmur, rub or gallop. Back: Symmetric, no curvature, ROM normal, no CVA tenderness. Abdomen: Soft, non-tender, bowel sounds active all four quadrants, no masses, no organomegaly. Extremities: Right foot still have significant irritation edema redness with warmness to touch with significant decreased circulation. Pulses: 2+ and symmetric. Skin: Skin color, texture, tugor normal, no rashes or lesions. Neurologic: Alert oriented x3 cranial nerves II through XII intact, no motor deficit, no abnormal balance or gait. ASSESSMENT AND PLAN: _Altered mental status: Most likely sign and symptom of uremia, urinary tract infection severe dehydration and acute kidney injury patient mental status is on and off but slightly better than before he still understand explanation given to him about the kidney function, the osteomyelitis, recurrent management and even furthermore explained to the patient CODE STATUS and by choice he decided to DO NOT RESUSCITATE. _Acute kidney injury with Chronic kidney disease: Stage IV chronic kidney disease does not require any hemodialysis yet still seen nephrology regularly. _Osteomyelitis of the right foot, has not healed well still have slight bone exposure, vascular decision is to finalize antibiotic initially for total of 6 weeks and contact patient back for above-knee amputation is ready. _Recent history of Klebsiella pneumonia urinary tract infection still on Roceph in seems to cover well but had some yeast growing patient will be on Diflucan as well. _Severe PAD with nonhealing osteomyelitis of the right foot vascular believe patient will need above-knee amputation. In the meanwhile decision of infectious disease probably to continue antibiotic for total of 6 weeks. _Peripheral neuropathy: Remain on gabapentin 1600 mg at nighttime. _Chronic pain syndrome: Continue hydrocodone orally. _Type 2 diabetes with hyperglycemia: Continue Accu-Chek with sliding scales coverage might benefit from adding long acting insulin at nighttime. _Hypothyroidism: Still on levothyroxine 112 mcg daily. _Hypertension: Blood pressure still slightly below but continue lisinopril 20 mg a day. _Hyperlipidemia: Was on simvastatin has been hold currently which will be res umed soon as patient able to tolerate medication. _Morbid obesity with BMI of 43.9: Which increases risk factor of complication. _Abnormal balance and gait doing rehab physical therapy ambulating with wheelchair mostly. CODE STATUS: DO NOT RESUSCITATE. Discussion: He is doing slightly better and will be transferred back to [facility] to continue IV antibiotic with Rocephin for total of 28 days and Diflucan for 5 more days before coming back to see vascular for possible amputation. Hospital course: The patient hospitalized on 01/11/2024 for significant altered mental status with severe confusion with etiology consistent with uremia, acute kidney failure, hypertension, toxic osteomyelitis of the right heel, urinary tract infection and other. Patient also had toxic encephalopathy from medication specially gabapentin and pain management. He brought to the hospital he was in acute kidney failure with bun 79 creatinine 2.58 his UA still slightly with abnormal with worsening condition overall. EKG at the time showed supraventricular tachycardia with marked ST abnormality nonspecific CAT scan of the brain was nonspecific as well small vessel disease consistent with his age mostly. Patient was started on hydration he was not making urine Gray catheter was placed and continue hydration and aggressive management. Over the next few days had quite anasarca with fluid retention despite Gray catheter and hydration he continued to have significant edema. Patient was seen nephrology, infectious disease, and vascular. Vascular decision not to do any surgery until he is done with his current IV antibiotics which patient was treated for Klebsiella previously and finding on his urine came back positive for candidiasis on 01/13/2024 and patient was initia brittany on Diflucan and will be finish 5 more days left in the [facility]. In the matter of his kidney failure and worsening kidney function did not improve he continued to be in stage IV chronic kidney disease he was agreeable to switch his CODE STATUS DO NOT RESUSCITATE for the time being no commitment was made whether he will or not go for dialysis and he still with the idea when amputation is required he might still go for amputation but will still have at least 4 more weeks to go before getting to the point. Patient continue topical care for his wound care as well he was treated hyperkalemia was found as well patient was given Lokelma and potassium is down to 5.5 below we will continue to treat patient and watch his kidney function and blood count on weekly basis if worsening symptom and condition will treat accordingly week by week. The matter of his CODE STATUS and visiting the idea what he wants and how aggressive management is something again need to be addressed with the patient probably while he is in [facility] before final plan for possible need for hemodialysis and possible need for above-knee amputation of the right side. The meanwhile no intervention required to be done while he is in the hospital this time and both infectious disease and vascular feel he is stable to be discharged back to [facility]. His midline/PICC line has been functioning well will continue IV antibiotic via PICC line for 28 more days. Patient be discharged back to [facility] today 01/14/2024. Time spent on patient discharge was over 35 minutes. Patient Condition at Discharge: Stable Plan - Discharge Summary New Discharge Prescriptions: New diphenhydrAMINE [Benadryl] 25 mg PO QID PRN cap PRN Reason: Itching Fluconazole [Diflucan] 100 mg PO DAILY #5 tab Gabapentin [Neurontin] 400 mg PO BID #60 cap INSULIN ASPART (NovoLOG) [NovoLOG (formulary)] 0 units SQ ACHS each Collagenase [Santyl Ointment] 1 applic TOPICAL DAILY each Continue Furosemide [Lasix] 20 mg PO DAILY@0800 Clopidogrel [Plavix] 75 mg PO DAILY@0800 cefTRIAXone [Rocephin] 2,000 mg IVP Q24HR #28 each Acetaminophen Tab [Tylenol] 650 mg PO Q6HR PRN tab PRN Reason: Fever And/ Or Pain Magnesium Hydroxide [Milk of Magnesia Concentrate] 7,200 mg PO Q48H PRN PRN Reason: Constipation Na Phos,M-B/Na Phos,Di-Ba [Fleet Adult] 133 ml RECTAL DAILY PRN PRN Reason: Constipation bisacodyL [Dulcolax] 10 mg RECTAL DAILY PRN PRN Reason: Constipation Jac Packet 1 packet PO BID@0800,1700 Liquacel 30 ml PO DAILY@1200 L.acidoph,Paracasei, B.lactis [Probiotic] 1 cap PO DAILY@1700 Simvastatin [Zocor] 40 mg PO HS Levothyroxine Sodium [Synthroid] 112 mcg PO DAILY@0800 Insulin Aspart Prot/Insuln Asp [NovoLOG MIX 70-30 Flexpen] 20 unit SQ BID@0800,1700 Loperamide [Imodium] 2 - 4 mg PO QID PRN PRN Reason: Diarrhea hydrALAZINE HCL [Apresoline] 25 mg PO Q6HR PRN PRN Reason: SBP>150 OR DIASTOLIC >90 Sennosides [Senokot] 8.6 mg PO HS@2100 Pantoprazole [Protonix] 40 mg PO DAILY@0600 Tamsulosin [Flomax] 0.4 mg PO DAILY@0600 amLODIPine [Norvasc] 5 mg PO DAILY@0800 HYDROcodone/APAP 7.5-325MG [Stowell 7.5-325] 1 tab PO QID@00,06,12,18 #20 tab Discontinued Gabapentin [Neurontin] 800 mg PO TID@0600,1400,2200 lisinopriL [Zestril] 20 mg PO BID@0800,1700 metFORMIN HCL [Glucophage] 1,000 mg PO BID@0800,1700 Discharge Medication List Furosemide [Lasix] 20 mg PO DAILY@0800 11/23/23 [History] Insulin Aspart Prot/Insuln Asp [NovoLOG MIX 70-30 Flexpen] 20 unit SQ BID@0800,1700 11/23/23 [History] Levothyroxine Sodium [Synthroid] 112 mcg PO DAILY@0811/23/23 [History] Simvastatin [Zocor] 40 mg PO HS 11/23/23 [History] Clopidogrel [Plavix] 75 mg PO DAILY@0812/26/23 [History] cefTRIAXone [Rocephin] 2,000 mg IVP Q24HR #28 each 12/30/23 [Rx] Acetaminophen Tab [Tylenol] 650 mg PO Q6HR PRN tab 12/31/23 [Rx] Jac Packet 1 packet PO BID@0800,1700 01/11/24 [History] L.acidoph,Paracasei, B.lactis [Probiotic] 1 cap PO DAILY@169901/11/24 [History] Liquacel 30 ml PO DAILY@1200 01/11/24 [History] Loperamide [Imodium] 2 - 4 mg PO QID PRN 01/11/24 [History] Magnesium Hydroxide [Milk of Magnesia Concentrate] 7,200 mg PO Q48H PRN 01/11/24 [History] Na Phos,M-B/Na Phos,Di-Ba [Fleet Adult] 133 ml RECTAL DAILY PRN 01/11/24 [History] Pantoprazole [Protonix] 40 mg PO DAILY@0601/11/24 [History] Sennosides [Senokot] 8.6 mg PO HS@2100 01/11/24 [History] Tamsulosin [Flomax] 0.4 mg PO DAILY@0601/11/24 [History] amLODIPine [Norvasc] 5 mg PO DAILY@0801/11/24 [History] bisacodyL [Dulcolax] 10 mg RECTAL DAILY PRN 01/11/24 [History] hydrALAZINE HCL [Apresoline] 25 mg PO Q6HR PRN 01/11/24 [History] Collagenase [Santyl Ointment] 1 applic TOPICAL DAILY each 01/18/24 [Rx] Fluconazole [Diflucan] 100 mg PO DAILY #5 tab 01/18/24 [Rx] Gabapentin [Neurontin] 400 mg PO BID #60 cap 01/18/24 [Rx] HYDROcodone/APAP 7.5-325MG [Stowell 7.5-325] 1 tab PO QID@00,06,12,18 #20 tab 01/18/24 [Rx] INSULIN ASPART (NovoLOG) [NovoLOG (formulary)] 0 units SQ ACHS each 01/18/24 [Rx] diphenhydrAMINE [Benadryl] 25 mg PO QID PRN cap 01/18/24 [Rx] Follow up Appointment(s)/Referral(s): Mateusz Montoya MD [Primary Care Provider] - 1-2 days Discharge Disposition: TRANSFER TO SNF/ECF
[2024-01-18 16:38] LABS: % Iron Saturation 46.21 (15.00-50.00)
[2024-01-18 16:47] LABS: Glucose,Whole Blood 135 mg/dL (70-110)
--- NOTE | 2024-01-18 21:36 | CDI ---
Documentation Clarification Form Date: 01/14/2024 12:54:00 PM From: Edwina Chua RN CCDS Phone: [phone] Admit Date: 01/11/2024 07:14:00 PM Patient Name: Mateusz Levin Visit Number: [id number] Discharge Date: 01/18/2024 06:57:00 PM ATTENTION: The Clinical Documentation Specialists (CDI) and [facility] Coding Staff appreciate your assistance in clarifying documentation. Please respond to the clarification below the line at the bottom and electronically sign. The CDI & [facility] Coding staff will review the response and follow-up if needed. Please note: Queries are made part of the Legal Health Record. If you have any questions, please contact the author of this message via ITS. Doctor: Mateusz Montoya Conflicting documentation has been found in the medical record. As attending physician, please provide clarification. 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 01/13, Medicine note: His kidney function did not improve much fact has declined is down with GFR 24 and chronic kidney disease stage IV History/Risk Factors: 73 year old male presents to the ED for significant change in mental status and worsening confusion along with encephalopathy not a clear etiology with his lab showing significant uremia with worsening kidney function as acute injury on chronic kidney disease patient claimed that he is not eating and drinking much lately his GFR dropped down as low as 20 from but used to be around 40 few days earlier. Patients Historical 11/22 BUN 39 / CR 1.60 / GFR 43 Clinical Indicators: Current 01/10:BUN 79 / CR 2.58 / GFR 24 Treatment: Marina Ugalde, Nephrology Consult, 01/10 0.9ns 500cc IV bolus, 01/10 0.9ns IV 100cc/hr; 01/11 Flomax 0.4mg PO Daily, Please clarify which diagnosis is most appropriate: [ ] CKD 3a [ ] CKD 3b [ xx ] CKD 4 [ ] Other (please specify) [ ] Unable to determine Reference: [employer] Stage 1 eGFR = 90 and kidney damage for =3 months Stage 2 eGFR 60-89 and kidney damage for =3 months Stage 3a eGFR 45-59 and kidney damage for =3 months Stage 3b eGFR 30-44 and kidney damage for =3 months Stage 4 eGFR 15-29 r and kidney damage for =3 months Stage 5 eGFR <15 and kidney damage for =3 months (Template Last revised: April 2023) MTDD
--- NOTE | 2024-01-20 12:55 | P.PN ---
Subjective Progress Note Date: 01/18/24 Principal diagnosis: Reason for follow-up is right diabetic foot wound and UTI Patient is a 73-year-old male with a past medical history significant for diabetes mellitus hypertension hyperlipidemia [place] COPD recent admission to this facility patient did have right diabetic foot ulcer status post surgical debridement was on IV Rocephin being admitted to hospital mental status changes with concern for symptomatic UTI/worsening of the right foot ulcer. On today's evaluation that is 01/18/2024,the patient denies any fever or any chills, patient is breathing comfortably on 2 L nasal cannula oxygen the patient denies chest pain shortness of breath and no significant cough, patient denies abdominal pain, no nausea vomiting or diarrhea., No new symptoms feeling bett er. Patient did have a creatinine of 3.0 no CBC was done today Objective - Vital Signs Vital signs: Vital Signs Temp 98.0 F 01/18/24 13:17 Pulse 67 01/18/24 13:17 Resp 16 01/18/24 13:17 BP 127/56 01/18/24 13:17 Pulse Ox 93 L 01/18/24 13:17 FiO2 Intake & Output 01/17/24 01/18/24 01/18/24 18:59 06:59 18:59 Output Total 850 200 Balance -850 -200 Output: Urine 850 200 Straight 450 75 Other: Voiding Method Indwelling Catheter Indwelling Catheter # Bowel Movements 1 - Exam GENERAL DESCRIPTION: An elderly male lying in bed in no distress RESPIRATORY SYSTEM: Unlabored breathing , decreased breath sounds at bases HEART: S1 S2 regular rate and rhythm , ABDOMEN: Soft , no tenderness EXTREMITIES: Right foot plantar wound with slough tissue no foul-smelling drainage - Labs CBC & Chem 7: 01/17/24 06:14 01/18/24 05:51 Labs: Abnormal Lab Results - Last 24 Hours (Table) 01/17/24 01/17/24 01/17/24 Range/Units 06:14 16:21 21:11 BUN (9.0-27.0) mg/dL Creatinine (0.6-1.5) mg/dL Est GFR (CKD-EPI) (>=60) BUN/Creatinine Ratio (12.00-20.00) Ratio Glucose (70-110) mg/dL POC Glucose (mg/dL) 160 H 181 H (70-110) mg/dL Calcium (8.7-10.3) mg/dL Iron 61 L (65-175) UG/DL TIBC 132 L (228-460) UG/DL Transferrin 94.4 L (204.0-354.0) mg/dL 01/18/24 01/18/24 01/18/24 Range/Units 05:51 06:01 11:35 BUN 73.2 H (9.0-27.0) mg/dL Creatinine 3.0 H (0.6-1.5) mg/dL Est GFR (CKD-EPI) 21 L (>=60) BUN/Creatinine Ratio 24.40 H (12.00-20.00) Ratio Glucose 134 H (70-110) mg/dL POC Glucose (mg/dL) 145 H 132 H (70-110) mg/dL Calcium 7.7 L (8.7-10.3) mg/dL Iron (65-175) UG/DL TIBC (228-460) UG/DL Transferrin (204.0-354.0) mg/dL Assessment and Plan (1) Diabetic foot infection Status: Acute Code(s): E11.628 - TYPE 2 DIABETES MELLITUS WITH OTHER SKIN COMPLICATIONS; L08.9 - LOCAL INFECTION OF THE SKIN AND SUBCUTANEOUS TISSUE, UNSP SNOMED Code(s): 140880921 (2) Diabetic foot ulcer Status: Acute Code(s): E11.621 - TYPE 2 DIABETES MELLITUS WITH FOOT ULCER; L97.509 - NON-PRESSURE CHRONIC ULCER OTH PRT UNSP FOOT W UNSP SEVERITY SNOMED Code(s): 604892445 Plan: 1patient presented to the hospital with confusion and weakness which is likely multifactorial patient did have worsening of his kidney function most likely contributing to his symptomatology, did have a positive UA but not a very clear he noticed symptoms 2patient also have right foot ulcer which has shown some worsening with more slough tissue vascular surgery was consulted for possible debridement however th e they have consulted wound care for local wound care and are not planning for any debridement 3patient with a right foot wound and osteomyelitis, for the patient is covered with Rocephin, patient will continue on Rocephin on discharge to finish 6-week course of therapy 4-patient urine culture grew Kirstie albicans currently on Diflucan which should be continued on discharge to finish his 7-day course of therapy Dictation was produced using dragon dictation software. please excuse any grammatical, word or spelling errors. Time with Patient: Less than 30
== END 2024-01-18 18:57 | DRG 682 ==
LOC: EC 15:32 → 4SSUR 19:14
PROVIDERS: ADMIT Internal Medicine Geriatric Medicine; ATTEND Internal Medicine Geriatric Medicine
DX: N17.0 Acute kidney failure with tubular necrosis (principal); G92.8 Other toxic encephalopathy; E87.3 Alkalosis; L97.516 Non-pressure chronic ulcer of other part of right foot with bone involvement without evidence of necrosis; M86.8X7 Other osteomyelitis, ankle and foot; L98.496 Non-pressure chronic ulcer of skin of other sites with bone involvement without evidence of necrosis; Z68.42 Body mass index [BMI] 45.0-49.9, adult; B37.49 Other urogenital candidiasis; N18.4 Chronic kidney disease, stage 4 (severe); Z66 Do not resuscitate; E11.610 Type 2 diabetes mellitus with diabetic neuropathic arthropathy; D63.1 Anemia in chronic kidney disease; E11.42 Type 2 diabetes mellitus with diabetic polyneuropathy; E11.22 Type 2 diabetes mellitus with diabetic chronic kidney disease; E11.621 Type 2 diabetes mellitus with foot ulcer; I13.10 Hypertensive heart and chronic kidney disease without heart failure, with stage 1 through stage 4 chronic kidney disease, or unspecified chronic kidney disease; E11.69 Type 2 diabetes mellitus with other specified complication; E11.51 Type 2 diabetes mellitus with diabetic peripheral angiopathy without gangrene; E11.628 Type 2 diabetes mellitus with other skin complications; I70.25 Atherosclerosis of native arteries of other extremities with ulceration; E66.01 Morbid (severe) obesity due to excess calories; E11.65 Type 2 diabetes mellitus with hyperglycemia; J44.9 Chronic obstructive pulmonary disease, unspecified; Z79.4 Long term (current) use of insulin; E03.9 Hypothyroidism, unspecified; R09.02 Hypoxemia; T42.6X5A Adverse effect of other antiepileptic and sedative-hypnotic drugs, initial encounter; T50.905A Adverse effect of unspecified drugs, medicaments and biological substances, initial encounter; G89.4 Chronic pain syndrome; E87.5 Hyperkalemia; E86.0 Dehydration; N40.1 Benign prostatic hyperplasia with lower urinary tract symptoms; I25.10 Atherosclerotic heart disease of native coronary artery without angina pectoris; R33.8 Other retention of urine; E78.5 Hyperlipidemia, unspecified; Z79.891 Long term (current) use of opiate analgesic; Z79.890 Hormone replacement therapy; Z79.899 Other long term (current) drug therapy; I25.2 Old myocardial infarction; Z87.891 Personal history of nicotine dependence; Z79.02 Long term (current) use of antithrombotics/antiplatelets; Z79.84 Long term (current) use of oral hypoglycemic drugs; Z86.19 Personal history of other infectious and parasitic diseases
CPT/HCPCS: 36410; 36415; 70450; 71045; 76770; 76937; 80048; 80053; 81001; 82728; 82803; 83540; 83550; 83735; 85025; 85027; 85610; 85730; 87086; 93005; 94640; 94760; 96360; 96361; 99285

== ENCOUNTER 2024-01-25 07:37 | Inpatient (IN) | payer MEDICARE, OTHER ==
[2024-01-25] MEDS ORDERED: VANCOMYCIN IV PER PHARMACY 1 EACH MISC MISCELLANE PRN (07:50)
--- NOTE | 2024-01-25 08:00 | ED ---
General Adult HPI - General Stated complaint: AMS Time Seen by Provider: 01/25/24 07:40 Source: patient, RN notes reviewed, old records reviewed - History of Present Illness Initial comments: This is a 73-year-old male who presents to the emergency department from a detention. prison sent him in because his white count is elevated his potassium was elevated and he was altered this morning. Patient has an infection on the bottom of his right foot and is post to have a foot amputated later this month. Patient self has no complaints but he is slightly altered. Patient has had no documented fever. Patient has gone through multiple rounds of antibiotics at the detention. Patient was given Lokelma prior to the patient coming to the hospital. - Related Data Home Medications Medication Instructions Recorded Confirmed Furosemide [Lasix] 20 mg PO DAILY@0800 11/23/23 01/25/24 Insulin Aspart Prot/Insuln Asp 20 unit SQ BID@0800,1700 11/23/23 01/25/24 [NovoLOG MIX 70-30 Flexpen] Levothyroxine Sodium [Synthroid] 112 mcg PO DAILY@0611/23/23 01/25/24 Simvastatin [Zocor] 40 mg PO HS@209911/23/23 01/25/24 Clopidogrel [Plavix] 75 mg PO DAILY@0812/26/23 01/25/24 Jac Packet 1 packet PO BID@0800,0 01/11/24 01/25/24 L.acidoph,Paracasei, B.lactis 1 cap PO DAILY@1700 01/11/24 01/25/24 [Probiotic] Liquacel 30 ml PO DAILY@1200 01/11/24 01/25/24 Loperamide [Imodium] 2 - 4 mg PO QID PRN 01/11/24 01/25/24 Magnesium Hydroxide [Milk of 7,200 mg PO Q48H PRN 01/11/24 01/25/24 Magnesia Concentrate] Na Phos,M-B/Na Phos,Di-Ba [Fleet 133 ml RECTAL DAILY PRN 01/11/24 01/25/24 Adult] Pantoprazole [Protonix] 40 mg PO DAILY@0600 01/11/24 01/25/24 Sennosides [Senokot] 17.2 mg PO HS@209901/11/24 01/25/24 Tamsulosin [Flomax] 0.4 mg PO DAILY@0600 01/11/24 01/25/24 amLODIPine [Norvasc] 5 mg PO DAILY@0800 01/11/24 01/25/24 bisacodyL [Dulcolax] 10 mg RECTAL DAILY PRN 01/11/24 01/25/24 hydrALAZINE HCL [Apresoline] 25 mg PO Q6HR PRN 01/11/24 01/25/24 [place] Breakfast Essentials 1 packet PO BID@0800,1700 01/25/24 01/25/24 Darbepoetin Mark Anthony [Aranesp] 40 mcg SQ TH@0800 01/25/24 01/25/24 Gabapentin [Neurontin] 400 mg PO BID@0800,1700 01/25/24 01/25/24 HYDROcodone/APAP 10-325MG [Orma 1 tab PO Q6H PRN 01/25/24 01/25/24 10-325] INSULIN ASPART (NovoLOG) [NovoLOG See Protocol SQ ACHS 01/25/24 01/25/24 (formulary)] Menthol-Zinc Oxide Oint 1 applic TOPICAL Q12H 01/25/24 01/25/24 [Calmoseptine Ointment] Previous Rx's Medication Instructions Recorded cefTRIAXone [Rocephin] 2,000 mg IVP Q24HR #28 each 12/30/23 Acetaminophen Tab [Tylenol] 650 mg PO Q6HR PRN tab 12/31/23 Collagenase [Santyl Ointment] 1 applic TOPICAL DAILY each 01/18/24 diphenhydrAMINE [Benadryl] 25 mg PO QID PRN cap 01/18/24 Allergies Allergy/AdvReac Type Severity Reaction Status Date / Time No Known Allergies Allergy Verified 01/25/24 09:22 Review of Systems ROS Statement: Those systems with pertinent positive or pertinent negative responses have been documented in the HPI. ROS Other: All systems not noted in ROS Statement are negative. Past Medical History Past Medical History: COPD, Diabetes Mellitus, Hyperlipidemia, Hypertension, Myocardial Infarction (SD), Neurologic Disorder, Thyroid Disorder Additional Past Medical History / Comment(s): Peripheral neuropathy, diabetic leg ulcers, Last Myocardial Infarction Date:: Pt guesses its been about 5 years, 2019 History of Any Multi-Drug Resistant Organisms: Unobtainable Past Surgical History: Heart Catheterization With Stent Additional Past Surgical History / Comment(s): Bilateral caterac surgery Past Anesthesia/Blood Transfusion Reactions: No Reported Reaction Date of Last Stent Placement:: 2020 Past Psychological History: Unable to Obtain Smoking Status: Former smoker Past Alcohol Use History: Heavy Additional Past Alcohol Use History / Comment(s): Pt stopped drinking 16 years ago Past Drug Use History: None Reported Additional Drug Use History / Comment(s): stopped smoking 28 years ago - Past Family History Mother Family Medical History: Diabetes Mellitus General Exam - General Exam Comments Initial Comments: GENERAL: Patient is well-developed and well-nourished. Patient is nontoxic and well- hydrated and is in no acute distress. ENT: Neck is soft and supple. No significant lymphadenopathy is noted. Oropharynx is clear. Moist mucous membranes. Neck has full range of motion without eliciting any pain. EYES: The sclera were anicteric and conjunctiva were pink and moist. Extraocular movements were intact and pupils were equal round and reactive to light. Eyelids were unremarkable. PULMONARY: Unlabored respirations. Good breath sounds bilaterally. No audible rales rhonchi or wheezing was noted. CARDIOVASCULAR: There is a regular rate and rhythm without any murmurs gallops or rubs. ABDOMEN: Soft and nontender with normal bowel sounds. SKIN: Patient has 2 wounds to the bottom of his foot on the right they are both currently packed. No significant erythema around the wounds NEUROLOGIC: Patient is alert and oriented x3. Cranial nerves II through XII are grossly intact. Motor and sensory are also intact. Normal speech, volume and content. Symmetrical smile. MUSCULOSKELETAL: Normal extremities with adequate strength and full range of motion. LYMPHATICS: No significant lymphadenopathy is noted PSYCHIATRIC: Normal psychiatric evaluation. Course Vital Signs 01/25/24 01/25/24 01/25/24 07:45 09:05 11:06 Temperature 97.5 F L Pulse Rate 88 84 80 Respiratory 22 20 22 Rate Blood Pressure 122/61 114/83 131/51 O2 Sat by Pulse 94 L 94 L 98 Oximetry 01/25/24 12:14 Temperature Pulse Rate 70 Respiratory 20 Rate Blood Pressure 134/71 O2 Sat by Pulse 8 L Oximetry Medical Decision Making - Medical Decision Making EKG was interpreted by myself. EKG shows sinus rhythm at 91 bpm FL interval 270 QRS is 95 QT interval 372 QTc is 420. Patient's EKG shows no ST segment elevation Was pt. sent in by a medical professional or institution ([facility], [employer], urgent care, hospital, or detention...) When possible be specific @ -Patient was sent in by the detention Did you speak to anyone other than the patient for history (EMS, parent, family, police, friend...)? What history was obtained from this source @ -No Did you review nursing and triage notes (agree or disagree)? Why? @ -I reviewed and agree with nursing and triage notes Were old charts reviewed (outside hosp., previous admission, EMS record, old EKG, old radiological studies, urgent care reports/EKG's, detention records)? Report findings @ -No old charts were reviewed Differential Diagnosis? @ -Differential Altered Mental Status: Hypoglycemia, DKA, hypercapnia, ETOH, overdose, CO poisoning, trauma, myxedema coma, HTN encephalopathy, infection, encephalitis, psychosis, intercranial hemorrhage, hepatic encephalopathy, meningitis, CVA, this is not meant to be an all-inclusive list EKG interpreted by me (3pts min.). @ -As above X-rays interpreted by me (1pt min.). @ -X-ray of the foot shows no signs of osteomyelitis CT interpreted by me (1pt min.). @ -None done U/S interpreted by me (1pt. min.). @ -None done What testing was considered but not performed or refused? (CT, X-rays, U/S, labs)? Why? @ -None What meds were considered but not given or refused? Why? @ -None Did you discuss the management of the patient with other professionals (professionals i.e. [facility], [employer], lab, RT, psych nurse, social media designer, cloth spreader, teacher, medical laboratory technical officer, caseworker)? Give summary @ -I spoke with Dr. Montoya he agreed to admit the patient. Was smoking cessation discussed for >3mins.? @ -No Was critical care preformed (if so, how long)? @ -No Were there social determinants of health that impacted care today? How? (Homelessness, low income, unemployed, alcoholism, drug addiction, transportation, low edu. Level, literacy, decrease access to med. care, [facility], rehab)? @ -No Was there de-escalation of care discussed even if they declined (Discuss DNR or withdrawal of care, Hospice)? DNR status @ -No What co-morbidities impacted this encounter? (DM, HTN, Smoking, COPD, CAD, Cancer, CVA, ARF, Chemo, Hep., AIDS, mental health diagnosis, sleep apnea, morbid obesity)? @ -None Was patient admitted / discharged? Hospital course, mention meds given and route, prescriptions, significant lab abnormalities, going to OR and other pertinent info. @ - Patient's BUN was 127 creatinine was 4.0 patient also had a white count of 17.7 hemoglobin was 8.2. Patient was given Zosyn and vancomycin when he arrived to the hospital for the chronic foot infection. Patient will be admitted to Dr. Montoya with a consult to nephrology and Dr. Vee Undiagnosed new problem with uncertain prognosis? @ -No Drug Therapy requiring intensive monitoring for toxicity (Heparin, Nitro, In sulin, Cardizem)? @ -No Were any procedures done? @ -No Diagnosis/symptom? @ -Altered mental status Acute, or Chronic, or Acute on Chronic? @ -Acute Uncomplicated (without systemic symptoms) or Complicated (systemic symptoms)? @ -Complicated Side effects of treatment? @ -No Exacerbation, Progression, or Severe Exacerbation? @ -No Poses a threat to life or bodily function? How? (Chest pain, [place], SD, pneumonia, PE, COPD, DKA, ARF, appy, cholecystitis, CVA, Diverticulitis, Homicidal, Suicidal, threat to staff... and all critical care pts) @ -No Diagnosis/symptom? @ -Acute on chronic renal failure Acute, or Chronic, or Acute on Chronic? @ -Acute on chronic Uncomplicated (without systemic symptoms) or Complicated (systemic symptoms)? @ -Complicated Side effects of treatment? @ -None Exacerbation, Progression, or Severe Exacerbation] @ -No Poses a threat to life or bodily function? @ -Yes this can continue to cause altered mental status and electrolyte abnormalities. Diagnosis/symptom? @ -Chronic foot infection Acute, or Chronic, or Acute on Chronic? @ -Chronic Uncomplicated (without systemic symptoms) or Complicated (systemic symptoms)? @ -Complicated Side effects of treatment? @ -Complicated none Exacerbation, Progression, or Severe Exacerbation] @ -No Poses a threat to life or bodily function? @ -No - Lab Data Result diagrams: 01/25/24 09:07 01/25/24 09:16 Lab Results 01/25/24 01/25/24 01/25/24 Range/Units 09:07 09:16 09:49 WBC 17.7 H (3.8-10.6) k/uL RBC 2.95 L (4.30-5.90) m/uL Hgb 8.2 L (13.0-17.5) gm/dL Hct 27.0 L (39.0-53.0) % MCV 91.4 (80.0-100.0) fL MCH 27.7 (25.0-35.0) pg MCHC 30.2 L (31.0-37.0) g/dL RDW 16.3 H (11.5-15.5) % Plt Count 277 (150-450) k/uL MPV 8.4 Neutrophils % (Manual) 75 % Band Neuts % (Manual) 1 % Lymphocytes % (Manual) 3 % Monocytes % (Manual) 5 % Eosinophils % (Manual) 16 % Neutrophils # (Manual) 13.40 H (1.3-7.7) k/uL Lymphocytes # (Manual) 0.53 L (1.0-4.8) k/uL Monocytes # (Manual) 0.89 (0-1.0) k/uL Eosinophils # (Manual) 2.83 H (0-0.7) k/uL Nucleated RBCs 0 (0-0) /100 WBC Manual Slide Review Performed Hypochromasia Marked Anisocytosis Slight PT 11.4 (10.0-12.5) sec INR 1.1 (<1.2) APTT 25.9 (22.0-30.0) sec Sodium 141 (137-145) mmol/L Potassium 5.7 H (3.5-5.1) mmol/L Chloride 109 H (98-107) mmol/L Carbon Dioxide 22 (22-30) mmol/L Anion Gap 10 mmol/L BUN 127 H* (9-20) mg/dL Creatinine 4.00 H (0.66-1.25) mg/dL Est GFR (CKD-EPI)AfAm 16 (>60 ml/min/1.73 sqM) Est GFR (CKD-EPI)NonAf 14 (>60 ml/min/1.73 sqM) Glucose 121 H (74-99) mg/dL Plasma Lactic Acid Rogers (0.7-2.0) mmol/L Calcium 8.5 (8.4-10.2) mg/dL Total Bilirubin 0.4 (0.2-1.3) mg/dL AST 48 (17-59) U/L ALT 46 (4-49) U/L Alkaline Phosphatase 1168 H (38-126) U/L Total Protein 5.5 L (6.3-8.2) g/dL Albumin 2.4 L (3.5-5.0) g/dL 01/25/24 Range/Units 09:49 WBC (3.8-10.6) k/uL RBC (4.30-5.90) m/uL Hgb (13.0-17.5) gm/dL Hct (39.0-53.0) % MCV (80.0-100.0) fL MCH (25.0-35.0) pg MCHC (31.0-37.0) g/dL RDW (11.5-15.5) % Plt Count (150-450) k/uL MPV Neutrophils % (Manual) % Band Neuts % (Manual) % Lymphocytes % (Manual) % Monocytes % (Manual) % Eosinophils % (Manual) % Neutrophils # (Manual) (1.3-7.7) k/uL Lymphocytes # (Manual) (1.0-4.8) k/uL Monocytes # (Manual) (0-1.0) k/uL Eosinophils # (Manual) (0-0.7) k/uL Nucleated RBCs (0-0) /100 WBC Manual Slide Review Hypochromasia Anisocytosis PT (10.0-12.5) sec INR (<1.2) APTT (22.0-30.0) sec Sodium (137-145) mmol/L Potassium (3.5-5.1) mmol/L Chloride (98-107) mmol/L Carbon Dioxide (22-30) mmol/L Anion Gap mmol/L BUN (9-20) mg/dL Creatinine (0.66-1.25) mg/dL Est GFR (CKD-EPI)AfAm (>60 ml/min/1.73 sqM) Est GFR (CKD-EPI)NonAf (>60 ml/min/1.73 sqM) Glucose (74-99) mg/dL Plasma Lactic Acid Rogers 0.7 (0.7-2.0) mmol/L Calcium (8.4-10.2) mg/dL Total Bilirubin (0.2-1.3) mg/dL AST (17-59) U/L ALT (4-49) U/L Alkaline Phosphatase (38-126) U/L Total Protein (6.3-8.2) g/dL Albumin (3.5-5.0) g/dL Disposition Clinical Impression: Acute on chronic renal failure, Uremia, Chronic foot ulcer, Altered mental status Disposition: ADMITTED IP TO THIS HOSP Referrals: Mateusz Montoya MD [Primary Care Provider] - 1-2 days Time of Disposition: 12:43
[2024-01-25] MEDS: PIPERACILLIN-TAZOBACTAM 3.375 GM in SODIUM CHLORIDE 0.9% 100 ML IVPB STA (09:00)
[2024-01-25 09:35] LABS: Anisocytosis Slight; HGB 8.2 gm/dL (13.0-17.5); Hypochromasia Marked; MCH 27.7 pg (25.0-35.0); MCHC 30.2 g/dL (31.0-37.0); MCV 91.4 fL (80.0-100.0); Mean Platelet Volume 8.4; Platelet Count 277 k/uL (150-450); RBC 2.95 m/uL (4.30-5.90); RDW 16.3 % (11.5-15.5); WBC 17.7 k/uL (3.8-10.6)
[2024-01-25 09:45] LABS: ALT 46 U/L (4-49); AST 48 U/L (17-59); African American GFR (CKD) 16 (>60 ml/min/1.73 sqM); Albumin 2.4 g/dL (3.5-5.0); Alkaline Phosphatase 1168 U/L (38-126); Anion Gap 10 mmol/L; Calcium 8.5 mg/dL (8.4-10.2); Carbon Dioxide 22 mmol/L (22-30); Chloride 109 mmol/L (98-107); Glucose 121 mg/dL (74-99); Non-African American GFR(CKD) 14 (>60 ml/min/1.73 sqM); Potassium 5.7 mmol/L (3.5-5.1); Sodium 141 mmol/L (137-145); Total Bilirubin 0.4 mg/dL (0.2-1.3); Total Protein 5.5 g/dL (6.3-8.2)
[2024-01-25 09:55] LABS: Blood Urea Nitrogen 127 mg/dL (9-20)
--- NOTE | 2024-01-25 09:55 | XR ---
EXAMINATION TYPE: XR foot limited RT DATE OF EXAM: 01/25/2024 9:34 AM CLINICAL INDICATION: Male, 73 years old with history of Infection; COMPARISON: 12/25/2023 TECHNIQUE: XR foot limited RT examined in the AP, oblique, and lateral projections. FINDINGS: Diffuse soft tissue swelling. There is no evidence for osseous erosion. No evidence for acute fractur e. Calcaneal plantar spurring. Multifocal degeneration changes throughout the joints of the foot. The re appears to be a soft tissue wound over the plantar surface of the foot. IMPRESSION: Diffuse soft tissue swelling which can be compatible with cellulitis, without evidence of osseous ero lucrecia. Consider further evaluation with MRI if this concern for osteomyelitis. [facility], , 01/25/2024 9:53 AM
[2024-01-25 10:11] LABS: Band Neutrophils % 1 %; Eosinophils # (M) 2.83 k/uL (0-0.7); Lymphocytes # (M) 0.53 k/uL (1.0-4.8); Monocytes # (M) 0.89 k/uL (0-1.0); Neutrophils % (M) 75 %; Nucleated Red Blood Cells 0 /100 WBC (0-0); Total Cells Counted 100
[2024-01-25] MEDS: SODIUM CHLORIDE 0.9% 500 ML 500 ML IV SCH (10:15)
[2024-01-25 10:23] LABS: INR 1.1 (<1.2); Partial Thromboplastin Time 25.9 sec (22.0-30.0); Prothrombin Time 11.4 sec (10.0-12.5)
[2024-01-25] MEDS: VANCOMYCIN 2,000 MG in SODIUM CHLORIDE 0.9% 500 ML 500 ML IVPB STA (10:34)
[2024-01-25] MEDS: PIPERACILLIN-TAZOBACTAM 3.375 GM in SODIUM CHLORIDE 0.9% 100 ML IVPB SCH (16:32)
[2024-01-25] MEDS ORDERED: bisacodyL 10 MG SUPP RECTAL PRN (20:36)
[2024-01-25] MEDS ORDERED: ACETAMINOPHEN TAB 325 MG TAB PO PRN (20:36)
[2024-01-25] MEDS ORDERED: MAGNESIUM HYDROXIDE 2,400 MG/30 ML CUP PO PRN (20:36)
[2024-01-25] MEDS ORDERED: hydrALAZINE HCL 25 MG TAB PO PRN (20:36)
[2024-01-25] MEDS ORDERED: NA PHOS,M-B/NA PHOS,DI-BA 133 ML ENEMA RECTAL PRN (20:36)
[2024-01-25] MEDS: SODIUM CHLORIDE 0.9% 1,000 ML IV ONE (20:39)
[2024-01-25] MEDS ORDERED: DEXTROSE 50% SYRINGE 50 ML IVP PRN ×2 (20:47)
[2024-01-25] MEDS ORDERED: INSULIN ASPART (NovoLOG) 100 UNIT/ML VIAL SQ SCH (21:00)
[2024-01-25] MEDS: SENNOSIDES 8.6 MG TAB PO SCH (21:05)
[2024-01-25] MEDS: INSULIN ASPART (NovoLOG) 100 UNIT/ML VIAL SQ SCH (21:09)
[2024-01-25] MEDS: HYDROcodone/APAP 10-325MG 1 EACH TAB PO PRN (21:11)
[2024-01-25] MEDS: ATORVASTATIN 20 MG TAB PO SCH (21:12)
[2024-01-25] MEDS: IPRATROPIUM-ALBUTEROL 3 ML NEB INHALATION PRN (21:21)
[2024-01-25] MEDS: HEPARIN SODIUM,PORCINE 5,000 UNIT/ML 1 ML VIAL SQ SCH (23:41)
[2024-01-26] MEDS ORDERED: IPRATROPIUM-ALBUTEROL 3 ML NEB INHALATION SCH
[2024-01-26] MEDS: LEVOTHYROXINE 112 MCG TAB PO SCH (05:50)
[2024-01-26] MEDS: PANTOPRAZOLE 40 MG TABLET PO SCH (05:50)
[2024-01-26] MEDS: TAMSULOSIN 0.4 MG CAP.ER.24H PO SCH (05:50)
[2024-01-26 06:25] LABS: Anisocytosis Slight; Basophils % (A) 0 %; Eosinophils # (A) 1.5 k/uL (0-0.7); Eosinophils % (A) 11 %; HCT 28.5 % (39.0-53.0); HGB 8.2 gm/dL (13.0-17.5); Hypochromasia Marked; Lymphocytes # (A) 0.7 k/uL (1.0-4.8); Lymphocytes % (A) 5 %; MCHC 28.7 g/dL (31.0-37.0); MCV 94.2 fL (80.0-100.0); Monocytes # (A) 0.5 k/uL (0-1.0); Monocytes % (A) 4 %; Neutrophils # (A) 10.2 k/uL (1.3-7.7); Neutrophils % (A) 78 %; Platelet Count 256 k/uL (150-450); RBC 3.03 m/uL (4.30-5.90); RDW 16.5 % (11.5-15.5); WBC 13.1 k/uL (3.8-10.6)
[2024-01-26 06:33] LABS: ALT 40 U/L (4-49); AST 43 U/L (17-59); African American GFR (CKD) 15 (>60 ml/min/1.73 sqM); Albumin 2.3 g/dL (3.5-5.0); Albumin/Globulin Ratio 0.8; Alkaline Phosphatase 1006 U/L (38-126); Anion Gap 14 mmol/L; Carbon Dioxide 19 mmol/L (22-30); Chloride 108 mmol/L (98-107); Glucose 129 mg/dL (74-99); Magnesium 2.1 mg/dL (1.6-2.3); Non-African American GFR(CKD) 13 (>60 ml/min/1.73 sqM); Phosphorus 6.8 mg/dL (2.5-4.5); Potassium 5.7 mmol/L (3.5-5.1); Sodium 141 mmol/L (137-145); Total Bilirubin 0.4 mg/dL (0.2-1.3); Total Protein 5.3 g/dL (6.3-8.2)
[2024-01-26 06:40] LABS: NT-Pro-B-Type Natriuretic Pept 3920 pg/mL
[2024-01-26 06:49] LABS: Blood Urea Nitrogen 126 mg/dL (9-20)
--- NOTE | 2024-01-26 07:24 | P.CONS ---
History of Present Illness - Reason for Consult Consult date: 01/25/24 Chronic foot infection Requesting physician: Luke Samano - Chief Complaint Mental status changes x 1 day - History of Present Illness Patient is a 73-year-old male with a past medical history significant for diabetes mellitus hypertension hyperlipidemia CT COPD hypothyroidism and this patient who has been dealing with a wound on the plantar aspect of the r ight foot that has been previously debrided by Dr. Gray and the patient has been on IV Rocephin as there was concern for osteomyelitis of the bones clean patient has been sent to the hospital [facility] the local [facility] concerning for elevated potassium and the patient was noticed to have some mental status patient denies having any fever or any chills patient denies having any headache or URI symptom no chest pain shortness with occasional cough no nausea no vomiting no abdominal pain or diarrhea. Denies pain to the right foot and denies having any worsening drainage patient on presentation to the hospital was afebrile and no fever have been recorded subsequently patient was nontachycardic or hypotensive he is currently on 3 L nasal cannula oxygen he did have a white count of 17.7 with a left shift did have a BUN of 127 and a creatinine of 4.0 patient was started on vancomycin and Zosyn admitted to the hospital infectious disease was consulted for further management of antibiotic therapy patient did have x-ray of the right foot did not show any bony changes Review of Systems Positive point and negatives has been mentioned in the HPI, complete review of systems was performed and all other systems are negative Past Medical History Past Medical History: COPD, Diabetes Mellitus, Hyperlipidemia, Hypertension, My ocardial Infarction (CT), Neurologic Disorder, Thyroid Disorder Additional Past Medical History / Comment(s): Peripheral neuropathy, diabetic leg ulcers, Last Myocardial Infarction Date:: Pt guesses its been about 5 years2018 History of Any Multi-Drug Resistant Organisms: Unobtainable Past Surgical History: Heart Catheterization With Stent Additional Past Surgical History / Comment(s): Bilateral caterac surgery Past Anesthesia/Blood Transfusion Reactions: No Reported Reaction Date of Last Stent Placement:: 2020 Past Psychological History: Unable to Obtain Smoking Status: Former smoker Past Alcohol Use History: Heavy Additional Past Alcohol Use History / Comment(s): Pt stopped drinking 16 years ago Past Drug Use History: None Reported Additional Drug Use History / Comment(s): stopped smoking 28 years ago - Past Family History Mother Family Medical History: Diabetes Mellitus Medications and Allergies Home Medications Medication Instructions Recorded Confirmed Type Furosemide [Lasix] 20 mg PO DAILY@0800 11/23/23 01/25/24 History Insulin Aspart Prot/Insuln Asp 20 unit SQ BID@0800,1700 11/23/23 01/25/24 History [NovoLOG MIX 70-30 Flexpen] Levothyroxine Sodium [Synthroid] 112 mcg PO DAILY@59911/23/23 01/25/24 History Simvastatin [Zocor] 40 mg PO HS@209911/23/23 01/25/24 History Clopidogrel [Plavix] 75 mg PO DAILY@79912/26/23 01/25/24 History cefTRIAXone [Rocephin] 2,000 mg IVP Q24HR #28 each 12/30/23 01/25/24 Rx Acetaminophen Tab [Tylenol] 650 mg PO Q6HR PRN tab 12/31/23 01/25/24 Rx Jac Packet 1 packet PO BID@0800,169901/11/24 01/25/24 History L.acidoph,Paracasei, B.lactis 1 cap PO DAILY@169901/11/24 01/25/24 History [Probiotic] Liquacel 30 ml PO DAILY@1200 01/11/24 01/25/24 History Loperamide [Imodium] 2 - 4 mg PO QID PRN 01/11/24 01/25/24 History Magnesium Hydroxide [Milk of 7,200 mg PO Q48H PRN 01/11/24 01/25/24 History Magnesia Concentrate] Na Phos,M-B/Na Phos,Di-Ba [Fleet 133 ml RECTAL DAILY PRN 01/11/24 01/25/24 History Adult] Pantoprazole [Protonix] 40 mg PO DAILY@59901/11/24 01/25/24 History Sennosides [Senokot] 17.2 mg PO HS@209901/11/24 01/25/24 History Tamsulosin [Flomax] 0.4 mg PO DAILY@0601/11/24 01/25/24 History amLODIPine [Norvasc] 5 mg PO DAILY@0800 01/11/24 01/25/24 History bisacodyL [Dulcolax] 10 mg RECTAL DAILY PRN 01/11/24 01/25/24 History hydrALAZINE HCL [Apresoline] 25 mg PO Q6HR PRN 01/11/24 01/25/24 History Collagenase [Santyl Ointment] 1 applic TOPICAL DAILY each 01/18/24 01/25/24 Rx diphenhydrAMINE [Benadryl] 25 mg PO QID PRN cap 01/18/24 01/25/24 Rx [place] Breakfast Essentials 1 packet PO BID@0800,1700 01/25/24 01/25/24 History Darbepoetin [place] [Aranesp] 40 mcg SQ TH@0800 01/25/24 01/25/24 History Gabapentin [Neurontin] 400 mg PO BID@0800,1700 01/25/24 01/25/24 History HYDROcodone/APAP 10-325MG [[place] 1 tab PO Q6H PRN 01/25/24 01/25/24 History 10-325] INSULIN ASPART (NovoLOG) [NovoLOG See Protocol SQ ACHS 01/25/24 01/25/24 History (formulary)] Menthol-Zinc Oxide Oint 1 applic TOPICAL Q12H 01/25/24 01/25/24 History [Calmoseptine Ointment] Allergies Allergy/AdvReac Type Severity Reaction Status Date / Time No Known Allergies Allergy Verified 01/25/24 09:22 Physical Exam Vitals: Vital Signs Temp Pulse Resp BP Pulse Ox 01/25/24 12:14 70 20 134/71 8 L 01/25/24 11:06 80 22 131/51 98 01/25/24 09:05 84 20 114/83 94 L 01/25/24 07:45 97.5 F L 88 22 122/61 94 L Intake and Output 01/24/24 01/25/24 01/25/24 22:59 06:59 14:59 Other: Weight 136.078 kg GENERAL DESCRIPTION: Elderly male lying in bed, no distress. No tachypnea or accessory muscle of respiration use. HEENT: Shows Pallor , no scleral icterus. Oral mucous membrane is dry. No pharyngeal erythema or thrush NECK: Trachea central, no thyromegaly. LUNGS: Unlabored breathing. Clear to auscultation anteriorly. No wheeze or crackle. HEART: S1, S2, regular rate and rhythm. No loud murmur ABDOMEN: Soft, no tenderness , guarding or rigidity, no organomegaly EXTREMITIES: Right foot plantar aspect did have a wound with some slough tissue minimal redness no foul-smelling drainage SKIN: No rash, no masses palpable. NEUROLOGICAL: The patient is awake, alert, oriented x2, mood and affect normal. Results CBC & Chem 7: 01/26/24 06:01 01/26/24 06:01 Labs: Abnormal Lab Results - Last 24 Hours (Table) 01/25/24 01/25/24 Range/Units 09:07 09:16 WBC 17.7 H (3.8-10.6) k/uL RBC 2.95 L (4.30-5.90) m/uL Hgb 8.2 L (13.0-17.5) gm/dL Hct 27.0 L (39.0-53.0) % MCHC 30.2 L (31.0-37.0) g/dL RDW 16.3 H (11.5-15.5) % Neutrophils # (Manual) 13.40 H (1.3-7.7) k/uL Lymphocytes # (Manual) 0.53 L (1.0-4.8) k/uL Eosinophils # (Manual) 2.83 H (0-0.7) k/uL Potassium 5.7 H (3.5-5.1) mmol/L Chloride 109 H (98-107) mmol/L BUN 127 H* (9-20) mg/dL Creatinine 4.00 H (0.66-1.25) mg/dL Glucose 121 H (74-99) mg/dL Alkaline Phosphatase 1168 H (38-126) U/L Total Protein 5.5 L (6.3-8.2) g/dL Albumin 2.4 L (3.5-5.0) g/dL Assessment and Plan (1) Foot osteomyelitis, right Current Visit: Yes Status: Acute Code(s): M86.9 - OSTEOMYELITIS, UNSPECIFIED SNOMED Code(s): 7372642321571079 (2) Diabetic foot ulcer Current Visit: No Status: Acute Code(s): E11.621 - TYPE 2 DIABETES MELLITUS WITH FOOT ULCER; L97.509 - NON-PRESSURE CHRONIC ULCER OTH PRT UNSP FOOT W UNSP SEVERITY SNOMED Code(s): 439775181 (3) Type 2 diabetes mellitus with foot ulcer Current Visit: No Status: Acute Code(s): E11.621 - TYPE 2 DIABETES MELLITUS WITH FOOT ULCER; L97.509 - NON-PRESSURE CHRONIC ULCER OTH PRT UNSP FOOT W UNSP SEVERITY SNOMED Code(s): 0301233182165 Plan: 1patient presented to hospital with mental status change which is likely multifactorial could be related to renal failure as the patient have significant elevated BUN and creatinine, apparently did have elevated potassium in the outpatient setting, patient also dealing with the chronic nonhealing wound on the plantar aspect of the right foot that has been previously debrided by vascular surgery wound base did have slough tissue and minimal surrounding redness x-rays were negative for any bony changes 2-local wound care with the Santyl followed by moist dressing 3-we will continue patient on Zosyn however discontinue vancomycin keeping in mind his kidney function and no MRSA was grown in the culture on last admission We will follow on clinical condition and cultures to further adjust medication if needed Thank you for this consultation we will follow the patient along with you Dictation was produced using [employer] dictation software. please excuse any grammatical, word or spelling errors. Time with Patient: Greater than 30
[2024-01-26 07:45] LABS: Appearance,Urine Turbid (Clear); Bilirubin,Urine Negative (Negative); Blood,Urine Moderate (Negative); Budding Yeast,Urine Many /hpf; Color,Urine Yellow; Glucose,Urine (UA) Negative (Negative); Hyaline Casts,Urine 10 /lpf (0-2); Ketones,Urine Trace (Negative); Leukocyte Esterase,Urine Large (Negative); Nitrite,Urine Negative (Negative); PH, Urine 5.5 (5.0-8.0); Protein,Urine 2+ (Negative); RBC,Urine 59 /hpf (0-5); Urobilinogen,Urine <2.0 mg/dL (<2.0); WBC,Urine >182 /hpf (0-5); White Blood Cell Casts,Urine 10 /lpf (0)
[2024-01-26] MEDS ORDERED: NON FORMULARY DRUG (Juven Packet 1 PACKET Packet) PO SCH (08:00)
[2024-01-26] MEDS ORDERED: [UNRECOGNIZED DRUG - OTHER] PO SCH (08:00)
[2024-01-26] MEDS ORDERED: VANCOMYCIN 2,000 MG in SODIUM CHLORIDE 0.9% 500 ML 500 ML IVPB ONE (08:00)
[2024-01-26] MEDS: IPRATROPIUM-ALBUTEROL 3 ML NEB INHALATION SCH (08:16)
--- NOTE | 2024-01-26 08:17 | P.HPIM ---
History of Present Illness H&P Date: 01/25/24 HISTORY OF PRESENT ILLNESS: 73-year-old morbidly obese with active medical history of atherosclerotic heart disease post myocardial infarction, severe peripheral arterial disease with infected right foot with osteomyelitis, type 2 diabetes, COPD, chronic history of neuropathy, chronic pain syndrome, hypertension, hyperlipidemia, chronic kidney disease with much worsening symptoms. Who has chronic anemia, recurrent encephalopathy with recurrent sepsis and infection who was hospitalized last and January 10 for altered mental status with confusion and worsening uremia and worsening right foot osteomyelitis slightly worsening BUN/creatinine at the time with 79 and 2.58 who ended up being in the hospital for 10 days his kidney function become slightly with worsening decline, continue to suffer from osteomyelitis of the right foot which will require eventually right above-knee amputation which vascular refused initially to schedule till at least is done with IV antibiotic being treated for urinary tract infection with sepsis for what seems like Klebsiella pneumonia. Patient ended up being stabilized he change his CODE STATUS at that point to DO NOT RESUSCITATE and long time talk with nephrology did not make any decision whether he wants to go for dialysis or not but he was not opposed to it at the time. He ended up going back to [facility] on IV antibiotics kept watching for any worsening symptoms. Over the last few days patient become severely more confused with much worsening condition his laboratory value continue to show severe uremia with BUN above 107 creatinine up to 4.0 with potassium level yesterday was as high as 6.6. Patient was giving 1 dose of Lokelma yesterday. Had helped some but through the night in the early childhood associate hours he become a lot worse with worsening confusion not waking up well has been having slight increase shortness of breath with delusion and slight hallucination and that being sent to the emergency department at [facility] where was seen and evaluated for the above condition at the time he has been up to 127 creatinine 4.0 with the 1 dose of Lokelma his potassium is down to 5.7. Patient continued to suffer from much worsening condition white blood cell up to 17.7 hemoglobin 8.2 decided to switch his antibiotics was giving apparently 1 dose of vancomycin and Zosyn consulted infectious disease admit patient to the hospital patient will need to see nephrology and probably will need to go on hemodialysis. REVIEW OF SYSTEMS: CONSTITUTIONAL: Morbidly obese in no acute respiratory distress. Slightly confused EYES: No icterus sclerae, no conjunctivitis. EARS, NOSE, MOUTH, THROAT, and FACE: No sore throat, lymphadenopathy, carotid bruits or deformity. RESPIRATORY: Mild shortness of breath mild cough no wheezes. CARDIOVASCULAR: Positive PND orthopnea palpitation. GASTROINTESTINAL: Abdominal discomfort with mild nausea with slight distention no vomiting. GENITOURINARY: Decreased urine output with incontinence slight change in urine color with worsening kidney failure. INTEGUMENT/BREAST: Negative for any muscular injury with mild osteoarthritis.. HEMATOLOGIC/LYMPHATIC: Worsening anemia MUSCULOSKELTAL: Myalgia arthralgia and significant discomfort with ulcer in the right foot. NEURLOGICAL: Slight confusion with worsening mental status compared to his baseline no focalized deficit. BEHAVIORAL/PSYCH: Negative. ENDOCRINE: Negative. PHYSICAL EXAMINATION: General Appearance: Alert, confused, no distress, appears stated age. Neck HEENT: Supple, no lymphadenopathy, no thyroid enlargement, no carotid bruits. Lungs: Decreased breath sound bilaterally with fine rhonchi no crackles or wheezes. Chest Wall: Decreased expansion with deep inspiration no tenderness and no deformity was found on exam, no costochondral pain or discomfort. Heart: Regular rate and rhythm, S1, S2 positive S3 positive systolic murmur. Back: Symmetric, no curvature, ROM normal, no CVA tenderness. Abdomen: Soft, non-tender, bowel sounds active all four quadrants, no masses, no organomegaly. Extremities: Right foot still have significant irritation edema redness with warmness to touch with significant decreased circulation. When to 2+ edema Pulses: Decreased pulse bilaterally worse on the right than the left side Skin: Skin color, texture, tugor normal, no rashes or lesions. Neurologic: Alert confused cranial nerves II through XII intact, no motor deficit, positive generalized weakness. ASSESSMENT AND PLAN: _Advanced stage V chronic kidney disease with much worsening kidney failure become subacute and chronic will require probably hemodialysis at this point, patient be admitted to the hospital will consult nephrology continue to avoid any nephrotoxic agent continue gentle hydration. _Altered mental status: Secondary to uremia, anemia, and infection continue to treat underlying disease and watch symptoms carefully. _Hyperkalemia: Patient had 1 dose of Lokelma we will continue with conservative management repeat potassium below 5.5. _Slight dyspnea and shortness of breath most likely affected by the kidney failure causing more fluid retention and overload with worsening COPD updraft treatment, diuretics and probably the further solution will need to be done through dialysis. _Acute kidney injury with Chronic kidney disease: With much worsening kidney function at this point will admit patient consult nephrology continue current management. _Osteomyelitis of the right foot has been much worse continue IV antibiotics will consult infectious disease and wound care patient still need to see vascular and eventually need to go for above-knee amputation. _Recent history of Klebsiella pneumonia urinary tract infection was sent back to [facility] on cefepime antibiotic was changed this time to Vanccony and Zootto to be seen infectious disease. _Severe PAD consultation with vascular earlier in the month conclusion was to go for above-knee amputation which patient had declined at this point Sun continue to try his topical infection with antibiotic and wound care to see if it salvage the leg. _Peripheral neuropathy: Remain on gabapentin 1600 mg at nighttime. _Chronic pain syndrome: Continue hydrocodone orally. _Type 2 diabetes with hyperglycemia: Continue Accu-Chek with sliding scales coverage might benefit from adding long acting insulin at nighttime. _Hypothyroidism: Still on levothyroxine 112 mcg daily. _Hypertension: Blood pressure still slightly below but continue lisinopril 20 mg a day. _Hyperlipidemia: Was on simvastatin has been hold currently which will be resumed soon as patient able to tolerate medication. _Morbid obesity with BMI of 43.9: Which increases risk factor of complication. _Debility: Patient is wheelchair/bedbound not able to ambulate and walk. _GI prophylaxis: Continue pantoprazole IV. _DVT prophylaxis will do heparin 5000 units subcutaneous twice a day. CODE STATUS: DO NOT RESUSCITATE. As a matter of judgment on hemodialysis patient is still not a clear about it yet. Her most likely will end up going on dialysis. Admit patient to the inpatient service for more than 2 night stay. Past Medical History Past Medical History: COPD, Diabetes Mellitus, Hyperlipidemia, Hypertension, Myocardial Infarction ([place]), Neurologic Disorder, Thyroid Disorder Additional Past Medical History / Comment(s): Peripheral neuropathy, diabetic leg ulcers, Last Myocardial Infarction Date:: Pt guesses its been about 5 years, 2018 History of Any Multi-Drug Resistant Organisms: Unobtainable Past Surgical History: Heart Catheterization With Stent Additional Past Surgical History / Comment(s): Bilateral caterac surgery Past Anesthesia/Blood Transfusion Reactions: No Reported Reaction Date of Last Stent Placement:: 2020 Past Psychological History: Unable to Obtain Smoking Status: Former smoker Past Alcohol Use History: Heavy Additional Past Alcohol Use History / Comment(s): Pt stopped drinking 16 years ago Past Drug Use History: None Reported Additional Drug Use History / Comment(s): stopped smoking 28 years ago - Past Family History Mother Family Medical History: Diabetes Mellitus Medications and Allergies Home Medications Medication Instructions Recorded Confirmed Type Furosemide [Lasix] 20 mg PO DAILY@0800 11/23/23 01/25/24 History Insulin Aspart Prot/Insuln Asp 20 unit SQ BID@0800,1700 11/23/23 01/25/24 History [NovoLOG MIX 70-30 Flexpen] Levothyroxine Sodium [Synthroid] 112 mcg PO DAILY@59911/23/23 01/25/24 History Simvastatin [Zocor] 40 mg PO HS@209911/23/23 01/25/24 History Clopidogrel [Plavix] 75 mg PO DAILY@0812/26/23 01/25/24 History cefTRIAXone [Rocephin] 2,000 mg IVP Q24HR #28 each 12/30/23 01/25/24 Rx Acetaminophen Tab [Tylenol] 650 mg PO Q6HR PRN tab 12/31/23 01/25/24 Rx Jac Packet 1 packet PO BID@0800,1700 01/11/24 01/25/24 History L.acidoph,Paracasei, B.lactis 1 cap PO DAILY@169901/11/24 01/25/24 History [Probiotic] Liquacel 30 ml PO DAILY@1200 01/11/24 01/25/24 History Loperamide [Imodium] 2 - 4 mg PO QID PRN 01/11/24 01/25/24 History Magnesium Hydroxide [Milk of 7,200 mg PO Q48H PRN 01/11/24 01/25/24 History Magnesia Concentrate] Na Phos,M-B/Na Phos,Di-Ba [Fleet 133 ml RECTAL DAILY PRN 01/11/24 01/25/24 History Adult] Pantoprazole [Protonix] 40 mg PO DAILY@59901/11/24 01/25/24 History Sennosides [Senokot] 17.2 mg PO HS@209901/11/24 01/25/24 History Tamsulosin [Flomax] 0.4 mg PO DAILY@59901/11/24 01/25/24 History amLODIPine [Norvasc] 5 mg PO DAILY@0800 01/11/24 01/25/24 History bisacodyL [Dulcolax] 10 mg RECTAL DAILY PRN 01/11/24 01/25/24 History hydrALAZINE HCL [Apresoline] 25 mg PO Q6HR PRN 01/11/24 01/25/24 History Collagenase [Santyl Ointment] 1 applic TOPICAL DAILY each 01/18/24 01/25/24 Rx diphenhydrAMINE [Benadryl] 25 mg PO QID PRN cap 01/18/24 01/25/24 Rx [place] Breakfast Essentials 1 packet PO BID@0800,1700 01/25/24 01/25/24 History Darbepoetin [place] [Aranesp] 40 mcg SQ TH@0800 01/25/24 01/25/24 History Gabapentin [Neurontin] 400 mg PO BID@0800,1700 01/25/24 01/25/24 History HYDROcodone/APAP 10-325MG [[place] 1 tab PO Q6H PRN 01/25/24 01/25/24 History 10-325] INSULIN ASPART (NovoLOG) [NovoLOG See Protocol SQ ACHS 01/25/24 01/25/24 History (formulary)] Menthol-Zinc Oxide Oint 1 applic TOPICAL Q12H 01/25/24 01/25/24 History [Calmoseptine Ointment] Allergies Allergy/AdvReac Type Severity Reaction Status Date / Time No Known Allergies Allergy Verified 01/25/24 09:22 Physical Exam Vitals: Vital Signs Temp Pulse Resp BP Pulse Ox 01/25/24 12:14 70 20 134/71 8 L 01/25/24 11:06 80 22 131/51 98 01/25/24 09:05 84 20 114/83 94 L 01/25/24 07:45 97.5 F L 88 22 122/61 94 L Intake and Output 01/25/24 01/25/24 01/25/24 06:59 14:59 22:59 Other: Weight 136.078 kg Results CBC & Chem 7: 01/26/24 06:01 01/26/24 06:01 Labs: Abnormal Lab Results - Last 24 Hours (Table) 01/25/24 01/25/24 Range/Units 09:07 09:16 WBC 17.7 H (3.8-10.6) k/uL RBC 2.95 L (4.30-5.90) m/uL Hgb 8.2 L (13.0-17.5) gm/dL Hct 27.0 L (39.0-53.0) % MCHC 30.2 L (31.0-37.0) g/dL RDW 16.3 H (11.5-15.5) % Neutrophils # (Manual) 13.40 H (1.3-7.7) k/uL Lymphocytes # (Manual) 0.53 L (1.0-4.8) k/uL Eosinophils # (Manual) 2.83 H (0-0.7) k/uL Potassium 5.7 H (3.5-5.1) mmol/L Chloride 109 H (98-107) mmol/L BUN 127 H* (9-20) mg/dL Creatinine 4.00 H (0.66-1.25) mg/dL Glucose 121 H (74-99) mg/dL Alkaline Phosphatase 1168 H (38-126) U/L Total Protein 5.5 L (6.3-8.2) g/dL Albumin 2.4 L (3.5-5.0) g/dL
[2024-01-26] MEDS: GABAPENTIN 400 MG CAP PO SCH (08:28)
[2024-01-26] MEDS: amLODIPine 5 MG TAB PO SCH (08:28)
[2024-01-26] MEDS: CLOPIDOGREL 75 MG TAB PO SCH (08:28)
[2024-01-26] MEDS: FUROSEMIDE 20 MG TAB PO SCH (08:28)
[2024-01-26] MEDS: SODIUM BICARB 8.4% 50 ML SYR (1 MEQ/ML) IV STA (08:31)
[2024-01-26] MEDS: DEXTROSE 50% SYRINGE 50 ML IVP STA (08:31)
[2024-01-26] MEDS: INSULIN REGULAR 100 UNIT/ML VIAL (IV) IV ONE (08:42)
[2024-01-26] MEDS: INSULN ASP PRT/INSULIN ASPART 100 UNIT/ML 10 ML VIAL SQ SCH (10:41)
--- NOTE | 2024-01-26 11:28 | P.PN ---
Subjective Progress Note Date: 01/26/24 Principal diagnosis: Reason for follow-up is right diabetic foot ulcer cellulitis and osteomyelitis Patient is a 73-year-old male with a past medical history significant for diabetes mellitus hypertension hyperlipidemia [place] COPD hypothyroidism and this patient who has been dealing with a wound on the plantar aspect of the right foot that has been previously debrided by Dr. Gray and the patient has been on IV Rocephin for osteomyelitis patient have not been brought back to the hospital concerning for mental status changes and elevated production patient was did have evidence of acute renal failure. On today's evaluation that is 01/26/2024, the patient continues to be afebrile, the patient is on 3 L nasal cannula oxygen and breathing comfortably, the Pt denies having any chest pain or cough, the patient denies having any abdominal pain no vomiting or any diarrhea and denies any pain to the right foot wound. Patient white count is down to 13.1 creatinine is 4.20 urine has been positive right foot wound cultures are pending Objective - Vital Signs Vital signs: Vital Signs Temp 97.4 F L 01/26/24 01:17 Pulse 75 01/26/24 11:24 Resp 16 01/26/24 07:36 BP 117/56 01/26/24 07:36 Pulse Ox 92 L 01/26/24 08:16 FiO2 Intake & Output 01/25/24 01/26/24 01/26/24 18:59 06:59 18:59 Output Total 800 Balance -800 Weight 136.078 kg 136.078 kg Output: Urine 800 Straight 800 Other: # Bowel Movements 1 - Exam GENERAL DESCRIPTION: An elderly male lying in bed in no distress RESPIRATORY SYSTEM: Unlabored breathing , decreased breath sounds at bases HEART: S1 S2 regular rate and rhythm , ABDOMEN: Soft , no tenderness EXTREMITIES: Right foot wound is currently dressed no drainage - Labs CBC & Chem 7: 01/26/24 06:01 01/26/24 06:01 Labs: Abnormal Lab Results - Last 24 Hours (Table) 01/26/24 01/26/24 01/26/24 Range/Units 06:01 06:01 07:22 WBC 13.1 H (3.8-10.6) k/uL RBC 3.03 L (4.30-5.90) m/uL Hgb 8.2 L (13.0-17.5) gm/dL Hct 28.5 L (39.0-53.0) % MCHC 28.7 L (31.0-37.0) g/dL RDW 16.5 H (11.5-15.5) % Neutrophils # 10.2 H (1.3-7.7) k/uL Lymphocytes # 0.7 L (1.0-4.8) k/uL Eosinophils # 1.5 H (0-0.7) k/uL Potassium 5.7 H (3.5-5.1) mmol/L Chloride 108 H (98-107) mmol/L Carbon Dioxide 19 L (22-30) mmol/L BUN 126 H* (9-20) mg/dL Creatinine 4.20 H (0.66-1.25) mg/dL Glucose 129 H (74-99) mg/dL Calcium 8.0 L (8.4-10.2) mg/dL Phosphorus 6.8 H (2.5-4.5) mg/dL Alkaline Phosphatase 1006 H (38-126) U/L Total Protein 5.3 L (6.3-8.2) g/dL Albumin 2.3 L (3.5-5.0) g/dL Urine Protein 2+ H (Negative) Urine Ketones Trace H (Negative) Urine Blood Moderate H (Negative) Ur Leukocyte Esterase Large H (Negative) Urine RBC 59 H (0-5) /hpf Urine WBC >182 H (0-5) /hpf Hyaline Casts 10 H (0-2) /lpf Urine Yeast (Budding) Many H (None) /hpf Microbiology - Last 24 Hours (Table) 01/25/24 10:50 Gram Stain - Preliminary Foot - Right Assessment and Plan (1) Foot osteomyelitis, right Current Visit: Yes Status: Acute Code(s): M86.9 - OSTEOMYELITIS, UNSPECIFIED SNOMED Code(s): 4124998737213417 (2) Diabetic foot ulcer Current Visit: No Status: Acute Code(s): E11.621 - TYPE 2 DIABETES MELLITUS WITH FOOT ULCER; L97.509 - NON-PRESSURE CHRONIC ULCER OTH PRT UNSP FOOT W UNSP SEVERITY SNOMED Code(s): 199690782 (3) Type 2 diabetes mellitus with foot ulcer Current Visit: No Status: Acute Code(s): E11.621 - TYPE 2 DIABETES MELLITUS WITH FOOT ULCER; L97.509 - NON-PRESSURE CHRONIC ULCER OTH PRT UNSP FOOT W UNSP SEVERITY SNOMED Code(s): 0808551611038 Plan: 1patient presented to hospital with mental status change which is likely multifactorial could be related to renal failure as the patient have significant elevated BUN and creatinine, apparently did have elevated potassium in the outpatient setting, patient also dealing with the chronic nonhealing wound on the plantar aspect of the right foot that has been previously debrided by vascular surgery wound base did have slough tissue and minimal surrounding redness x-rays were negative for any bony changes 2-local wound care with the Santyl followed by moist dressing 3-patient to continue with the current treatment of Zosyn while waiting for repeat culture to finalize Dictation was produced using Loku dictation software. please excuse any grammatical, word or spelling errors. Time with Patient: Less than 30
[2024-01-26] MEDS ORDERED: NON FORMULARY DRUG (Liquacel 30 ML) PO SCH (12:00)
--- NOTE | 2024-01-26 12:12 | CDI ---
Documentation Clarification Form Date: 01/26/2024 11:48:42 AM From: Edwina Chau RN CCDS Phone: [phone] Admit Date: 01/25/2024 12:54:00 PM Patient Name: Mateusz Levin Visit Number: [id number] Discharge Date: ATTENTION: The Clinical Documentation Specialists (CDI) and [facility] Coding Staff appreciate your assistance in clarifying documentation. Please respond to the clarification below the line at the bottom and electronically sign. The CDI & [facility] Coding staff will review the response and follow-up if needed. Please note: Queries are made part of the Legal Health Record. If you have any questions, please contact the author of this message via ITS. Doctor: Mateusz Montoya Your patient has the documented symptom of Altered Mental Status 01/24, HP. Additional clarification regarding the etiology/cause of this symptom is requested. History/Risk Factors: 73-year old male presents to the ED from ECF for more confusion with worsening condition his labatory value continue to show severe uremia with BUN above 07 Creatinine up to 4.0 with potassium level, and wbc 17.7. Medical history: Type 2DM, right foot osteomyelitis, PVD, COPD, HTN, chronic kidney disease and recurrent encephalopathy. HP, 01/24. Clinical Indicators: VSS, 01/24: B/P 122/61; HR 88; Temp 97.5F Oral; RR 22; SpO2 4L BMI 37.5kg Labs, 01/24: Wbc 17.7; Hgb 8.2; Neutrophils 13.40; K 5.7; Chl 109; BUN 127; Cr 4.0; GFR 14; Glucose 121; ALK Phos 1168; BNP 3920; Total protein 5.5; Albumin 2.4; Right Foot Xray, 01/24: Diffuse soft tissue swelling which can be compatible with cellulitis. Treatment: 01/24 0.09NS 500cc IV Bolus x 3; 01/24 Zosyn IVPB Q8H; 01/24 Vancomycin IVPB x 1; 01/25 Sodium Bicarb IV x 1; 01/25 Lasix IV x 1, 01/25 Lasix 20mg po daily; Please clarify the etiology of the symptom of Altered Mental Status: [ XX ] Metabolic Encephalopathy due to uremia and infection. [ ] Other condition (please specify) [ ] Unable to determine (Template Last Revised: May 2020) MTDD
[2024-01-26] MEDS: FUROSEMIDE 10 MG/ML 10 ML VIAL IV ONE (12:47)
--- NOTE | 2024-01-26 12:48 | P.GSCN ---
History of Present Illness Consult date: 01/26/24 Reason for Consult: Possible HD line Requesting physician: Mateusz Montoya History of present illness: This is a pleasant 73-year-old male with multiple comorbidities known to vascular surgical services for chronic nonhealing lower extremity wounds. Patient has had multiple hospitalizations within the past few months and has been hospitalized for recurrent urinary tract infections. Patient was again brought to the emergency department for altered mental status changes, elevated white count and hyperkalemia noted at [facility]. Patient appears to have a urinary tract infection, also acute on chronic kidney injury. Primary medical team consulted nephrology for recommendations for possible hemodialysis and consulted vascular surgery for possible hemodialysis catheter placement. Patient reports no acute changes to lower extremities. He states that he is following with the wound clinic for local wound care. He is afebrile. On presentation WBC 17.7 hemoglobin 8.2 platelet count 277,000 sodium 141 potassium 5.7 BUN 127 creatinine 4.0 alkaline phosphatase 1168 Review of Systems A 14 point review systems was completed all pertinent positives and negatives as stated in the HPI. Past Medical History Past Medical History: COPD, Diabetes Mellitus, Hyperlipidemia, Hypertension, Myocardial Infarction ([place]), Neurologic Disorder, Thyroid Disorder Additional Past Medical History / Comment(s): Peripheral neuropathy, diabetic leg ulcers, Last Myocardial Infarction Date:: Pt guesses its been about 5 years2018 History of Any Multi-Drug Resistant Organisms: Unobtainable Past Surgical History: Heart Catheterization With Stent Additional Past Surgical History / Comment(s): Bilateral caterac surgery Past Anesthesia/Blood Transfusion Reactions: No Reported Reaction Date of Last Stent Placement:: 2020 Past Psychological History: Unable to Obtain Smoking Status: Former smoker Past Alcohol Use History: Heavy Additional Past Alcohol Use History / Comment(s): Pt stopped drinking 16 years ago Past Drug Use History: None Reported Additional Drug Use History / Comment(s): stopped smoking 28 years ago - Past Family History Mother Family Medical History: Diabetes Mellitus Medications and Allergies Home Medications Medication Instructions Recorded Confirmed Type Furosemide [Lasix] 20 mg PO DAILY@0800 11/23/23 01/25/24 History Insulin Aspart Prot/Insuln Asp 20 unit SQ BID@0800,1700 11/23/23 01/25/24 History [NovoLOG MIX 70-30 Flexpen] Levothyroxine Sodium [Synthroid] 112 mcg PO DAILY@0600 11/23/23 01/25/24 History Simvastatin [Zocor] 40 mg PO HS@2100 11/23/23 01/25/24 History Clopidogrel [Plavix] 75 mg PO DAILY@0812/26/23 01/25/24 History cefTRIAXone [Rocephin] 2,000 mg IVP Q24HR #28 each 12/30/23 01/25/24 Rx Acetaminophen Tab [Tylenol] 650 mg PO Q6HR PRN tab 12/31/23 01/25/24 Rx Jac Packet 1 packet PO BID@0800,1700 01/11/24 01/25/24 History L.acidoph,Paracasei, B.lactis 1 cap PO DAILY@1700 01/11/24 01/25/24 History [Probiotic] Liquacel 30 ml PO DAILY@1200 01/11/24 01/25/24 History Loperamide [Imodium] 2 - 4 mg PO QID PRN 01/11/24 01/25/24 History Magnesium Hydroxide [Milk of 7,200 mg PO Q48H PRN 01/11/24 01/25/24 History Magnesia Concentrate] Na Phos,M-B/Na Phos,Di-Ba [Fleet 133 ml RECTAL DAILY PRN 01/11/24 01/25/24 History Adult] Pantoprazole [Protonix] 40 mg PO DAILY@0601/11/24 01/25/24 History Sennosides [Senokot] 17.2 mg PO HS@2100 01/11/24 01/25/24 History Tamsulosin [Flomax] 0.4 mg PO DAILY@0601/11/24 01/25/24 History amLODIPine [Norvasc] 5 mg PO DAILY@0800 01/11/24 01/25/24 History bisacodyL [Dulcolax] 10 mg RECTAL DAILY PRN 01/11/24 01/25/24 History hydrALAZINE HCL [Apresoline] 25 mg PO Q6HR PRN 01/11/24 01/25/24 History Collagenase [Santyl Ointment] 1 applic TOPICAL DAILY each 01/18/24 01/25/24 Rx diphenhydrAMINE [Benadryl] 25 mg PO QID PRN cap 01/18/24 01/25/24 Rx [place] Breakfast Essentials 1 packet PO BID@0800,1700 01/25/24 01/25/24 History Darbepoetin [place] [Aranesp] 40 mcg SQ TH@0800 01/25/24 01/25/24 History Gabapentin [Neurontin] 400 mg PO BID@0800,1700 01/25/24 01/25/24 History HYDROcodone/APAP 10-325MG [[place] 1 tab PO Q6H PRN 01/25/24 01/25/24 History 10-325] INSULIN ASPART (NovoLOG) [NovoLOG See Protocol SQ ACHS 01/25/24 01/25/24 History (formulary)] Menthol-Zinc Oxide Oint 1 applic TOPICAL Q12H 01/25/24 01/25/24 History [Calmoseptine Ointment] Allergies Allergy/AdvReac Type Severity Reaction Status Date / Time No Known Allergies Allergy Verified 01/25/24 09:22 Surgical - Exam Vital Signs Temp Pulse Resp BP Pulse Ox 97.5 F L 88 22 122/61 94 L 01/25/24 07:45 01/25/24 07:45 01/25/24 07:45 01/25/24 07:45 01/25/24 07:45 General appearance: The patient is alert, oriented, appears in no acute distress. Morbidly obese. HET: Head is normocephalic and atraumatic. Pupils are equal and reactive. Neck: Supple. Heart: Regular. Lungs: Equal expansion, normal respiratory effort. Abdomen: Soft, nontender, nondistended. Extremities: Bilateral upper extremities with rash. Right foot with dressing and offloading boots in place. Neurological: Alert and oriented. Results - Labs 01/26/24 06:01 01/26/24 06:01 Abnormal Lab Results - Last 24 Hours (Table) 01/25/24 01/25/24 01/26/24 Range/Units 09:07 09:16 06:01 WBC 17.7 H 13.1 H (3.8-10.6) k/uL RBC 2.95 L 3.03 L (4.30-5.90) m/uL Hgb 8.2 L 8.2 L (13.0-17.5) gm/dL Hct 27.0 L 28.5 L (39.0-53.0) % MCHC 30.2 L 28.7 L (31.0-37.0) g/dL RDW 16.3 H 16.5 H (11.5-15.5) % Neutrophils # 10.2 H (1.3-7.7) k/uL Neutrophils # (Manual) 13.40 H (1.3-7.7) k/uL Lymphocytes # 0.7 L (1.0-4.8) k/uL Lymphocytes # (Manual) 0.53 L (1.0-4.8) k/uL Eosinophils # 1.5 H (0-0.7) k/uL Eosinophils # (Manual) 2.83 H (0-0.7) k/uL Potassium 5.7 H (3.5-5.1) mmol/L Chloride 109 H (98-107) mmol/L Carbon Dioxide (22-30) mmol/L BUN 127 H* (9-20) mg/dL Creatinine 4.00 H (0.66-1.25) mg/dL Glucose 121 H (74-99) mg/dL Calcium (8.4-10.2) mg/dL Phosphorus (2.5-4.5) mg/dL Alkaline Phosphatase 1168 H (38-126) U/L Total Protein 5.5 L (6.3-8.2) g/dL Albumin 2.4 L (3.5-5.0) g/dL Urine Protein (Negative) Urine Ketones (Negative) Urine Blood (Negative) Ur Leukocyte Esterase (Negative) Urine RBC (0-5) /hpf Urine WBC (0-5) /hpf Hyaline Casts (0-2) /lpf Urine Yeast (Budding) (None) /hpf 01/26/24 01/26/24 Range/Units 06:01 07:22 WBC (3.8-10.6) k/uL RBC (4.30-5.90) m/uL Hgb (13.0-17.5) gm/dL Hct (39.0-53.0) % MCHC (31.0-37.0) g/dL RDW (11.5-15.5) % Neutrophils # (1.3-7.7) k/uL Neutrophils # (Manual) (1.3-7.7) k/uL Lymphocytes # (1.0-4.8) k/uL Lymphocytes # (Manual) (1.0-4.8) k/uL Eosinophils # (0-0.7) k/uL Eosinophils # (Manual) (0-0.7) k/uL Potassium 5.7 H (3.5-5.1) mmol/L Chloride 108 H (98-107) mmol/L Carbon Dioxide 19 L (22-30) mmol/L BUN 126 H* (9-20) mg/dL Creatinine 4.20 H (0.66-1.25) mg/dL Glucose 129 H (74-99) mg/dL Calcium 8.0 L (8.4-10.2) mg/dL Phosphorus 6.8 H (2.5-4.5) mg/dL Alkaline Phosphatase 1006 H (38-126) U/L Total Protein 5.3 L (6.3-8.2) g/dL Albumin 2.3 L (3.5-5.0) g/dL Urine Protein 2+ H (Negative) Urine Ketones Trace H (Negative) Urine Blood Moderate H (Negative) Ur Leukocyte Esterase Large H (Negative) Urine RBC 59 H (0-5) /hpf Urine WBC >182 H (0-5) /hpf Hyaline Casts 10 H (0-2) /lpf Urine Yeast (Budding) Many H (None) /hpf Diabetes panel 01/25/24 01/26/24 Range/Units 09:16 06:01 Sodium 141 141 (137-145) mmol/L Potassium 5.7 H 5.7 H (3.5-5.1) mmol/L Chloride 109 H 108 H (98-107) mmol/L Carbon Dioxide 22 19 L (22-30) mmol/L BUN 127 H* 126 H* (9-20) mg/dL Creatinine 4.00 H 4.20 H (0.66-1.25) mg/dL Glucose 121 H 129 H (74-99) mg/dL Calcium 8.5 8.0 L (8.4-10.2) mg/dL AST 48 43 (17-59) U/L ALT 46 40 (4-49) U/L Alkaline Phosphatase 1168 H 1006 H (38-126) U/L Total Protein 5.5 L 5.3 L (6.3-8.2) g/dL Albumin 2.4 L 2.3 L (3.5-5.0) g/dL Calcium panel 01/25/24 01/26/24 Range/Units 09:16 06:01 Calcium 8.5 8.0 L (8.4-10.2) mg/dL Phosphorus 6.8 H (2.5-4.5) mg/dL Albumin 2.4 L 2.3 L (3.5-5.0) g/dL Pituitary panel 01/25/24 01/26/24 Range/Units 09:16 06:01 Sodium 141 141 (137-145) mmol/L Potassium 5.7 H 5.7 H (3.5-5.1) mmol/L Chloride 109 H 108 H (98-107) mmol/L Carbon Dioxide 22 19 L (22-30) mmol/L BUN 127 H* 126 H* (9-20) mg/dL Creatinine 4.00 H 4.20 H (0.66-1.25) mg/dL Glucose 121 H 129 H (74-99) mg/dL Calcium 8.5 8.0 L (8.4-10.2) mg/dL Adrenal panel 01/25/24 01/26/24 Range/Units 09:16 06:01 Sodium 141 141 (137-145) mmol/L Potassium 5.7 H 5.7 H (3.5-5.1) mmol/L Chloride 109 H 108 H (98-107) mmol/L Carbon Dioxide 22 19 L (22-30) mmol/L BUN 127 H* 126 H* (9-20) mg/dL Creatinine 4.00 H 4.20 H (0.66-1.25) mg/dL Glucose 121 H 129 H (74-99) mg/dL Calcium 8.5 8.0 L (8.4-10.2) mg/dL Total Bilirubin 0.4 0.4 (0.2-1.3) mg/dL AST 48 43 (17-59) U/L ALT 46 40 (4-49) U/L Alkaline Phosphatase 1168 H 1006 H (38-126) U/L Total Protein 5.5 L 5.3 L (6.3-8.2) g/dL Albumin 2.4 L 2.3 L (3.5-5.0) g/dL Assessment and Plan Assessment: 1. Acute on chronic kidney disease 2. Urinary tract infection 3. Hyperkalemia 4. Chronic nonhealing lower extremity wounds 5. Morbid obesity 6. Nonambulatory Plan: 1. Await recommendations from nephrology 2. Will tentatively schedule patient for possible tunneled HD catheter placement for tomorrow 3. N.p.o. after midnight 4. Hold heparin and Plavix tomorrow morning if proceeding with catheter plac ement Thank you for this consultation, we will continue to follow. The impression and plan of care has been dictated as directed. I performed a history and examination of this patient, discussed the same with the dictator. I agree with the dictator's note ,documented as a scribe. Any a dditional findings or plans will be noted.
--- NOTE | 2024-01-26 13:18 | P.NPCON ---
History of Present Illness - Reason for Consult acute renal failure - History of Present Illness Patient is a 73-year-old male with history of chronic kidney disease stage IIIa/IIIb with previous creatinine ranging between 1.4 to 1.2 mg/dL. Patient has had acute kidney injury in October and November of this year. Patient has chronic right foot wound/osteomyelitis for which he has been on antibiotics. Patient was recently discharged from the hospital on 01/18/2024. Serum creatinine had increased to 3.0 at the time of discharge. Serum creatinine was 4.0 on admission and it is 4.2 today. Straight cath performed this morning and 800 cc of urine was obtained. Blood pressure has not been significantly low. UA is suggestive of underlying UTI. No history of use of NSAIDs. Past Medical History Past Medical History: COPD, Diabetes Mellitus, Hyperlipidemia, Hypertension, Myocardial Infarction ([place]), Neurologic Disorder, Thyroid Disorder Additional Past Medical History / Comment(s): Peripheral neuropathy, diabetic leg ulcers, Last Myocardial Infarction Date:: Pt guesses its been about 5 years2018 History of Any Multi-Drug Resistant Organisms: Unobtainable Past Surgical History: Heart Catheterization With Stent Additional Past Surgical History / Comment(s): Bilateral caterac surgery Past Anesthesia/Blood Transfusion Reactions: No Reported Reaction Date of Last Stent Placement:: 2020 Past Psychological History: Unable to Obtain Smoking Status: Former smoker Past Alcohol Use History: Heavy Additional Past Alcohol Use History / Comment(s): Pt stopped drinking 16 years ago Past Drug Use History: None Reported Additional Drug Use History / Comment(s): stopped smoking 28 years ago - Past Family History Mother Family Medical History: Diabetes Mellitus Medications and Allergies Home Medications Medication Instructions Recorded Confirmed Type Furosemide [Lasix] 20 mg PO DAILY@0800 11/23/23 01/25/24 History Insulin Aspart Prot/Insuln Asp 20 unit SQ BID@0800,1700 11/23/23 01/25/24 History [NovoLOG MIX 70-30 Flexpen] Levothyroxine Sodium [Synthroid] 112 mcg PO DAILY@0600 11/23/23 01/25/24 History Simvastatin [Zocor] 40 mg PO HS@2100 11/23/23 01/25/24 History Clopidogrel [Plavix] 75 mg PO DAILY@0800 12/26/23 01/25/24 History cefTRIAXone [Rocephin] 2,000 mg IVP Q24HR #28 each 12/30/23 01/25/24 Rx Acetaminophen Tab [Tylenol] 650 mg PO Q6HR PRN tab 12/31/23 01/25/24 Rx Jac Packet 1 packet PO BID@0800,1700 01/11/24 01/25/24 History L.acidoph,Paracasei, B.lactis 1 cap PO DAILY@1700 01/11/24 01/25/24 History [Probiotic] Liquacel 30 ml PO DAILY@1200 01/11/24 01/25/24 History Loperamide [Imodium] 2 - 4 mg PO QID PRN 01/11/24 01/25/24 History Magnesium Hydroxide [Milk of 7,200 mg PO Q48H PRN 01/11/24 01/25/24 History Magnesia Concentrate] Na Phos,M-B/Na Phos,Di-Ba [Fleet 133 ml RECTAL DAILY PRN 01/11/24 01/25/24 History Adult] Pantoprazole [Protonix] 40 mg PO DAILY@0600 01/11/24 01/25/24 History Sennosides [Senokot] 17.2 mg PO HS@2100 01/11/24 01/25/24 History Tamsulosin [Flomax] 0.4 mg PO DAILY@0600 01/11/24 01/25/24 History amLODIPine [Norvasc] 5 mg PO DAILY@0800 01/11/24 01/25/24 History bisacodyL [Dulcolax] 10 mg RECTAL DAILY PRN 01/11/24 01/25/24 History hydrALAZINE HCL [Apresoline] 25 mg PO Q6HR PRN 01/11/24 01/25/24 History Collagenase [Santyl Ointment] 1 applic TOPICAL DAILY each 01/18/24 01/25/24 Rx diphenhydrAMINE [Benadryl] 25 mg PO QID PRN cap 01/18/24 01/25/24 Rx [place] Breakfast Essentials 1 packet PO BID@0800,1700 01/25/24 01/25/24 History Darbepoetin [place] [Aranesp] 40 mcg SQ TH@0800 01/25/24 01/25/24 History Gabapentin [Neurontin] 400 mg PO BID@0800,1700 01/25/24 01/25/24 History HYDROcodone/APAP 10-325MG [[place] 1 tab PO Q6H PRN 01/25/24 01/25/24 History 10-325] INSULIN ASPART (NovoLOG) [NovoLOG See Protocol SQ ACHS 01/25/24 01/25/24 History (formulary)] Menthol-Zinc Oxide Oint 1 applic TOPICAL Q12H 01/25/24 01/25/24 History [Calmoseptine Ointment] Allergies Allergy/AdvReac Type Severity Reaction Status Date / Time No Known Allergies Allergy Verified 01/25/24 09:22 Physical Exam Vitals: Vital Signs Temp Pulse Pulse Resp BP Pulse Ox 01/26/24 11:24 75 01/26/24 11:12 76 01/26/24 08:27 74 01/26/24 08:16 72 92 L 01/26/24 07:36 70 16 117/56 97 01/26/24 01:17 97.4 F L 79 21 112/66 96 01/25/24 21:27 77 01/25/24 21:23 73 01/25/24 20:00 98.5 F 72 18 142/89 98 Intake and Output 01/25/24 01/26/24 01/26/24 22:59 06:59 14:59 Output Total 800 Balance -800 Output: Urine 800 Straight 800 Other: # Bowel Movements 1 Weight 136.078 kg Patient is awake, comfortable, no acute distress. He is short of breath. Examination of the heart S1 and S2 Examination of the lungs decreased breath sounds at the bases Abdomen is soft obese nontender Examination of lower extremity shows edema 2+ bilateral with chronic skin changes. Right foot is dressed Results - Lab Results Most recent lab results Calcium 8.0 mg/dL (8.4-10.2) L 01/26/24 06:01 Phosphorus 6.8 mg/dL (2.5-4.5) H 01/26/24 06:01 Magnesium 2.1 mg/dL (1.6-2.3) 01/26/24 06:01 01/26/24 06:01 01/26/24 06:01 Assessment and Plan Assessment: 1. Acute kidney injury, most likely ATN. Rule out underlying GN. Serum creatinine had improved to 1.1 on 12/29/2023 after an episode of acute kidney injury. Serum creatinine has progressively worsened since 01/11/2024 from 2.5- 4.2 today. UA shows proteinuria 2+ however current UA suggestive of UTI. Urine retention noted today with 800 cc of urine obtained on straight cath. Ultrasound on 01/11/2024 did not show any evidence of hydronephrosis. 2. Hyperkalemia associated with acute kidney injury 3. Anion gap metabolic acidosis secondary to acute kidney injury 4. Chronic right foot wound/osteomyelitis with consideration for amputation down the road 5. Anemia with no evidence of iron deficiency on 01/17/2024. Most likely anemia of chronic disease 6. Morbid obesity 7. Pyuria with budding yeast noted on UA Plan: Insert Gray catheter IV Lasix x 1 Discussed renal replacement therapy and patient is agreeable to start dialysis if there is no improvement in renal function Check serologies to rule out underlying GN DC Fleet enema Avoid nephrotoxic agents Decrease dose of Neurontin Add phosphate binders. Continue aranesp Thank you for the consultation. We will continue to follow the patient with you during his hospitalization.
[2024-01-26] MEDS: COLLAGENASE 250 UNIT/GM OINTMENT 30 GM TUBE TOPICAL SCH ×2 (15:01→18:27)
[2024-01-26] MEDS: DARBEPOETIN ALFA 60 MCG/0.3 ML SYRINGE SQ SCH (15:21)
[2024-01-26] MEDS: SEVELAMER 800 MG TAB PO SCH (17:44)
[2024-01-26] MEDS: LACTOBACILLUS ACIDOPHILUS/PECT 1 EACH CAPSULE PO SCH (17:44)
[2024-01-26] MEDS: GABAPENTIN 100 MG CAP PO SCH (17:44)
[2024-01-26] MEDS: PIPERACILLIN-TAZOBACTAM 3.375 GM in SODIUM CHLORIDE 0.9% 100 ML IVPB SCH (21:44)
[2024-01-26] MEDS: FUROSEMIDE 10 MG/ML 10 ML VIAL IV SCH (21:45)
[2024-01-26 22:13] LABS: Hepatitis B Surface Antigen Nonreactive (Nonreactive); Hepatitis C IgG Antibody Nonreactive (Nonreactive)
[2024-01-26 22:15] LABS: Complement C3 27.3 mg/dL (80.0-207.0)
--- NOTE | 2024-01-26 23:30 | P.PN ---
Subjective Progress Note Date: 01/26/24 HISTORY OF PRESENT ILLNESS: 73-year-old morbidly obese with active medical history of atherosclerotic heart disease post myocardial infarction, severe peripheral arterial disease with infected right foot with osteomyelitis, type 2 diabetes, COPD, chronic history of neuropathy, chronic pain syndrome, hypertension, hyperlipidemia, chronic kidney disease with much worsening symptoms. Who has chronic anemia, recurrent encephalopathy with recurrent sepsis and infection who was hospitalized last and January 10 for altered mental status with confusion and worsening uremia and worsening right foot osteomyelitis slightly worsening BUN/creatinine at the time with 79 and 2.58 who ended up being in the hospital for 10 days his kidney function become slightly with worsening decline, continue to suffer from osteomyelitis of the right foot which will require eventually right above-knee amputation which vascular refused initially to schedule till at least is done with IV antibiotic being treated for urinary tract infection with sepsis for what seems like Klebsiella pneumonia. Patient ended up being stabilized he change his CODE STATUS at that point to DO NOT RESUSCITATE and long time talk with nephrology did not make any decision whether he wants to go for dialysis or not but he was not opposed to it at the time. He ended up going back to [facility] on IV antibiotics kept watching for any worsening symptoms. Over the last few days patient become severely more confused with much worsening condition his laboratory value continue to show severe uremia with BUN above 107 creatinine up to 4.0 with potassium level yesterday was as high as 6.6. Patient was giving 1 dose of Lokelma yesterday. Had helped some but through the night in the global compensation manager hours he become a lot worse with worsening confusion not waking up well has been having slight increase shortness of breath with delusion and slight hallucination and that being sent to the emergency department at [facility] where was seen and evaluated for the above condition at the time he has been up to 127 creatinine 4.0 with the 1 dose of Lokelma his potassium is down to 5.7. Patient continued to suffer from much worsening condition white blood cell up to 17.7 hemoglobin 8.2 decided to switch his antibiotics was giving apparently 1 dose of vancomycin and Zosyn consulted infectious disease admit patient to the hospital patient will need to see nephrology and probably will need to go on hemodialysis. 01/26/2024: Kidney function is much worse today with BUN up to 126 creatinine 4.2 GFR down to 13. Still waiting for nephrology for clearance for possible hemodialysis today. In the meanwhile will consult vascular and prepare for dialysis line. Patient also be seen in infectious disease with the current presentation this time despite being on IV cefepime patient hemoglobin is up to 17.7 culture still pending at this point change in plan with antibiotic changed to Zosyn and vanco mycin preliminary wound culture was positive for Pseudomonas which again will be waiting for infectious disease final. Patient was given some IV furosemide this shortness of breath slightly bit better still having significant dyspnea. REVIEW OF SYSTEMS: CONSTITUTIONAL: Morbidly obese in no acute respiratory distress. Slightly confused EYES: No icterus sclerae, no conjunctivitis. EARS, NOSE, MOUTH, THROAT, and FACE: No sore throat, lymphadenopathy, carotid bruits or deformity. RESPIRATORY: Mild shortness of breath mild cough no wheezes. CARDIOVASCULAR: Positive PND orthopnea palpitation. GASTROINTESTINAL: Abdominal discomfort with mild nausea with slight distention no vomiting. GENITOURINARY: Decreased urine output with incontinence slight change in urine color with worsening kidney failure. INTEGUMENT/BREAST: Negative for any muscular injury with mild osteoarthritis.. HEMATOLOGIC/LYMPHATIC: Worsening anemia MUSCULOSKELTAL: Myalgia arthralgia and significant discomfort with ulcer in the right foot. NEURLOGICAL: Slight confusion with worsening mental status compared to his baseline no focalized deficit. BEHAVIORAL/PSYCH: Negative. ENDOCRINE: Negative. PHYSICAL EXAMINATION: General Appearance: Alert, confused, no distress, appears stated age. Neck HEENT: Supple, no lymphadenopathy, no thyroid enlargement, no carotid bruits. Lungs: Decreased breath sound bilaterally with fine rhonchi no crackles or wheezes. Chest Wall: Decreased expansion with deep inspiration no tenderness and no deformity was found on exam, no costochondral pain or discomfort. Heart: Regular rate and rhythm, S1, S2 positive S3 positive systolic murmur. Back: Symmetric, no curvature, ROM normal, no CVA tenderness. Abdomen: Soft, non-tender, bowel sounds active all four quadrants, no masses, no organomegaly. Extremities: Right foot still have significant irritation edema redness with warmness to touch with significant decreased circulation. When to 2+ edema Pulses: Decreased pulse bilaterally worse on the right than the left side Skin: Skin color, texture, tugor normal, no rashes or lesions. Neurologic: Alert confused cranial nerves II through XII intact, no motor deficit, positive generalized weakness. ASSESSMENT AND PLAN: _Advanced stage IV chronic kidney disease with much worsening kidney failure become subacute and chronic will require probably hemodialysis at this point, patient be admitted to the hospital will consult nephrology continue to avoid any nephrotoxic agent continue gentle hydration. _Altered mental status: Most likely uremia based causing encephalopathy patient is slightly bit worse at this point probably when the uremia treated and return to his baseline. _Hyperkalemia: Patient had 1 dose of Lokelma we will continue with conservative management repeat potassium below 5.5. _Slight dyspnea and shortness of breath most likely from fluid overload and slight early pulmonary edema, continue IV diuretics to the patient hopefully wi ll be waiting for hemodialysis. _Acute kidney injury with Chronic kidney disease: With much worsening kidney function at this point will admit patient consult nephrology continue current management. _Osteomyelitis of the right foot has been much worse with significant osteomyelitis and elevated alkaline phosphatase as an indication as well was on cefepime culture is Pseudomonas patient is on Zosyn currently waiting for infectious disease. _Recent history of Klebsiella pneumonia urinary tract infection was sent back to [facility] on cefepime antibiotic was changed this time to Vanco and Zosyn to be seen infectious disease. _Severe PAD consultation with vascular earlier in the month conclusion was to go for above-knee amputation which patient had declined at this point Sun continue to try his topical infection with antibiotic and wound care to see if it salvage the leg. _Peripheral neuropathy: Remain on gabapentin 1600 mg at nighttime. _Chronic pain syndrome: Continue hydrocodone orally. _Type 2 diabetes with hyperglycemia: Continue Accu-Chek with sliding scales coverage might benefit from adding long acting insulin at nighttime. _Hypothyroidism: Still on levothyroxine 112 mcg daily. _Hypertension: Blood pressure still slightly below but continue lisinopril 20 mg a day. _Hyperlipidemia: Was on simvastatin has been hold currently which will be resumed soon as patient able to tolerate medication. _Morbid obesity with BMI of 43.9: Which increases risk factor of complication. _Debility: Patient is wheelchair/bedbound not able to ambulate and walk. Discussion: Patient is quite bit worse continue IV diuretics for today still waiting for hemodialysis line by vascular and for nephrology decide on the final for his hemodialysis. Also despite a culture being Pseudomonas remain on Zosyn and Vancomycin. Objective - Vital Signs Vital signs: Vital Signs Temp 97.4 F L 01/26/24 01:17 Pulse 79 01/26/24 01:17 Resp 21 01/26/24 01:17 BP 112/66 01/26/24 01:17 Pulse Ox 96 01/26/24 01:17 FiO2 Intake & Output 01/25/24 01/25/24 01/26/24 06:59 18:59 06:59 Weight 136.078 kg 136.078 kg - Labs CBC & Chem 7: 01/26/24 06:01 01/26/24 06:01 Labs: Abnormal Lab Results - Last 24 Hours (Table) 01/25/24 01/25/24 Range/Units 09:07 09:16 WBC 17.7 H (3.8-10.6) k/uL RBC 2.95 L (4.30-5.90) m/uL Hgb 8.2 L (13.0-17.5) gm/dL Hct 27.0 L (39.0-53.0) % MCHC 30.2 L (31.0-37.0) g/dL RDW 16.3 H (11.5-15.5) % Neutrophils # (Manual) 13.40 H (1.3-7.7) k/uL Lymphocytes # (Manual) 0.53 L (1.0-4.8) k/uL Eosinophils # (Manual) 2.83 H (0-0.7) k/uL Potassium 5.7 H (3.5-5.1) mmol/L Chloride 109 H (98-107) mmol/L BUN 127 H* (9-20) mg/dL Creatinine 4.00 H (0.66-1.25) mg/dL Glucose 121 H (74-99) mg/dL Alkaline Phosphatase 1168 H (38-126) U/L Total Protein 5.5 L (6.3-8.2) g/dL Albumin 2.4 L (3.5-5.0) g/dL
[2024-01-27 00:08] LABS: Hepatitis B Surface AB- Quant 3.5 mIU/mL
[2024-01-27 01:10] LABS: DNA Double-Stranded Indetermin (Negative)
[2024-01-27] MEDS ORDERED: DARBEPOETIN ALFA 40 MCG/0.4 ML SYRINGE SQ SCH (08:00)
[2024-01-27 08:40] LABS: Anisocytosis Slight; HCT 25.9 % (39.0-53.0); HGB 7.6 gm/dL (13.0-17.5); Hypochromasia Marked; MCH 27.7 pg (25.0-35.0); MCHC 29.3 g/dL (31.0-37.0); MCV 94.3 fL (80.0-100.0); Mean Platelet Volume 8.2; Platelet Count 262 k/uL (150-450); RBC 2.74 m/uL (4.30-5.90); RDW 16.8 % (11.5-15.5); WBC 12.6 k/uL (3.8-10.6)
--- NOTE | 2024-01-27 08:51 | P.PN ---
Progress Note - Text Progress Note Date: 01/27/24 Patient is seen sitting up in bed. Discussed with patient recommendation from nephrology is for tunneled catheter placement and renal replacement therapy with hemodialysis. Patient is agreeable to the procedure. Discussed with patient he will need to be changed from a no CODE STATUS to a full CODE STATUS during his procedure and recovery. Patient seemingly understands and is agreeable. The impression and plan of care has been dictated as directed. Dr. Gray I performed a history and examination of this patient, discussed the same with the dictator. I agree with the dictator's note ,documented as a scribe. Any additional findings or plans will be noted.
[2024-01-27 09:06] LABS: African American GFR (CKD) 14 (>60 ml/min/1.73 sqM); Anion Gap 9 mmol/L; Calcium 7.6 mg/dL (8.4-10.2); Carbon Dioxide 21 mmol/L (22-30); Chloride 111 mmol/L (98-107); Glucose 128 mg/dL (74-99); Non-African American GFR(CKD) 12 (>60 ml/min/1.73 sqM); Potassium 5.3 mmol/L (3.5-5.1); Sodium 141 mmol/L (137-145)
[2024-01-27 09:34] LABS: Blood Urea Nitrogen 131 mg/dL (9-20)
--- NOTE | 2024-01-27 10:44 | P.PN ---
Subjective patient is seen for follow-up for acute kidney injury. Gray catheter was placed yesterday. Maintained on IV Lasix. 24 hour urine documented at 950 ML. Renal function has worsened with serum creatinine at 4.4 and B UN at 131. Vascular surgery on consult. We will proceed with hemodialysis. Patient will be dialyzed today. Objective - Vital Signs Vital signs: Vital Signs Temp 97.6 F 01/27/24 07:40 Pulse 72 01/27/24 08:29 Resp 16 01/27/24 07:40 BP 113/50 01/27/24 07:40 Pulse Ox 91 L 01/27/24 08:19 FiO2 Intake & Output 01/26/24 01/27/24 01/27/24 18:59 06:59 18:59 Output Total 850 100 Balance -850 -100 Output: Urine 850 100 Straight 800 Uretheral (Gray) 50 Other: Voiding Method Indwelling Catheter Indwelling Catheter - Exam Patient is awake, comfortable, no acute distress. Examination of the heart S1 and S2 Examination of the lungs decreased breath sounds at the bases Abdomen is soft obese nontender Examination of lower extremity shows edema 2+ bilateral with chronic skin changes. Right foot is dressed - Labs CBC & Chem 7: 01/27/24 08:21 01/27/24 08:21 Labs: Abnormal Lab Results - Last 24 Hours (Table) 01/26/24 01/26/24 01/26/24 Range/Units 15:04 15:04 15:04 WBC (3.8-10.6) k/uL RBC (4.30-5.90) m/uL Hgb (13.0-17.5) gm/dL Hct (39.0-53.0) % MCHC (31.0-37.0) g/dL RDW (11.5-15.5) % Potassium (3.5-5.1) mmol/L Chloride (98-107) mmol/L Carbon Dioxide (22-30) mmol/L BUN (9-20) mg/dL Creatinine (0.66-1.25) mg/dL Glucose (74-99) mg/dL Calcium (8.4-10.2) mg/dL RHETT Screen POSITIVE A (Negative) Double Strand DNA Ab Indetermin A (Negative) Complement C3 27.3 L (80.0-207.0) mg/dL 01/27/24 01/27/24 Range/Units 08:21 08:21 WBC 12.6 H (3.8-10.6) k/uL RBC 2.74 L (4.30-5.90) m/uL Hgb 7.6 L (13.0-17.5) gm/dL Hct 25.9 L (39.0-53.0) % MCHC 29.3 L (31.0-37.0) g/dL RDW 16.8 H (11.5-15.5) % Potassium 5.3 H (3.5-5.1) mmol/L Chloride 111 H (98-107) mmol/L Carbon Dioxide 21 L (22-30) mmol/L BUN 131 H* (9-20) mg/dL Creatinine 4.43 H (0.66-1.25) mg/dL Glucose 128 H (74-99) mg/dL Calcium 7.6 L (8.4-10.2) mg/dL RHETT Screen (Negative) Double Strand DNA Ab (Negative) Complement C3 (80.0-207.0) mg/dL Microbiology - Last 24 Hours (Table) 01/25/24 10:50 Gram Stain - Preliminary Foot - Right Wound Culture - Preliminary Pseudomonas aeruginosa 01/25/24 09:42 Blood Culture - Preliminary Blood 01/25/24 09:07 Blood Culture - Preliminary Blood Assessment and Plan Assessment: 1. Acute kidney injury, most likely ATN. Rule out underlying GN. Serum creatinine had improved to 1.1 on 12/29/2023 after an episode of acute kidney injury. Serum creatinine has progressively worsened since 01/11/2024 from 2.5- 4.4 today. UA shows proteinuria 2+ however current UA suggestive of UTI. Serological workup shows positive RHETT. Other labs are pending. Gray catheter placed for urine retention. Ultrasound on 01/11/2024 did not show any evidence of hydronephrosis. 2. Hyperkalemia associated with acute kidney injury 3. Anion gap metabolic acidosis secondary to acute kidney injury 4. Chronic right foot wound/osteomyelitis with consideration for amputation down the road 5. Anemia with no evidence of iron deficiency on 01/17/2024. Most likely anemia of chronic disease 6. Morbid obesity 7. Pyuria with budding yeast noted on UA Plan: Proceed with dialysis catheter placement and patient is scheduled for first treatment of hemodialysis today. Continue with IV Lasix Robinson at Follow-up on serologies
--- NOTE | 2024-01-27 13:23 | P.PN ---
Subjective Progress Note Date: 01/27/24 Principal diagnosis: Reason for follow-up is right diabetic foot ulcer cellulitis and osteomyelitis Patient is a 73-year-old male with a past medical history significant for diabetes mellitus hypertension hyperlipidemia MT COPD hypothyroidism and this patient who has been dealing with a wound on the plantar aspect of the right foot that has been previously debrided by Dr. Gray and the patient has been on IV Rocephin for osteomyelitis patient have not been brought back to the hospital concerning for mental status changes and elevated production patient was did have evidence of acute renal failure. On today's evaluation that is 01/27/2024, Patient is afebrile patient is currently on 3 L nasal oxygen seem to be breathing comfortably he is slightly restless and lethargic and not able to good historian no vomiting or diarrhea has been reported by the nursing staff. Patient white count is 12.6 creatinine is 4.43 right foot wound is now growing Pseudomonas aeruginosa that is multidrug-resistant sensitive to Zerbaxa Objective - Vital Signs Vital signs: Vital Signs Temp 97.6 F 01/27/24 07:40 Pulse 76 01/27/24 11:32 Resp 16 01/27/24 07:40 BP 113/50 01/27/24 07:40 Pulse Ox 91 L 01/27/24 08:19 FiO2 Intake & Output 01/26/24 01/27/24 01/27/24 18:59 06:59 18:59 Output Total 850 100 Balance -850 -100 Output: Urine 850 100 Straight 800 Uretheral (Gray) 50 Other: Voiding Method Indwelling Catheter Indwelling Catheter Indwelling Catheter - Exam GENERAL DESCRIPTION: An elderly male lying in bed in no distress RESPIRATORY SYSTEM: Unlabored breathing , decreased breath sounds at bases HEART: S1 S2 regular rate and rhythm , ABDOMEN: Soft , no tenderness EXTREMITIES: Right foot wound is currently dressed no drainage - Labs CBC & Chem 7: 01/27/24 08:21 01/27/24 08:21 Labs: Abnormal Lab Results - Last 24 Hours (Table) 01/26/24 01/26/24 01/26/24 Range/Units 15:04 15:04 15:04 WBC (3.8-10.6) k/uL RBC (4.30-5.90) m/uL Hgb (13.0-17.5) gm/dL Hct (39.0-53.0) % MCHC (31.0-37.0) g/dL RDW (11.5-15.5) % Potassium (3.5-5.1) mmol/L Chloride (98-107) mmol/L Carbon Dioxide (22-30) mmol/L BUN (9-20) mg/dL Creatinine (0.66-1.25) mg/dL Glucose (74-99) mg/dL Calcium (8.4-10.2) mg/dL RHETT Screen POSITIVE A (Negative) Double Strand DNA Ab Indetermin A (Negative) Complement C3 27.3 L (80.0-207.0) mg/dL 01/27/24 01/27/24 Range/Units 08:21 08:21 WBC 12.6 H (3.8-10.6) k/uL RBC 2.74 L (4.30-5.90) m/uL Hgb 7.6 L (13.0-17.5) gm/dL Hct 25.9 L (39.0-53.0) % MCHC 29.3 L (31.0-37.0) g/dL RDW 16.8 H (11.5-15.5) % Potassium 5.3 H (3.5-5.1) mmol/L Chloride 111 H (98-107) mmol/L Carbon Dioxide 21 L (22-30) mmol/L BUN 131 H* (9-20) mg/dL Creatinine 4.43 H (0.66-1.25) mg/dL Glucose 128 H (74-99) mg/dL Calcium 7.6 L (8.4-10.2) mg/dL RHETT Screen (Negative) Double Strand DNA Ab (Negative) Complement C3 (80.0-207.0) mg/dL Microbiology - Last 24 Hours (Table) 01/25/24 10:50 Gram Stain - Preliminary Foot - Right Wound Culture - Preliminary Pseudomonas aeruginosa 01/25/24 09:42 Blood Culture - Preliminary Blood 01/25/24 09:07 Blood Culture - Preliminary Blood Assessment and Plan (1) Foot osteomyelitis, right Current Visit: Yes Status: Acute Code(s): M86.9 - OSTEOMYELITIS, UNSPECIFIED SNOMED Code(s): 1835395999456537 (2) Diabetic foot ulcer Current Visit: No Status: Acute Code(s): E11.621 - TYPE 2 DIABETES MELLITUS WITH FOOT ULCER; L97.509 - NON-PRESSURE CHRONIC ULCER OTH PRT UNSP FOOT W UNSP SEVERITY SNOMED Code(s): 972414284 (3) Type 2 diabetes mellitus with foot ulcer Current Visit: No Status: Acute Code(s): E11.621 - TYPE 2 DIABETES MELLITUS WITH FOOT ULCER; L97.509 - NON-PRESSURE CHRONIC ULCER OTH PRT UNSP FOOT W UNSP SEVERITY SNOMED Code(s): 7652912593878 Plan: 1patient presented to hospital with mental status change which is likely multifactorial could be related to renal failure as the patient have significant elevated BUN and creatinine, apparently did have elevated potassium in the outpatient setting, patient also dealing with the chronic nonhealing wound on the plantar aspect of the right foot that has been previously debrided by vascular surgery wound base did have slough tissue and minimal surrounding redness x-rays were negative for any bony changes 2-local wound care with the Santyl followed by moist dressing 3-patient repeat culture from the right foot is now growing Pseudomonas drug-resistant we will discontinue Zosyn start the patient on Zerbaxa Dictation was produced using [employer] dictation software. please excuse any grammatical, word or spelling errors. Time with Patient: Less than 30
[2024-01-27 15:16] LABS: C-ANCA <1:20 Titer (<1:20)
--- NOTE | 2024-01-27 17:06 | P.OP ---
Date of Procedure: 01/27/24 Description of Procedure: DATE OF PROCEDURE: 01/27/2024 PREOPERATIVE DIAGNOSIS: Need for dialysis PROCEDURE: 1. Ultrasound-guided left internal jugular vein access. 2. Placement of a 28 cm tunneled dialysis catheter with fluoroscopic assistance. PROCEDURE: The patient was brought to the Repossessor placed in supine position. The bilateral necks were prepped and draped in usual sterile fashion. A preprocedure timeout was performed, all parties were in agreement. Due to the patient's predilection towards rolling to his right, he was unable to be satisfactorily moved into a position to evaluate the right internal jugular therefore the left side was utilized. Using ultrasound the left internal jug ular was identified. The site overlying the vein was anesthetized with 1% lidocaine plain and an access needle was used to gain access to the internal jugular vein with return of dark venous, nonpulsatile blood. Seldinger technique was used and a micro-access sheath was placed. Attention was then turned towards the tunnel. The chest wall was anesthetized with 1% lidocaine plain. A small page and the skin was made and the previously flushed catheter was tunneled through the anticipated location. Using Seldinger technique and fluoroscopic assistance, the 35 Glidewire was placed and the tract was serially dilated. The final tear-away sheath was left in place. The inner cannula and wire were removed. The catheter was placed in the tear-away sheath was removed in standard fashion. The catheter showed positioning in the brachiocephalic vein versus proximal superior vena cava.. The catheter aspirated and flushed freely. The incision at the neck was reapproximated with interrupted sutures of 4-0 Vicryl. The catheter was sutured in place with 3-0 nylon. Dressings were placed. The patient was allowed to awaken from anesthesia and transferred to recovery in stable condition having tolerated the procedure well. A post procedure chest x-ray is pending
--- NOTE | 2024-01-27 18:09 | XR ---
EXAMINATION TYPE: XR chest 1V portable DATE OF EXAM: 01/27/2024 HISTORY: Shortness of breath. COMPARISON: 01/11/2024 TECHNIQUE: Single view of the chest is submitted. FINDINGS: Demonstrated are scattered senescent parenchymal change. Left IJ central venous line with distal tip overlying the SVC. No evidence for pneumothorax. There is patchy infiltrate right lower lobe versus atelectasis and/or or effusion. The heart is stable. Hilar and mediastinal structures are within normal limits. Degenerative changes are seen of the dorsal spine. IMPRESSION: 1. There is patchy infiltrate right lower lobe versus atelectasis and/or or effusion. [facility], , 01/27/2024 6:07 PM
[2024-01-27] MEDS: CEFTOLOZANE/TAZOBACTAM 0.75 GM in SODIUM CHLORIDE 0.9% 100 ML IV SCH ×2 (18:15→22:12)
[2024-01-27] MEDS: MIDODRINE 5 MG TAB PO STA (18:28)
[2024-01-27 20:18] LABS: Glucose,Whole Blood 147 mg/dL (70-110)
[2024-01-27 22:07] LABS: Anisocytosis Slight; Basophils % (A) 0 %; Eosinophils # (A) 1.8 k/uL (0-0.7); Eosinophils % (A) 16 %; HCT 25.9 % (39.0-53.0); HGB 7.6 gm/dL (13.0-17.5); Hypochromasia Marked; Lymphocytes # (A) 0.5 k/uL (1.0-4.8); Lymphocytes % (A) 4 %; MCH 27.6 pg (25.0-35.0); MCHC 29.3 g/dL (31.0-37.0); MCV 94.2 fL (80.0-100.0); Mean Platelet Volume 8.2; Monocytes # (A) 0.4 k/uL (0-1.0); Monocytes % (A) 3 %; Neutrophils # (A) 8.7 k/uL (1.3-7.7); Neutrophils % (A) 75 %; Platelet Count 244 k/uL (150-450); RBC 2.75 m/uL (4.30-5.90); RDW 17.1 % (11.5-15.5); WBC 11.5 k/uL (3.8-10.6)
[2024-01-27 22:21] LABS: ALT 34 U/L (4-49); AST 37 U/L (17-59); African American GFR (CKD) 16 (>60 ml/min/1.73 sqM); Albumin 2.3 g/dL (3.5-5.0); Albumin/Globulin Ratio 0.8; Alkaline Phosphatase 1129 U/L (38-126); Anion Gap 9 mmol/L; Calcium 7.7 mg/dL (8.4-10.2); Carbon Dioxide 20 mmol/L (22-30); Chloride 111 mmol/L (98-107); Globulin 2.8 g/dL; Glucose 134 mg/dL (74-99); Non-African American GFR(CKD) 14 (>60 ml/min/1.73 sqM); Potassium 4.8 mmol/L (3.5-5.1); Sodium 140 mmol/L (137-145); Total Bilirubin 0.6 mg/dL (0.2-1.3); Total Protein 5.1 g/dL (6.3-8.2)
[2024-01-27 22:22] LABS: Blood Urea Nitrogen 106 mg/dL (9-20)
[2024-01-27 22:29] LABS: NT-Pro-B-Type Natriuretic Pept 4260 pg/mL
[2024-01-27] MEDS: diphenhydrAMINE 25 MG CAP PO PRN (23:32)
--- NOTE | 2024-01-27 23:55 | IR ---
EXAMINATION TYPE: IR cvc insert >=5 years DATE OF EXAM: 01/27/2024 5:12 PM COMPARISON: Pre Operative Images if available both CT/MRI or plain film CLINICAL INDICATION: Male, 73 years old with history of HD CATH INSERTION, 2.0 MINS FLT, 0.065GY; TECHNIQUE: IR cvc insert >=5 years, multiple fluoroscopic images provided for procedure. Total fluoroscopy time: 2 minutes Total submitted images to PACS: 0 DAP: 0.065 mGym2 Gycm2 uGym2 cGycm2 or equivalent. IMPRESSION: 1. Report was generated for administrative purposes only. 2. Please see the operative/procedural note for further details. [facility], , 01/27/2024 11:53 PM
[2024-01-28 06:13] LABS: Glucose,Whole Blood 144 mg/dL (70-110)
[2024-01-28 06:59] LABS: Glucose,Whole Blood 147 mg/dL (70-110)
[2024-01-28 06:59] LABS: Glucose,Whole Blood 157 mg/dL (70-110)
[2024-01-28 07:01] LABS: Glucose,Whole Blood 141 mg/dL (70-110)
[2024-01-28 07:01] LABS: Glucose,Whole Blood 142 mg/dL (70-110)
--- NOTE | 2024-01-28 07:01 | P.PN ---
Subjective Progress Note Date: 01/27/24 HISTORY OF PRESENT ILLNESS: 73-year-old morbidly obese with active medical history of atherosclerotic heart disease post myocardial infarction, severe peripheral arterial disease with infected right foot with osteomyelitis, type 2 diabetes, COPD, chronic history of neuropathy, chronic pain syndrome, hypertension, hyperlipidemia, chronic kidney disease with much worsening symptoms. Who has chronic anemia, recurrent encephalopathy with recurrent sepsis and infection who was hospitalized last and January 10 for altered mental status with confusion and worsening uremia and worsening right foot osteomyelitis slightly worsening BUN/creatinine at the time with 79 and 2.58 who ended up being in the hospital for 10 days his kidney function become slightly with worsening decline, continue to suffer from osteomyelitis of the right foot which will require eventually right above-knee amputation which vascular refused initially to schedule till at least is done with IV antibiotic being treated for urinary tract infection with sepsis for what seems like Klebsiella pneumonia. Patient ended up being stabilized he change his CODE STATUS at that point to DO NOT RESUSCITATE and long time talk with nephrology did not make any decision whether he wants to go for dialysis or not but he was not opposed to it at the time. He ended up going back to [facility] on IV antibiotics kept watching for any worsening symptoms. Over the last few days patient become severely more confused with much worsening condition his laboratory value continue to show severe uremia with BUN above 107 creatinine up to 4.0 with potassium level yesterday was as high as 6.6. Patient was giving 1 dose of Lokelma yesterday. Had helped some but through the night in the paralegal internship hours he become a lot worse with worsening confusion not waking up well has been having slight increase shortness of breath with delusion and slight hallucination and that being sent to the emergency department at [facility] where was seen and evaluated for the above condition at the time he has been up to 127 creatinine 4.0 with the 1 dose of Lokelma his potassium is down to 5.7. Patient continued to suffer from much worsening condition white blood cell up to 17.7 hemoglobin 8.2 decided to switch his antibiotics was giving apparently 1 dose of vancomycin and Zosyn consulted infectious disease admit patient to the hospital patient will need to see nephrology and probably will need to go on hemodialysis. 01/26/2024: Kidney function is much worse today with BUN up to 126 creatinine 4.2 GFR down to 13. Still waiting for nephrology for clearance for possible hemodialysis today. In the meanwhile will consult vascular and prepare for dialysis line. Patient also be seen in infectious disease with the current presentation this time despite being on IV cefepime patient hemoglobin is up to 17.7 culture still pending at this point change in plan with antibiotic changed to Zosyn and vanco mycin preliminary wound culture was positive for Pseudomonas which again will be waiting for infectious disease final. Patient was given some IV furosemide this shortness of breath slightly bit better still having significant dyspnea. 01/27/2024: Patient kidney function and anemia is much worse scheduled to see vascular for dialysis catheter and eventually will initiate hemodialysis today. His BUN is up to 131 today with creatinine 4.43 with GFR is 12. Culture from his foot came back this time positive for Pseudomonas aeruginosa the patient had seen infectious disease originally antibiotic was switched from cefepime to Zosyn and vancomycin infectious disease will switch him from Zosyn to Zerbaxa. Tunneled catheter placement for hemodialysis, Will address with infectious disease the possibility of having patient going for above-knee amputation of the right side while he is in the hospital this time. REVIEW OF SYSTEMS: CONSTITUTIONAL: Morbidly obese in no acute respiratory distress. Slightly confused EYES: No icterus sclerae, no conjunctivitis. EARS, NOSE, MOUTH, THROAT, and FACE: No sore throat, lymphadenopathy, carotid bruits or deformity. RESPIRATORY: Mild shortness of breath mild cough no wheezes. CARDIOVASCULAR: Positive PND orthopnea palpitation. GASTROINTESTINAL: Abdominal discomfort with mild nausea with slight distention no vomiting. GENITOURINARY: Decreased urine output with incontinence slight change in urine color with worsening kidney failure. INTEGUMENT/BREAST: Negative for any muscular injury with mild osteoarthritis.. HEMATOLOGIC/LYMPHATIC: Worsening anemia MUSCULOSKELTAL: Myalgia arthralgia and significant discomfort with ulcer in the right foot. NEURLOGICAL: Slight confusion with worsening mental status compared to his baseline no focalized deficit. BEHAVIORAL/PSYCH: Negative. ENDOCRINE: Negative. PHYSICAL EXAMINATION: General Appearance: Alert, confused, no distress, appears stated age. Neck HEENT: Supple, no lymphadenopathy, no thyroid enlargement, no carotid brui ts. Lungs: Decreased breath sound bilaterally with fine rhonchi no crackles or wheezes. Chest Wall: Decreased expansion with deep inspiration no tenderness and no deformity was found on exam, no costochondral pain or discomfort. Heart: Regular rate and rhythm, S1, S2 positive S3 positive systolic murmur. Back: Symmetric, no curvature, ROM normal, no CVA tenderness. Abdomen: Soft, non-tender, bowel sounds active all four quadrants, no masses, no organomegaly. Extremities: Right foot still have significant irritation edema redness with warmness to touch with significant decreased circulation. When to 2+ edema Pulses: Decreased pulse bilaterally worse on the right than the left side Skin: Skin color, texture, tugor normal, no rashes or lesions. Neurologic: Alert confused cranial nerves II through XII intact, no motor deficit, positive generalized weakness. ASSESSMENT AND PLAN: _Advanced chronic kidney disease become end-stage renal disease at this point with much worsening kidney failure will require hemodialysis he is going to have a tunneled dialysis catheter today and probably going for hemodialysis later today. _Altered mental status: This is related to his advanced chronic medical condition and end-stage kidney failure causing uremia causing his altered mental status. _Hyperkalemia: Potassium is slightly better had Lokelma before and from Patient will require hemodialysis. _Slight dyspnea and shortness of breath most likely from fluid overload and slight early pulmonary edema, continue IV diuretics to the patient hopefully will be waiting for hemodialysis. _Acute kidney injury with Chronic kidney disease: With much worsening kidney function at this point will admit patient consult nephrology continue current management. _Osteomyelitis of the right foot has been much worse with Pseudomonas aeruginosa, antibiotic will be changed to Zerbaxa. _Recent history of Klebsiella pneumonia urinary tract infection was treated with IV antibiotic for long enough. _Severe PAD consultation with vascular earlier in the month conclusion was to go for above-knee amputation which patient had declined at this point Sun continue to try his topical infection with antibiotic and wound care to see if it salvage the leg. _Peripheral neuropathy: Remain on gabapentin 1600 mg at nighttime. _Chronic pain syndrome: Continue hydrocodone orally. _Type 2 diabetes with hyperglycemia: Continue Accu-Chek with sliding scales coverage might benefit from adding long acting insulin at nighttime. _Hypothyroidism: Still on levothyroxine 112 mcg daily. _Hypertension: Blood pressure still slightly below but continue lisinopril 20 mg a day. _Hyperlipidemia: Was on simvastatin has been hold currently which will be resumed soon as patient able to tolerate medication. _Morbid obesity with BMI of 43.9: Which increases risk factor of complication. _Debility: Patient is wheelchair/bedbound not able to ambulate and walk. Discussion: The patient antibiotic was changed, will start hemodialysis as soon as his tunneled dialysis catheter placed then. Also talked to vascular about possibility of having to do amputation while he is in the hospital this time. Objective - Vital Signs Vital signs: Vital Signs Temp 98.3 F 01/28/24 00:47 Pulse 86 01/28/24 00:47 Resp 18 01/28/24 00:47 BP 120/68 01/28/24 00:47 Pulse Ox 95 01/28/24 00:47 FiO2 Intake & Output 01/27/24 01/27/24 01/28/24 06:59 18:59 06:59 Intake Total 400 Output Total 100 40 800 Balance -100 -40 -400 Intake: Hemodialysis 400 Output: Urine 100 40 Hemodialysis 600 Hemodialysis Net Amount 200 Other: Voiding Method Indwelling Catheter Indwelling Catheter Indwelling Catheter - Labs CBC & Chem 7: 01/27/24 21:52 01/27/24 21:52 Labs: Abnormal Lab Results - Last 24 Hours (Table) 01/27/24 01/27/24 01/27/24 Range/Units 08:21 08:21 20:16 WBC 12.6 H (3.8-10.6) k/uL RBC 2.74 L (4.30-5.90) m/uL Hgb 7.6 L (13.0-17.5) gm/dL Hct 25.9 L (39.0-53.0) % MCHC 29.3 L (31.0-37.0) g/dL RDW 16.8 H (11.5-15.5) % Neutrophils # (1.3-7.7) k/uL Lymphocytes # (1.0-4.8) k/uL Eosinophils # (0-0.7) k/uL Potassium 5.3 H (3.5-5.1) mmol/L Chloride 111 H (98-107) mmol/L Carbon Dioxide 21 L (22-30) mmol/L BUN 131 H* (9-20) mg/dL Creatinine 4.43 H (0.66-1.25) mg/dL Glucose 128 H (74-99) mg/dL POC Glucose (mg/dL) 147 H (70-110) mg/dL Calcium 7.6 L (8.4-10.2) mg/dL Alkaline Phosphatase (38-126) U/L Total Protein (6.3-8.2) g/dL Albumin (3.5-5.0) g/dL 01/27/24 01/27/24 01/28/24 Range/Units 21:52 21:52 06:11 WBC 11.5 H (3.8-10.6) k/uL RBC 2.75 L (4.30-5.90) m/uL Hgb 7.6 L (13.0-17.5) gm/dL Hct 25.9 L (39.0-53.0) % MCHC 29.3 L (31.0-37.0) g/dL RDW 17.1 H (11.5-15.5) % Neutrophils # 8.7 H (1.3-7.7) k/uL Lymphocytes # 0.5 L (1.0-4.8) k/uL Eosinophils # 1.8 H (0-0.7) k/uL Potassium (3.5-5.1) mmol/L Chloride 111 H (98-107) mmol/L Carbon Dioxide 20 L (22-30) mmol/L BUN 106 H* (9-20) mg/dL Creatinine 4.06 H (0.66-1.25) mg/dL Glucose 134 H (74-99) mg/dL POC Glucose (mg/dL) 144 H (70-110) mg/dL Calcium 7.7 L (8.4-10.2) mg/dL Alkaline Phosphatase 1129 H (38-126) U/L Total Protein 5.1 L (6.3-8.2) g/dL Albumin 2.3 L (3.5-5.0) g/dL Microbiology - Last 24 Hours (Table) 01/25/24 09:42 Blood Culture - Preliminary Blood 01/25/24 09:07 Blood Culture - Preliminary Blood 01/25/24 10:50 Gram Stain - Preliminary Foot - Right Wound Culture - Preliminary Pseudomonas aeruginosa
[2024-01-28 07:17] LABS: Glucose,Whole Blood 151 mg/dL (70-110)
[2024-01-28 07:18] LABS: Glucose,Whole Blood 150 mg/dL (70-110)
[2024-01-28 07:35] LABS: Glucose,Whole Blood 141 mg/dL (70-110)
[2024-01-28 08:15] LABS: Glucose,Whole Blood 146 mg/dL (70-110)
[2024-01-28 11:10] LABS: Glucose,Whole Blood 162 mg/dL (70-110)
--- NOTE | 2024-01-28 11:21 | P.PN ---
Subjective Progress Note Date: 01/28/24 Principal diagnosis: Acute on chronic renal failure Patient seen and examined today as a follow-up. Yesterday he underwent tunneled dialysis catheter placement. Reportedly he was unable to get full dialysis treatment due to hypotension however catheter report reported working well. Patient remains hypotensive. He is confused and has a sitter at the bedside. Objective - Vital Signs Vital signs: Vital Signs Temp 98.3 F 01/28/24 00:47 Pulse 76 01/28/24 07:55 Resp 18 01/28/24 00:47 BP 120/68 01/28/24 00:47 Pulse Ox 95 01/28/24 00:47 FiO2 Intake & Output 01/27/24 01/28/24 01/28/24 18:59 06:59 18:59 Intake Total 400 Output Total 40 1000 Balance -40 -600 Intake: Hemodialysis 400 Output: Urine 40 200 Hemodialysis 600 Hemodialysis Net Amount 200 Other: Voiding Method Indwelling Catheter Indwelling Catheter Indwelling Catheter - Exam General appearance: The patient is obtunded, confused. HET: Head is normocephalic and atraumatic. Neck: Supple. Chest: Left IJ tunnel catheter in place with dressing, without any bleeding or ecchymosis. Heart: Regular. Lungs: Equal expansion, normal respiratory effort. Abdomen: Soft,nondistended. Skin: Multiple scratch yeboah on chest and upper extremities. Extremities: Upper extremity swelling. Lower extremity swelling. Right foot with dressing intact. Neurological: Patient is obtunded, confused. HEENT he is arousable and is alert and oriented to self. - Labs CBC & Chem 7: 01/27/24 21:52 01/27/24 21:52 Labs: Abnormal Lab Results - Last 24 Hours (Table) 01/25/24 01/26/24 01/26/24 Range/Units 21:07 06:22 09:54 WBC (3.8-10.6) k/uL RBC (4.30-5.90) m/uL Hgb (13.0-17.5) gm/dL Hct (39.0-53.0) % MCHC (31.0-37.0) g/dL RDW (11.5-15.5) % Neutrophils # (1.3-7.7) k/uL Lymphocytes # (1.0-4.8) k/uL Eosinophils # (0-0.7) k/uL Potassium (3.5-5.1) mmol/L Chloride (98-107) mmol/L Carbon Dioxide (22-30) mmol/L BUN (9-20) mg/dL Creatinine (0.66-1.25) mg/dL Glucose (74-99) mg/dL POC Glucose (mg/dL) 146 H 141 H 151 H (70-110) mg/dL Calcium (8.4-10.2) mg/dL Alkaline Phosphatase (38-126) U/L Total Protein (6.3-8.2) g/dL Albumin (3.5-5.0) g/dL 01/26/24 01/26/24 01/26/24 Range/Units 11:21 16:51 20:58 WBC (3.8-10.6) k/uL RBC (4.30-5.90) m/uL Hgb (13.0-17.5) gm/dL Hct (39.0-53.0) % MCHC (31.0-37.0) g/dL RDW (11.5-15.5) % Neutrophils # (1.3-7.7) k/uL Lymphocytes # (1.0-4.8) k/uL Eosinophils # (0-0.7) k/uL Potassium (3.5-5.1) mmol/L Chloride (98-107) mmol/L Carbon Dioxide (22-30) mmol/L BUN (9-20) mg/dL Creatinine (0.66-1.25) mg/dL Glucose (74-99) mg/dL POC Glucose (mg/dL) 150 H 142 H 141 H (70-110) mg/dL Calcium (8.4-10.2) mg/dL Alkaline Phosphatase (38-126) U/L Total Protein (6.3-8.2) g/dL Albumin (3.5-5.0) g/dL 01/27/24 01/27/24 01/27/24 Range/Units 06:19 08:21 08:21 WBC 12.6 H (3.8-10.6) k/uL RBC 2.74 L (4.30-5.90) m/uL Hgb 7.6 L (13.0-17.5) gm/dL Hct 25.9 L (39.0-53.0) % MCHC 29.3 L (31.0-37.0) g/dL RDW 16.8 H (11.5-15.5) % Neutrophils # (1.3-7.7) k/uL Lymphocytes # (1.0-4.8) k/uL Eosinophils # (0-0.7) k/uL Potassium 5.3 H (3.5-5.1) mmol/L Chloride 111 H (98-107) mmol/L Carbon Dioxide 21 L (22-30) mmol/L BUN 131 H* (9-20) mg/dL Creatinine 4.43 H (0.66-1.25) mg/dL Glucose 128 H (74-99) mg/dL POC Glucose (mg/dL) 157 H (70-110) mg/dL Calcium 7.6 L (8.4-10.2) mg/dL Alkaline Phosphatase (38-126) U/L Total Protein (6.3-8.2) g/dL Albumin (3.5-5.0) g/dL 01/27/24 01/27/24 01/27/24 Range/Units 11:42 20:16 21:52 WBC 11.5 H (3.8-10.6) k/uL RBC 2.75 L (4.30-5.90) m/uL Hgb 7.6 L (13.0-17.5) gm/dL Hct 25.9 L (39.0-53.0) % MCHC 29.3 L (31.0-37.0) g/dL RDW 17.1 H (11.5-15.5) % Neutrophils # 8.7 H (1.3-7.7) k/uL Lymphocytes # 0.5 L (1.0-4.8) k/uL Eosinophils # 1.8 H (0-0.7) k/uL Potassium (3.5-5.1) mmol/L Chloride (98-107) mmol/L Carbon Dioxide (22-30) mmol/L BUN (9-20) mg/dL Creatinine (0.66-1.25) mg/dL Glucose (74-99) mg/dL POC Glucose (mg/dL) 147 H 147 H (70-110) mg/dL Calcium (8.4-10.2) mg/dL Alkaline Phosphatase (38-126) U/L Total Protein (6.3-8.2) g/dL Albumin (3.5-5.0) g/dL 01/27/24 01/28/24 Range/Units 21:52 06:11 WBC (3.8-10.6) k/uL RBC (4.30-5.90) m/uL Hgb (13.0-17.5) gm/dL Hct (39.0-53.0) % MCHC (31.0-37.0) g/dL RDW (11.5-15.5) % Neutrophils # (1.3-7.7) k/uL Lymphocytes # (1.0-4.8) k/uL Eosinophils # (0-0.7) k/uL Potassium (3.5-5.1) mmol/L Chloride 111 H (98-107) mmol/L Carbon Dioxide 20 L (22-30) mmol/L BUN 106 H* (9-20) mg/dL Creatinine 4.06 H (0.66-1.25) mg/dL Glucose 134 H (74-99) mg/dL POC Glucose (mg/dL) 144 H (70-110) mg/dL Calcium 7.7 L (8.4-10.2) mg/dL Alkaline Phosphatase 1129 H (38-126) U/L Total Protein 5.1 L (6.3-8.2) g/dL Albumin 2.3 L (3.5-5.0) g/dL Microbiology - Last 24 Hours (Table) 01/25/24 09:42 Blood Culture - Preliminary Blood 01/25/24 09:07 Blood Culture - Preliminary Blood 01/25/24 10:50 Gram Stain - Preliminary Foot - Right Wound Culture - Preliminary Pseudomonas aeruginosa Assessment and Plan Assessment: 1. Acute on chronic kidney disease requiring hemodialysis 2. Urinary tract infection 3. Hyperkalemia 4. Chronic nonhealing lower extremity wounds 5. Morbid obesity 6. Nonambulatory Plan: 1. Hemodialysis per recommendations from nephrology 2. May resume heparin and Plavix 3. Patient is doing poorly, goals of care should be discussed with family. This has been discussed previous admissions with primary medical team. 4. Continue with medical management per primary medical team Thank you for this consultation, we will sign off at this time. The impression and plan of care has been dictated as directed. I performed a history and examination of this patient, discussed the same with the dictator. I agree with the dictator's note ,documented as a scribe. Any additional findings or plans will be noted.
--- NOTE | 2024-01-28 13:12 | P.PN ---
Subjective Progress Note Date: 01/28/24 Principal diagnosis: Reason for follow-up is right diabetic foot ulcer cellulitis and osteomyelitis Patient is a 73-year-old male with a past medical history significant for diabetes mellitus hypertension hyperlipidemia [place] COPD hypothyroidism and this patient who has been dealing with a wound on the plantar aspect of the right foot that has been previously debrided by Dr. Gray and the patient has been on IV Rocephin for osteomyelitis patient have not been brought back to the hospital concerning for mental status changes and elevated production patient was did have evidence of acute renal failure. On today's evaluation that is 01/28/2024, patient has been afebrile, patient is breathing comfortably and is currently on 3 L nasal cannula oxygen patient not in respiratory distress, the patient remains to be lethargic and restless unable to provide any history no vomiting diarrhea has been reported. Patient white count is 11.5, creatinine 4.06 local cultures also showing presumptive MRSA in addition to drug-resistant Pseudomonas Objective - Vital Signs Vital signs: Vital Signs Temp 98.4 F 01/28/24 08:19 Pulse 78 01/28/24 11:39 Resp 20 01/28/24 08:19 BP 98/56 01/28/24 08:19 Pulse Ox 91 L 01/28/24 08:19 FiO2 Intake & Output 01/27/24 01/28/24 01/28/24 18:59 06:59 18:59 Intake Total 400 Output Total 40 1000 Balance -40 -600 Intake: Hemodialysis 400 Output: Urine 40 200 Hemodialysis 600 Hemodialysis Net Amount 200 Other: Voiding Method Indwelling Catheter Indwelling Catheter Indwelling Catheter - Exam GENERAL DESCRIPTION: An elderly male lying in bed in no distress RESPIRATORY SYSTEM: Unlabored breathing , decreased breath sounds at bases HEART: S1 S2 regular rate and rhythm , ABDOMEN: Soft , no tenderness EXTREMITIES: Right foot wound is currently dressed no drainage - Labs CBC & Chem 7: 01/27/24 21:52 01/27/24 21:52 Labs: Abnormal Lab Results - Last 24 Hours (Table) 01/25/24 01/26/24 01/26/24 Range/Units 21:07 06:22 09:54 WBC (3.8-10.6) k/uL RBC (4.30-5.90) m/uL Hgb (13.0-17.5) gm/dL Hct (39.0-53.0) % MCHC (31.0-37.0) g/dL RDW (11.5-15.5) % Neutrophils # (1.3-7.7) k/uL Lymphocytes # (1.0-4.8) k/uL Eosinophils # (0-0.7) k/uL Chloride (98-107) mmol/L Carbon Dioxide (22-30) mmol/L BUN (9-20) mg/dL Creatinine (0.66-1.25) mg/dL Glucose (74-99) mg/dL POC Glucose (mg/dL) 146 H 141 H 151 H (70-110) mg/dL Calcium (8.4-10.2) mg/dL Alkaline Phosphatase (38-126) U/L Total Protein (6.3-8.2) g/dL Albumin (3.5-5.0) g/dL 01/26/24 01/26/24 01/26/24 Range/Units 11:21 16:51 20:58 WBC (3.8-10.6) k/uL RBC (4.30-5.90) m/uL Hgb (13.0-17.5) gm/dL Hct (39.0-53.0) % MCHC (31.0-37.0) g/dL RDW (11.5-15.5) % Neutrophils # (1.3-7.7) k/uL Lymphocytes # (1.0-4.8) k/uL Eosinophils # (0-0.7) k/uL Chloride (98-107) mmol/L Carbon Dioxide (22-30) mmol/L BUN (9-20) mg/dL Creatinine (0.66-1.25) mg/dL Glucose (74-99) mg/dL POC Glucose (mg/dL) 150 H 142 H 141 H (70-110) mg/dL Calcium (8.4-10.2) mg/dL Alkaline Phosphatase (38-126) U/L Total Protein (6.3-8.2) g/dL Albumin (3.5-5.0) g/dL 01/27/24 01/27/24 01/27/24 Range/Units 06:19 11:42 20:16 WBC (3.8-10.6) k/uL RBC (4.30-5.90) m/uL Hgb (13.0-17.5) gm/dL Hct (39.0-53.0) % MCHC (31.0-37.0) g/dL RDW (11.5-15.5) % Neutrophils # (1.3-7.7) k/uL Lymphocytes # (1.0-4.8) k/uL Eosinophils # (0-0.7) k/uL Chloride (98-107) mmol/L Carbon Dioxide (22-30) mmol/L BUN (9-20) mg/dL Creatinine (0.66-1.25) mg/dL Glucose (74-99) mg/dL POC Glucose (mg/dL) 157 H 147 H 147 H (70-110) mg/dL Calcium (8.4-10.2) mg/dL Alkaline Phosphatase (38-126) U/L Total Protein (6.3-8.2) g/dL Albumin (3.5-5.0) g/dL 01/27/24 01/27/24 01/28/24 Range/Units 21:52 21:52 06:11 WBC 11.5 H (3.8-10.6) k/uL RBC 2.75 L (4.30-5.90) m/uL Hgb 7.6 L (13.0-17.5) gm/dL Hct 25.9 L (39.0-53.0) % MCHC 29.3 L (31.0-37.0) g/dL RDW 17.1 H (11.5-15.5) % Neutrophils # 8.7 H (1.3-7.7) k/uL Lymphocytes # 0.5 L (1.0-4.8) k/uL Eosinophils # 1.8 H (0-0.7) k/uL Chloride 111 H (98-107) mmol/L Carbon Dioxide 20 L (22-30) mmol/L BUN 106 H* (9-20) mg/dL Creatinine 4.06 H (0.66-1.25) mg/dL Glucose 134 H (74-99) mg/dL POC Glucose (mg/dL) 144 H (70-110) mg/dL Calcium 7.7 L (8.4-10.2) mg/dL Alkaline Phosphatase 1129 H (38-126) U/L Total Protein 5.1 L (6.3-8.2) g/dL Albumin 2.3 L (3.5-5.0) g/dL 01/28/24 Range/Units 11:09 WBC (3.8-10.6) k/uL RBC (4.30-5.90) m/uL Hgb (13.0-17.5) gm/dL Hct (39.0-53.0) % MCHC (31.0-37.0) g/dL RDW (11.5-15.5) % Neutrophils # (1.3-7.7) k/uL Lymphocytes # (1.0-4.8) k/uL Eosinophils # (0-0.7) k/uL Chloride (98-107) mmol/L Carbon Dioxide (22-30) mmol/L BUN (9-20) mg/dL Creatinine (0.66-1.25) mg/dL Glucose (74-99) mg/dL POC Glucose (mg/dL) 162 H (70-110) mg/dL Calcium (8.4-10.2) mg/dL Alkaline Phosphatase (38-126) U/L Total Protein (6.3-8.2) g/dL Albumin (3.5-5.0) g/dL Microbiology - Last 24 Hours (Table) 01/25/24 10:50 Gram Stain - Preliminary Foot - Right Wound Culture - Preliminary Pseudomonas aeruginosa Presumptive MRSA 01/25/24 09:42 Blood Culture - Preliminary Blood 01/25/24 09:07 Blood Culture - Preliminary Blood Assessment and Plan (1) Foot osteomyelitis, right Current Visit: Yes Status: Acute Code(s): M86.9 - OSTEOMYELITIS, UNSPECIFIED SNOMED Code(s): 1284064382549516 (2) Diabetic foot ulcer Current Visit: No Status: Acute Code(s): E11.621 - TYPE 2 DIABETES MELLITUS WITH FOOT ULCER; L97.509 - NON-PRESSURE CHRONIC ULCER OTH PRT UNSP FOOT W UNSP SEVERITY SNOMED Code(s): 896295920 (3) Type 2 diabetes mellitus with foot ulcer Current Visit: No Status: Acute Code(s): E11.621 - TYPE 2 DIABETES MELLITUS WITH FOOT ULCER; L97.509 - NON-PRESSURE CHRONIC ULCER OTH PRT UNSP FOOT W UNSP SEVERITY SNOMED Code(s): 5345498211154 Plan: 1patient presented to hospital with mental status change which is likely mult ifactorial could be related to renal failure as the patient have significant elevated BUN and creatinine, apparently did have elevated potassium in the outpatient setting, patient also dealing with the chronic nonhealing wound on the plantar aspect of the right foot that has been previously debrided by vascular surgery wound base did have slough tissue and minimal surrounding redness x-rays were negative for any bony changes 2-local wound care with the Santyl followed by moist dressing 3-patient repeat culture from the right foot is now growing Pseudomonas drug- resistant and also present to MRSA 4patient to continue with Zerbaxa we will add daptomycin to cover for the MRSA Dictation was produced using [employer] dictation software. please excuse any grammatical, word or spelling errors. Time with Patient: Less than 30
[2024-01-28] MEDS: LOPERAMIDE 2 MG CAP PO PRN (14:23)
--- NOTE | 2024-01-28 16:06 | P.PN ---
Subjective patient is seen for follow-up for acute kidney injury. Patient was started on hemodialysis on 01/27/2024 due to worsening renal function, volume overload and concern for uremia. Patient did not tolerate hemodialysis well yesterday secondary to significant hypotension. He is scheduled for hemodialysis again today. 240 mL of urine charted for 24 hours. Objective - Vital Signs Vital signs: Vital Signs Temp 98.4 F 01/28/24 08:19 Pulse 76 01/28/24 15:54 Resp 20 01/28/24 08:19 BP 98/56 01/28/24 08:19 Pulse Ox 91 L 01/28/24 08:19 FiO2 Intake & Output 01/27/24 01/28/24 01/28/24 18:59 06:59 18:59 Intake Total 400 Output Total 40 1000 Balance -40 -600 Intake: Hemodialysis 400 Output: Urine 40 200 Hemodialysis 600 Hemodialysis Net Amount 200 Other: Voiding Method Indwelling Catheter Indwelling Catheter Indwelling Catheter # Bowel Movements 1 - Exam Patient is sleeping but arousable, lethargic, comfortable, no acute distress. Abnormal jerking movements noted Examination of the heart S1 and S2 Examination of the lungs decreased breath sounds at the bases Abdomen is soft obese nontender Examination of lower extremity shows edema 2+ bilateral with chronic skin changes. Right foot is dressed - Labs CBC & Chem 7: 01/27/24 21:52 01/27/24 21:52 Labs: Abnormal Lab Results - Last 24 Hours (Table) 01/25/24 01/26/24 01/26/24 Range/Units 21:07 06:22 09:54 WBC (3.8-10.6) k/uL RBC (4.30-5.90) m/uL Hgb (13.0-17.5) gm/dL Hct (39.0-53.0) % MCHC (31.0-37.0) g/dL RDW (11.5-15.5) % Neutrophils # (1.3-7.7) k/uL Lymphocytes # (1.0-4.8) k/uL Eosinophils # (0-0.7) k/uL Chloride (98-107) mmol/L Carbon Dioxide (22-30) mmol/L BUN (9-20) mg/dL Creatinine (0.66-1.25) mg/dL Glucose (74-99) mg/dL POC Glucose (mg/dL) 146 H 141 H 151 H (70-110) mg/dL Calcium (8.4-10.2) mg/dL Alkaline Phosphatase (38-126) U/L Total Protein (6.3-8.2) g/dL Albumin (3.5-5.0) g/dL 01/26/24 01/26/24 01/26/24 Range/Units 11:21 16:51 20:58 WBC (3.8-10.6) k/uL RBC (4.30-5.90) m/uL Hgb (13.0-17.5) gm/dL Hct (39.0-53.0) % MCHC (31.0-37.0) g/dL RDW (11.5-15.5) % Neutrophils # (1.3-7.7) k/uL Lymphocytes # (1.0-4.8) k/uL Eosinophils # (0-0.7) k/uL Chloride (98-107) mmol/L Carbon Dioxide (22-30) mmol/L BUN (9-20) mg/dL Creatinine (0.66-1.25) mg/dL Glucose (74-99) mg/dL POC Glucose (mg/dL) 150 H 142 H 141 H (70-110) mg/dL Calcium (8.4-10.2) mg/dL Alkaline Phosphatase (38-126) U/L Total Protein (6.3-8.2) g/dL Albumin (3.5-5.0) g/dL 01/27/24 01/27/24 01/27/24 Range/Units 06:19 11:42 20:16 WBC (3.8-10.6) k/uL RBC (4.30-5.90) m/uL Hgb (13.0-17.5) gm/dL Hct (39.0-53.0) % MCHC (31.0-37.0) g/dL RDW (11.5-15.5) % Neutrophils # (1.3-7.7) k/uL Lymphocytes # (1.0-4.8) k/uL Eosinophils # (0-0.7) k/uL Chloride (98-107) mmol/L Carbon Dioxide (22-30) mmol/L BUN (9-20) mg/dL Creatinine (0.66-1.25) mg/dL Glucose (74-99) mg/dL POC Glucose (mg/dL) 157 H 147 H 147 H (70-110) mg/dL Calcium (8.4-10.2) mg/dL Alkaline Phosphatase (38-126) U/L Total Protein (6.3-8.2) g/dL Albumin (3.5-5.0) g/dL 01/27/24 01/27/24 01/28/24 Range/Units 21:52 21:52 06:11 WBC 11.5 H (3.8-10.6) k/uL RBC 2.75 L (4.30-5.90) m/uL Hgb 7.6 L (13.0-17.5) gm/dL Hct 25.9 L (39.0-53.0) % MCHC 29.3 L (31.0-37.0) g/dL RDW 17.1 H (11.5-15.5) % Neutrophils # 8.7 H (1.3-7.7) k/uL Lymphocytes # 0.5 L (1.0-4.8) k/uL Eosinophils # 1.8 H (0-0.7) k/uL Chloride 111 H (98-107) mmol/L Carbon Dioxide 20 L (22-30) mmol/L BUN 106 H* (9-20) mg/dL Creatinine 4.06 H (0.66-1.25) mg/dL Glucose 134 H (74-99) mg/dL POC Glucose (mg/dL) 144 H (70-110) mg/dL Calcium 7.7 L (8.4-10.2) mg/dL Alkaline Phosphatase 1129 H (38-126) U/L Total Protein 5.1 L (6.3-8.2) g/dL Albumin 2.3 L (3.5-5.0) g/dL 01/28/24 Range/Units 11:09 WBC (3.8-10.6) k/uL RBC (4.30-5.90) m/uL Hgb (13.0-17.5) gm/dL Hct (39.0-53.0) % MCHC (31.0-37.0) g/dL RDW (11.5-15.5) % Neutrophils # (1.3-7.7) k/uL Lymphocytes # (1.0-4.8) k/uL Eosinophils # (0-0.7) k/uL Chloride (98-107) mmol/L Carbon Dioxide (22-30) mmol/L BUN (9-20) mg/dL Creatinine (0.66-1.25) mg/dL Glucose (74-99) mg/dL POC Glucose (mg/dL) 162 H (70-110) mg/dL Calcium (8.4-10.2) mg/dL Alkaline Phosphatase (38-126) U/L Total Protein (6.3-8.2) g/dL Albumin (3.5-5.0) g/dL Microbiology - Last 24 Hours (Table) 01/25/24 10:50 Gram Stain - Preliminary Foot - Right Wound Culture - Preliminary Pseudomonas aeruginosa Presumptive MRSA 01/25/24 09:42 Blood Culture - Preliminary Blood 01/25/24 09:07 Blood Culture - Preliminary Blood Assessment and Plan Assessment: 1. Acute kidney injury, most likely ATN. Rule out underlying GN. Serum creatinine had improved to 1.1 on 12/29/2023 after an episode of acute kidney injury. Serum creatinine has progressively worsened since 01/11/2024 from 2.5 to 4.4 . UA shows proteinuria 2+ however current UA suggestive of UTI. Serological workup shows positive RHETT and low C3. Gray catheter placed for urine retention. Ultrasound on 01/11/2024 did not show any evidence of hydronephrosis. Started hemodialysis on 01/27/2024 for worsening renal function and concern for uremia 2. Hyperkalemia associated with acute kidney injury 3. Anion gap metabolic acidosis secondary to acute kidney injury 4. Chronic right foot wound/osteomyelitis with consideration for amputation down the road 5. Anemia with no evidence of iron deficiency on 01/17/2024. Most likely anemia of chronic disease 6. Morbid obesity 7. Pyuria with budding yeast noted on UA Plan: Repeat hemodialysis today. Continue with Gray catheter Continue antibiotics Patient will need kidney biopsy down the road. Overall prognosis is guarded.
[2024-01-28 16:43] LABS: Glucose,Whole Blood 138 mg/dL (70-110)
[2024-01-28 20:50] LABS: Glucose,Whole Blood 127 mg/dL (70-110)
[2024-01-29] MEDS: LORazepam 2 MG/ML INJ IV PRN (00:05)
[2024-01-29 06:19] LABS: Glucose,Whole Blood 148 mg/dL (70-110)
[2024-01-29 11:16] LABS: Glucose,Whole Blood 163 mg/dL (70-110)
[2024-01-29] MEDS: MORPHINE CONC SOLN 10mg/0.5mL ORAL SYRG SL PRN (11:49)
--- NOTE | 2024-01-29 12:09 | P.PN ---
Subjective patient is seen for follow-up for acute kidney injury. Patient was started on hemodialysis on 01/27/2024 due to worsening renal function, volume overload and concern for uremia. status post hemodialysis yesterday with UF of 1.5 L He is scheduled for hemodialysis again today. 225 mL of urine charted for 24 hours. Jerky movements seem to have improved. Patient did open his eyes but falls back to sleep. Objective - Vital Signs Vital signs: Vital Signs Temp 97.4 F L 01/29/24 07:08 Pulse 76 01/29/24 11:55 Resp 20 01/29/24 07:08 BP 143/70 01/29/24 07:08 Pulse Ox 95 01/29/24 08:17 FiO2 Intake & Output 01/28/24 01/29/24 01/29/24 18:59 06:59 18:59 Intake Total 500 Output Total 3625 100 Balance -3125 -100 Intake: Hemodialysis 500 Output: Urine 125 100 Hemodialysis 2000 Hemodialysis Net Amount 1500 Other: Voiding Method Indwelling Catheter Indwelling Catheter Indwelling Catheter # Bowel Movements 1 - Exam Patient is sleeping but arousable, lethargic, comfortable, no acute distress. Examination of the heart S1 and S2 Examination of the lungs decreased breath sounds at the bases Abdomen is soft obese nontender Examination of lower extremity shows edema 2+ bilateral with chronic skin changes. Right foot is dressed - Labs CBC & Chem 7: 01/27/24 21:52 01/27/24 21:52 Labs: Abnormal Lab Results - Last 24 Hours (Table) 01/28/24 01/28/24 01/29/24 Range/Units 16:41 20:48 06:17 POC Glucose (mg/dL) 138 H 127 H 148 H (70-110) mg/dL 01/29/24 Range/Units 11:15 POC Glucose (mg/dL) 163 H (70-110) mg/dL Microbiology - Last 24 Hours (Table) 01/25/24 10:50 Gram Stain - Final Foot - Right Wound Culture - Final Pseudomonas aeruginosa Methicillin resist S. aureus 01/25/24 09:42 Blood Culture - Preliminary Blood 01/25/24 09:07 Blood Culture - Preliminary Blood Assessment and Plan Assessment: 1. Acute kidney injury, most likely ATN. Rule out underlying GN. Serum creatinine had improved to 1.1 on 12/29/2023 after an episode of acute kidney injury. Serum creatinine has progressively worsened since 01/11/2024 from 2.5 to 4.4 . UA shows proteinuria 2+ however current UA suggestive of UTI. Serological workup shows positive RHETT and low C3. Gray catheter placed for urine retention. Ultrasound on 01/11/2024 did not show any evidence of hydronephrosis. Started hemodialysis on 01/27/2024 for worsening renal function and concern for uremia 2. Hyperkalemia associated with acute kidney injury 3. Anion gap metabolic acidosis secondary to acute kidney injury 4. Chronic right foot wound/osteomyelitis with consideration for amputation down the road 5. Anemia with no evidence of iron deficiency on 01/17/2024. Most likely anemia of chronic disease 6. Morbid obesity 7. Pyuria with budding yeast noted on UA Plan: Repeat hemodialysis today. Continue with Gray catheter Continue antibiotics Patient will need kidney biopsy down the road. Overall prognosis is guarded.
--- NOTE | 2024-01-29 13:56 | P.PN ---
Subjective Progress Note Date: 01/29/24 Principal diagnosis: Reason for follow-up is right diabetic foot ulcer cellulitis and osteomyelitis Patient is a 73-year-old male with a past medical history significant for diabetes mellitus hypertension hyperlipidemia MD COPD hypothyroidism and this patient who has been dealing with a wound on the plantar aspect of the right foot that has been previously debrided by Dr. Gray and the patient has been on IV Rocephin for osteomyelitis patient have not been brought back to the hospital concerning for mental status changes and elevated production patient was did have evidence of acute renal failure. On today's evaluation that is 01/29/2024, Patient is afebrile this morning patient is on 4 L nasal oxygen and breathing comfortably the patient remains to be restless unable to void any history no vomiting or diarrhea has been reported by the nursing staff. No new lab has been obtained today Objective - Vital Signs Vital signs: Vital Signs Temp 97.4 F L 01/29/24 07:08 Pulse 80 01/29/24 12:10 Resp 20 01/29/24 07:08 BP 143/70 01/29/24 07:08 Pulse Ox 95 01/29/24 08:17 FiO2 Intake & Output 01/28/24 01/29/24 01/29/24 18:59 06:59 18:59 Intake Total 500 Output Total 3625 100 Balance -3125 -100 Intake: Hemodialysis 500 Output: Urine 125 100 Hemodialysis 2000 Hemodialysis Net Amount 1500 Other: Voiding Method Indwelling Catheter Indwelling Catheter Indwelling Catheter # Bowel Movements 1 - Exam GENERAL DESCRIPTION: An elderly male lying in bed in no distress RESPIRATORY SYSTEM: Unlabored breathing , decreased breath sounds at bases HEART: S1 S2 regular rate and rhythm , ABDOMEN: Soft , no tenderness EXTREMITIES: Right foot wound is currently dressed no drainage - Labs CBC & Chem 7: 01/27/24 21:52 01/27/24 21:52 Labs: Abnormal Lab Results - Last 24 Hours (Table) 01/28/24 01/28/24 01/29/24 Range/Units 16:41 20:48 06:17 POC Glucose (mg/dL) 138 H 127 H 148 H (70-110) mg/dL 01/29/24 Range/Units 11:15 POC Glucose (mg/dL) 163 H (70-110) mg/dL Microbiology - Last 24 Hours (Table) 01/25/24 10:50 Gram Stain - Final Foot - Right Wound Culture - Final Pseudomonas aeruginosa Methicillin resist S. aureus 01/25/24 09:42 Blood Culture - Preliminary Blood 01/25/24 09:07 Blood Culture - Preliminary Blood Assessment and Plan (1) Foot osteomyelitis, right Current Visit: Yes Status: Acute Code(s): M86.9 - OSTEOMYELITIS, UNSPECIFIED SNOMED Code(s): 7853081836241245 (2) Diabetic foot ulcer Current Visit: No Status: Acute Code(s): E11.621 - TYPE 2 DIABETES MELLITUS WITH FOOT ULCER; L97.509 - NON-PRESSURE CHRONIC ULCER OTH PRT UNSP FOOT W UNSP SEVERITY SNOMED Code(s): 696475971 (3) Type 2 diabetes mellitus with foot ulcer Current Visit: No Status: Acute Code(s): E11.621 - TYPE 2 DIABETES MELLITUS WITH FOOT ULCER; L97.509 - NON-PRESSURE CHRONIC ULCER OTH PRT UNSP FOOT W UNSP SEVERITY SNOMED Code(s): 6625331668441 Plan: 1patient presented to hospital with mental status change which is likely multifactorial could be related to renal failure as the patient have significant elevated BUN and creatinine, apparently did have elevated potassium in the outpatient setting, patient also dealing with the chronic nonhealing wound on the plantar aspect of the right foot that has been previously debrided by vascular surgery wound base did have slough tissue and minimal surrounding redness x-rays were negative for any bony changes 2-local wound care with the Santyl followed by moist dressing 3-patient repeat culture from the right foot is now growing Pseudomonas drug- resistant and also present to MRSA 4patient is currently being treated with Zerbaxa and daptomycin, and monitor his clinical course closely Dictation was produced using [employer] dictation software. please excuse any gra mmatical, word or spelling errors. Time with Patient: Less than 30
--- NOTE | 2024-01-29 15:25 | P.PN ---
Subjective Progress Note Date: 01/28/24 HISTORY OF PRESENT ILLNESS: 73-year-old morbidly obese with active medical history of atherosclerotic heart disease post myocardial infarction, severe peripheral arterial disease with infected right foot with osteomyelitis, type 2 diabetes, COPD, chronic history of neuropathy, chronic pain syndrome, hypertension, hyperlipidemia, chronic kidney disease with much worsening symptoms. Who has chronic anemia, recurrent encephalopathy with recurrent sepsis and infection who was hospitalized last and January 10 for altered mental status with confusion and worsening uremia and worsening right foot osteomyelitis slightly worsening BUN/creatinine at the time with 79 and 2.58 who ended up being in the hospital for 10 days his kidney function become slightly with worsening decline, continue to suffer from osteomyelitis of the right foot which will require eventually right above-knee amputation which vascular refused initially to schedule till at least is done with IV antibiotic being treated for urinary tract infection with sepsis for what seems like Klebsiella pneumonia. Patient ended up being stabilized he change his CODE STATUS at that point to DO NOT RESUSCITATE and long time talk with nephrology did not make any decision whether he wants to go for dialysis or not but he was not opposed to it at the time. He ended up going back to [facility] on IV antibiotics kept watching for any worsening symptoms. Over the last few days patient become severely more confused with much worsening condition his laboratory value continue to show severe uremia with BUN above 107 creatinine up to 4.0 with potassium level yesterday was as high as 6.6. Patient was giving 1 dose of Lokelma yesterday. Had helped some but through the night in the reflexologist hours he become a lot worse with worsening confusion not waking up well has been having slight increase shortness of breath with delusion and slight hallucination and that being sent to the emergency department at [facility] where was seen and evaluated for the above condition at the time he has been up to 127 creatinine 4.0 with the 1 dose of Lokelma his potassium is down to 5.7. Patient continued to suffer from much worsening condition white blood cell up to 17.7 hemoglobin 8.2 decided to switch his antibiotics was giving apparently 1 dose of vancomycin and Zosyn consulted infectious disease admit patient to the hospital patient will need to see nephrology and probably will need to go on hemodialysis. 01/26/2024: Kidney function is much worse today with BUN up to 126 creatinine 4.2 GFR down to 13. Still waiting for nephrology for clearance for possible hemodialysis today. In the meanwhile will consult vascular and prepare for dialysis line. Patient also be seen in infectious disease with the current presentation this time despite being on IV cefepime patient hemoglobin is up to 17.7 culture still pending at this point change in plan with antibiotic changed to Zosyn and vanco mycin preliminary wound culture was positive for Pseudomonas which again will be waiting for infectious disease final. Patient was given some IV furosemide this shortness of breath slightly bit better still having significant dyspnea. 01/27/2024: Patient kidney function and anemia is much worse scheduled to see vascular for dialysis catheter and eventually will initiate hemodialysis today. His BUN is up to 131 today with creatinine 4.43 with GFR is 12. Culture from his foot came back this time positive for Pseudomonas aeruginosa the patient had seen infectious disease originally antibiotic was switched from cefepime to Zosyn and vancomycin infectious disease will switch him from Zosyn to Zerbaxa. Tunneled catheter placement for hemodialysis, Will address with infectious disease the possibility of having patient going for above-knee amputation of the right side while he is in the hospital this time. 01/28/2024:The patient had tunneled dialysis catheter in the left subclavian and ended up going for dialysis still not doing well currently despite is much worse. Continue to have significant infusion and altered mental status. With his comorbidities very high at this point I ended up speaking with the niece who is the guardian to notify her of his current condition and advised her to meet with the secondary social studies teacher and the nurse and highly advised at this point to do pall iative care and probably hospice she promised to discuss this with her family and make this decision conjunction with our opinion. Meanwhile nephrology still planning to do hemodialysis today, he is not running fever or chills but blood pressure remained quite bit low which why we had to terminate dialysis with early. REVIEW OF SYSTEMS: CONSTITUTIONAL: Morbidly obese in no acute respiratory distress. Slightly confused EYES: No icterus sclerae, no conjunctivitis. EARS, NOSE, MOUTH, THROAT, and FACE: No sore throat, lymphadenopathy, carotid bruits or deformity. RESPIRATORY: Mild shortness of breath mild cough no wheezes. CARDIOVASCULAR: Positive PND orthopnea palpitation. GASTROINTESTINAL: Abdominal discomfort with mild nausea with slight distention no vomiting. GENITOURINARY: Decreased urine output with incontinence slight change in urine color with worsening kidney failure. INTEGUMENT/BREAST: Negative for any muscular injury with mild osteoarthritis.. HEMATOLOGIC/LYMPHATIC: Worsening anemia MUSCULOSKELTAL: Myalgia arthralgia and significant discomfort with ulcer in the right foot. NEURLOGICAL: Slight confusion with worsening mental status compared to his baseline no focalized deficit. BEHAVIORAL/PSYCH: Negative. ENDOCRINE: Negative. PHYSICAL EXAMINATION: General Appearance: Alert, confused, no distress, appears stated age. Neck HEENT: Supple, no lymphadenopathy, no thyroid enlargement, no carotid bruits. Lungs: Decreased breath sound bilaterally with fine rhonchi no crackles or wheezes. Chest Wall: Decreased expansion with deep inspiration no tenderness and no deformity was found on exam, no costochondral pain or discomfort. Heart: Regular rate and rhythm, S1, S2 positive S3 positive systolic murmur. Back: Symmetric, no curvature, ROM normal, no CVA tenderness. Abdomen: Soft, non-tender, bowel sounds active all four quadrants, no masses, no organomegaly. Extremities: Right foot still have significant irritation edema redness with warmness to touch with significant decreased circulation. When to 2+ edema Pulses: Decreased pulse bilaterally worse on the right than the left side Skin: Skin color, texture, tugor normal, no rashes or lesions. Neurologic: Alert confused cranial nerves II through XII intact, no motor deficit, positive generalized weakness. ASSESSMENT AND PLAN: _End-stage renal disease: Was started on hemodialysis after tunneled dialysis catheter was placed in left subclavian, patient still not doing well dialysis this point. _Altered mental status: This is related to his advanced chronic medical condition and end-stage kidney failure causing uremia causing his altered mental status. _Severe decline and very high mortality and multi comorbidity, long discussion with the family about possibility of palliative care and hospice they will think about it and get back with us in the next 24 hours. _Hyperkalemia: Potassium is much better especially since start dialysis. _Slight dyspnea and shortness of breath most likely from fluid overload and slight early pulmonary edema, continue IV diuretics to the patient hopefully will be waiting for hemodialysis. _Acute kidney injury with Chronic kidney disease: With much worsening kidney function at this point will admit patient consult nephrology continue current management. _Osteomyelitis of the right foot has been much worse with Pseudomonas aeruginosa, antibiotic will be changed to Zerbaxa. _Recent history of Klebsiella pneumonia urinary tract infection was treated with IV antibiotic for long enough. _Severe PAD consultation with vascular earlier in the month conclusion was to go for above-knee amputation which patient had declined at this point Sun continue to try his topical infection with antibiotic and wound care to see if it salvage the leg. _Peripheral neuropathy: Remain on gabapentin 1600 mg at nighttime. _Chronic pain syndrome: Continue hydrocodone orally. _Type 2 diabetes with hyperglycemia: Continue Accu-Chek with sliding scales coverage might benefit from adding long acting insulin at nighttime. _Hypothyroidism: Still on levothyroxine 112 mcg daily. _Hypertension: Blood pressure still slightly below but continue lisinopril 20 mg a day. _Hyperlipidemia: Was on simvastatin has been hold currently which will be resumed soon as patient able to tolerate medication. _Morbid obesity with BMI of 43.9: Which increases risk factor of complication. _Debility: Patient is wheelchair/bedbound not able to ambulate and walk. Discussion: Long discussion with the family most likely do lean towards hospice and palliative care in the meanwhile continue aggressive management knowing that patient DO NOT RESUSCITATE and no mechanical ventilation will continue comfort care as well. Objective - Vital Signs Vital signs: Vital Signs Temp 98.3 F 01/28/24 00:47 Pulse 86 01/28/24 00:47 Resp 18 01/28/24 00:47 BP 120/68 01/28/24 00:47 Pulse Ox 95 01/28/24 00:47 FiO2 Intake & Output 01/27/24 01/28/24 01/28/24 18:59 06:59 18:59 Intake Total 400 Output Total 40 1000 Balance -40 -600 Intake: Hemodialysis 400 Output: Urine 40 200 Hemodialysis 600 Hemodialysis Net Amount 200 Other: Voiding Method Indwelling Catheter Indwelling Catheter - Labs CBC & Chem 7: 01/27/24 21:52 01/27/24 21:52 Labs: Abnormal Lab Results - Last 24 Hours (Table) 01/27/24 01/27/24 01/27/24 Range/Units 06:19 08:21 08:21 WBC 12.6 H (3.8-10.6) k/uL RBC 2.74 L (4.30-5.90) m/uL Hgb 7.6 L (13.0-17.5) gm/dL Hct 25.9 L (39.0-53.0) % MCHC 29.3 L (31.0-37.0) g/dL RDW 16.8 H (11.5-15.5) % Neutrophils # (1.3-7.7) k/uL Lymphocytes # (1.0-4.8) k/uL Eosinophils # (0-0.7) k/uL Potassium 5.3 H (3.5-5.1) mmol/L Chloride 111 H (98-107) mmol/L Carbon Dioxide 21 L (22-30) mmol/L BUN 131 H* (9-20) mg/dL Creatinine 4.43 H (0.66-1.25) mg/dL Glucose 128 H (74-99) mg/dL POC Glucose (mg/dL) 157 H (70-110) mg/dL Calcium 7.6 L (8.4-10.2) mg/dL Alkaline Phosphatase (38-126) U/L Total Protein (6.3-8.2) g/dL Albumin (3.5-5.0) g/dL 01/27/24 01/27/24 01/27/24 Range/Units 11:42 20:16 21:52 WBC 11.5 H (3.8-10.6) k/uL RBC 2.75 L (4.30-5.90) m/uL Hgb 7.6 L (13.0-17.5) gm/dL Hct 25.9 L (39.0-53.0) % MCHC 29.3 L (31.0-37.0) g/dL RDW 17.1 H (11.5-15.5) % Neutrophils # 8.7 H (1.3-7.7) k/uL Lymphocytes # 0.5 L (1.0-4.8) k/uL Eosinophils # 1.8 H (0-0.7) k/uL Potassium (3.5-5.1) mmol/L Chloride (98-107) mmol/L Carbon Dioxide (22-30) mmol/L BUN (9-20) mg/dL Creatinine (0.66-1.25) mg/dL Glucose (74-99) mg/dL POC Glucose (mg/dL) 147 H 147 H (70-110) mg/dL Calcium (8.4-10.2) mg/dL Alkaline Phosphatase (38-126) U/L Total Protein (6.3-8.2) g/dL Albumin (3.5-5.0) g/dL 01/27/24 01/28/24 Range/Units 21:52 06:11 WBC (3.8-10.6) k/uL RBC (4.30-5.90) m/uL Hgb (13.0-17.5) gm/dL Hct (39.0-53.0) % MCHC (31.0-37.0) g/dL RDW (11.5-15.5) % Neutrophils # (1.3-7.7) k/uL Lymphocytes # (1.0-4.8) k/uL Eosinophils # (0-0.7) k/uL Potassium (3.5-5.1) mmol/L Chloride 111 H (98-107) mmol/L Carbon Dioxide 20 L (22-30) mmol/L BUN 106 H* (9-20) mg/dL Creatinine 4.06 H (0.66-1.25) mg/dL Glucose 134 H (74-99) mg/dL POC Glucose (mg/dL) 144 H (70-110) mg/dL Calcium 7.7 L (8.4-10.2) mg/dL Alkaline Phosphatase 1129 H (38-126) U/L Total Protein 5.1 L (6.3-8.2) g/dL Albumin 2.3 L (3.5-5.0) g/dL Microbiology - Last 24 Hours (Table) 01/25/24 09:42 Blood Culture - Preliminary Blood 01/25/24 09:07 Blood Culture - Preliminary Blood 01/25/24 10:50 Gram Stain - Preliminary Foot - Right Wound Culture - Preliminary Pseudomonas aeruginosa
--- NOTE | 2024-01-29 15:28 | P.PN ---
Subjective Progress Note Date: 01/29/24 HISTORY OF PRESENT ILLNESS: 73-year-old morbidly obese with active medical history of atherosclerotic heart disease post myocardial infarction, severe peripheral arterial disease with infected right foot with osteomyelitis, type 2 diabetes, COPD, chronic history of neuropathy, chronic pain syndrome, hypertension, hyperlipidemia, chronic kidney disease with much worsening symptoms. Who has chronic anemia, recurrent encephalopathy with recurrent sepsis and infection who was hospitalized last and January 10 for altered mental status with confusion and worsening uremia and worsening right foot osteomyelitis slightly worsening BUN/creatinine at the time with 79 and 2.58 who ended up being in the hospital for 10 days his kidney function become slightly with worsening decline, continue to suffer from osteomyelitis of the right foot which will require eventually right above-knee amputation which vascular refused initially to schedule till at least is done with IV antibiotic being treated for urinary tract infection with sepsis for what seems like Klebsiella pneumonia. Patient ended up being stabilized he change his CODE STATUS at that point to DO NOT RESUSCITATE and long time talk with nephrology did not make any decision whether he wants to go for dialysis or not but he was not opposed to it at the time. He ended up going back to [facility] on IV antibiotics kept watching for any worsening symptoms. Over the last few days patient become severely more confused with much worsening condition his laboratory value continue to show severe uremia with BUN above 107 creatinine up to 4.0 with potassium level yesterday was as high as 6.6. Patient was giving 1 dose of Lokelma yesterday. Had helped some but through the night in the field kiln burner hours he become a lot worse with worsening confusion not waking up well has been having slight increase shortness of breath with delusion and slight hallucination and that being sent to the emergency department at [facility] where was seen and evaluated for the above condition at the time he has been up to 127 creatinine 4.0 with the 1 dose of Lokelma his potassium is down to 5.7. Patient continued to suffer from much worsening condition white blood cell up to 17.7 hemoglobin 8.2 decided to switch his antibiotics was giving apparently 1 dose of vancomycin and Zosyn consulted infectious disease admit patient to the hospital patient will need to see nephrology and probably will need to go on hemodialysis. 01/26/2024: Kidney function is much worse today with BUN up to 126 creatinine 4.2 GFR down to 13. Still waiting for nephrology for clearance for possible hemodialysis today. In the meanwhile will consult vascular and prepare for dialysis line. Patient also be seen in infectious disease with the current presentation this time despite being on IV cefepime patient hemoglobin is up to 17.7 culture still pending at this point change in plan with antibiotic changed to Zosyn and vanco mycin preliminary wound culture was positive for Pseudomonas which again will be waiting for infectious disease final. Patient was given some IV furosemide this shortness of breath slightly bit better still having significant dyspnea. 01/27/2024: Patient kidney function and anemia is much worse scheduled to see vascular for dialysis catheter and eventually will initiate hemodialysis today. His BUN is up to 131 today with creatinine 4.43 with GFR is 12. Culture from his foot came back this time positive for Pseudomonas aeruginosa the patient had seen infectious disease originally antibiotic was switched from cefepime to Zosyn and vancomycin infectious disease will switch him from Zosyn to Zerbaxa. Tunneled catheter placement for hemodialysis, Will address with infectious disease the possibility of having patient going for above-knee amputation of the right side while he is in the hospital this time. 01/28/2024:The patient had tunneled dialysis catheter in the left subclavian and ended up going for dialysis still not doing well currently despite is much worse. Continue to have significant infusion and altered mental status. With his comorbidities very high at this point I ended up speaking with the niece who is the guardian to notify her of his current condition and advised her to meet with the certified social workers in health care and the nurse and highly advised at this point to do pall iative care and probably hospice she promised to discuss this with her family and make this decision conjunction with our opinion. Meanwhile nephrology still planning to do hemodialysis today, he is not running fever or chills but blood pressure remained quite bit low which why we had to terminate dialysis with early. 01/29/2024: After meeting the family yesterday decision is leaning toward hospice by Wednesday the meanwhile we will continue current management patient had hemodialysis yesterday for short bit of time in the moving 1 and half liter, hemoglobin still slightly below at 7.6 with white blood cell 11.5. Last blood test was done in January 26. Hemodialysis might still take place with his family doing a initiate hospice on Wednesday. Meanwhile pain management with morphine s ulfate oral along with lorazepam for anxiety. REVIEW OF SYSTEMS: CONSTITUTIONAL: Morbidly obese in no acute respiratory distress. Slightly confused EYES: No icterus sclerae, no conjunctivitis. EARS, NOSE, MOUTH, THROAT, and FACE: No sore throat, lymphadenopathy, carotid bruits or deformity. RESPIRATORY: Mild shortness of breath mild cough no wheezes. CARDIOVASCULAR: Positive PND orthopnea palpitation. GASTROINTESTINAL: Abdominal discomfort with mild nausea with slight distention no vomiting. GENITOURINARY: Decreased urine output with incontinence slight change in urine color with worsening kidney failure. INTEGUMENT/BREAST: Negative for any muscular injury with mild osteoarthritis.. HEMATOLOGIC/LYMPHATIC: Worsening anemia MUSCULOSKELTAL: Myalgia arthralgia and significant discomfort with ulcer in the right foot. NEURLOGICAL: Slight confusion with worsening mental status compared to his baseline no focalized deficit. BEHAVIORAL/PSYCH: Negative. ENDOCRINE: Negative. PHYSICAL EXAMINATION: General Appearance: Alert, confused, no distress, appears stated age. Neck HEENT: Supple, no lymphadenopathy, no thyroid enlargement, no carotid bruits. Lungs: Decreased breath sound bilaterally with fine rhonchi no crackles or whe ezes. Chest Wall: Decreased expansion with deep inspiration no tenderness and no deformity was found on exam, no costochondral pain or discomfort. Heart: Regular rate and rhythm, S1, S2 positive S3 positive systolic murmur. Back: Symmetric, no curvature, ROM normal, no CVA tenderness. Abdomen: Soft, non-tender, bowel sounds active all four quadrants, no masses, no organomegaly. Extremities: Right foot still have significant irritation edema redness with warmness to touch with significant decreased circulation. When to 2+ edema Pulses: Decreased pulse bilaterally worse on the right than the left side Skin: Skin color, texture, tugor normal, no rashes or lesions. Neurologic: Alert confused cranial nerves II through XII intact, no motor deficit, positive generalized weakness. ASSESSMENT AND PLAN: _End-stage renal disease: Was started on hemodialysis after tunneled dialysis catheter was placed in left subclavian, patient still not doing well dialysis this point. _Altered mental status: This is related to his advanced chronic medical condition and end-stage kidney failure causing uremia causing his altered mental status. _Severe decline and very high mortality and multi comorbidity, long discussion with the family about possibility of palliative care and hospice they will think about it and get back with us in the next 24 hours. _Hyperkalemia: Potassium is much better especially since start dialysis. _Slight dyspnea and shortness of breath most likely from fluid overload and slight early pulmonary edema, continue IV diuretics to the patient hopefully will be waiting for hemodialysis. _Acute kidney injury with Chronic kidney disease: With much worsening kidney function at this point will admit patient consult nephrology continue current management. _Osteomyelitis of the right foot has been much worse with Pseudomonas aeruginosa, antibiotic will be changed to Zerbaxa. _Recent history of Klebsiella pneumonia urinary tract infection was treated with IV antibiotic for long enough. _Severe PAD consultation with vascular earlier in the month conclusion was to go for above-knee amputation which patient had declined at this point Sun continue to try his topical infection with antibiotic and wound care to see if it salvage the leg. _Peripheral neuropathy: Remain on gabapentin 1600 mg at nighttime. _Chronic pain syndrome: Continue hydrocodone orally. _Type 2 diabetes with hyperglycemia: Continue Accu-Chek with sliding scales coverage might benefit from adding long acting insulin at nighttime. _Hypothyroidism: Still on levothyroxine 112 mcg daily. _Hypertension: Blood pressure still slightly below but continue lisinopril 20 mg a day. _Hyperlipidemia: Was on simvastatin has been hold currently which will be resumed soon as patient able to tolerate medication. _Morbid obesity with BMI of 43.9: Which increases risk factor of complication. _Debility: Patient is wheelchair/bedbound not able to ambulate and walk. Discussion: Continue pain management and palliative care and prepare hopefully f or turning patient on hospice on Wednesday. Objective - Vital Signs Vital signs: Vital Signs Temp 97.4 F L 01/29/24 13:46 Pulse 75 01/29/24 13:46 Resp 15 01/29/24 13:46 BP 113/68 01/29/24 13:46 Pulse Ox 98 01/29/24 13:46 FiO2 Intake & Output 01/28/24 01/29/24 01/29/24 18:59 06:59 18:59 Intake Total 500 Output Total 3625 100 Balance -3125 -100 Intake: Hemodialysis 500 Output: Urine 125 100 Hemodialysis 2000 Hemodialysis Net Amount 1500 Other: Voiding Method Indwelling Catheter Indwelling Catheter Indwelling Catheter # Bowel Movements 1 - Labs CBC & Chem 7: 01/27/24 21:52 01/27/24 21:52 Labs: Abnormal Lab Results - Last 24 Hours (Table) 01/28/24 01/28/24 01/29/24 Range/Units 16:41 20:48 06:17 POC Glucose (mg/dL) 138 H 127 H 148 H (70-110) mg/dL 01/29/24 Range/Units 11:15 POC Glucose (mg/dL) 163 H (70-110) mg/dL Microbiology - Last 24 Hours (Table) 01/25/24 10:50 Gram Stain - Final Foot - Right Wound Culture - Final Pseudomonas aeruginosa Methicillin resist S. aureus 01/25/24 09:42 Blood Culture - Preliminary Blood 01/25/24 09:07 Blood Culture - Preliminary Blood
[2024-01-29 16:29] LABS: Glucose,Whole Blood 137 mg/dL (70-110)
[2024-01-29] MEDS ORDERED: LORazepam 2 MG/ML INJ IM PRN (18:44)
[2024-01-29 20:08] LABS: Glucose,Whole Blood 120 mg/dL (70-110)
[2024-01-30 06:26] LABS: Glucose,Whole Blood 128 mg/dL (70-110)
--- NOTE | 2024-01-30 10:39 | P.PN ---
Subjective Progress Note Date: 01/30/24 HISTORY OF PRESENT ILLNESS: 73-year-old morbidly obese with active medical history of atherosclerotic heart disease post myocardial infarction, severe peripheral arterial disease with infected right foot with osteomyelitis, type 2 diabetes, COPD, chronic history of neuropathy, chronic pain syndrome, hypertension, hyperlipidemia, chronic kidney disease with much worsening symptoms. Who has chronic anemia, recurrent encephalopathy with recurrent sepsis and infection who was hospitalized last and January 10 for altered mental status with confusion and worsening uremia and worsening right foot osteomyelitis slightly worsening BUN/creatinine at the time with 79 and 2.58 who ended up being in the hospital for 10 days his kidney function become slightly with worsening decline, continue to suffer from osteomyelitis of the right foot which will require eventually right above-knee amputation which vascular refused initially to schedule till at least is done with IV antibiotic being treated for urinary tract infection with sepsis for what seems like Klebsiella pneumonia. Patient ended up being stabilized he change his CODE STATUS at that point to DO NOT RESUSCITATE and long time talk with nephrology did not make any decision whether he wants to go for dialysis or not but he was not opposed to it at the time. He ended up going back to [facility] on IV antibiotics kept watching for any worsening symptoms. Over the last few days patient become severely more confused with much worsening condition his laboratory value continue to show severe uremia with BUN above 107 creatinine up to 4.0 with potassium level yesterday was as high as 6.6. Patient was giving 1 dose of Lokelma yesterday. 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 Patient continued to suffer from much worsening condition white blood cell up to 17.7 hemoglobin 8.2 decided to switch his antibiotics was giving apparently 1 dose of vancomycin and Zosyn consulted infectious disease admit patient to the hospital patient will need to see nephrology and probably will need to go on hemodialysis. 01/26/2024: Kidney function is much worse today with BUN up to 126 creatinine 4.2 GFR down to 13. Still waiting for nephrology for clearance for possible hemodialysis today. In the meanwhile will consult vascular and prepare for dialysis line. Patient also be seen in infectious disease with the current presentation this time despite being on IV cefepime patient hemoglobin is up to 17.7 culture still pending at this point change in plan with antibiotic changed to Zosyn and vanco mycin preliminary wound culture was positive for Pseudomonas which again will be waiting for infectious disease final. Patient was given some IV furosemide this shortness of breath slightly bit better still having significant dyspnea. 01/27/2024: Patient kidney function and anemia is much worse scheduled to see vascular for dialysis catheter and eventually will initiate hemodialysis today. His BUN is up to 131 today with creatinine 4.43 with GFR is 12. Culture from his foot came back this time positive for Pseudomonas aeruginosa the patient had seen infectious disease originally antibiotic was switched from cefepime to Zosyn and vancomycin infectious disease will switch him from Zosyn to Zerbaxa. Tunneled catheter placement for hemodialysis, Will address with infectious disease the possibility of having patient going for above-knee amputation of the right side while he is in the hospital this time. 01/28/2024:The patient had tunneled dialysis catheter in the left subclavian and ended up going for dialysis still not doing well currently despite is much worse. Continue to have significant infusion and altered mental status. With his comorbidities very high at this point I ended up speaking with the niece who is the guardian to notify her of his current condition and advised her to meet with the social services technician and the nurse and highly advised at this point to do pall iative care and probably hospice she promised to discuss this with her family and make this decision conjunction with our opinion. Meanwhile nephrology still planning to do hemodialysis today, he is not running fever or chills but blood pressure remained quite bit low which why we had to terminate dialysis with early. 01/29/2024: After meeting the family yesterday decision is leaning toward hospice by Wednesday the meanwhile we will continue current management patient had hemodialysis yesterday for short bit of time in the moving 1 and half liter, hemoglobin still slightly below at 7.6 with white blood cell 11.5. Last blood test was done in January 26. Hemodialysis might still take place with his family doing a initiate hospice on Wednesday. Meanwhile pain management with morphine s ulfate oral along with lorazepam for anxiety. 01/30/2024: The patient is doing slightly better he had limited dialysis again continue to be dyspneic, confused, vitals to some degree are stable he is mildly tachycardic with pulse ox 93% on 4 L blood sugar has been running in the low 100 more stable. Since starting pain management with Roxanol and anxiety with lorazepam patient has been little bit more relaxed. Family are meeting with hospice on Wednesday and prepare probably for signing him up for hospice with for patient to go back to [facility] to do hospice and end-of-life. REVIEW OF SYSTEMS: CONSTITUTIONAL: Morbidly obese in no acute respiratory distress. Slightly confused EYES: No icterus sclerae, no conjunctivitis. EARS, NOSE, MOUTH, THROAT, and FACE: No sore throat, lymphadenopathy, carotid bruits or deformity. RESPIRATORY: Mild shortness of breath mild cough no wheezes. CARDIOVASCULAR: Positive PND orthopnea palpitation. GASTROINTESTINAL: Abdominal discomfort with mild nausea with slight distention no vomiting. GENITOURINARY: Decreased urine output with incontinence slight change in urine color with worsening kidney failure. INTEGUMENT/BREAST: Negative for any muscular injury with mild osteoarthritis.. HEMATOLOGIC/LYMPHATIC: Worsening anemia MUSCULOSKELTAL: Myalgia arthralgia and significant discomfort with ulcer in the right foot. NEURLOGICAL: Slight confusion with worsening mental status compared to his baseline no focalized deficit. BEHAVIORAL/PSYCH: Negative. ENDOCRINE: Negative. PHYSICAL EXAMINATION: General Appearance: Alert, confused, no distress, appears stated age. Neck HEENT: Supple, no lymphadenopathy, no thyroid enlargement, no carotid bruits. Lungs: Decreased breath sound bilaterally with fine rhonchi no crackles or wheezes. Chest Wall: Decreased expansion with deep inspiration no tenderness and no deformity was found on exam, no costochondral pain or discomfort. Heart: Regular rate and rhythm, S1, S2 positive S3 positive systolic murmur. Back: Symmetric, no curvature, ROM normal, no CVA tenderness. Abdomen: Soft, non-tender, bowel sounds active all four quadrants, no masses, no organomegaly. Extremities: Right foot still have significant irritation edema redness with warmness to touch with significant decreased circulation. When to 2+ edema Pulses: Decreased pulse bilaterally worse on the right than the left side Skin: Skin color, texture, tugor normal, no rashes or lesions. Neurologic: Alert confused cranial nerves II through XII intact, no motor deficit, positive generalized weakness. ASSESSMENT AND PLAN: _End-stage renal disease: Despite starting him on dialysis via left subclavian access patient most likely is rudy stop dialysis on Wednesday. _Altered mental status: This is mostly secondary to the advance of end-stage renal disease, uremia, and the effect of osteomyelitis. _Severe decline and very high mortality and multi comorbidity, long discussion with the family about possibility of palliative care and hospice they will think about it and get back with us in the next 24 hours. _Hyperkalemia: Potassium is much better especially since start dialysis. _Slight dyspnea and shortness of breath most likely from fluid overload and slight early pulmonary edema, continue IV diuretics to the patient hopefully will be waiting for hemodialysis. _Acute kidney injury with Chronic kidney disease: With much worsening kidney function at this point will admit patient consult nephrology continue current management. _Osteomyelitis of the right foot has been much worse with Pseudomonas aeruginosa, antibiotic will be changed to Zerbaxa. _Recent history of Klebsiella pneumonia urinary tract infection was treated with IV antibiotic for long enough. _Severe PAD consultation with vascular earlier in the month conclusion was to go for above-knee amputation which patient had declined at this point Sun continue to try his topical infection with antibiotic and wound care to see if it salvage the leg. _Peripheral neuropathy: He is on a smaller dose of gabapentin probably will work out better at this point specially with his level of uremia because complication and side effects, gabapentin and end-stage renal failure with metabolic. _Chronic pain syndrome: Continue hydrocodone orally. _Type 2 diabetes with hyperglycemia: Continue Accu-Chek with sliding scales coverage might benefit from adding long acting insulin at nighttime. _Hypothyroidism: Still on levothyroxine 112 mcg daily. _Hypertension: Blood pressure still slightly below but continue lisinopril 20 mg a day. _Hyperlipidemia: Was on simvastatin has been hold currently which will be resumed soon as patient able to tolerate medication. _Morbid obesity with BMI of 43.9: Which increases risk factor of complication. _Debility: Patient is wheelchair/bedbound not able to ambulate and walk. Discussion: Pain management along with antianxiety, debate whether doing any more dialysis or not at this point the patient is still DO NOT RESUSCITATE will continue comfort care for Wednesday patient will be signing up for hospice and probably going back to [facility] on hospice. Objective - Vital Signs Vital signs: Vital Signs Temp 97.1 F L 01/30/24 00:29 Pulse 75 01/30/24 08:08 Resp 20 01/30/24 00:29 BP 118/60 01/30/24 00:29 Pulse Ox 97 01/30/24 07:58 FiO2 Intake & Output 01/29/24 01/30/24 01/30/24 18:59 06:59 18:59 Intake Total 500 Output Total 60 4600 Balance -60 -4100 Intake: Hemodialysis 500 Output: Urine 60 100 Hemodialysis 2500 Hemodialysis Net Amount 2000 Other: Voiding Method Indwelling Catheter Indwelling Catheter - Labs CBC & Chem 7: 01/27/24 21:52 01/27/24 21:52 Labs: Abnormal Lab Results - Last 24 Hours (Table) 01/29/24 01/29/24 01/29/24 Range/Units 11:15 16:27 20:06 POC Glucose (mg/dL) 163 H 137 H 120 H (70-110) mg/dL 01/30/24 Range/Units 06:24 POC Glucose (mg/dL) 128 H (70-110) mg/dL Microbiology - Last 24 Hours (Table) 01/25/24 10:50 Gram Stain - Final Foot - Right Wound Culture - Final Pseudomonas aeruginosa Methicillin resist S. aureus
--- NOTE | 2024-01-30 11:29 | P.PN ---
Subjective patient is seen for follow-up for acute kidney injury. Patient was started on hemodialysis on 01/27/2024 due to worsening renal function, volume overload and concern for uremia. status post hemodialysis yesterday with UF of 2.0 L 160 mL of urine charted for 24 hours. Mentation appears to have improved today. There are plans for possible hospice care tomorrow. Objective - Vital Signs Vital signs: Vital Signs Temp 96.1 F L 01/30/24 07:53 Pulse 78 01/30/24 11:24 Resp 19 01/30/24 07:53 BP 119/79 01/30/24 07:53 Pulse Ox 97 01/30/24 07:58 FiO2 Intake & Output 01/29/24 01/30/24 01/30/24 18:59 06:59 18:59 Intake Total 500 Output Total 60 4600 Balance -60 -4100 Intake: Hemodialysis 500 Output: Urine 60 100 Hemodialysis 2500 Hemodialysis Net Amount 2000 Other: Voiding Method Indwelling Catheter Indwelling Catheter Indwelling Catheter - Exam Patient is sleeping but arousable, lethargic, comfortable, no acute distress. Examination of the heart S1 and S2 Examination of the lungs decreased breath sounds at the bases Abdomen is soft obese nontender Examination of lower extremity shows edema 2+ bilateral with chronic skin changes. Right foot is dressed - Labs CBC & Chem 7: 01/27/24 21:52 01/27/24 21:52 Labs: Abnormal Lab Results - Last 24 Hours (Table) 01/29/24 01/29/24 01/30/24 Range/Units 16:27 20:06 06:24 POC Glucose (mg/dL) 137 H 120 H 128 H (70-110) mg/dL Microbiology - Last 24 Hours (Table) 01/25/24 10:50 Gram Stain - Final Foot - Right Wound Culture - Final Pseudomonas aeruginosa Methicillin resist S. aureus Assessment and Plan Assessment: 1. Acute kidney injury, most likely ATN. Rule out underlying GN. Serum creatinine had improved to 1.1 on 12/29/2023 after an episode of acute kidney injury. Serum creatinine has progressively worsened since 01/11/2024 from 2.5 to 4.4 . UA shows proteinuria 2+ however current UA suggestive of UTI. Serological workup shows positive RHETT and low C3. Gray catheter placed for urine retention. Ultrasound on 01/11/2024 did not show any evidence of hydronephrosis. Started hemodialysis on 01/27/2024 for worsening renal function and concern for uremia 2. Hyperkalemia associated with acute kidney injury 3. Anion gap metabolic acidosis secondary to acute kidney injury 4. Chronic right foot wound/osteomyelitis with consideration for amputation down the road 5. Anemia with no evidence of iron deficiency on 01/17/2024. Most likely anemia of chronic disease 6. Morbid obesity 7. Pyuria with budding yeast noted on UA 8. Mental status changes most likely related to uremia, improving with dialysis. Plan: Repeat hemodialysis in a.m. Continue with Gray catheter Continue antibiotics Patient will need kidney biopsy down the road if there are no plans for hospice. Overall prognosis is guarded.
[2024-01-30 11:33] LABS: Glucose,Whole Blood 134 mg/dL (70-110)
[2024-01-30 11:46] LABS: African American GFR (CKD) 26 (>60 ml/min/1.73 sqM); Anion Gap 9 mmol/L; Blood Urea Nitrogen 44 mg/dL (9-20); Calcium 7.7 mg/dL (8.4-10.2); Carbon Dioxide 26 mmol/L (22-30); Chloride 101 mmol/L (98-107); Glucose 131 mg/dL (74-99); Non-African American GFR(CKD) 22 (>60 ml/min/1.73 sqM); Potassium 4.1 mmol/L (3.5-5.1); Sodium 136 mmol/L (137-145)
[2024-01-30 17:09] LABS: Glucose,Whole Blood 146 mg/dL (70-110)
[2024-01-30 20:23] LABS: Glucose,Whole Blood 171 mg/dL (70-110)
[2024-01-31 06:19] LABS: Glucose,Whole Blood 163 mg/dL (70-110)
--- NOTE | 2024-01-31 08:28 | P.PN ---
Subjective Progress Note Date: 01/30/24 Principal diagnosis: Reason for follow-up is right diabetic foot ulcer cellulitis and osteomyelitis Patient is a 73-year-old male with a past medical history significant for diabetes mellitus hypertension hyperlipidemia ME COPD hypothyroidism and this patient who has been dealing with a wound on the plantar aspect of the right foot that has been previously debrided by Dr. Gray and the patient has been on IV Rocephin for osteomyelitis patient have not been brought back to the hospital concerning for mental status changes and elevated production patient was did have evidence of acute renal failure. On today's evaluation that is 01/30/2024,the patient is afebrile patient slightly more awake and alert today I did answer some simple question he is currently on a 4 L current oxygen no vomiting diarrhea or any other changes reported by the daughter at the bedside. Patient did have a creatinine 0.75 potassium is 4.1 Objective - Vital Signs Vital signs: Vital Signs Temp 96.4 F L 01/30/24 13:23 Pulse 75 01/30/24 15:43 Resp 18 01/30/24 13:23 BP 118/69 01/30/24 13:23 Pulse Ox 96 01/30/24 13:23 FiO2 Intake & Output 01/29/24 01/30/24 01/30/24 18:59 06:59 18:59 Intake Total 500 Output Total 60 4600 Balance -60 -4100 Intake: Hemodialysis 500 Output: Urine 60 100 Hemodialysis 2500 Hemodialysis Net Amount 2000 Other: Voiding Method Indwelling Catheter Indwelling Catheter Indwelling Catheter - Exam GENERAL DESCRIPTION: An elderly male lying in bed in no distress RESPIRATORY SYSTEM: Unlabored breathing , decreased breath sounds at bases HEART: S1 S2 regular rate and rhythm , ABDOMEN: Soft , no tenderness EXTREMITIES: Right foot wound is currently dressed no drainage - Labs CBC & Chem 7: 01/27/24 21:52 01/30/24 10:50 Labs: Abnormal Lab Results - Last 24 Hours (Table) 01/29/24 01/30/24 01/30/24 Range/Units 20: 06: 10:50 Sodium 136 L (137-145) mmol/L BUN 44 H (9-20) mg/dL Creatinine 2.75 H (0.66-1.25) mg/dL Glucose 131 H (74-99) mg/dL POC Glucose (mg/dL) 120 H 128 H (70-110) mg/dL Calcium 7.7 L (8.4-10.2) mg/dL 01/30/24 01/30/24 Range/Units 11:31 17:07 Sodium (137-145) mmol/L BUN (9-20) mg/dL Creatinine (0.66-1.25) mg/dL Glucose (74-99) mg/dL POC Glucose (mg/dL) 134 H 146 H (70-110) mg/dL Calcium (8.4-10.2) mg/dL Microbiology - Last 24 Hours (Table) 01/25/24 09:42 Blood Culture - Final Blood 01/25/24 09:07 Blood Culture - Final Blood Assessment and Plan (1) Foot osteomyelitis, right Current Visit: Yes Status: Acute Code(s): M86.9 - OSTEOMYELITIS, UNSPECIFIED SNOMED Code(s): 2725906779842347 (2) Diabetic foot ulcer Current Visit: No Status: Acute Code(s): E11.621 - TYPE 2 DIABETES MELLITUS WITH FOOT ULCER; L97.509 - NON-PRESSURE CHRONIC ULCER OTH PRT UNSP FOOT W UNSP SEVERITY SNOMED Code(s): 741203769 (3) Type 2 diabetes mellitus with foot ulcer Current Visit: No Status: Acute Code(s): E11.621 - TYPE 2 DIABETES MELLITUS WITH FOOT ULCER; L97.509 - NON-PRESSURE CHRONIC ULCER OTH PRT UNSP FOOT W UNSP SEVERITY SNOMED Code(s): 2569931002087 Plan: 1patient presented to hospital with mental status change which is likely multifactorial could be related to renal failure as the patient have significant elevated BUN and creatinine, apparently did have elevated potassium in the outpatient setting, patient also dealing with the chronic nonhealing wound on the plantar aspect of the right foot that has been previously debrided by vascular surgery wound base did have slough tissue and minimal surrounding redness x-rays were negative for any bony changes 2-local wound care with the Santyl followed by moist dressing to continue 3-patient repeat culture from the right foot is now growing Pseudomonas drug- resistant and also present to MRSA 4patient to continue treatment with Zerbaxa and daptomycin, possible plan for hospice which may be appropriate Dictation was produced using [employer] software. please excuse any grammatical, word or spelling errors. Time with Patient: Less than 30
--- NOTE | 2024-01-31 10:13 | P.PN ---
Subjective Patient is seen in follow-up for acute kidney injury, hemodialysis dependent. Patient is a poor historian. Quite lethargic. Vital signs are stable. General: No acute distress. Lethargic. HEENT: Head exam is unremarkable. LUNGS: No audible rhonchi or wheezes. HEART: Rate and Rhythm are regular. ABDOMEN: Obese, no distention. EXTREMITITES: 1+ edema. No drainage. Objective - Vital Signs Vital signs: Vital Signs Temp 97.5 F L 01/31/24 07:40 Pulse 84 01/31/24 09:12 Resp 17 01/31/24 07:40 BP 96/61 01/31/24 07:40 Pulse Ox 96 01/31/24 07:40 FiO2 Intake & Output 01/30/24 01/31/24 01/31/24 18:59 06:59 18:59 Output Total 110 50 Balance -110 -50 Output: Urine 110 50 Other: Voiding Method Indwelling Catheter Indwelling Catheter - Labs CBC & Chem 7: 01/27/24 21:52 01/30/24 10:50 Labs: Abnormal Lab Results - Last 24 Hours (Table) 01/30/24 01/30/24 01/30/24 Range/Units 10:50 11:31 17:07 Sodium 136 L (137-145) mmol/L BUN 44 H (9-20) mg/dL Creatinine 2.75 H (0.66-1.25) mg/dL Glucose 131 H (74-99) mg/dL POC Glucose (mg/dL) 134 H 146 H (70-110) mg/dL Calcium 7.7 L (8.4-10.2) mg/dL 01/30/24 01/31/24 Range/Units 20:21 06:17 Sodium (137-145) mmol/L BUN (9-20) mg/dL Creatinine (0.66-1.25) mg/dL Glucose (74-99) mg/dL POC Glucose (mg/dL) 171 H 163 H (70-110) mg/dL Calcium (8.4-10.2) mg/dL Microbiology - Last 24 Hours (Table) 01/25/24 09:42 Blood Culture - Final Blood 01/25/24 09:07 Blood Culture - Final Blood Assessment and Plan Plan: Assessment: 1. Acute kidney injury secondary to ATN secondary to severe sepsis. Also concern for underlying GN. Creatinine as low as 1.1 dated December 29, 2023 and up to 4.4 dated January 27, 2024. Started on hemodialysis January 27, 2024. Has permacath. Serologies show low C3, positive RHETT and intermediate double- stranded DNA antibody. Will need kidney biopsy once medically more stable and if family decides not to proceed with hospice. 2. Hyperkalemia secondary to acute kidney injury. Improved postdialysis. 3. Metabolic acidosis secondary to acute kidney injury. Improved postdialysis. 4. Right foot wound/osteomyelitis on IV antibiotics. 5. Anemia associated with chronic illness. On Aranesp. 6. Morbid obesity. 7. Benign hypertension. 8. Hyperphosphatemia secondary to acute kidney injury maintained on Renvela. Phosphorus level 6.8 dated January 26, 2024. Plan: Hemodialysis today. Maintain IV Lasix. Await family decision regarding hospice.
[2024-01-31 11:40] LABS: Glucose,Whole Blood 166 mg/dL (70-110)
[2024-01-31] MEDS: LORATADINE 10 MG TAB PO PRN (16:28)
[2024-01-31 17:11] LABS: Glucose,Whole Blood 153 mg/dL (70-110)
[2024-01-31] MEDS: MIDODRINE 5 MG TAB PO ONE ×2 (19:49→21:45)
[2024-01-31 20:23] LABS: Glucose,Whole Blood 159 mg/dL (70-110)
[2024-02-01 05:27] LABS: African American GFR (CKD) 29 (>60 ml/min/1.73 sqM); Anion Gap 3 mmol/L; Blood Urea Nitrogen 31 mg/dL (9-20); Calcium 7.5 mg/dL (8.4-10.2); Carbon Dioxide 28 mmol/L (22-30); Chloride 103 mmol/L (98-107); Glucose 139 mg/dL (74-99); Magnesium 1.8 mg/dL (1.6-2.3); Non-African American GFR(CKD) 25 (>60 ml/min/1.73 sqM); Phosphorus 3.5 mg/dL (2.5-4.5); Sodium 134 mmol/L (137-145)
[2024-02-01 05:43] LABS: Glucose,Whole Blood 146 mg/dL (70-110)
--- NOTE | 2024-02-01 06:20 | P.PN ---
Subjective Progress Note Date: 01/31/24 HISTORY OF PRESENT ILLNESS: 73-year-old morbidly obese with active medical history of atherosclerotic heart disease post myocardial infarction, severe peripheral arterial disease with infected right foot with osteomyelitis, type 2 diabetes, COPD, chronic history of neuropathy, chronic pain syndrome, hypertension, hyperlipidemia, chronic kidney disease with much worsening symptoms. Who has chronic anemia, recurrent encephalopathy with recurrent sepsis and infection who was hospitalized last and January 10 for altered mental status with confusion and worsening uremia and worsening right foot osteomyelitis slightly worsening BUN/creatinine at the time with 79 and 2.58 who ended up being in the hospital for 10 days his kidney function become slightly with worsening decline, continue to suffer from osteomyelitis of the right foot which will require eventually right above-knee amputation which vascular refused initially to schedule till at least is done with IV antibiotic being treated for urinary tract infection with sepsis for what seems like Klebsiella pneumonia. Patient ended up being stabilized he change his CODE STATUS at that point to DO NOT RESUSCITATE and long time talk with nephrology did not make any decision whether he wants to go for dialysis or not but he was not opposed to it at the time. He ended up going back to [facility] on IV antibiotics kept watching for any worsening symptoms. Over the last few days patient become severely more confused with much worsening condition his laboratory value continue to show severe uremia with BUN above 107 creatinine up to 4.0 with potassium level yesterday was as high as 6.6. Patient was giving 1 dose of Lokelma yesterday. Had helped some but through the night in the agent based modeler hours he become a lot worse with worsening confusion not waking up well has been having slight increase shortness of breath with delusion and slight hallucination and that being sent to the emergency department at [facility] where was seen and evaluated for the above condition at the time he has been up to 127 creatinine 4.0 with the 1 dose of Lokelma his potassium is down to 5.7. Patient continued to suffer from much worsening condition white blood cell up to 17.7 hemoglobin 8.2 decided to switch his antibiotics was giving apparently 1 dose of vancomycin and Zosyn consulted infectious disease admit patient to the hospital patient will need to see nephrology and probably will need to go on hemodialysis. 01/26/2024: Kidney function is much worse today with BUN up to 126 creatinine 4.2 GFR down to 13. Still waiting for nephrology for clearance for possible hemodialysis today. In the meanwhile will consult vascular and prepare for dialysis line. Patient also be seen in infectious disease with the current presentation this time despite being on IV cefepime patient hemoglobin is up to 17.7 culture still pending at this point change in plan with antibiotic changed to Zosyn and vanco mycin preliminary wound culture was positive for Pseudomonas which again will be waiting for infectious disease final. Patient was given some IV furosemide this shortness of breath slightly bit better still having significant dyspnea. 01/27/2024: Patient kidney function and anemia is much worse scheduled to see vascular for dialysis catheter and eventually will initiate hemodialysis today. His BUN is up to 131 today with creatinine 4.43 with GFR is 12. Culture from his foot came back this time positive for Pseudomonas aeruginosa the patient had seen infectious disease originally antibiotic was switched from cefepime to Zosyn and vancomycin infectious disease will switch him from Zosyn to Zerbaxa. Tunneled catheter placement for hemodialysis, Will address with infectious disease the possibility of having patient going for above-knee amputation of the right side while he is in the hospital this time. 01/28/2024:The patient had tunneled dialysis catheter in the left subclavian and ended up going for dialysis still not doing well currently despite is much worse. Continue to have significant infusion and altered mental status. With his comorbidities very high at this point I ended up speaking with the niece who is the guardian to notify her of his current condition and advised her to meet with the psychiatric social worker supervisor and the nurse and highly advised at this point to do pall iative care and probably hospice she promised to discuss this with her family and make this decision conjunction with our opinion. Meanwhile nephrology still planning to do hemodialysis today, he is not running fever or chills but blood pressure remained quite bit low which why we had to terminate dialysis with early. 01/29/2024: After meeting the family yesterday decision is leaning toward hospice by Wednesday the meanwhile we will continue current management patient had hemodialysis yesterday for short bit of time in the moving 1 and half liter, hemoglobin still slightly below at 7.6 with white blood cell 11.5. Last blood test was done in January 26. Hemodialysis might still take place with his family doing a initiate hospice on Wednesday. Meanwhile pain management with morphine s ulfate oral along with lorazepam for anxiety. 01/30/2024: The patient is doing slightly better he had limited dialysis again continue to be dyspneic, confused, vitals to some degree are stable he is mildly tachycardic with pulse ox 93% on 4 L blood sugar has been running in the low 100 more stable. Since starting pain management with Roxanol and anxiety with lorazepam patient has been little bit more relaxed. Family are meeting with hospice on Wednesday and prepare probably for signing him up for hospice with for patient to go back to [facility] to do hospice and end-of-life. 01/31/2024: Nephrology are planning to do hemodialysis today and if family finalize their management to help patient going back to [facility] on hospice will have vascular pull the dialysis catheter before leaving the hospital. Patient mental status remained with quite bit confusion continue to have slight pruritus and itching his original testing for kidney failure especially with serology po sitive RHETT and low complement will require probably kidney biopsy which again patient is DO NOT RESUSCITATE and no code no further management will be done for the kidney failure and he is on acute advance kidney failure will require dialysis to keep him alive which patient was not doing well with it in the first place specially with the osteomyelitis and the potential of losing his leg. Again all discussion of plan with the family early to terminate dialysis and have patient go back to [facility] on hospice. REVIEW OF SYSTEMS: CONSTITUTIONAL: Morbidly obese in no acute respiratory distress. Slightly confused EYES: No icterus sclerae, no conjunctivitis. EARS, NOSE, MOUTH, THROAT, and FACE: No sore throat, lymphadenopathy, carotid bruits or deformity. RESPIRATORY: Mild shortness of breath mild cough no wheezes. CARDIOVASCULAR: Positive PND orthopnea palpitation. GASTROINTESTINAL: Abdominal discomfort with mild nausea with slight distention no vomiting. GENITOURINARY: Decreased urine output with incontinence slight change in urine color with worsening kidney failure. INTEGUMENT/BREAST: Negative for any muscular injury with mild osteoarthritis.. HEMATOLOGIC/LYMPHATIC: Worsening anemia MUSCULOSKELTAL: Myalgia arthralgia and significant discomfort with ulcer in the right foot. NEURLOGICAL: Slight confusion with worsening mental status compared to his baseline no focalized deficit. BEHAVIORAL/PSYCH: Negative. ENDOCRINE: Negative. PHYSICAL EXAMINATION: General Appearance: Alert, confused, no distress, appears stated age. Neck HEENT: Supple, no lymphadenopathy, no thyroid enlargement, no carotid bruits. Lungs: Decreased breath sound bilaterally with fine rhonchi no crackles or wheezes. Chest Wall: Decreased expansion with deep inspiration no tenderness and no deformity was found on exam, no costochondral pain or discomfort. Heart: Regular rate and rhythm, S1, S2 positive S3 positive systolic murmur. Back: Symmetric, no curvature, ROM normal, no CVA tenderness. Abdomen: Soft, non-tender, bowel sounds active all four quadrants, no masses, no organomegaly. Extremities: Right foot still have significant irritation edema redness with warmness to touch with significant decreased circulation. When to 2+ edema Pulses: Decreased pulse bilaterally worse on the right than the left side Skin: Skin color, texture, tugor normal, no rashes or lesions. Neurologic: Alert confused cranial nerves II through XII intact, no motor deficit, positive generalized weakness. ASSESSMENT AND PLAN: _End-stage renal disease: Will be doing more more dialysis today and possibly pulled the dialysis catheter afterward. _Altered mental status secondary to renal failure along with osteomyelitis much worse basically not improving despite dialysis and despite IV antibiotics patient had much worsening encephalopathy continue again the trend toward end-of-life at this point. _Severe decline and very high mortality and multi comorbidity, family are agreeable for hospice care most likely is in happen at [facility]. _Hyperkalemia: Potassium is much better especially since start dialysis. _Slight dyspnea and shortness of breath most likely from fluid overload continue supportive care dialysis had helped some will continue oxygen as well. _Acute kidney injury with Chronic kidney disease: With much worsening kidney function at this point will admit patient consult nephrology continue current management. _Osteomyelitis of the right foot has been much worse with Pseudomonas aeruginosa, antibiotic will be changed to Zerbaxa. _Recent history of Klebsiella pneumonia urinary tract infection was treated with IV antibiotic for long enough. _Severe PAD consultation with vascular earlier in the month conclusion was to go for above-knee amputation which patient had declined at this point [place] to try his topical infection with antibiotic and wound care to see if it salvage the leg. _Peripheral neuropathy: He is on a smaller dose of gabapentin probably will work out better at this point specially with his level of uremia because complication and side effects, gabapentin and end-stage renal failure with metabolic. _Chronic pain syndrome: Continue hydrocodone orally. _Type 2 diabetes with hyperglycemia: Continue Accu-Chek with sliding scales coverage might benefit from adding long acting insulin at nighttime. _Hypothyroidism: Still on levothyroxine 112 mcg daily. _Hypertension: Blood pressure still slightly below but continue lisinopril 20 mg a day. _Hyperlipidemia: Was on simvastatin has been hold currently which will be resumed soon as patient able to tolerate medication. _Morbid obesity with BMI of 43.9: Which increases risk factor of complication. _Debility: Patient is wheelchair/bedbound not able to ambulate and walk. Discussion: Continue pain management, continue to treat anxiety and any reaction or interaction and counseling for family as well hopefully patient is going back to [facility] today on hospice care and end-of-life. Objective - Vital Signs Vital signs: Vital Signs Temp 96.7 F L 01/31/24 01:16 Pulse 75 01/31/24 01:16 Resp 18 01/31/24 01:16 BP 109/53 01/31/24 01:16 Pulse Ox 99 01/31/24 01:16 FiO2 Intake & Output 01/30/24 01/30/24 01/31/24 06:59 18:59 06:59 Intake Total 500 Output Total 4600 110 50 Balance -4100 -110 -50 Intake: Hemodialysis 500 Output: Urine 100 110 50 Hemodialysis 2500 Hemodialysis Net Amount 2000 Other: Voiding Method Indwelling Catheter Indwelling Catheter Indwelling Catheter - Labs CBC & Chem 7: 01/27/24 21:52 01/30/24 10:50 Labs: Abnormal Lab Results - Last 24 Hours (Table) 01/30/24 01/30/24 01/30/24 Range/Units 06:24 10:50 11:31 Sodium 136 L (137-145) mmol/L BUN 44 H (9-20) mg/dL Creatinine 2.75 H (0.66-1.25) mg/dL Glucose 131 H (74-99) mg/dL POC Glucose (mg/dL) 128 H 134 H (70-110) mg/dL Calcium 7.7 L (8.4-10.2) mg/dL 01/30/24 01/30/24 Range/Units 17:07 20:21 Sodium (137-145) mmol/L BUN (9-20) mg/dL Creatinine (0.66-1.25) mg/dL Glucose (74-99) mg/dL POC Glucose (mg/dL) 146 H 171 H (70-110) mg/dL Calcium (8.4-10.2) mg/dL Microbiology - Last 24 Hours (Table) 01/25/24 09:42 Blood Culture - Final Blood 01/25/24 09:07 Blood Culture - Final Blood
--- NOTE | 2024-02-01 08:47 | P.PN ---
Subjective Progress Note Date: 01/31/24 Principal diagnosis: Reason for follow-up is right diabetic foot ulcer cellulitis and osteomyelitis Patient is a 73-year-old male with a past medical history significant for diabetes mellitus hypertension hyperlipidemia [place] COPD hypothyroidism and this patient who has been dealing with a wound on the plantar aspect of the right foot that has been previously debrided by Dr. Gray and the patient has been on IV Rocephin for osteomyelitis patient have not been brought back to the hospital concerning for mental status changes and elevated production patient was did have evidence of acute renal failure. On today's evaluation that is 01/31/2024,the patient remains to be afebrile, patient is on 4 L nasal cannula supplemental oxygen patient is slightly lethargic today not have adequate historian no vomiting or diarrhea has been reported by the nursing staff. Patient did have a creatinine 2.75 Objective - Vital Signs Vital signs: Vital Signs Temp 97.5 F L 01/31/24 07:40 Pulse 84 01/31/24 09:12 Resp 17 01/31/24 07:40 BP 96/61 01/31/24 07:40 Pulse Ox 96 01/31/24 07:40 FiO2 Intake & Output 01/30/24 01/31/24 01/31/24 18:59 06:59 18:59 Output Total 110 50 Balance -110 -50 Output: Urine 110 50 Other: Voiding Method Indwelling Catheter Indwelling Catheter - Exam GENERAL DESCRIPTION: An elderly male lying in bed in no distress RESPIRATORY SYSTEM: Unlabored breathing , decreased breath sounds at bases HEART: S1 S2 regular rate and rhythm , ABDOMEN: Soft , no tenderness EXTREMITIES: Right foot wound is currently dressed no drainage - Labs CBC & Chem 7: 01/27/24 21:52 02/01/24 03:24 Labs: Abnormal Lab Results - Last 24 Hours (Table) 01/30/24 01/30/24 01/30/24 Range/Units 10:50 11:31 17:07 Sodium 136 L (137-145) mmol/L BUN 44 H (9-20) mg/dL Creatinine 2.75 H (0.66-1.25) mg/dL Glucose 131 H (74-99) mg/dL POC Glucose (mg/dL) 134 H 146 H (70-110) mg/dL Calcium 7.7 L (8.4-10.2) mg/dL 01/30/24 01/31/24 Range/Units 20:21 06:17 Sodium (137-145) mmol/L BUN (9-20) mg/dL Creatinine (0.66-1.25) mg/dL Glucose (74-99) mg/dL POC Glucose (mg/dL) 171 H 163 H (70-110) mg/dL Calcium (8.4-10.2) mg/dL Microbiology - Last 24 Hours (Table) 01/25/24 09:42 Blood Culture - Final Blood 01/25/24 09:07 Blood Culture - Final Blood Assessment and Plan (1) Foot osteomyelitis, right Current Visit: Yes Status: Acute Code(s): M86.9 - OSTEOMYELITIS, UNSPECIFIED SNOMED Code(s): 7277653420807681 (2) Diabetic foot ulcer Current Visit: No Status: Acute Code(s): E11.621 - TYPE 2 DIABETES MELLITUS WITH FOOT ULCER; L97.509 - NON-PRESSURE CHRONIC ULCER OTH PRT UNSP FOOT W UNSP SEVERITY SNOMED Code(s): 730104085 (3) Type 2 diabetes mellitus with foot ulcer Current Visit: No Status: Acute Code(s): E11.621 - TYPE 2 DIABETES MELLITUS WITH FOOT ULCER; L97.509 - NON-PRESSURE CHRONIC ULCER OTH PRT UNSP FOOT W UNSP SEVERITY SNOMED Code(s): 4073536602187 Plan: 1patient presented to hospital with mental status change which is likely multifactorial could be related to renal failure as the patient have significant elevated BUN and creatinine, apparently did have elevated potassium in the outpatient setting, patient also dealing with the chronic nonhealing wound on the plantar aspect of the right foot that has been previously debrided by vascular surgery wound base did have slough tissue and minimal surrounding redness x-rays were negative for any bony changes 2-local wound care with the Santyl followed by moist dressing to continue 3-patient repeat culture from the right foot is now growing Pseudomonas drug- resistant and also present to MRSA 4patient seem to have issues with the IV access awaiting further decision regarding hospice versus care may need IV access for the patient to get Zerbaxa and daptomycin, prognosis remains to be guarded Dictation was produced using [employer] dictation software. please excuse any grammatical, word or spelling errors. Time with Patient: Less than 30
--- NOTE | 2024-02-01 09:14 | P.PN ---
Subjective Patient is seen in follow-up for acute kidney injury, hemodialysis dependent. Patient is a poor historian. Quite lethargic. Underwent hemodialysis yesterday. Vital signs are stable. General: No acute distress. Lethargic. HEENT: Head exam is unremarkable. LUNGS: No audible rhonchi or wheezes. HEART: Rate and Rhythm are regular. ABDOMEN: Obese, no distention. EXTREMITITES: 1+ edema. No drainage. Objective - Vital Signs Vital signs: Vital Signs Temp 97.8 F 02/01/24 07:20 Pulse 76 02/01/24 07:20 Resp 18 02/01/24 07:20 BP 149/64 02/01/24 07:20 Pulse Ox 96 02/01/24 07:20 FiO2 Intake & Output 01/31/24 02/01/24 02/01/24 18:59 06:59 18:59 Intake Total 120 500 Output Total 2500 Balance 120 -2000 Intake: Oral 120 Hemodialysis 500 Output: Hemodialysis 1500 Hemodialysis Net Amount 1000 Other: Voiding Method Indwelling Catheter Indwelling Catheter - Labs CBC & Chem 7: 01/27/24 21:52 02/01/24 03:24 Labs: Abnormal Lab Results - Last 24 Hours (Table) 01/31/24 01/31/24 01/31/24 Range/Units 11:39 17:09 20:18 Sodium (137-145) mmol/L BUN (9-20) mg/dL Creatinine (0.66-1.25) mg/dL Glucose (74-99) mg/dL POC Glucose (mg/dL) 166 H 153 H 159 H (70-110) mg/dL Calcium (8.4-10.2) mg/dL 02/01/24 02/01/24 Range/Units 03:24 05:40 Sodium 134 L (137-145) mmol/L BUN 31 H (9-20) mg/dL Creatinine 2.51 H (0.66-1.25) mg/dL Glucose 139 H (74-99) mg/dL POC Glucose (mg/dL) 146 H (70-110) mg/dL Calcium 7.5 L (8.4-10.2) mg/dL Assessment and Plan Plan: Assessment: 1. Acute kidney injury secondary to ATN secondary to severe sepsis. Also concern for underlying GN. Creatinine as low as 1.1 dated December 29, 2023 and up to 4.4 dated January 27, 2024. Started on hemodialysis January 27, 2024. Has permacath. Serologies show low C3, positive RHETT and intermediate double- stranded DNA antibody. Will need kidney biopsy once medically more stable and if family decides not to proceed with hospice. 2. Hyperkalemia secondary to acute kidney injury. Improved postdialysis. 3. Metabolic acidosis secondary to acute kidney injury. Improved postdialysis. 4. Right foot wound/osteomyelitis on IV antibiotics. 5. Anemia associated with chronic illness. On Aranesp. 6. Morbid obesity. 7. Benign hypertension. Stable. 8. Hyperphosphatemia secondary to acute kidney injury maintained on Renvela. Phosphorus level 6.8 dated January 26, 2024. Plan: Stop IV Lasix. Add torsemide 40 mg once daily. Patient refusing further renal replacement therapy and has decided to proceed with hospice. DC permacath prior to discharge.
[2024-02-01] MEDS: TORSEMIDE 20 MG TAB PO SCH (10:14)
[2024-02-01 12:28] LABS: Glucose,Whole Blood 185 mg/dL (70-110)
--- NOTE | 2024-02-01 13:45 | P.PN ---
Subjective Progress Note Date: 02/01/24 Principal diagnosis: Reason for follow-up is right diabetic foot ulcer cellulitis and osteomyelitis Patient is a 73-year-old male with a past medical history significant for diabetes mellitus hypertension hyperlipidemia [place] COPD hypothyroidism and this patient who has been dealing with a wound on the plantar aspect of the right foot that has been previously debrided by Dr. Gray and the patient has been on IV Rocephin for osteomyelitis patient have not been brought back to the hospital concerning for mental status changes and elevated production patient was did have evidence of acute renal failure. On today's evaluation that is 02/01/2024, the patient continues to be afebrile, the patient is on 4 L nasal oxygen r and breathing comfortably, the Pt remains to be sleepy lethargic not program medical director no vomiting diarrhea has been reported by the nursing staff. Patient did have a creatinine 2.51 Objective - Vital Signs Vital signs: Vital Signs Temp 97.8 F 02/01/24 07:20 Pulse 85 02/01/24 11:57 Resp 18 02/01/24 07:20 BP 149/64 02/01/24 07:20 Pulse Ox 96 02/01/24 07:20 FiO2 Intake & Output 01/31/24 02/01/24 02/01/24 18:59 06:59 18:59 Intake Total 120 500 Output Total 2500 Balance 120 -2000 Intake: Oral 120 Hemodialysis 500 Output: Hemodialysis 1500 Hemodialysis Net Amount 1000 Other: Voiding Method Indwelling Catheter Indwelling Catheter - Exam GENERAL DESCRIPTION: An elderly male lying in bed in no distress RESPIRATORY SYSTEM: Unlabored breathing , decreased breath sounds at bases HEART: S1 S2 regular rate and rhythm , ABDOMEN: Soft , no tenderness EXTREMITIES: Right foot wound is currently dressed no drainage - Labs CBC & Chem 7: 01/27/24 21:52 02/01/24 03:24 Labs: Abnormal Lab Results - Last 24 Hours (Table) 01/31/24 01/31/24 02/01/24 Range/Units 17:09 20:18 03:24 Sodium 134 L (137-145) mmol/L BUN 31 H (9-20) mg/dL Creatinine 2.51 H (0.66-1.25) mg/dL Glucose 139 H (74-99) mg/dL POC Glucose (mg/dL) 153 H 159 H (70-110) mg/dL Calcium 7.5 L (8.4-10.2) mg/dL 02/01/24 02/01/24 Range/Units 05:40 12:27 Sodium (137-145) mmol/L BUN (9-20) mg/dL Creatinine (0.66-1.25) mg/dL Glucose (74-99) mg/dL POC Glucose (mg/dL) 146 H 185 H (70-110) mg/dL Calcium (8.4-10.2) mg/dL Assessment and Plan (1) Foot osteomyelitis, right Current Visit: Yes Status: Acute Code(s): M86.9 - OSTEOMYELITIS, UNSPECIFIED SNOMED Code(s): 0078931434165943 (2) Diabetic foot ulcer Current Visit: No Status: Acute Code(s): E11.621 - TYPE 2 DIABETES MELLITUS WITH FOOT ULCER; L97.509 - NON-PRESSURE CHRONIC ULCER OTH PRT UNSP FOOT W UNSP SEVERITY SNOMED Code(s): 889153560 (3) Type 2 diabetes mellitus with foot ulcer Current Visit: No Status: Acute Code(s): E11.621 - TYPE 2 DIABETES MELLITUS WITH FOOT ULCER; L97.509 - NON-PRESSURE CHRONIC ULCER OTH PRT UNSP FOOT W UNSP SEVERITY SNOMED Code(s): 5343208099716 Plan: 1patient presented to hospital with mental status change which is likely mu ltifactorial could be related to renal failure as the patient have significant elevated BUN and creatinine, apparently did have elevated potassium in the outpatient setting, patient also dealing with the chronic nonhealing wound on the plantar aspect of the right foot that has been previously debrided by vascular surgery wound base did have slough tissue and minimal surrounding redness x-rays were negative for any bony changes 2-local wound care with the Santyl followed by moist dressing to continue 3-patient repeat culture from the right foot is now growing Pseudomonas drug- resistant and also present to MRSA 4patient seem to have issues with the IV access and has not got his antibiotic for the last 3 days still waiting for final decision regarding hospice if not should go for a midline so the patient get his antibiotics discussed with the nursing staff Dictation was produced using [employer] dictation software. please excuse any grammatical, word or spelling errors. Time with Patient: Less than 30
[2024-02-01 14:39] VITALS: BMI 37.5
[2024-02-01 16:52] LABS: Glucose,Whole Blood 180 mg/dL (70-110)
[2024-02-01 20:28] LABS: Glucose,Whole Blood 308 mg/dL (70-110)
[2024-02-01 23:02] LABS: Glucose,Whole Blood 205 mg/dL (70-110)
[2024-02-02 05:56] LABS: Glucose,Whole Blood 188 mg/dL (70-110)
--- NOTE | 2024-02-02 06:23 | P.PN ---
Subjective Progress Note Date: 02/01/24 HISTORY OF PRESENT ILLNESS: 73-year-old morbidly obese with active medical history of atherosclerotic heart disease post myocardial infarction, severe peripheral arterial disease with infected right foot with osteomyelitis, type 2 diabetes, COPD, chronic history of neuropathy, chronic pain syndrome, hypertension, hyperlipidemia, chronic kidney disease with much worsening symptoms. Who has chronic anemia, recurrent encephalopathy with recurrent sepsis and infection who was hospitalized last and January 10 for altered mental status with confusion and worsening uremia and worsening right foot osteomyelitis slightly worsening BUN/creatinine at the time with 79 and 2.58 who ended up being in the hospital for 10 days his kidney function become slightly with worsening decline, continue to suffer from osteomyelitis of the right foot which will require eventually right above-knee amputation which vascular refused initially to schedule till at least is done with IV antibiotic being treated for urinary tract infection with sepsis for what seems like Klebsiella pneumonia. Patient ended up being stabilized he change his CODE STATUS at that point to DO NOT RESUSCITATE and long time talk with nephrology did not make any decision whether he wants to go for dialysis or not but he was not opposed to it at the time. He ended up going back to [facility] on IV antibiotics kept watching for any worsening symptoms. Over the last few days patient become severely more confused with much worsening condition his laboratory value continue to show severe uremia with BUN above 107 creatinine up to 4.0 with potassium level yesterday was as high as 6.6. Patient was giving 1 dose of Lokelma yesterday. 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 Patient continued to suffer from much worsening condition white blood cell up to 17.7 hemoglobin 8.2 decided to switch his antibiotics was giving apparently 1 dose of vancomycin and Zosyn consulted infectious disease admit patient to the hospital patient will need to see nephrology and probably will need to go on hemodialysis. 01/26/2024: Kidney function is much worse today with BUN up to 126 creatinine 4.2 GFR down to 13. Still waiting for nephrology for clearance for possible hemodialysis today. In the meanwhile will consult vascular and prepare for dialysis line. Patient also be seen in infectious disease with the current presentation this time despite being on IV cefepime patient hemoglobin is up to 17.7 culture still pending at this point change in plan with antibiotic changed to Zosyn and vanco mycin preliminary wound culture was positive for Pseudomonas which again will be waiting for infectious disease final. Patient was given some IV furosemide this shortness of breath slightly bit better still having significant dyspnea. 01/27/2024: Patient kidney function and anemia is much worse scheduled to see vascular for dialysis catheter and eventually will initiate hemodialysis today. His BUN is up to 131 today with creatinine 4.43 with GFR is 12. Culture from his foot came back this time positive for Pseudomonas aeruginosa the patient had seen infectious disease originally antibiotic was switched from cefepime to Zosyn and vancomycin infectious disease will switch him from Zosyn to Zerbaxa. Tunneled catheter placement for hemodialysis, Will address with infectious disease the possibility of having patient going for above-knee amputation of the right side while he is in the hospital this time. 01/28/2024:The patient had tunneled dialysis catheter in the left subclavian and ended up going for dialysis still not doing well currently despite is much worse. Continue to have significant infusion and altered mental status. With his comorbidities very high at this point I ended up speaking with the niece who is the guardian to notify her of his current condition and advised her to meet with the social insurance adviser and the nurse and highly advised at this point to do pall iative care and probably hospice she promised to discuss this with her family and make this decision conjunction with our opinion. Meanwhile nephrology still planning to do hemodialysis today, he is not running fever or chills but blood pressure remained quite bit low which why we had to terminate dialysis with early. 01/29/2024: After meeting the family yesterday decision is leaning toward hospice by Wednesday the meanwhile we will continue current management patient had hemodialysis yesterday for short bit of time in the moving 1 and half liter, hemoglobin still slightly below at 7.6 with white blood cell 11.5. Last blood test was done in January 26. Hemodialysis might still take place with his family doing a initiate hospice on Wednesday. Meanwhile pain management with morphine s ulfate oral along with lorazepam for anxiety. 01/30/2024: The patient is doing slightly better he had limited dialysis again continue to be dyspneic, confused, vitals to some degree are stable he is mildly tachycardic with pulse ox 93% on 4 L blood sugar has been running in the low 100 more stable. Since starting pain management with Roxanol and anxiety with lorazepam patient has been little bit more relaxed. Family are meeting with hospice on Wednesday and prepare probably for signing him up for hospice with for patient to go back to [facility] to do hospice and end-of-life. 01/31/2024: Nephrology are planning to do hemodialysis today and if family finalize their management to help patient going back to [facility] on hospice will have vascular pull the dialysis catheter before leaving the hospital. Patient mental status remained with quite bit confusion continue to have slight pruritus and itching his original testing for kidney failure especially with serology po sitive RHETT and low complement will require probably kidney biopsy which again patient is DO NOT RESUSCITATE and no code no further management will be done for the kidney failure and he is on acute advance kidney failure will require dialysis to keep him alive which patient was not doing well with it in the first place specially with the osteomyelitis and the potential of losing his leg. Again all discussion of plan with the family early to terminate dialysis and have patient go back to [facility] on hospice. 02/01/2024: Hemodialysis was done, patient's family still meeting with the social insurance adviser to discuss the plan best scenario in place for patient to be on for the plan of end of life including hospice apparently there is schedule appointment with the court for guardianship to carry on help patient to make final decision on his finances and medical care. The niece who is the [employer]ABLE [employer] and a guardian with the decision to not resuscitate and hospice care is already made but they are trying to make further planning on financially where to do hospice and the cost of that step in care at this point. Patient is hemodynamically stable he is little bit more alert today his itching and skin rash has improved some. REVIEW OF SYSTEMS: CONSTITUTIONAL: Morbidly obese in no acute respiratory distress. Slightly confused EYES: No icterus sclerae, no conjunctivitis. EARS, NOSE, MOUTH, THROAT, and FACE: No sore throat, lymphadenopathy, carotid bruits or deformity. RESPIRATORY: Mild shortness of breath mild cough no wheezes. CARDIOVASCULAR: Positive PND orthopnea palpitation. GASTROINTESTINAL: Abdominal discomfort with mild nausea with slight distention no vomiting. GENITOURINARY: Decreased urine output with incontinence slight change in urine color with worsening kidney failure. INTEGUMENT/BREAST: Negative for any muscular injury with mild osteoarthritis.. HEMATOLOGIC/LYMPHATIC: Worsening anemia MUSCULOSKELTAL: Myalgia arthralgia and significant discomfort with ulcer in the right foot. NEURLOGICAL: Slight confusion with worsening mental status compared to his baseline no focalized deficit. BEHAVIORAL/PSYCH: Negative. ENDOCRINE: Negative. PHYSICAL EXAMINATION: General Appearance: Alert, confused, no distress, appears stated age. Neck HEENT: Supple, no lymphadenopathy, no thyroid enlargement, no carotid bruits. Lungs: Decreased breath sound bilaterally with fine rhonchi no crackles or wheezes. Chest Wall: Decreased expansion with deep inspiration no tenderness and no deformity was found on exam, no costochondral pain or discomfort. Heart: Regular rate and rhythm, S1, S2 positive S3 positive systolic murmur. Back: Symmetric, no curvature, ROM normal, no CVA tenderness. Abdomen: Soft, non-tender, bowel sounds active all four quadrants, no masses, no organomegaly. Extremities: Right foot still have significant irritation edema redness with warmness to touch with significant decreased circulation. When to 2+ edema Pulses: Decreased pulse bilaterally worse on the right than the left side Skin: Skin color, texture, tugor normal, no rashes or lesions. Neurologic: Alert confused cranial nerves II through XII intact, no motor deficit, positive generalized weakness. ASSESSMENT AND PLAN: _End-stage renal disease: Will continue hemodialysis still the decision of end-of-life and hospice complete before we quit. _Altered mental status secondary to renal failure along with osteomyelitis much worse basically not improving despite dialysis and despite IV antibiotics patient had much worsening encephalopathy continue again the trend toward end-of-life at this point. _Severe decline and very high mortality and multi comorbidity, again plan for end-of-life and hospice care whether that is going to happen at the hospice house, the hospital or [facility] with private paid is all to be determined. _Hyperkalemia: Does not require any further Lokelma at this point, potassium is much better especially since start dialysis. _Slight dyspnea and shortness of breath most likely from fluid overload continue supportive care dialysis had helped some will continue oxygen as well. _Acute kidney injury with Chronic kidney disease: With much worsening kidney function at this point will admit patient consult nephrology continue current management. _Osteomyelitis of the right foot has been much worse with Pseudomonas aeruginosa, antibiotic will be changed to Zerbaxa. Will continue antibiotic again till final decision to stop when hospice taken effect. _Recent history of Klebsiella pneumonia urinary tract infection was treated with IV antibiotic for long enough. _Severe PAD consultation with vascular earlier in the month conclusion was to go for above-knee amputation which patient had declined at this point Sun continue to try his topical infection with antibiotic and wound care to see if it salvage the leg. _Peripheral neuropathy: He is on a smaller dose of gabapentin probably will work out better at this point specially with his level of uremia because complication and side effects, gabapentin and end-stage renal failure with metabolic. _Chronic pain syndrome: Continue hydrocodone orally. _Type 2 diabetes with hyperglycemia: Continue Accu-Chek with sliding scales coverage might benefit from adding long acting insulin at nighttime. _Hypothyroidism: Still on levothyroxine 112 mcg daily. _Hypertension: Blood pressure still slightly below but continue lisinopril 20 mg a day. _Hyperlipidemia: Was on simvastatin has been hold currently which will be resumed soon as patient able to tolerate medication. _Morbid obesity with BMI of 43.9: Which increases risk factor of complication. _Debility: Patient is wheelchair/bedbound not able to ambulate and walk. Discussion: Continue pain management continue hemodialysis medical care and antibiotic till the final decision of end-of-life and hospice care done that patient is ready to be transfer we can stop all of medical management except pain management and comfort care. Objective - Vital Signs Vital signs: Vital Signs Temp 98 F 02/01/24 02:05 Pulse 77 02/01/24 02:05 Resp 18 02/01/24 02:05 BP 134/69 02/01/24 02:05 Pulse Ox 96 02/01/24 02:05 FiO2 Intake & Output 01/31/24 01/31/24 02/01/24 06:59 18:59 06:59 Intake Total 120 500 Output Total 50 2500 Balance -50 120 -2000 Intake: Oral 120 Hemodialysis 500 Output: Urine 50 Hemodialysis 1500 Hemodialysis Net Amount 1000 Other: Voiding Method Indwelling Catheter Indwelling Catheter Indwelling Catheter - Labs CBC & Chem 7: 01/27/24 21:52 02/01/24 03:24 Labs: Abnormal Lab Results - Last 24 Hours (Table) 01/31/24 01/31/24 01/31/24 Range/Units 11:39 17:09 20:18 Sodium (137-145) mmol/L BUN (9-20) mg/dL Creatinine (0.66-1.25) mg/dL Glucose (74-99) mg/dL POC Glucose (mg/dL) 166 H 153 H 159 H (70-110) mg/dL Calcium (8.4-10.2) mg/dL 02/01/24 02/01/24 Range/Units 03:24 05:40 Sodium 134 L (137-145) mmol/L BUN 31 H (9-20) mg/dL Creatinine 2.51 H (0.66-1.25) mg/dL Glucose 139 H (74-99) mg/dL POC Glucose (mg/dL) 146 H (70-110) mg/dL Calcium 7.5 L (8.4-10.2) mg/dL
[2024-02-02] MEDS: CEFTOLOZANE/TAZOBACTAM 0.75 GM in SODIUM CHLORIDE 0.9% 100 ML IV SCH (09:57)
--- NOTE | 2024-02-02 10:31 | P.PN ---
Subjective Patient is seen in follow-up for acute kidney injury, hemodialysis dependent. Patient is a poor historian. Quite lethargic. Oliguric. Vital signs are stable. General: No acute distress. Lethargic. HEENT: Head exam is unremarkable. On nasal cannula. LUNGS: No audible rhonchi or wheezes. HEART: Rate and Rhythm are regular. ABDOMEN: Obese, no distention. EXTREMITITES: 2+ edema. No drainage. Objective - Vital Signs Vital signs: Vital Signs Temp 97.6 F 02/02/24 08:00 Pulse 80 02/02/24 09:06 Resp 18 02/02/24 08:00 BP 105/63 02/02/24 08:00 Pulse Ox 98 02/02/24 08:54 FiO2 Intake & Output 02/01/24 02/02/24 02/02/24 18:59 06:59 18:59 Intake Total 100 Output Total 100 25 Balance 0 -25 Weight 136.078 kg Intake: Oral 100 Output: Urine 100 25 Other: Voiding Method Indwelling Catheter Indwelling Catheter - Labs CBC & Chem 7: 01/27/24 21:52 02/01/24 03:24 Labs: Abnormal Lab Results - Last 24 Hours (Table) 02/01/24 02/01/24 02/01/24 Range/Units 12:27 16:50 20:26 POC Glucose (mg/dL) 185 H 180 H 308 H (70-110) mg/dL 02/01/24 02/02/24 Range/Units 23:01 05:55 POC Glucose (mg/dL) 205 H 188 H (70-110) mg/dL Assessment and Plan Plan: Assessment: 1. Acute kidney injury secondary to ATN secondary to severe sepsis. Also concern for underlying GN. Creatinine as low as 1.1 dated December 29, 2023 and up to 4.4 dated January 27, 2024. Started on hemodialysis January 27, 2024. Has permacath. Serologies show low C3, positive RHETT and intermediate double- stranded DNA antibody. Will need kidney biopsy once medically more stable and if family decides not to proceed with hospice. 2. Hyperkalemia secondary to acute kidney injury. Improved postdialysis. 3. Metabolic acidosis secondary to acute kidney injury. Improved postdialysis. 4. Right foot wound/osteomyelitis on IV antibiotics. 5. Anemia associated with chronic illness. On Aranesp. 6. Morbid obesity. 7. Benign hypertension. Stable. 8. Hyperphosphatemia secondary to acute kidney injury maintained on Renvela. Phosphorus level 6.8 dated January 26, 2024. Plan: Hemodialysis today. Maintain torsemide. Patient currently still not hospice. Guardianship being obtained. DC permacath prior to discharge if goes home on hospice.
[2024-02-02 11:27] LABS: Glucose,Whole Blood 106 mg/dL (70-110)
--- NOTE | 2024-02-03 07:40 | P.PN ---
Subjective Progress Note Date: 02/02/24 HISTORY OF PRESENT ILLNESS: 73-year-old morbidly obese with active medical history of atherosclerotic heart disease post myocardial infarction, severe peripheral arterial disease with infected right foot with osteomyelitis, type 2 diabetes, COPD, chronic history of neuropathy, chronic pain syndrome, hypertension, hyperlipidemia, chronic kidney disease with much worsening symptoms. Who has chronic anemia, recurrent encephalopathy with recurrent sepsis and infection who was hospitalized last and January 10 for altered mental status with confusion and worsening uremia and worsening right foot osteomyelitis slightly worsening BUN/creatinine at the time with 79 and 2.58 who ended up being in the hospital for 10 days his kidney function become slightly with worsening decline, continue to suffer from osteomyelitis of the right foot which will require eventually right above-knee amputation which vascular refused initially to schedule till at least is done with IV antibiotic being treated for urinary tract infection with sepsis for what seems like Klebsiella pneumonia. Patient ended up being stabilized he change his CODE STATUS at that point to DO NOT RESUSCITATE and long time talk with nephrology did not make any decision whether he wants to go for dialysis or not but he was not opposed to it at the time. He ended up going back to [facility] on IV antibiotics kept watching for any worsening symptoms. Over the last few days patient become severely more confused with much worsening condition his laboratory value continue to show severe uremia with BUN above 107 creatinine up to 4.0 with potassium level yesterday was as high as 6.6. Patient was giving 1 dose of Lokelma yesterday. Had helped some but through the night in the saw man hours he become a lot worse with worsening confusion not waking up well has been having slight increase shortness of breath with delusion and slight hallucination and that being sent to the emergency department at [facility] where was seen and evaluated for the above condition at the time he has been up to 127 creatinine 4.0 with the 1 dose of Lokelma his potassium is down to 5.7. Patient continued to suffer from much worsening condition white blood cell up to 17.7 hemoglobin 8.2 decided to switch his antibiotics was giving apparently 1 dose of vancomycin and Zosyn consulted infectious disease admit patient to the hospital patient will need to see nephrology and probably will need to go on hemodialysis. 01/26/2024: Kidney function is much worse today with BUN up to 126 creatinine 4.2 GFR down to 13. Still waiting for nephrology for clearance for possible hemodialysis today. In the meanwhile will consult vascular and prepare for dialysis line. Patient also be seen in infectious disease with the current presentation this time despite being on IV cefepime patient hemoglobin is up to 17.7 culture still pending at this point change in plan with antibiotic changed to Zosyn and vanco mycin preliminary wound culture was positive for Pseudomonas which again will be waiting for infectious disease final. Patient was given some IV furosemide this shortness of breath slightly bit better still having significant dyspnea. 01/27/2024: Patient kidney function and anemia is much worse scheduled to see vascular for dialysis catheter and eventually will initiate hemodialysis today. His BUN is up to 131 today with creatinine 4.43 with GFR is 12. Culture from his foot came back this time positive for Pseudomonas aeruginosa the patient had seen infectious disease originally antibiotic was switched from cefepime to Zosyn and vancomycin infectious disease will switch him from Zosyn to Zerbaxa. Tunneled catheter placement for hemodialysis, Will address with infectious disease the possibility of having patient going for above-knee amputation of the right side while he is in the hospital this time. 01/28/2024:The patient had tunneled dialysis catheter in the left subclavian and ended up going for dialysis still not doing well currently despite is much worse. Continue to have significant infusion and altered mental status. With his comorbidities very high at this point I ended up speaking with the niece who is the guardian to notify her of his current condition and advised her to meet with the social media strategist and the nurse and highly advised at this point to do pall iative care and probably hospice she promised to discuss this with her family and make this decision conjunction with our opinion. Meanwhile nephrology still planning to do hemodialysis today, he is not running fever or chills but blood pressure remained quite bit low which why we had to terminate dialysis with early. 01/29/2024: After meeting the family yesterday decision is leaning toward hospice by Wednesday the meanwhile we will continue current management patient had hemodialysis yesterday for short bit of time in the moving 1 and half liter, hemoglobin still slightly below at 7.6 with white blood cell 11.5. Last blood test was done in January 26. Hemodialysis might still take place with his family doing a initiate hospice on Wednesday. Meanwhile pain management with morphine s ulfate oral along with lorazepam for anxiety. 01/30/2024: The patient is doing slightly better he had limited dialysis again continue to be dyspneic, confused, vitals to some degree are stable he is mildly tachycardic with pulse ox 93% on 4 L blood sugar has been running in the low 100 more stable. Since starting pain management with Roxanol and anxiety with lorazepam patient has been little bit more relaxed. Family are meeting with hospice on Wednesday and prepare probably for signing him up for hospice with for patient to go back to [facility] to do hospice and end-of-life. 01/31/2024: Nephrology are planning to do hemodialysis today and if family finalize their management to help patient going back to [facility] on hospice will have vascular pull the dialysis catheter before leaving the hospital. Patient mental status remained with quite bit confusion continue to have slight pruritus and itching his original testing for kidney failure especially with serology po sitive RHETT and low complement will require probably kidney biopsy which again patient is DO NOT RESUSCITATE and no code no further management will be done for the kidney failure and he is on acute advance kidney failure will require dialysis to keep him alive which patient was not doing well with it in the first place specially with the osteomyelitis and the potential of losing his leg. Again all discussion of plan with the family early to terminate dialysis and have patient go back to [facility] on hospice. 02/01/2024: Hemodialysis was done, patient's family still meeting with the social media strategist to discuss the plan best scenario in place for patient to be on for the plan of end of life including hospice apparently there is schedule appointment with the court for guardianship to carry on help patient to make final decision on his finances and medical care. The niece who is the [employer] and a guardian with the decision to not resuscitate and hospice care is already made but they are trying to make further planning on financially where to do hospice and the cost of that step in care at this point. Patient is hemodynamically stable he is little bit more alert today his itching and skin rash has improved some. 02/02/2024: Family are going to court today for guardianship, patient is very comfortable not much pain, still making small amount of urine, hemodialysis will be done today also nephrology Patient on torsemide to increase diuretics effect on the kidney. Hyperkalemia has improved so far, right foot wound with osteomyelitis will remain on IV antibiotics for now the patient goes to hospice. If guardianship obtain and hospice approved patient might be going to [facility] today if not patient will be remain in the hospital till the steps completed. Patient otherwise hemodynamically stable REVIEW OF SYSTEMS: CONSTITUTIONAL: Morbidly obese in no acute respiratory distress. Slightly confused EYES: No icterus sclerae, no conjunctivitis. EARS, NOSE, MOUTH, THROAT, and FACE: No sore throat, lymphadenopathy, carotid bruits or deformity. RESPIRATORY: Mild shortness of breath mild cough no wheezes. CARDIOVASCULAR: Positive PND orthopnea palpitation. GASTROINTESTINAL: Abdominal discomfort with mild nausea with slight distention no vomiting. GENITOURINARY: Decreased urine output with incontinence slight change in urine color with worsening kidney failure. INTEGUMENT/BREAST: Negative for any muscular injury with mild osteoarthritis.. HEMATOLOGIC/LYMPHATIC: Worsening anemia MUSCULOSKELTAL: Myalgia arthralgia and significant discomfort with ulcer in the right foot. NEURLOGICAL: Slight confusion with worsening mental status compared to his baseline no focalized deficit. BEHAVIORAL/PSYCH: Negative. ENDOCRINE: Negative. PHYSICAL EXAMINATION: General Appearance: Alert, confused, no distress, appears stated age. Neck HEENT: Supple, no lymphadenopathy, no thyroid enlargement, no carotid bruits. Lungs: Decreased breath sound bilaterally with fine rhonchi no crackles or wheezes. Chest Wall: Decreased expansion with deep inspiration no tenderness and no deformity was found on exam, no costochondral pain or discomfort. Heart: Regular rate and rhythm, S1, S2 positive S3 positive systolic murmur. Back: Symmetric, no curvature, ROM normal, no CVA tenderness. Abdomen: Soft, non-tender, bowel sounds active all four quadrants, no masses, no organomegaly. Extremities: Right foot still have significant irritation edema redness with warmness to touch with significant decreased circulation. When to 2+ edema Pulses: Decreased pulse bilaterally worse on the right than the left side Skin: Skin color, texture, tugor normal, no rashes or lesions. Neurologic: Alert confused cranial nerves II through XII intact, no motor deficit, positive generalized weakness. ASSESSMENT AND PLAN: _End-stage renal disease: Will continue hemodialysis and supportive care today, continue torsemide and diuretics as well. _Altered mental status secondary to renal failure along with osteomyelitis much worse basically not improving despite dialysis and despite IV antibiotics patient had much worsening encephalopathy continue again the trend toward end-of-life at this point. _Severe decline and very high mortality and multi comorbidity, again plan for end-of-life and hospice care whether that is going to happen at the hospice house, the hospital or residential with private paid is all to be determined. _Hyperkalemia: Has improved significantly with hemodialysis no need for any Lokelma at this point. _Slight dyspnea and shortness of breath most likely from fluid overload continue supportive care dialysis had helped some will continue oxygen as well. _Acute kidney injury with Chronic kidney disease: With much worsening kidney function at this point will admit patient consult nephrology continue current management. _Osteomyelitis of the right foot has been much worse with Pseudomonas aeruginosa, antibiotic will be changed to Zerbaxa. Will continue antibiotics the patient goes to hospice. _Severe PAD consultation with vascular earlier in the month conclusion was to go for above-knee amputation which patient had declined at this point [place] to try his topical infection with antibiotic and wound care to see if it salvage the leg. _Peripheral neuropathy: He is on a smaller dose of gabapentin probably will work out better at this point specially with his level of uremia because complication and side effects, gabapentin and end-stage renal failure with metabolic. _Chronic pain syndrome: Continue hydrocodone orally. _Type 2 diabetes with hyperglycemia: Continue Accu-Chek with sliding scales coverage might benefit from adding long acting insulin at nighttime. _Hypothyroidism: Still on levothyroxine 112 mcg daily. _Hypertension: Blood pressure still slightly below but continue lisinopril 20 mg a day. _Hyperlipidemia: Was on simvastatin has been hold currently which will be resumed soon as patient able to tolerate medication. _Morbid obesity with BMI of 43.9: Which increases risk factor of complication. _Debility: Patient is wheelchair/bedbound not able to ambulate and walk. Discussion: Family are meeting at the court today for guardianship social media strategist helping him with it. Family might finalize a plan today to go to [facility] hospice if all set at the court. Objective - Vital Signs Vital signs: Vital Signs Temp 97.9 F 02/02/24 00:39 Pulse 84 02/02/24 00:39 Resp 17 02/02/24 00:39 BP 120/63 02/02/24 00:39 Pulse Ox 96 02/02/24 00:39 FiO2 Intake & Output 10/08/24 10/08/24 10/09/24 06:59 18:59 06:59 Intake Total 500 100 Output Total 2500 100 25 Balance -1999 0 -25 Weight 136.078 kg Intake: Oral 100 Hemodialysis 500 Output: Urine 100 25 Hemodialysis 1500 Hemodialysis Net Amount 1000 Other: Voiding Method Indwelling Catheter Indwelling Catheter Indwelling Catheter - Labs CBC & Chem 7: 01/27/24 21:52 02/01/24 03:24 Labs: Abnormal Lab Results - Last 24 Hours (Table) 02/01/24 02/01/24 02/01/24 Range/Units 12:27 16:50 20:26 POC Glucose (mg/dL) 185 H 180 H 308 H (70-110) mg/dL 02/01/24 02/02/24 Range/Units 23:01 05:55 POC Glucose (mg/dL) 205 H 188 H (70-110) mg/dL
--- NOTE | 2024-02-03 08:50 | P.PN ---
Subjective Progress Note Date: 02/02/24 Principal diagnosis: Reason for follow-up is right diabetic foot ulcer cellulitis and osteomyelitis Patient is a 73-year-old male with a past medical history significant for diabetes mellitus hypertension hyperlipidemia AK COPD hypothyroidism and this patient who has been dealing with a wound on the plantar aspect of the right foot that has been previously debrided by Dr. Gray and the patient has been on IV Rocephin for osteomyelitis patient have not been brought back to the hospital concerning for mental status changes and elevated production patient was did have evidence of acute renal failure. On today's evaluation that is 02/02/2024, Patient is afebrile patient is currently on 3 L nasal cannula oxygen, and is breathing comfortably does not seem to be any distress remains to be lethargic and cannot provide any history no vomiting or diarrhea has been provided. No new lab has been obtained today Objective - Vital Signs Vital signs: Vital Signs Temp 97.6 F 02/02/24 08:00 Pulse 74 02/02/24 12:06 Resp 18 02/02/24 08:00 BP 105/63 02/02/24 08:00 Pulse Ox 98 02/02/24 08:54 FiO2 Intake & Output 02/01/24 02/02/24 02/02/24 18:59 06:59 18:59 Intake Total 100 Output Total 100 25 Balance 0 -25 Weight 136.078 kg Intake: Oral 100 Output: Urine 100 25 Other: Voiding Method Indwelling Catheter Indwelling Catheter - Exam GENERAL DESCRIPTION: An elderly male lying in bed in no distress RESPIRATORY SYSTEM: Unlabored breathing , decreased breath sounds at bases HEART: S1 S2 regular rate and rhythm , ABDOMEN: Soft , no tenderness EXTREMITIES: Right foot wound is currently dressed no drainage - Labs CBC & Chem 7: 01/27/24 21:52 02/01/24 03:24 Labs: Abnormal Lab Results - Last 24 Hours (Table) 02/01/24 02/01/24 02/01/24 Range/Units 16:50 20:26 23:01 POC Glucose (mg/dL) 180 H 308 H 205 H (70-110) mg/dL 02/02/24 Range/Units 05:55 POC Glucose (mg/dL) 188 H (70-110) mg/dL Assessment and Plan (1) Foot osteomyelitis, right Current Visit: Yes Status: Acute Code(s): M86.9 - OSTEOMYELITIS, UNSPECIFIED SNOMED Code(s): 0406845017520571 (2) Diabetic foot ulcer Current Visit: No Status: Acute Code(s): E11.621 - TYPE 2 DIABETES MELLITUS WITH FOOT ULCER; L97.509 - NON-PRESSURE CHRONIC ULCER OTH PRT UNSP FOOT W UNSP SEVERITY SNOMED Code(s): 181452139 (3) Type 2 diabetes mellitus with foot ulcer Current Visit: No Status: Acute Code(s): E11.621 - TYPE 2 DIABETES MELLITUS WITH FOOT ULCER; L97.509 - NON-PRESSURE CHRONIC ULCER OTH PRT UNSP FOOT W UNSP SEVERITY SNOMED Code(s): 8506316953032 Plan: 1patient presented to hospital with mental status change which is likely multifactorial could be related to renal failure as the patient have significant elevated BUN and creatinine, apparently did have elevated potassium in the outpatient setting, patient also dealing with the chronic nonhealing wound on the plantar aspect of the right foot that has been previously debrided by vascular surgery wound base did have slough tissue and minimal surrounding redne ss x-rays were negative for any bony changes 2-local wound care with the Santyl followed by moist dressing to continue 3-patient repeat culture from the right foot is now growing Pseudomonas drug-resistant and also present to MRSA 4patient seem to have got IV access to the right upper arm hopefully we able to get his antibiotics that is daptomycin Zerbaxa, still waiting for the final decision regarding hospice/comfort prognosis remains to be guarded Dictation was produced using [employer] dictation software. please excuse any grammatical, word or spelling errors. Time with Patient: Less than 30
--- NOTE | 2024-02-03 10:29 | P.PN ---
Subjective Patient is seen in follow-up for acute kidney injury, hemodialysis dependent. Patient is a poor historian. Oliguric. No problems with dialysis yesterday. Vital signs are stable. General: No acute distress. Lethargic. HEENT: Head exam is unremarkable. On nasal cannula. LUNGS: No audible rhonchi or wheezes. HEART: Rate and Rhythm are regular. ABDOMEN: Obese, no distention. EXTREMITITES: 2+ edema. No drainage. Objective - Vital Signs Vital signs: Vital Signs Temp 97.5 F L 02/03/24 07:15 Pulse 74 02/03/24 09:24 Resp 17 02/03/24 07:15 BP 132/68 02/03/24 07:15 Pulse Ox 99 02/03/24 07:15 FiO2 Intake & Output 02/02/24 02/03/24 02/03/24 18:59 06:59 18:59 Intake Total 850 Output Total 3400 50 Balance -2550 -50 Intake: Oral 450 Hemodialysis 400 Output: Urine 50 Hemodialysis 1900 Hemodialysis Net Amount 1500 Other: Voiding Method Indwelling Catheter Indwelling Catheter - Labs CBC & Chem 7: 01/27/24 21:52 02/01/24 03:24 Assessment and Plan Plan: Assessment: 1. Acute kidney injury secondary to ATN secondary to severe sepsis. Also concern for underlying GN. Creatinine as low as 1.1 dated December 29, 2023 and up to 4.4 dated January 27, 2024. Started on hemodialysis January 27, 2024. Has permacath. Serologies show low C3, positive RHETT and intermediate double- stranded DNA antibody. Will need kidney biopsy once medically more stable and if family decides not to proceed with hospice. 2. Hyperkalemia secondary to acute kidney injury. Improved postdialysis. 3. Metabolic acidosis secondary to acute kidney injury. Improved postdialysis. 4. Right foot wound/osteomyelitis on IV antibiotics. 5. Anemia associated with chronic illness. On Aranesp. 6. Morbid obesity. 7. Benign hypertension. Stable. 8. Hyperphosphatemia secondary to acute kidney injury maintained on Renvela. Phosphorus level 6.8 dated January 26, 2024. Plan: Hemodialysis tomorrow. Maintain torsemide. Patient currently still not hospice. Guardianship being obtained. DC permacath prior to discharge if goes home on hospice.
[2024-02-03 11:00] LABS: ANA Pattern Homogenous
--- NOTE | 2024-02-03 13:09 | CDI ---
Documentation Clarification Form Date: 02/03/2024 12:20:00 PM From: Edwina Chau Phone: [phone] Admit Date: 01/25/2024 12:54:00 PM Patient Name: Mateusz Levin Visit Number: [id number] Discharge Date: ATTENTION: The Clinical Documentation Specialists (CDI) and [facility] Coding Staff appreciate your assistance in clarifying documentation. Please respond to the clarification below the line at the bottom and electronically sign. The CDI & [facility] Coding staff will review the response and follow-up if needed. Please note: Queries are made part of the Legal Health Record. If you have any questions, please contact the author of this message via ITS. Doctor: Mateusz Montoya The patient has Acute kidney injury secondary to ATN secondary to severe sepsis, 01/30, Nephrology. Based on this information and the findings below, is there an additional diagnosis that is clinically appropriate for this patient? History/Risk Factors: 73 year old male presents to the ED with elevated WBC, elevated potassium and altered mental status. Medical history: DM, HTN, HLD,[place], COPD Hypothyroidism and Wound on plantar aspect of the right foot. ED note, 01/24. Clinical Indicators: WBC, 01/24: 17.7 Lactic acid, 01/24: 0.7 Right foot culture, 01/24: Pseudomonas aeruginosa Methicillin resist S. aureus Vitals signs, 01/24: B/P 122/61; HR 88; Temp 97.5 F Oral; RR 22; SpO2 94% 4L nc Treatment: Antibiotics: 01/24 Zosyn IVPB x 1; 01/24 Vancomycin IVPB x 1; 01/24 01/25 Zoysn IVPB Q8H; 01/25 01/26 Zosyn IVPB Q12H; 01/26 02/01 Ceftolozane/Tazobactam IVPB Q8H; 01/27 01/29 Daptomycin IVPB Q48H; 01/31 Daptomycin IVPB Q24H; 02/01 Ceftolozane/Tazobactam IVPB Q8H. IV Bolus: 01/24 0.9NS 1L IVPB Bolus x 1; Is there an additional diagnosis that is clinically appropriate for this patient? [XX ] Sepsis, present on admission [ ] Severe Sepsis with organ failure [ ] Septic Shock [ ] No additional diagnosis/not clinically significant [ ] Other, please specify [ ] Unable to determine SIRS Criteria: 2 or more of the following may indicate SIRS Temperature < 96.8F (36C) or > 101.0F (38.3C) Heart Rate > 90 bpm Respiratory Rate > 20 breaths/min or PaCO2 < 32 mmHg White Blood Cell Count > 12,000 or < 4,000 cells/mm3 or > 10% bands (Template Last Reviewed: April 2023) GIULIANOD
--- NOTE | 2024-02-03 13:20 | CDI ---
Documentation Clarification Form Date: 02/03/2024 01:10:32 PM From: Edwina Chau RN CCDS Phone: [phone] Admit Date: 01/25/2024 12:54:00 PM Patient Name: Mateusz Levin Visit Number: [id number] Discharge Date: ATTENTION: The Clinical Documentation Specialists (CDI) and [facility] Coding Staff appreciate your assistance in clarifying documentation. Please respond to the clarification below the line at the bottom and electronically sign. The CDI & [facility] Coding staff will review the response and follow-up if needed. Please note: Queries are made part of the Legal Health Record. If you have any questions, please contact the author of this message via ITS. Dr. Mateusz Montoya Your patient has Slight dyspnea and shortness of breath, HP 01/24. Based on this information and the findings below, is there an additional diagnosis that is clinically appropriate for this patient? History/Risk Factors: 73 year old male presents to the ED with elevated WBC, elevated potassium and altered mental status. Medical history: DM, HTN, HLD,[place], COPD Hypothyroidism and Wound on plantar aspect of the right foot. ED note, 01/24 Tobacco use: Stopped smoking 28 years ago Clinical Indicators: Vitals signs, 01/24: B/P 122/61; HR 88; Temp 97.5 F Oral; RR 22; SpO2 94% 4L nc Lung/Breathing assessment, 01/24 HP: Decreased breath sound bilaterally with fine rhonchi 01/24, HP Slight dyspnea and shortness of breath most likely affected by the kidney failure causing more fluid retention and overload with worsening COPD updraft treatment, diuretics and probably the further solution will need to be done through dialysis. Treatment: Breathing tx 01/24 Albuterol / Ipratropium Duoneb Q2H PRN, 01/25 Albuterol / Ipratropium Duoneb QID RENY; Oxygen 3L to 4L Is there an additional diagnosis that is clinically appropriate for this patient? [ XX ] Acute Hypoxic Respiratory Failure [ ] No additional diagnosis/not clinically significant [ ] Other Diagnosis, please specify [ ] Unable to determine (Template Last Revised: April 2023) MTDD
--- NOTE | 2024-02-03 14:44 | P.PN ---
Subjective Progress Note Date: 02/03/24 Principal diagnosis: Reason for follow-up is right diabetic foot ulcer cellulitis and osteomyelitis Patient is a 73-year-old male with a past medical history significant for diabetes mellitus hypertension hyperlipidemia NM COPD hypothyroidism and this patient who has been dealing with a wound on the plantar aspect of the right foot that has been previously debrided by Dr. Gray and the patient has been on IV Rocephin for osteomyelitis patient have not been brought back to the hospital concerning for mental status changes and elevated production patient was did have evidence of acute renal failure. On today's evaluation that is 02/03/2024, patient has been afebrile, patient is breathing comfortably and is currently on 3 L nasal current oxygen patient seen to be slightly more awake today and did answer some simple question denies any chest pain or cough no vomiting or diarrhea has been reported. No new lab has been obtained today Objective - Vital Signs Vital signs: Vital Signs Temp 97.5 F L 02/03/24 13:27 Pulse 112 H 02/03/24 13:27 Resp 18 02/03/24 13:27 BP 95/62 02/03/24 13:27 Pulse Ox 97 02/03/24 13:27 FiO2 Intake & Output 02/02/24 02/03/24 02/03/24 18:59 06:59 18:59 Intake Total 850 Output Total 3400 50 Balance -2550 -50 Intake: Oral 450 Hemodialysis 400 Output: Urine 50 Hemodialysis 1900 Hemodialysis Net Amount 1500 Other: Voiding Method Indwelling Catheter Indwelling Catheter - Exam GENERAL DESCRIPTION: An elderly male lying in bed in no distress RESPIRATORY SYSTEM: Unlabored breathing , decreased breath sounds at bases HEART: S1 S2 regular rate and rhythm , ABDOMEN: Soft , no tenderness EXTREMITIES: Right foot wound is currently dressed no drainage - Labs CBC & Chem 7: 01/27/24 21:52 02/01/24 03:24 Assessment and Plan (1) Foot osteomyelitis, right Current Visit: Yes Status: Acute Code(s): M86.9 - OSTEOMYELITIS, UNSPECIFIED SNOMED Code(s): 8819476423693819 (2) Diabetic foot ulcer Current Visit: No Status: Acute Code(s): E11.621 - TYPE 2 DIABETES MELLITUS WITH FOOT ULCER; L97.509 - NON-PRESSURE CHRONIC ULCER OTH PRT UNSP FOOT W UNSP SEVERITY SNOMED Code(s): 313165313 (3) Type 2 diabetes mellitus with foot ulcer Current Visit: No Status: Acute Code(s): E11.621 - TYPE 2 DIABETES MELLITUS WITH FOOT ULCER; L97.509 - NON-PRESSURE CHRONIC ULCER OTH PRT UNSP FOOT W UNSP SEVERITY SNOMED Code(s): 7560653035727 Plan: 1patient presented to hospital with mental status change which is likely multifactorial could be related to renal failure as the patient have significant elevated BUN and creatinine, apparently did have elevated potassium in the outpatient setting, patient also dealing with the chronic nonhealing wound on the plantar aspect of the right foot that has been previously debrided by vascular surgery wound base did have slough tissue and minimal surrounding r edness x-rays were negative for any bony changes 2-local wound care with the Santyl followed by moist dressing to continue 3-patient repeat culture from the right foot is now growing Pseudomonas drug- resistant and also present to MRSA 4patient s currently being treated with daptomycin Zerbaxa, still waiting for the final decision regarding hospice/comfort prognosis remains to be guarded Dictation was produced using [employer] dictation software. please excuse any grammatical, word or spelling errors. Time with Patient: Less than 30
[2024-02-03 16:38] LABS: Glucose,Whole Blood 74 mg/dL (70-110)
[2024-02-03 20:21] LABS: Glucose,Whole Blood 111 mg/dL (70-110)
[2024-02-03 21:37] LABS: Glucose,Whole Blood 141 mg/dL (70-110)
[2024-02-03 21:37] LABS: Glucose,Whole Blood 161 mg/dL (70-110)
[2024-02-03 21:37] LABS: Glucose,Whole Blood 129 mg/dL (70-110)
[2024-02-03 21:37] LABS: Glucose,Whole Blood 79 mg/dL (70-110)
[2024-02-04 06:37] LABS: Glucose,Whole Blood 97 mg/dL (70-110)
--- NOTE | 2024-02-04 10:40 | P.PN ---
Subjective Patient is seen in follow-up for acute kidney injury, hemodialysis dependent. Mentation better today. Oliguric. Vital signs are stable. General: No acute distress. Lethargic. HEENT: Head exam is unremarkable. On nasal cannula. LUNGS: No audible rhonchi or wheezes. HEART: Rate and Rhythm are regular. ABDOMEN: Obese, no distention. EXTREMITITES: 2+ edema. No drainage. Objective - Vital Signs Vital signs: Vital Signs Temp 98.4 F 02/04/24 07:04 Pulse 111 H 02/04/24 09:06 Resp 20 02/04/24 07:04 BP 101/58 02/04/24 07:04 Pulse Ox 95 02/04/24 08:54 FiO2 Intake & Output 02/03/24 02/04/24 02/04/24 18:59 06:59 18:59 Intake Total 200 Output Total 50 100 Balance 150 -100 Intake: Intake, IV Titration 200 Amount Ceftolozane/Tazobactam 0. 100 75 gm In Sodium Chloride 0.9% 100 ml @ 100 mls/hr IV Q8H [facility] Rx#:[id number] DAPTOmycin 650 mg In 100 Sodium Chloride 0.9% 50 ml @ 100 mls/hr IVPB Q24H [facility] Rx#:[id number] Output: Urine 50 100 Other: Voiding Method Indwelling Catheter - Labs CBC & Chem 7: 01/27/24 21:52 02/01/24 03:24 Labs: Abnormal Lab Results - Last 24 Hours (Table) 02/02/24 02/03/24 02/03/24 Range/Units 21:05 06:00 11:44 POC Glucose (mg/dL) 161 H 141 H 129 H (70-110) mg/dL 02/03/24 Range/Units 20:20 POC Glucose (mg/dL) 111 H (70-110) mg/dL Microbiology - Last 24 Hours (Table) 01/25/24 10:50 Gram Stain - Final Foot - Right Wound Culture - Final Pseudomonas aeruginosa Methicillin resist S. aureus Assessment and Plan Plan: Assessment: 1. Acute kidney injury secondary to ATN secondary to severe sepsis. Also concern for underlying GN. Creatinine as low as 1.1 dated December 29, 2023 and up to 4.4 dated January 27, 2024. Started on hemodialysis January 27, 2024. Has permacath. Serologies show low C3, positive RHETT and intermediate double- stranded DNA antibody. Will need kidney biopsy once medically more stable and if family decides not to proceed with hospice. 2. Hyperkalemia secondary to acute kidney injury. Improved postdialysis. 3. Metabolic acidosis secondary to acute kidney injury. Improved postdialysis. 4. Right foot wound/osteomyelitis on IV antibiotics. 5. Anemia associated with chronic illness. On Aranesp. 6. Morbid obesity. 7. Benign hypertension. Stable. 8. Hyperphosphatemia secondary to acute kidney injury maintained on Renvela. Phosphorus level 6.8 dated January 26, 2024. Plan: Hemodialysis today. Maintain torsemide. Patient currently still not hospice. Guardianship being obtained. DC permacath prior to discharge if goes on hospice. Discussed case with case management and primary team. Plan is to be discharged on hospice today.
[2024-02-04 11:50] LABS: Glucose,Whole Blood 108 mg/dL (70-110)
[2024-02-04] MEDS: MIDODRINE 5 MG TAB PO STA (13:58)
--- NOTE | 2024-02-04 15:14 | P.PN ---
Subjective Progress Note Date: 02/04/24 Principal diagnosis: Reason for follow-up is right diabetic foot ulcer cellulitis and osteomyelitis Patient is a 73-year-old male with a past medical history significant for diabetes mellitus hypertension hyperlipidemia [place] COPD hypothyroidism and this patient who has been dealing with a wound on the plantar aspect of the right foot that has been previously debrided by Dr. Gray and the patient has been on IV Rocephin for osteomyelitis patient have not been brought back to the hospital concerning for mental status changes and elevated production patient was did have evidence of acute renal failure. On today's evaluation that is 02/04/2024, Patient is afebrile this morning patient is slightly more awake alert today with a cough but denies any chest pain did have a cough no sputum no vomiting or diarrhea has been reported. No new labs has been obtained today Objective - Vital Signs Vital signs: Vital Signs Temp 98.4 F 02/04/24 07:04 Pulse 113 H 02/04/24 14:53 Resp 17 02/04/24 14:53 BP 86/52 02/04/24 14:53 Pulse Ox 95 02/04/24 08:54 FiO2 Intake & Output 02/03/24 02/04/24 02/04/24 18:59 06:59 18:59 Intake Total 200 Output Total 50 100 50 Balance 150 -100 -50 Weight 136.078 kg Intake: Intake, IV Titration 200 Amount Ceftolozane/Tazobactam 0. 100 75 gm In Sodium Chloride 0.9% 100 ml @ 100 mls/hr IV Q8H [facility] Rx#:[id number] DAPTOmycin 650 mg In 100 Sodium Chloride 0.9% 50 ml @ 100 mls/hr IVPB Q24H [facility] Rx#:[id number] Output: Urine 50 100 50 Uretheral (Gray) 50 Other: Voiding Method Indwelling Catheter Indwelling Catheter - Exam GENERAL DESCRIPTION: An elderly male lying in bed in no distress RESPIRATORY SYSTEM: Unlabored breathing , decreased breath sounds at bases HEART: S1 S2 regular rate and rhythm , ABDOMEN: Soft , no tenderness EXTREMITIES: Right foot wound is currently dressed no drainage - Labs CBC & Chem 7: 01/27/24 21:52 02/01/24 03:24 Labs: Abnormal Lab Results - Last 24 Hours (Table) 10/09/24 10/10/24 10/10/24 Range/Units 21:05 06:00 11:44 POC Glucose (mg/dL) 161 H 141 H 129 H (70-110) mg/dL 02/03/24 Range/Units 20:20 POC Glucose (mg/dL) 111 H (70-110) mg/dL Microbiology - Last 24 Hours (Table) 01/25/24 10:50 Gram Stain - Final Foot - Right Wound Culture - Final Pseudomonas aeruginosa Methicillin resist S. aureus Assessment and Plan (1) Foot osteomyelitis, right Current Visit: Yes Status: Acute Code(s): M86.9 - OSTEOMYELITIS, UNSPECIFIED SNOMED Code(s): 6846816804927532 (2) Diabetic foot ulcer Current Visit: No Status: Acute Code(s): E11.621 - TYPE 2 DIABETES MELLITUS WITH FOOT ULCER; L97.509 - NON-PRESSURE CHRONIC ULCER OTH PRT UNSP FOOT W UNSP SEVERITY SNOMED Code(s): 066599124 (3) Type 2 diabetes mellitus with foot ulcer Current Visit: No Status: Acute Code(s): E11.621 - TYPE 2 DIABETES MELLITUS WITH FOOT ULCER; L97.509 - NON-PRESSURE CHRONIC ULCER OTH PRT UNSP FOOT W UNSP SEVERITY SNOMED Code(s): 4838477396585 Plan: 1patient presented to hospital with mental status change which is likely multifactorial could be related to renal failure as the patient have significant elevated BUN and creatinine, apparently did have elevated potassium in the outpatient setting, patient also dealing with the chronic nonhealing wound on the plantar aspect of the right foot that has been previously debrided by vascular surgery wound base did have slough tissue and minimal surrounding redness x-rays were negative for any bony changes 2-local wound care with the Santyl followed by moist dressing to continue 3-patient repeat culture from the right foot is now growing Pseudomonas drug- resistant and also present to MRSA 4patient is going to the hospice house this afternoon as reported by nursing st aff antibiotics can be safely discontinued Dictation was produced using [employer] dictation software. please excuse any grammatical, word or spelling errors. Time with Patient: Less than 30
[2024-02-04] MEDS: LIDOCAINE 1% INJ 10MG/ML (20 ML MDV) SQ ONE (15:46)
[2024-02-04 16:00] VITALS: BP 115/62; RESP 18; TEMP 97.7
[2024-02-04 16:12] VITALS: PULSE 104
--- NOTE | 2024-02-04 22:26 | P.PN ---
Subjective Progress Note Date: 02/03/24 HISTORY OF PRESENT ILLNESS: 73-year-old morbidly obese with active medical history of atherosclerotic heart disease post myocardial infarction, severe peripheral arterial disease with infected right foot with osteomyelitis, type 2 diabetes, COPD, chronic history of neuropathy, chronic pain syndrome, hypertension, hyperlipidemia, chronic kidney disease with much worsening symptoms. Who has chronic anemia, recurrent encephalopathy with recurrent sepsis and infection who was hospitalized last and January 10 for altered mental status with confusion and worsening uremia and worsening right foot osteomyelitis slightly worsening BUN/creatinine at the time with 79 and 2.58 who ended up being in the hospital for 10 days his kidney function become slightly with worsening decline, continue to suffer from osteomyelitis of the right foot which will require eventually right above-knee amputation which vascular refused initially to schedule till at least is done with IV antibiotic being treated for urinary tract infection with sepsis for what seems like Klebsiella pneumonia. Patient ended up being stabilized he change his CODE STATUS at that point to DO NOT RESUSCITATE and long time talk with nephrology did not make any decision whether he wants to go for dialysis or not but he was not opposed to it at the time. He ended up going back to [facility] on IV antibiotics kept watching for any worsening symptoms. Over the last few days patient become severely more confused with much worsening condition his laboratory value continue to show severe uremia with BUN above 107 creatinine up to 4.0 with potassium level yesterday was as high as 6.6. Patient was giving 1 dose of Lokelma yesterday. Had helped some but through the night in the lead ramp service man hours he become a lot worse with worsening confusion not waking up well has been having slight increase shortness of breath with delusion and slight hallucination and that being sent to the emergency department at [facility] where was seen and evaluated for the above condition at the time he has been up to 127 creatinine 4.0 with the 1 dose of Lokelma his potassium is down to 5.7. Patient continued to suffer from much worsening condition white blood cell up to 17.7 hemoglobin 8.2 decided to switch his antibiotics was giving apparently 1 dose of vancomycin and Zosyn consulted infectious disease admit patient to the hospital patient will need to see nephrology and probably will need to go on hemodialysis. 01/26/2024: Kidney function is much worse today with BUN up to 126 creatinine 4.2 GFR down to 13. Still waiting for nephrology for clearance for possible hemodialysis today. In the meanwhile will consult vascular and prepare for dialysis line. Patient also be seen in infectious disease with the current presentation this time despite being on IV cefepime patient hemoglobin is up to 17.7 culture still pending at this point change in plan with antibiotic changed to Zosyn and vanco mycin preliminary wound culture was positive for Pseudomonas which again will be waiting for infectious disease final. Patient was given some IV furosemide this shortness of breath slightly bit better still having significant dyspnea. 01/27/2024: Patient kidney function and anemia is much worse scheduled to see vascular for dialysis catheter and eventually will initiate hemodialysis today. His BUN is up to 131 today with creatinine 4.43 with GFR is 12. Culture from his foot came back this time positive for Pseudomonas aeruginosa the patient had seen infectious disease originally antibiotic was switched from cefepime to Zosyn and vancomycin infectious disease will switch him from Zosyn to Zerbaxa. Tunneled catheter placement for hemodialysis, Will address with infectious disease the possibility of having patient going for above-knee amputation of the right side while he is in the hospital this time. 01/28/2024:The patient had tunneled dialysis catheter in the left subclavian and ended up going for dialysis still not doing well currently despite is much worse. Continue to have significant infusion and altered mental status. With his comorbidities very high at this point I ended up speaking with the niece who is the guardian to notify her of his current condition and advised her to meet with the nephrology social worker and the nurse and highly advised at this point to do pall iative care and probably hospice she promised to discuss this with her family and make this decision conjunction with our opinion. Meanwhile nephrology still planning to do hemodialysis today, he is not running fever or chills but blood pressure remained quite bit low which why we had to terminate dialysis with early. 01/29/2024: After meeting the family yesterday decision is leaning toward hospice by Wednesday the meanwhile we will continue current management patient had hemodialysis yesterday for short bit of time in the moving 1 and half liter, hemoglobin still slightly below at 7.6 with white blood cell 11.5. Last blood test was done in January 26. Hemodialysis might still take place with his family doing a initiate hospice on Wednesday. Meanwhile pain management with morphine s ulfate oral along with lorazepam for anxiety. 01/30/2024: The patient is doing slightly better he had limited dialysis again continue to be dyspneic, confused, vitals to some degree are stable he is mildly tachycardic with pulse ox 93% on 4 L blood sugar has been running in the low 100 more stable. Since starting pain management with Roxanol and anxiety with lorazepam patient has been little bit more relaxed. Family are meeting with hospice on Wednesday and prepare probably for signing him up for hospice with for patient to go back to [facility] to do hospice and end-of-life. 01/31/2024: Nephrology are planning to do hemodialysis today and if family finalize their management to help patient going back to [facility] on hospice will have vascular pull the dialysis catheter before leaving the hospital. Patient mental status remained with quite bit confusion continue to have slight pruritus and itching his original testing for kidney failure especially with serology po sitive RHETT and low complement will require probably kidney biopsy which again patient is DO NOT RESUSCITATE and no code no further management will be done for the kidney failure and he is on acute advance kidney failure will require dialysis to keep him alive which patient was not doing well with it in the first place specially with the osteomyelitis and the potential of losing his leg. Again all discussion of plan with the family early to terminate dialysis and have patient go back to [facility] on hospice. 02/01/2024: Hemodialysis was done, patient's family still meeting with the nephrology social worker to discuss the plan best scenario in place for patient to be on for the plan of end of life including hospice apparently there is schedule appointment with the court for guardianship to carry on help patient to make final decision on his finances and medical care. The niece who is the [employer] OF [employer]ESSIONAL MIDWIFE and a guardian with the decision to not resuscitate and hospice care is already made but they are trying to make further planning on financially where to do hospice and the cost of that step in care at this point. Patient is hemodynamically stable he is little bit more alert today his itching and skin rash has improved some. 02/02/2024: Family are going to court today for guardianship, patient is very comfortable not much pain, still making small amount of urine, hemodialysis will be done today also nephrology Patient on torsemide to increase diuretics effect on the kidney. Hyperkalemia has improved so far, right foot wound with osteomyelitis will remain on IV antibiotics for now the patient goes to hospice. If guardianship obtain and hospice approved patient might be going to [facility] hospice today if not patient will be remain in the hospital till the steps completed. Patient otherwise hemodynamically stable. 02/03/2024: He is doing well continue to have slight itching sensation, he is kidney function and edema still bit of a problem at this point, patient will be continue hemodialysis as planned and apparently was scheduled for tomorrow with the skip dialysis for the 10th. Patient again still been considered to go to hospice waiting for guardianship per family to decide on family to help him to move to hospice. He has no immediate complaint or problem at this point, pain is under control, he is still on Aranesp to help his hemoglobin and anemia, his acute kidney injury and acute kidney failure continue to be a problem at this point. Ended backing off on medical management and to hospice probably patient will have his permacath removed after his dialysis tomorrow and prepare for hospice. REVIEW OF SYSTEMS: CONSTITUTIONAL: Morbidly obese in no acute respiratory distress. Slightly confused EYES: No icterus sclerae, no conjunctivitis. EARS, NOSE, MOUTH, THROAT, and FACE: No sore throat, lymphadenopathy, carotid bruits or deformity. RESPIRATORY: Mild shortness of breath mild cough no wheezes. CARDIOVASCULAR: Positive PND orthopnea palpitation. GASTROINTESTINAL: Abdominal discomfort with mild nausea with slight distention no vomiting. GENITOURINARY: Decreased urine output with incontinence slight change in urine color with worsening kidney failure. INTEGUMENT/BREAST: Negative for any muscular injury with mild osteoarthritis.. HEMATOLOGIC/LYMPHATIC: Worsening anemia MUSCULOSKELTAL: Myalgia arthralgia and significant discomfort with ulcer in the right foot. NEURLOGICAL: Slight confusion with worsening mental status compared to his baseline no focalized deficit. BEHAVIORAL/PSYCH: Negative. ENDOCRINE: Negative. PHYSICAL EXAMINATION: General Appearance: Alert, confused, no distress, appears stated age. Neck HEENT: Supple, no lymphadenopathy, no thyroid enlargement, no carotid bruits. Lungs: Decreased breath sound bilaterally with fine rhonchi no crackles or wheezes. Chest Wall: Decreased expansion with deep inspiration no tenderness and no deformity was found on exam, no costochondral pain or discomfort. Heart: Regular rate and rhythm, S1, S2 positive S3 positive systolic murmur. Back: Symmetric, no curvature, ROM normal, no CVA tenderness. Abdomen: Soft, non-tender, bowel sounds active all four quadrants, no masses, no organomegaly. Extremities: Right foot still have significant irritation edema redness with warmness to touch with significant decreased circulation. When to 2+ edema Pulses: Decreased pulse bilaterally worse on the right than the left side Skin: Skin color, texture, tugor normal, no rashes or lesions. Neurologic: Alert confused cranial nerves II through XII intact, no motor deficit, positive generalized weakness. ASSESSMENT AND PLAN: _End-stage renal disease: Will continue hemodialysis, still seen nephrology and hemodialysis will be done tomorrow no dialysis today. _Altered mental status secondary to renal failure along with osteomyelitis much worse basically not improving despite dialysis and despite IV antibiotics patient had much worsening encephalopathy continue again the trend toward end-of-life at this point. _Severe decline and very high mortality and multi comorbidity, again plan for end-of-life and hospice care whether that is going to happen at the hospice house, the hospital or [facility] with private paid is all to be determined. _Hyperkalemia: After use of Lokelma and initiate hemodialysis potassium is much better. _Slight dyspnea and shortness of breath most likely from fluid overload continue supportive care dialysis had helped some will continue oxygen as well. Continue oxygen on demand for patient comfort. _Acute kidney injury with Chronic kidney disease: Will support patient with hemodialysis while he is in-house patient discharged on hospice will discontinue hemodialysis. _Osteomyelitis of the right foot has been much worse with Pseudomonas aeruginosa, antibiotic will be changed to Zerbaxa. Will continue antibiotics the patient goes to hospice. _Severe PAD consultation with vascular earlier in the month conclusion was to go for above-knee amputation which patient had declined at this point Sun continue to try his topical infection with antibiotic and wound care to see if it salvage the leg. _Peripheral neuropathy: He is on a smaller dose of gabapentin probably will work out better at this point specially with his level of uremia because complication and side effects, gabapentin and end-stage renal failure with metabolic. _Chronic pain syndrome: Continue hydrocodone orally. _Type 2 diabetes with hyperglycemia: Continue Accu-Chek with sliding scales coverage might benefit from adding long acting insulin at nighttime. _Hypothyroidism: Still on levothyroxine 112 mcg daily. _Hypertension: Blood pressure still slightly below but continue lisinopril 20 mg a day. _Hyperlipidemia: Was on simvastatin has been hold currently which will be resumed soon as patient able to tolerate medication. _Morbid obesity with BMI of 43.9: Which increases risk factor of complication. _Debility: Patient is wheelchair/bedbound not able to ambulate and walk. Discussion: Still waiting for family guardianship to be finalized for them to make a plan and help patient to move into hospice at [facility]. Unfortunately this is not going to happen today but the plan at least might take an effect tomorrow. Objective - Vital Signs Vital signs: Vital Signs Temp 99.2 F 02/03/24 01:16 Pulse 113 H 02/03/24 01:16 Resp 18 02/03/24 01:16 BP 116/64 02/03/24 01:16 Pulse Ox 99 02/03/24 01:16 FiO2 Intake & Output 02/02/24 02/03/24 02/03/24 18:59 06:59 18:59 Intake Total 850 Output Total 3400 50 Balance -2550 -50 Intake: Oral 450 Hemodialysis 400 Output: Urine 50 Hemodialysis 1900 Hemodialysis Net Amount 1500 Other: Voiding Method Indwelling Catheter Indwelling Catheter - Labs CBC & Chem 7: 01/27/24 21:52 02/01/24 03:24
--- NOTE | 2024-02-04 22:35 | P.DS ---
Providers Date of admission: 01/25/24 12:54 Attending physician: Mateusz Montoya Consults: 01/25/24 12:52 Consult Physician Urgent Consulting Provider: Ranjit Vee Consult Reason/Comments: Chronic foot infection Do you want consulting provider notified?: Yes 01/25/24 20:40 Consult Physician Routine Consulting Provider: Quin Shook Consult Reason/Comments: Stage 5 CKD will need HD Do you want consulting provider notified?: Yes Primary care physician: Mateusz Jan [facility] Course: HISTORY OF PRESENT ILLNESS: 73-year-old morbidly obese with active medical history of atherosclerotic heart disease post myocardial infarction, severe peripheral arterial disease with infected right foot with osteomyelitis, type 2 diabetes, COPD, chronic history of neuropathy, chronic pain syndrome, hypertension, hyperlipidemia, chronic kidney disease with much worsening symptoms. Who has chronic anemia, recurrent encephalopathy with recurrent sepsis and infection who was hospitalized last and January 10 for altered mental status with confusion and worsening uremia and worsening right foot osteomyelitis slightly worsening BUN/creatinine at the time with 79 and 2.58 who ended up being in the hospital for 10 days his kidney function become slightly with worsening decline, continue to suffer from osteomyelitis of the right foot which will require eventually right above-knee amputation which vascular refused initially to schedule till at least is done with IV antibiotic being treated for urinary tract infection with sepsis for what seems like Klebsiella pneumonia. Patient ended up being stabilized he change his CODE STATUS at that point to DO NOT RESUSCITATE and long time talk with nephrology did not make any decision whether he wants to go for dialysis or not but he was not opposed to it at the time. He ended up going back to [facility] on IV antibiotics kept watching for any worsening symptoms. Over the last few days patient become severely more confused with much worsening condition his laboratory value continue to show severe uremia with BUN above 107 creatinine up to 4.0 with potassium level yesterday was as high as 6.6. Patient was giving 1 dose of Lokelma yesterday. Had helped some but through the night in the enterprise mobility architect hours he become a lot worse with worsening confusion not waking up well has been having slight increase shortness of breath with delusion and slight hallucination and that being sent to the emergency department at [facility] where was seen and evaluated for the above condition at the time he has been up to 127 creatinine 4.0 with the 1 dose of Lokelma his potassium is down to 5.7. Patient continued to suffer from much worsening condition white blood cell up to 17.7 hemoglobin 8.2 decided to switch his antibiotics was giving apparently 1 dose of vancomycin and Zosyn consulted infectious disease admit patient to the hospital patient will need to see nephrology and probably will need to go on hemodialysis. 01/26/2024: Kidney function is much worse today with BUN up to 126 creatinine 4.2 GFR down to 13. Still waiting for nephrology for clearance for possible hemodialysis today. In the meanwhile will consult vascular and prepare for dialysis line. Patient also be seen in infectious disease with the current presentation this time despite being on IV cefepime patient hemoglobin is up to 17.7 culture still pending at this point change in plan with antibiotic changed to Zosyn and vancomycin preliminary wound culture was positive for Pseudomonas which again will be waiting for infectious disease final. Patient was given some IV furosemide this shortness of breath slightly bit better still having significant dyspnea. 01/27/2024: Patient kidney function and anemia is much worse scheduled to see vascular for dialysis catheter and eventually will initiate hemodialysis today. His BUN is up to 131 today with creatinine 4.43 with GFR is 12. Culture from his foot came back this time positive for Pseudomonas aeruginosa the patient had seen infectious disease originally antibiotic was switched from cefepime to Zosyn and vancomycin infectious disease will switch him from Zosyn to Zerbaxa. Tunneled catheter placement for hemodialysis, Will address with infectious disease the possibility of having patient going for above-knee amputation of the right side while he is in the hospital this time. 01/28/2024:The patient had tunneled dialysis catheter in the left subclavian and ended up going for dialysis still not doing well currently despite is much worse. Continue to have significant infusion and altered mental status. With his comorbidities very high at this point I ended up speaking with the niece who is the guardian to notify her of his current condition and advised her to meet w ith the sr. social media & mobile manager and the nurse and highly advised at this point to do palliative care and probably hospice she promised to discuss this with her family and make this decision conjunction with our opinion. Meanwhile nephrology still planning to do hemodialysis today, he is not running fever or chills but blood pressure remained quite bit low which why we had to terminate dialysis with early. 01/29/2024: After meeting the family yesterday decision is leaning toward hospice by Wednesday the meanwhile we will continue current management patient had hemodialysis yesterday for short bit of time in the moving 1 and half liter, hemoglobin still slightly below at 7.6 with white blood cell 11.5. Last blood test was done in January 26. Hemodialysis might still take place with his family doing a initiate hospice on Wednesday. Meanwhile pain management with morphine sulfate oral along with lorazepam for anxiety. 01/30/2024: The patient is doing slightly better he had limited dialysis again continue to be dyspneic, confused, vitals to some degree are stable he is mildly tachycardic with pulse ox 93% on 4 L blood sugar has been running in the low 100 more stable. Since starting pain management with Roxanol and anxiety with lorazepam patient has been little bit more relaxed. Family are meeting with hospice on Wednesday and prepare probably for signing him up for hospice with for patient to go back to [facility] to do hospice and end-of-life. 01/31/2024: Nephrology are planning to do hemodialysis today and if family finalize their management to help patient going back to [facility] on hospice will have vascular pull the dialysis catheter before leaving the hospital. Patient mental status remained with quite bit confusion continue to have slight pruritus and itching his original testing for kidney failure especially with serology positive RHETT and low complement will require probably kidney biopsy which again patient is DO NOT RESUSCITATE and no code no further management will be done for the kidney failure and he is on acute advance kidney failure will require dialysis to keep him alive which patient was not doing well with it in the first place specially with the osteomyelitis and the potential of losing his leg. Again all discussion of plan with the family early to terminate dialysis and have patient go back to [facility] on hospice. 02/01/2024: Hemodialysis was done, patient's family still meeting with the sr. social media & mobile manager to discuss the plan best scenario in place for patient to be on for the plan of end of life including hospice apparently there is schedule appointment w ith the court for guardianship to carry on help patient to make final decision on his finances and medical care. The niece who is the DURABLE POWER OF HOG WORKER and a guardian with the decision to not resuscitate and hospice care is already made but they are trying to make further planning on financially where to do hospice and the cost of that step in care at this point. Patient is hemodynamically stable he is little bit more alert today his itching and skin rash has improved some. 02/02/2024: Family are going to court today for guardianship, patient is very comfortable not much pain, still making small amount of urine, hemodialysis will be done today also nephrology Patient on torsemide to increase diuretics effect on the kidney. Hyperkalemia has improved so far, right foot wound with o steomyelitis will remain on IV antibiotics for now the patient goes to hospice. If guardianship obtain and hospice approved patient might be going to [facility] today if not patient will be remain in the hospital till the steps completed. Patient otherwise hemodynamically stable. 02/03/2024: He is doing well continue to have slight itching sensation, he is kidney function and edema still bit of a problem at this point, patient will be continue hemodialysis as planned and apparently was scheduled for tomorrow with the skip dialysis for the . Patient again still been considered to go to hospice waiting for guardianship per family to decide on family to help him to move to hospice. He has no immediate complaint or problem at this point, pain is under control, he is still on Aranesp to help his hemoglobin and anemia, his acute kidney injury and acute kidney failure continue to be a problem at this point. Ended backing off on medical management and to hospice probably patient will have his permacath removed after his dialysis tomorrow and prepare for hospice. 02/04/2024: Family finalized in detail with hospice patient be transferred to the hospice house today around 6:00 in the evening, nephrology will be dialyzing patient for the next few hours and his permacath will be removed before he leaves the hospital. Discussed in detail with hospice final plan apparently moving him into the hospice house require pain management and antianxiety will be ordered by the director of hospice. Patient hemodynamically stable he is comfortable at this point no further blood drawn has been done last few days no blood transfusion required was continue on Aranesp and iron along with his IV antibiotic all along till today final plan today with patient probably will quit all not necessary medication and to stay on any medication for discomfort. REVIEW OF SYSTEMS: CONSTITUTIONAL: Morbidly obese in no acute respiratory distress. Slightly confused EYES: No icterus sclerae, no conjunctivitis. EARS, NOSE, MOUTH, THROAT, and FACE: No sore throat, lymphadenopathy, carotid bruits or deformity. RESPIRATORY: Mild shortness of breath mild cough no wheezes. CARDIOVASCULAR: Positive PND orthopnea palpitation. GASTROINTESTINAL: Abdominal discomfort with mild nausea with slight distention no vomiting. GENITOURINARY: Decreased urine output with incontinence slight change in urine color with worsening kidney failure. INTEGUMENT/BREAST: Negative for any muscular injury with mild osteoarthritis.. HEMATOLOGIC/LYMPHATIC: Worsening anemia MUSCULOSKELTAL: Myalgia arthralgia and significant discomfort with ulcer in the right foot. NEURLOGICAL: Slight confusion with worsening mental status compared to his baseline no focalized deficit. BEHAVIORAL/PSYCH: Negative. ENDOCRINE: Negative. PHYSICAL EXAMINATION: General Appearance: Alert, confused, no distress, appears stated age. Neck HEENT: Supple, no lymphadenopathy, no thyroid enlargement, no carotid bruits. Lungs: Decreased breath sound bilaterally with fine rhonchi no crackles or wheezes. Chest Wall: Decreased expansion with deep inspiration no tenderness and no deformity was found on exam, no costochondral pain or discomfort. Heart: Regular rate and rhythm, S1, S2 positive S3 positive systolic murmur. Back: Symmetric, no curvature, ROM normal, no CVA tenderness. Abdomen: Soft, non-tender, bowel sounds active all four quadrants, no masses, no organomegaly. Extremities: Right foot still have significant irritation edema redness with warmness to touch with significant decreased circulation. When to 2+ edema Pulses: Decreased pulse bilaterally worse on the right than the left side Skin: Skin color, texture, tugor normal, no rashes or lesions. Neurologic: Alert confused cranial nerves II through XII intact, no motor deficit, positive generalized weakness. ASSESSMENT AND PLAN: _End-stage renal disease: Will continue hemodialysis, still seen nephrology and hemodialysis will be done tomorrow no dialysis today. _Altered mental status secondary to renal failure along with osteomyelitis much worse basically not improving despite dialysis and despite IV antibiotics patient had much worsening encephalopathy continue again the trend toward end-of-life at this point. _Severe decline and very high mortality and multi comorbidity, again plan for end-of-life and hospice care whether that is going to happen at the hospice house, the hospital or prison with private paid is all to be determined. _Hyperkalemia: After use of Lokelma and initiate hemodialysis potassium is much better. _Slight dyspnea and shortness of breath most likely from fluid overload continue supportive care dialysis had helped some will continue oxygen as well. Continue oxygen on demand for patient comfort. _Acute kidney injury with Chronic kidney disease: Will support patient with hemodialysis while he is in-house patient discharged on hospice will discontinue hemodialysis. _Osteomyelitis of the right foot has been much worse with Pseudomonas aeruginosa, antibiotic will be changed to Zerbaxa. Will continue antibiotics the patient goes to hospice. _Severe PAD consultation with vascular earlier in the month conclusion was to go for above-knee amputation which patient had declined at this point Sun continue to try his topical infection with antibiotic and wound care to see if it salvage the leg. _Peripheral neuropathy: He is on a smaller dose of gabapentin probably will work out better at this point specially with his level of uremia because complication and side effects, gabapentin and end-stage renal failure with metabolic. _Chronic pain syndrome: Continue hydrocodone orally. _Type 2 diabetes with hyperglycemia: Continue Accu-Chek with sliding scales coverage might benefit from adding long acting insulin at nighttime. _Hypothyroidism: Still on levothyroxine 112 mcg daily. _Hypertension: Blood pressure still slightly below but continue lisinopril 20 mg a day. _Hyperlipidemia: Was on simvastatin has been hold currently which will be resumed soon as patient able to tolerate medication. _Morbid obesity with BMI of 43.9: Which increases risk factor of complication. _Debility: Patient is wheelchair/bedbound not able to ambulate and walk. Discussion: Family had the guardianship finalized and patient will be moving into the hospice house today, will be doing hemodialysis and removing his permacath before he leaves the hospital to go to the hospice house. Hospital course: Patient was admitted from [facility] on 01/25/2024 because of significant decline in condition and function he has been dealing with osteomyelitis of the right foot require above-knee amputation patient was diagnosed with UTI with Klebsiella pneumonia was on IV antibiotics for total of 4 weeks to cover his osteomyelitis along with the UTI with sepsis. Vascular at the time refused to have his amputation till he is done and complete with his IV antibiotics. Patient kidney function has been declining gradually he has become much worse on 01/25/2024 with severe fatigue tiredness decreased level of consciousness with altered mental status and worsening confusion his blood panel shows BUN of 107 with creatinine of 4.0 potassium of 6.6, was giving 1 dose of Lokelma with his declining condition patient was transferred to the emergency department at [facility] where was seen and evaluated after his Lokelma his potassium dropped down to 5.7 patient white blood cell is up to 17.7 with hemoglobin 8.2 was giving 1 dose of vancomycin along with Zosyn to cover gram-negative pneumonia and consult nephrology for possible hemodialysis. With a decline in kidney function his creatinine is up to 4.2 with bun 126 GFR down to 13 the patient originally was on cefepime IV was switched at this time per infectious disease to Zerbaxa which patient was maintained on it all along till his discharge. Consult vascular patient had permacath and start dialysis. After the first session of dialysis with his current infection and decline in overall condition patient become dyspneic lethargic tachycardic tachypneic and much worsening cognitive along with physical. We contacted the guardian which is the niece and addressed all the issue and ask for what decision to do agree to change his status to DO NOT RESUSCITATE and initially even with the start of hemodialysis to continue temporary but she is rudy try to go to court for guardianship for changing his status eventually into hospice and comfort care. Guardianship and working with the court to clear bedtime till finally done on 02/03/2024 the niece finally met with hospice and finalized the whole plan and decided to move patient to the hospice house to give him on comfort care only with no further IV antibiotic for hemodialysis. Patient was hemodialyzed last time today 02/04/2024 his permacath was removed and antibiotic. Patient will be from [place] on comfort care his mortality is extremely high and patient has many comorbidity at this point. Patient despite the guardianship and the niece making decision was very informed of all decision until the end and he was agreeable to all of it. Time spent on patient discharge was over 45 minutes. Patient Condition at Discharge: Fair Plan - Discharge Summary New Discharge Prescriptions: New Loratadine [Claritin] 10 mg PO DAILY PRN tab PRN Reason: Congestion Ipratropium-Albuterol Nebulize [Duoneb 0.5 mg-3 mg/3 ml Soln] 3 ml INHALATION RT-QID each Collagenase [Santyl Ointment] 1 applic TOPICAL DAILY each Continue Clopidogrel [Plavix] 75 mg PO DAILY@0800 cefTRIAXone [Rocephin] 2,000 mg IVP Q24HR #28 each Acetaminophen Tab [Tylenol] 650 mg PO Q6HR PRN tab PRN Reason: Fever And/ Or Pain Magnesium Hydroxide [Milk of Magnesia Concentrate] 7,200 mg PO Q48H PRN PRN Reason: Constipation Na Phos,M-B/Na Phos,Di-Ba [Fleet Adult] 133 ml RECTAL DAILY PRN PRN Reason: Constipation bisacodyL [Dulcolax] 10 mg RECTAL DAILY PRN PRN Reason: Constipation Jac Packet 1 packet PO BID@0800,1700 Liquacel 30 ml PO DAILY@1200 L.acidoph,Paracasei, B.lactis [Probiotic] 1 cap PO DAILY@1700 diphenhydrAMINE [Benadryl] 25 mg PO QID PRN cap PRN Reason: Itching Gabapentin [Neurontin] 400 mg PO BID@0800,1700 Levothyroxine Sodium [Synthroid] 112 mcg PO DAILY@0600 Insulin Aspart Prot/Insuln Asp [NovoLOG MIX 70-30 Flexpen] 20 unit SQ BID@0 800,1700 Loperamide [Imodium] 2 - 4 mg PO QID PRN PRN Reason: Diarrhea hydrALAZINE HCL [Apresoline] 25 mg PO Q6HR PRN PRN Reason: SBP>150 OR DIASTOLIC >90 Sennosides [Senokot] 17.2 mg PO HS@2100 Pantoprazole [Protonix] 40 mg PO DAILY@0600 Tamsulosin [Flomax] 0.4 mg PO DAILY@0600 amLODIPine [Norvasc] 5 mg PO DAILY@0800 Collagenase [Santyl Ointment] 1 applic TOPICAL DAILY each Menthol-Zinc Oxide Oint [Calmoseptine Ointment] 1 applic TOPICAL Q12H [place] Breakfast Essentials 1 packet PO BID@0800,1700 INSULIN ASPART (NovoLOG) [NovoLOG (formulary)] See Protocol SQ ACHS HYDROcodone/APAP 10-325MG [[place] 10-325] 1 tab PO Q6H PRN PRN Reason: wound pain Discontinued Furosemide [Lasix] 20 mg PO DAILY@0800 Darbepoetin [place] [Aranesp] 40 mcg SQ TH@0800 Simvastatin [Zocor] 40 mg PO HS@2100 Discharge Medication List Insulin Aspart Prot/Insuln Asp [NovoLOG MIX 70-30 Flexpen] 20 unit SQ BID@08 00,1700 11/23/23 [History] Levothyroxine Sodium [Synthroid] 112 mcg PO DAILY@0611/23/23 [History] Clopidogrel [Plavix] 75 mg PO DAILY@0812/26/23 [History] cefTRIAXone [Rocephin] 2,000 mg IVP Q24HR #28 each 12/30/23 [Rx] Acetaminophen Tab [Tylenol] 650 mg PO Q6HR PRN tab 12/31/23 [Rx] Jac Packet 1 packet PO BID@0800,1700 01/11/24 [History] L.acidoph,Paracasei, B.lactis [Probiotic] 1 cap PO DAILY@17001/11/24 [History] Liquacel 30 ml PO DAILY@1200 01/11/24 [History] Loperamide [Imodium] 2 - 4 mg PO QID PRN 01/11/24 [History] Magnesium Hydroxide [Milk of Magnesia Concentrate] 7,200 mg PO Q48H PRN 01/11/24 [History] Na Phos,M-B/Na Phos,Di-Ba [Fleet Adult] 133 ml RECTAL DAILY PRN 01/11/24 [History] Pantoprazole [Protonix] 40 mg PO DAILY@0601/11/24 [History] Sennosides [Senokot] 17.2 mg PO HS@2100 01/11/24 [History] Tamsulosin [Flomax] 0.4 mg PO DAILY@0601/11/24 [History] amLODIPine [Norvasc] 5 mg PO DAILY@0801/11/24 [History] bisacodyL [Dulcolax] 10 mg RECTAL DAILY PRN 01/11/24 [History] hydrALAZINE HCL [Apresoline] 25 mg PO Q6HR PRN 01/11/24 [History] Collagenase [Santyl Ointment] 1 applic TOPICAL DAILY each 01/18/24 [Rx] diphenhydrAMINE [Benadryl] 25 mg PO QID PRN cap 01/18/24 [Rx] [place] Breakfast Essentials 1 packet PO BID@0800,1700 01/25/24 [History] Gabapentin [Neurontin] 400 mg PO BID@0800,1700 01/25/24 [History] HYDROcodone/APAP 10-325MG [[place] 10-325] 1 tab PO Q6H PRN 01/25/24 [History] INSULIN ASPART (NovoLOG) [NovoLOG (formulary)] See Protocol SQ ACHS 01/25/24 [History] Menthol-Zinc Oxide Oint [Calmoseptine Ointment] 1 applic TOPICAL Q12H 01/25/24 [History] Collagenase [Santyl Ointment] 1 applic TOPICAL DAILY each 02/04/24 [Rx] Ipratropium-Albuterol Nebulize [Duoneb 0.5 mg-3 mg/3 ml Soln] 3 ml INHALATION RT-QID each 02/04/24 [Rx] Loratadine [Claritin] 10 mg PO DAILY PRN tab 02/04/24 [Rx] Follow up Appointment(s)/Referral(s): Mateusz Montoya MD [Primary Care Provider] - 1-2 days Mandy Carias, [NON-STAFF] - As Needed Discharge Disposition: HOME WITH HOSPICE
--- NOTE | 2024-02-07 08:41 | OP ---
OPERATIVE REPORT DATE OF SERVICE : PROCEDURE: Removal of dialysis catheter, left jugular approach. PROCEDURE IN DETAIL: The patient was seen in his room. Left side of the neck was prepped. 1% lidocaine was infiltrated at the exit site of catheter. A small incision was made at the exit site of catheter. Catheter was removed. Pressure dressing was applied. The patient tolerated the procedure well. MMMIGUEL / NEVINN: [id number] /
== END 2024-02-04 18:41 | disposition still patient (30) | DRG 871 ==
LOC: EC 07:37 → 4SSUR 12:54
PROVIDERS: ADMIT Internal Medicine Geriatric Medicine; ATTEND Internal Medicine Geriatric Medicine
PROC: B5181ZA Fluoroscopy of Superior Vena Cava using Low Osmolar Contrast, Guidance (ICD-10-PCS; 2024-01-27)
PROC: 5A1D70Z Performance of Urinary Filtration, Intermittent, Less than 6 Hours Per Day (ICD-10-PCS; principal; 2024-01-27 16:30)
PROC: 0JH63XZ Insertion of Tunneled Vascular Access Device into Chest Subcutaneous Tissue and Fascia, Percutaneous Approach (ICD-10-PCS; 2024-01-27 16:30)
PROC: 02HV33Z Insertion of Infusion Device into Superior Vena Cava, Percutaneous Approach (ICD-10-PCS; 2024-01-27 16:30)
PROC: 05PY33Z Removal of Infusion Device from Upper Vein, Percutaneous Approach (ICD-10-PCS; 2024-02-04)
DX: A41.59 Other Gram-negative sepsis (principal); G93.41 Metabolic encephalopathy; N17.0 Acute kidney failure with tubular necrosis; N18.6 End stage renal disease; J96.01 Acute respiratory failure with hypoxia; E87.20 Acidosis, unspecified; I12.0 Hypertensive chronic kidney disease with stage 5 chronic kidney disease or end stage renal disease; M86.9 Osteomyelitis, unspecified; N39.0 Urinary tract infection, site not specified; L03.115 Cellulitis of right lower limb; Z16.24 Resistance to multiple antibiotics; Z68.41 Body mass index [BMI] 40.0-44.9, adult; Z66 Do not resuscitate; Z51.5 Encounter for palliative care; R65.20 Severe sepsis without septic shock; E87.5 Hyperkalemia; D63.1 Anemia in chronic kidney disease; E83.39 Other disorders of phosphorus metabolism; Z99.2 Dependence on renal dialysis; E11.42 Type 2 diabetes mellitus with diabetic polyneuropathy; G89.4 Chronic pain syndrome; Z74.01 Bed confinement status; Z99.3 Dependence on wheelchair; E66.01 Morbid (severe) obesity due to excess calories; E78.5 Hyperlipidemia, unspecified; Z79.899 Other long term (current) drug therapy; E03.9 Hypothyroidism, unspecified; Z79.890 Hormone replacement therapy; E11.621 Type 2 diabetes mellitus with foot ulcer; E11.69 Type 2 diabetes mellitus with other specified complication; E11.22 Type 2 diabetes mellitus with diabetic chronic kidney disease; E11.51 Type 2 diabetes mellitus with diabetic peripheral angiopathy without gangrene; E11.65 Type 2 diabetes mellitus with hyperglycemia; I25.10 Atherosclerotic heart disease of native coronary artery without angina pectoris; I25.2 Old myocardial infarction; J44.9 Chronic obstructive pulmonary disease, unspecified; F41.9 Anxiety disorder, unspecified; E11.628 Type 2 diabetes mellitus with other skin complications; L97.519 Non-pressure chronic ulcer of other part of right foot with unspecified severity; Z79.4 Long term (current) use of insulin; Z79.02 Long term (current) use of antithrombotics/antiplatelets; Z87.891 Personal history of nicotine dependence
CPT/HCPCS: 36410; 36415; 36558; 71045; 76937; 77001; 80048; 80053; 81001; 83516; 83605; 83735; 83880; 84100; 84484; 85025; 85027; 85610; 85730; 86038; 86039; 86160; 86225; 86255; 86334; 86335; 86706; 86803; 87040; 87070; 87077; 87186; 87205; 87340; 90935; 93005; 94640; 94760; 96361; 96365; 96366; 96368; 99285